=== PATIENT | female | born 1950 | race Caucasian/White ===

== ENCOUNTER 2017-11-19 14:48 | Inpatient (IN) | payer MEDICARE, OTHER ==
[2017-11-19] MEDS ORDERED: NITROGLYCERIN OINT 1 INCH/GM PACKET TOPICAL STA (15:23)
--- NOTE | 2017-11-19 15:27 | ED ---
General Adult HPI - General Chief complaint: Chest Pain Stated complaint: Arm numbness Time Seen by Provider: 11/19/17 14:50 Source: patient, RN notes reviewed Mode of arrival: wheelchair Limitations: no limitations - History of Present Illness Initial comments: This is a 67-year-old female presents to the emergency department complaining of heaviness in her chest since Tuesday when she was shoveling. Patient states she normally consolable whole driveway but she was unable to because she was so short of breath and had a heaviness in her chest. Patient denies any abdominal pain patient denies any nausea vomiting or diarrhea. Patient denies difficulty breathing. Patient denies any recent cough or fever. Patient denies headache patient denies any numbness or weakness. Patient denies lightheadedness dizziness or near syncopal episode. - Related Data Home Medications Medication Instructions Recorded Confirmed Aspirin [Adult Low Dose Aspirin EC] 81 mg PO DAILY 11/19/17 11/19/17 Clopidogrel Bisulfate [Plavix] 75 mg PO DAILY 11/19/17 11/19/17 Fluticasone Nasal [place] [Flonase 1 spray EA NOSTRIL DAILY PRN 11/19/17 11/19/17 Nasal [place]] Gabapentin [Neurontin] 800 mg PO TID 11/19/17 11/19/17 Omeprazole 40 mg PO DAILY 11/19/17 11/19/17 Simvastatin 40 mg PO HS 11/19/17 11/19/17 Unknown Inhaler 1 puff INHALATION RT-DAILY PRN 11/19/17 11/19/17 clonazePAM [KlonoPIN] 2 mg PO HS PRN 11/19/17 11/19/17 Allergies Allergy/AdvReac Type Severity Reaction Status Date / Time codeine Allergy Unknown Verified 11/19/17 15:40 Latex, Natural Rubber Allergy Itching Verified 11/19/17 15:40 morphine AdvReac Vomiting Verified 11/19/17 15:40 Review of Systems ROS Statement: Those systems with pertinent positive or pertinent negative responses have been documented in the HPI. ROS Other: All systems not noted in ROS Statement are negative. Past Medical History Past Medical History: COPD, GERD/Reflux, Hyperlipidemia History of Any Multi-Drug Resistant Organisms: None Reported Past Surgical History: Bariatric Surgery, Cholecystectomy, Hysterectomy Additional Past Surgical History / Comment(s): cataract Past Psychological History: No Psychological Hx Reported Smoking Status: Current every day smoker Past Alcohol Use History: None Reported Past Drug Use History: None Reported General Exam - General Exam Comments Initial Comments: GENERAL: Patient is well-developed and well-nourished. Patient is nontoxic and well- hydrated and is in mild distress. ENT: Neck is soft and supple. No significant lymphadenopathy is noted. Oropharynx is clear. Moist mucous membranes. Neck has full range of motion without eliciting any pain. EYES: The sclera were anicteric and conjunctiva were pink and moist. Extraocular movements were intact and pupils were equal round and reactive to light. Eyelids were unremarkable. PULMONARY: Unlabored respirations. Good breath sounds bilaterally. No audible rales rhonchi or wheezing was noted. CARDIOVASCULAR: Patient is bradycardic. ABDOMEN: Soft and nontender with normal bowel sounds. No palpable organomegaly was noted. There is no palpable pulsatile mass. SKIN: Skin is clear with no lesions or rashes and otherwise unremarkable. NEUROLOGIC: Patient is alert and oriented x3. Cranial nerves II through XII are grossly intact. Motor and sensory are also intact. Normal speech, volume and content. Symmetrical smile. MUSCULOSKELETAL: Normal extremities with adequate strength and full range of motion. No lower extremity swelling or edema. No calf tenderness. LYMPHATICS: No significant lymphadenopathy is noted PSYCHIATRIC: Normal psychiatric evaluation. Limitations: no limitations Course Vital Signs 11/19/17 11/19/17 14:52 15:25 Temperature 97.2 F L Pulse Rate 43 L Pulse Rate [ 45 L [employer]er ] Respiratory 18 Rate Blood Pressure 122/57 O2 Sat by Pulse 100 Oximetry Medical Decision Making - Medical Decision Making EKG shows sinus bradycardia at 39 bpm LA interval 150 QRS is 76 QT intervals 496 QTC is 399. Patient's EKG shows no ST segment elevation or depression or T wave abnormalities are noted. Troponin is elevated so started the patient on heparin patient's heart rate continues to be in the 40s. I spoke with Dr. Bennett he agreed to admit the patient admitted the patient. I spoke with Dr. Martinez and admitted the patient. - Lab Data Result diagrams: 11/19/17 15:25 11/19/17 15:25 Lab Results 11/19/17 11/19/17 11/19/17 Range/Units 15:25 15:25 15:25 WBC 6.6 (3.8-10.6) k/uL RBC 5.06 (3.80-5.40) m/uL Hgb 14.8 (11.4-16.0) gm/dL Hct 46.5 H (34.0-46.0) % MCV 92.0 (80.0-100.0) fL MCH 29.2 (25.0-35.0) pg MCHC 31.8 (31.0-37.0) g/dL RDW 15.2 (11.5-15.5) % Plt Count 145 L (150-450) k/uL Neutrophils % 67 % Lymphocytes % 25 % Monocytes % 4 % Eosinophils % 2 % Basophils % 1 % Neutrophils # 4.4 (1.3-7.7) k/uL Lymphocytes # 1.6 (1.0-4.8) k/uL Monocytes # 0.3 (0-1.0) k/uL Eosinophils # 0.1 (0-0.7) k/uL Basophils # 0.1 (0-0.2) k/uL PT (9.0-12.0) sec INR (<1.2) APTT (22.0-30.0) sec Sodium 144 (137-145) mmol/L Potassium 4.8 (3.5-5.1) mmol/L Chloride 110 H (98-107) mmol/L Carbon Dioxide 25 (22-30) mmol/L Anion Gap 9 mmol/L BUN 19 H (7-17) mg/dL Creatinine 0.60 (0.52-1.04) mg/dL Est GFR (MDRD) Af Amer >60 (>60 ml/min/1.73 sqM) Est GFR (MDRD) Non-Af >60 (>60 ml/min/1.73 sqM) Glucose 116 H (74-99) mg/dL Calcium 9.2 (8.4-10.2) mg/dL Magnesium 2.1 (1.6-2.3) mg/dL Total Bilirubin 0.6 (0.2-1.3) mg/dL AST 25 (14-36) U/L ALT 26 (9-52) U/L Alkaline Phosphatase 48 (38-126) U/L Total Creatine Kinase 94 (30-135) U/L CK-MB (CK-2) 5.6 H* (0.0-2.4) ng/mL CK-MB (CK-2) Rel Index 6.0 Troponin I 0.667 H* (0.000-0.034) ng/mL NT-Pro-B Natriuret Pep pg/mL Total Protein 6.2 L (6.3-8.2) g/dL Albumin 3.6 (3.5-5.0) g/dL 11/19/17 11/19/17 Range/Units 15:25 15:25 WBC (3.8-10.6) k/uL RBC (3.80-5.40) m/uL Hgb (11.4-16.0) gm/dL Hct (34.0-46.0) % MCV (80.0-100.0) fL MCH (25.0-35.0) pg MCHC (31.0-37.0) g/dL RDW (11.5-15.5) % Plt Count (150-450) k/uL Neutrophils % % Lymphocytes % % Monocytes % % Eosinophils % % Basophils % % Neutrophils # (1.3-7.7) k/uL Lymphocytes # (1.0-4.8) k/uL Monocytes # (0-1.0) k/uL Eosinophils # (0-0.7) k/uL Basophils # (0-0.2) k/uL PT 9.6 (9.0-12.0) sec INR 1.0 (<1.2) APTT 22.5 (22.0-30.0) sec Sodium (137-145) mmol/L Potassium (3.5-5.1) mmol/L Chloride (98-107) mmol/L Carbon Dioxide (22-30) mmol/L Anion Gap mmol/L BUN (7-17) mg/dL Creatinine (0.52-1.04) mg/dL Est GFR (MDRD) Af Amer (>60 ml/min/1.73 sqM) Est GFR (MDRD) Non-Af (>60 ml/min/1.73 sqM) Glucose (74-99) mg/dL Calcium (8.4-10.2) mg/dL Magnesium (1.6-2.3) mg/dL Total Bilirubin (0.2-1.3) mg/dL AST (14-36) U/L ALT (9-52) U/L Alkaline Phosphatase (38-126) U/L Total Creatine Kinase (30-135) U/L CK-MB (CK-2) (0.0-2.4) ng/mL CK-MB (CK-2) Rel Index Troponin I (0.000-0.034) ng/mL NT-Pro-B Natriuret Pep 762 pg/mL Total Protein (6.3-8.2) g/dL Albumin (3.5-5.0) g/dL Disposition Clinical Impression: Non-STEMI (non-ST elevated myocardial infarction), Bradycardia Disposition: ADMITTED IP TO THIS HOSP Referrals: Chelsie Morales DO [Primary Care Provider] - 1-2 days Time of Disposition: 16:35
[2017-11-19] MEDS: ASPIRIN 81 MG PO STA ×2 (15:29→15:31)
[2017-11-19 15:33] LABS: Basophils # (A) 0.1 k/uL (0-0.2); Basophils % (A) 1 %; Eosinophils # (A) 0.1 k/uL (0-0.7); Eosinophils % (A) 2 %; HCT 46.5 % (34.0-46.0); HGB 14.8 gm/dL (11.4-16.0); Lymphocytes # (A) 1.6 k/uL (1.0-4.8); Lymphocytes % (A) 25 %; MCH 29.2 pg (25.0-35.0); MCHC 31.8 g/dL (31.0-37.0); Mean Platelet Volume 8.8; Monocytes # (A) 0.3 k/uL (0-1.0); Monocytes % (A) 4 %; Neutrophils # (A) 4.4 k/uL (1.3-7.7); Neutrophils % (A) 67 %; Platelet Count 145 k/uL (150-450); RBC 5.06 m/uL (3.80-5.40); RDW 15.2 % (11.5-15.5); WBC 6.6 k/uL (3.8-10.6)
[2017-11-19 15:49] LABS: Partial Thromboplastin Time 22.5 sec (22.0-30.0); Prothrombin Time 9.6 sec (9.0-12.0)
--- NOTE | 2017-11-19 16:06 | XR ---
EXAMINATION TYPE: XR chest 2V DATE OF EXAM: 11/19/2017 COMPARISON: NONE HISTORY: Chest pain. TECHNIQUE: Frontal and lateral views of the chest are obtained. FINDINGS: There is no focal air space opacity, pleural effusion, or pneumothorax seen. The cardiac silhouette size is mildly enlarged within normal limits. The osseous structures are intact. IMPRESSION: Mild cardiomegaly without acute pulmonary process.
[2017-11-19 16:09] LABS: Anion Gap 9 mmol/L; Calcium 9.2 mg/dL (8.4-10.2); Carbon Dioxide 25 mmol/L (22-30); Chloride 110 mmol/L (98-107); Glucose 116 mg/dL (74-99); Sodium 144 mmol/L (137-145); Total Bilirubin 0.6 mg/dL (0.2-1.3)
[2017-11-19 16:13] LABS: ALT 26 U/L (9-52); AST 25 U/L (14-36); Albumin 3.6 g/dL (3.5-5.0); Alkaline Phosphatase 48 U/L (38-126); Blood Urea Nitrogen 19 mg/dL (7-17); Magnesium 2.1 mg/dL (1.6-2.3); Potassium 4.8 mmol/L (3.5-5.1); Total Protein 6.2 g/dL (6.3-8.2)
[2017-11-19 16:14] LABS: Creatine Kinase MB 5.6 ng/mL (0.0-2.4); Troponin I 0.667 ng/mL (0.000-0.034)
[2017-11-19] MEDS ORDERED: HEPARIN SODIUM,PORCINE 5,000 UNIT/ML 1 ML VIAL IV ONE (16:33)
[2017-11-19] MEDS: HEPARIN SOD,PORK IN 0.45% NACL 25,000 UNIT in 0.45% NACL 1 500ML.BAG IV SCH (17:10)
[2017-11-19] MEDS ORDERED: NITROGLYCERIN SL TABS 0.4 MG TAB SUBLINGUAL PRN (17:23)
[2017-11-19 17:34] LABS: T4, Free (Free Thyroxine) 1.31 ng/dL (0.78-2.19)
[2017-11-19] MEDS ORDERED: ATORVASTATIN 80 MG TAB PO STA (17:36)
--- NOTE | 2017-11-19 17:47 | P.CRDCN ---
History of Present Illness Consult reason: chest pain, shortness of breath Chief complaint: bradycardia History of present illness: 67-year-old female who presents to the hospital with increasing shortness of breath and heaviness/pressure in the chest. She's been experiencing these symptoms for the last several days at least 3-4 days. She was shoveling snow when she started having midsternal chest discomfort and this went away. It came back again a day later when she was moving furniture. She's had almost constant discomfort. She is very short of breath with exertion. When she arrived to the 12-lead ECG showed sinus bradycardia in the low 40s no ST segment abnormalities sinus mechanism her first troponin is mildly abnormal Past history of peripheral vascular disease status post peripheral intervention by Dr. Mireles. She lived in [place] and will go to [facility] but now has moved [place] would like to get her care in the [place] area. History of dyslipidemia. No diabetes, GERD COPD dyslipidemia Strong family history of premature coronary artery disease. All her brothers had coronary artery disease and heart failure Past surgical history of bariatric surgery cholecystectomy hysterectomy cataract surgery Daily smoking currently. Minimal alcohol use Occasional list was reviewed. This time she does not take any pills Labs are reviewed white count is 6.6, hemoglobin is normal, BUN 19 creatinine 0.6 Troponin is 0.66, CPK 94 electrolytes normal liver functions normal On examination she is sitting comfortably in bed she has this vague dull ache in the chest which is been constant for the last 2 days. Heart rate in the 40s , blood pressure 119/61 mmHg normal respirations afebrile no current bruits no JVD Heart sounds S1 and S2 are soft no murmurs or gallops Breath sounds are reduced bilaterally no rhonchi no crackles Abdomen soft nontender extremities no lower extremity edema Impression Patient presenting with heaviness in his chest with exertion consistent with angina with a very mild increase in troponins without any ST-T abnormalities on EKG Sinus bradycardia in the 40s Shortness of breath with exertion Peripheral vascular disease status post peripheral intervention bilaterally about a year and a half back at [facility] Dyslipidemia Likely non-Q-wave myocardial infarction, symptomatic sinus bradycardia not on any medications Plan IV heparin and IV nitroglycerin atorvastatin 80 mg daily aspirin Monitor on telemetry 3 serial cardiac enzymes 2-D echo and Doppler study to assess cardiac structure and function Management of coronary artery disease thereafter May need permanent pacemaker given his symptomatic bradycardia Discussed with the patient. She would like to get her future cardiac care in the [place] area she has moved into this area. I will see her in follow-up in Past Medical History Past Medical History: COPD, GERD/Reflux, Hyperlipidemia History of Any Multi-Drug Resistant Organisms: None Reported Past Surgical History: Bariatric Surgery, Cholecystectomy, Hysterectomy Additional Past Surgical History / Comment(s): cataract Past Psychological History: No Psychological Hx Reported Smoking Status: Current every day smoker Past Alcohol Use History: None Reported Past Drug Use History: None Reported Medications and Allergies Home Medications Medication Instructions Recorded Confirmed Type Aspirin [Adult Low Dose Aspirin EC] 81 mg PO DAILY 11/19/17 11/19/17 History Clopidogrel Bisulfate [Plavix] 75 mg PO DAILY 11/19/17 11/19/17 History Fluticasone Nasal [place] [Flonase 1 spray EA NOSTRIL DAILY PRN 11/19/17 11/19/17 History Nasal [place]] Gabapentin [Neurontin] 800 mg PO TID 11/19/17 11/19/17 History Omeprazole 40 mg PO DAILY 11/19/17 11/19/17 History Simvastatin 40 mg PO HS 11/19/17 11/19/17 History Unknown Inhaler 1 puff INHALATION RT-DAILY PRN 11/19/17 11/19/17 History clonazePAM [KlonoPIN] 2 mg PO HS PRN 11/19/17 11/19/17 History Allergies Allergy/AdvReac Type Severity Reaction Status Date / Time codeine Allergy Unknown Verified 11/19/17 15:40 Latex, Natural Rubber Allergy Itching Verified 11/19/17 15:40 morphine AdvReac Vomiting Verified 11/19/17 15:40 Physical Exam Vitals: Vital Signs Temp Pulse Pulse Resp BP Pulse Ox 11/19/17 16:33 40 L 119/61 99 11/19/17 16:03 46 L 106/62 99 11/19/17 15:33 44 L 127/60 100 11/19/17 15:25 45 L 11/19/17 14:52 97.2 F L 43 L 18 122/57 100 Intake and Output 11/19/17 11/19/17 11/19/17 06:59 14:59 22:59 Other: Weight 74.389 kg Patient Weight 11/20/17 06:59 Weight 74.389 kg Results 11/19/17 15:25 11/19/17 15:25 Cardiac Enzymes 11/19/17 11/19/17 Range/Units 15:25 15:25 AST 25 (14-36) U/L CK-MB (CK-2) 5.6 H* (0.0-2.4) ng/mL Troponin I 0.667 H* (0.000-0.034) ng/mL Coagulation 11/19/17 Range/Units 15:25 PT 9.6 (9.0-12.0) sec APTT 22.5 (22.0-30.0) sec CBC 11/19/17 Range/Units 15:25 WBC 6.6 (3.8-10.6) k/uL RBC 5.06 (3.80-5.40) m/uL Hgb 14.8 (11.4-16.0) gm/dL Hct 46.5 H (34.0-46.0) % Plt Count 145 L (150-450) k/uL Comprehensive Metabolic Panel 11/19/17 Range/Units 15:25 Sodium 144 (137-145) mmol/L Potassium 4.8 (3.5-5.1) mmol/L Chloride 110 H (98-107) mmol/L Carbon Dioxide 25 (22-30) mmol/L BUN 19 H (7-17) mg/dL Creatinine 0.60 (0.52-1.04) mg/dL Glucose 116 H (74-99) mg/dL Calcium 9.2 (8.4-10.2) mg/dL AST 25 (14-36) U/L ALT 26 (9-52) U/L Alkaline Phosphatase 48 (38-126) U/L Total Protein 6.2 L (6.3-8.2) g/dL Albumin 3.6 (3.5-5.0) g/dL Current Medications Generic Name Dose Route Start Last Admin Trade Name Freq PRN Reason Stop Dose Admin Aspirin 325 mg 11/20/17 09:00 Aspirin PO DAILY [facility] Atorvastatin Calcium 80 mg 11/20/17 09:00 Lipitor PO DAILY [facility] Heparin Sodium/Sodium Chloride 500 mls @ 17.85 mls/hr 11/19/17 16:45 17:10 25,000 unit/ Sodium Chloride IV 12 units/kg/hr .Q24H [facility] 17.85 mls/hr Protocol Administration 12 UNITS/KG/HR Nitroglycerin 1 inch 11/19/17 18:00 Nitro-Bid Oint TOPICAL Q6HR [facility] Nitroglycerin 0.4 mg 11/19/17 17:23 Nitrostat SUBLINGUAL Q5M PRN Chest Pain Intake and Output 11/19/17 11/19/17 11/19/17 06:59 14:59 22:59 Other: Weight 74.389 kg Patient Weight 11/20/17 06:59 Weight 74.389 kg 11/19/17 15:25 11/19/17 15:25
[2017-11-19] MEDS: MORPHINE SULFATE 5 MG/ML SYRINGE IVP PRN (18:29)
[2017-11-19] MEDS: ONDANSETRON 4 MG/2 ML VIAL IVP PRN (18:31)
[2017-11-19] MEDS ORDERED: FLUTICASONE 50MCG/SPRAY NASAL 16GM EA NOSTRIL PRN (20:11)
[2017-11-19] MEDS: GABAPENTIN 400 MG CAP PO SCH (21:18)
[2017-11-19 22:19] LABS: Creatine Kinase MB 11.1 ng/mL (0.0-2.4); Troponin I 2.05 ng/mL (0.000-0.034)
[2017-11-19] MEDS: NITROGLYCERIN OINT 1 INCH/GM PACKET TOPICAL SCH (23:24)
[2017-11-19] MEDS: clonazePAM 1 MG TAB PO PRN (23:24)
[2017-11-20] MEDS: HEPARIN SODIUM,PORCINE 5,000 UNIT/ML 1 ML VIAL IV PRN ×2 (00:15→06:31)
[2017-11-20] MEDS: MORPHINE SULFATE 5 MG/ML SYRINGE IVP PRN (00:15)
[2017-11-20] MEDS: ONDANSETRON 4 MG/2 ML VIAL IVP PRN (00:24)
[2017-11-20 04:49] LABS: Creatine Kinase MB 12.7 ng/mL (0.0-2.4); Troponin I 3.21 ng/mL (0.000-0.034)
[2017-11-20 05:00] LABS: Cholesterol 168 mg/dL (<200); HDL Cholesterol 39 mg/dL (40-60); LDL Cholesterol,Calculated 99 mg/dL (0-99); Triglycerides 149 mg/dL (<150)
[2017-11-20] MEDS: NITROGLYCERIN OINT 1 INCH/GM PACKET TOPICAL SCH ×2 (05:36→11:12)
[2017-11-20] MEDS: PANTOPRAZOLE 40 MG TABLET PO SCH (06:30)
[2017-11-20] MEDS: ATORVASTATIN 80 MG TAB PO SCH (07:51)
[2017-11-20] MEDS: GABAPENTIN 400 MG CAP PO SCH ×3 (07:51→22:16)
[2017-11-20] MEDS: CLOPIDOGREL 75 MG TAB PO SCH (07:51)
[2017-11-20] MEDS ORDERED: ASPIRIN 325 MG TAB PO SCH (09:00)
[2017-11-20] MEDS ORDERED: ATORVASTATIN 80 MG TAB PO STA (10:16)
[2017-11-20] MEDS ORDERED: ASPIRIN 325 MG TAB PO STA (10:16)
[2017-11-20] MEDS ORDERED: ALPRAZolam 0.5 MG TAB PO PRN (10:16)
[2017-11-20] MEDS ORDERED: ALPRAZolam 0.25 MG TAB PO PRN (10:16)
[2017-11-20] MEDS ORDERED: SODIUM CHLORIDE 0.9% 1,000 ML in EMPTY BAG 1 BAG IV ONE (10:16)
[2017-11-20] MEDS ORDERED: NITROGLYCERIN SL TABS 0.4 MG TAB SUBLINGUAL PRN ×2 (10:16→14:16)
--- NOTE | 2017-11-20 10:54 | PN ---
PROGRESS NOTE Ms. Burleson is a 67-year-old female with a history of hyperlipidemia, who presented to the emergency room yesterday with symptoms of chest discomfort as well as bradycardia. She has been having discomfort on and off for the last few days. She was noted to have sinus bradycardia in the emergency room. She is feeling better today. She has no further symptoms of chest pain. She denies any dizziness or palpitation. She continues to have sinus bradycardia, but no significant pauses. She continues to be at this time on aspirin once a day, IV heparin, Lipitor 80 mg daily, Plavix 75 mg daily, and nitro paste. PHYSICAL EXAMINATION: Blood pressure 109/60 with a heart in 50s. LUNGS: Clear. HEART: S1, S2. No S3. No rub. ABDOMEN: Soft, nontender. EXTREMITIES: No edema. LAB DATA: Lab data revealed troponin 0.66, 2.0, 3.2. Cholesterol 168, LDL of 99, hemoglobin of 14.8. IMPRESSION: 1. Non ST-segment elevation myocardial infarction. 2. Sinus bradycardia. 3. Hyperlipidemia. RECOMMENDATION: I recommend proceeding with coronary angiography to assess his status and guide treatment. The rationale behind the procedures as well as risks and complication were discussed with the patient who was in full understanding and agreement. Depending on results of testing, further recommendation will be made. MMODL / IJN: [id number] /
[2017-11-20] MEDS ORDERED: LIDOCAINE 2% INJ 20 MG/ML (20 ML MDV) ONE (12:40)
[2017-11-20] MEDS ORDERED: VERAPAMIL 2.5 MG/ML 2 ML AMP ONE (12:40)
[2017-11-20] MEDS ORDERED: fentaNYL (PF) 50 MCG/ML 2 ML AMP ONE (12:45)
[2017-11-20] MEDS ORDERED: HEPARIN SODIUM 1,000 UN/ML (10ML VL) ONE (12:46)
[2017-11-20] MEDS ORDERED: SODIUM CHLORIDE 0.9% 1,000 ML IV ONE (12:47)
[2017-11-20] MEDS ORDERED: fentaNYL (PF) 50 MCG/ML 2 ML AMP IVP ONE (13:06)
[2017-11-20] MEDS ORDERED: LIDOCAINE 2% INJ 20 MG/ML SQ ONE (13:09)
[2017-11-20] MEDS ORDERED: VERAPAMIL SYRINGE (5 MG/10 ML) INTRAARTER ONE (13:11)
[2017-11-20] MEDS ORDERED: BIVALIRUDIN BOLUS 250 MG/50 ML IV ONE (13:23)
[2017-11-20] MEDS ORDERED: BIVALIRUDIN 250 MG in SODIUM CHLORIDE 0.9% 50 ML IV ONE (13:24)
[2017-11-20] MEDS ORDERED: PRASUGREL 10 MG TAB ONE (13:24)
--- NOTE | 2017-11-20 13:43 | P.HPIM ---
History of Present Illness H&P Date: 11/20/17 Chief Complaint: chest pain this is a 67-year-old female with past medical history noted below who presented to the emergency room with chest heaviness and pressure. She said that the pain was in the middle of her chest radiating to her neck. He was mostly in the left chest. This started 3 days ago and he was intermittent. Started when she was shoveling snow. Pain was associated with shortness of breath. No diaphoresis or dizziness. She presented to the emergency room and 12. EKG showed no acute ischemic changes. Patient was bradycardic in the 40s initially. Her troponin was elevated and peaked at 3.2. She is currently admitted to the telemetry floor. She was seen and evaluated by cardiology and plan for left heart catheterization today. Review of Systems Review of system: 14 points review of systems were obtained and were negative except to what were mentioned in the HPI. Past Medical History Past Medical History: COPD, GERD/Reflux, Hyperlipidemia, Vascular Disorder History of Any Multi-Drug Resistant Organisms: None Reported Past Surgical History: Bariatric Surgery, Cholecystectomy, Hysterectomy Additional Past Surgical History / Comment(s): cataract, right rotator cuff surgery, left knee replacement Past Anesthesia/Blood Transfusion Reactions: No Reported Reaction Past Psychological History: No Psychological Hx Reported Smoking Status: Current every day smoker Past Alcohol Use History: None Reported Past Drug Use History: None Reported Medications and Allergies Home Medications Medication Instructions Recorded Confirmed Type Aspirin [Adult Low Dose Aspirin EC] 81 mg PO DAILY 11/19/17 11/19/17 History Clopidogrel Bisulfate [Plavix] 75 mg PO DAILY 11/19/17 11/19/17 History Fluticasone Nasal [place] [Flonase 1 spray EA NOSTRIL DAILY PRN 11/19/17 11/19/17 History Nasal [place]] Gabapentin [Neurontin] 800 mg PO TID 11/19/17 11/19/17 History Mirabegron [Myrbetriq] 25 mg PO DAILY 11/19/17 11/19/17 History Omeprazole 40 mg PO DAILY 11/19/17 11/19/17 History Simvastatin 40 mg PO HS 11/19/17 11/19/17 History Unknown Inhaler 1 puff INHALATION RT-DAILY PRN 11/19/17 11/19/17 History clonazePAM [KlonoPIN] 2 mg PO HS PRN 11/19/17 11/19/17 History Allergies Allergy/AdvReac Type Severity Reaction Status Date / Time codeine Allergy Unknown Verified 11/19/17 15:40 Latex, Natural Rubber Allergy Itching Verified 11/19/17 15:40 morphine AdvReac Vomiting Verified 11/19/17 15:40 Physical Exam Vitals: Vital Signs Temp Pulse Pulse Resp BP BP Pulse Ox 11/20/17 11:22 54 L 16 111/60 98 11/20/17 07:54 51 L 16 11/20/17 07:48 98.1 F 51 L 16 109/62 97 11/20/17 04:00 96.5 F L 44 L 14 114/56 100 11/20/17 00:00 97.3 F L 44 L 18 113/51 99 11/19/17 20:00 97.4 F L 42 L 18 108/52 99 11/19/17 18:20 97.5 F L 48 L 18 114/57 98 11/19/17 18:03 38 L 127/62 98 11/19/17 17:33 44 L 132/90 11/19/17 16:33 40 L 119/61 99 11/19/17 16:03 46 L 106/62 99 11/19/17 15:33 44 L 127/60 100 11/19/17 15:25 45 L 11/19/17 14:52 97.2 F L 43 L 18 122/57 100 Intake and Output 11/19/17 11/20/17 11/20/17 22:59 06:59 14:59 Intake Total 480 266.099 Output Total 150 Balance 480 116.099 Intake: Intake, IV Titration 266.099 Amount Heparin Sod,Pork in 0.45% 266.099 NaCl 25,000 unit In 0.45 % NaCl 1 500ml.bag @ 12 UNITS/KG/HR 17.85 mls/hr IV .Q24H [facility] Rx#: [id number] Oral 480 Output: Urine 150 Other: Voiding Method Bedside Commode Bedside Commode Bedside Commode # Voids 1 1 0 Weight 74.389 kg 75.9 kg General: The patient is awake and alert, in no distress Eye: there is normal conjunctiva bilaterally. Neck: The neck is supple, there is no JVD. Cardiovascular: Normal S1-S2, no S3-S4, no murmurs. Respiratory: Lungs clear to auscultation bilaterally Gastrointestinal: Abdomen is soft, nontender Musculoskeletal: There is no pedal edema. Neurological:. Speech is normal. Skin: Skin is warm and dry Results CBC & Chem 7: 11/19/17 15:25 11/19/17 15:25 Labs: Abnormal Lab Results - Last 24 Hours (Table) 11/19/17 11/19/17 11/19/17 Range/Units 15:25 15:25 15:25 Hct 46.5 H (34.0-46.0) % Plt Count 145 L (150-450) k/uL APTT (22.0-30.0) sec Chloride 110 H (98-107) mmol/L BUN 19 H (7-17) mg/dL Glucose 116 H (74-99) mg/dL Total Creatine Kinase (30-135) U/L CK-MB (CK-2) 5.6 H* (0.0-2.4) ng/mL Troponin I 0.667 H* (0.000-0.034) ng/mL Total Protein 6.2 L (6.3-8.2) g/dL HDL Cholesterol (40-60) mg/dL 11/19/17 11/19/17 11/20/17 Range/Units 21:20 23:12 03:51 Hct (34.0-46.0) % Plt Count (150-450) k/uL APTT 38.0 H (22.0-30.0) sec Chloride (98-107) mmol/L BUN (7-17) mg/dL Glucose (74-99) mg/dL Total Creatine Kinase 144 H 153 H (30-135) U/L CK-MB (CK-2) 11.1 H* 12.7 H* (0.0-2.4) ng/mL Troponin I 2.050 H* 3.210 H* (0.000-0.034) ng/mL Total Protein (6.3-8.2) g/dL HDL Cholesterol (40-60) mg/dL 11/20/17 11/20/17 Range/Units 03:51 05:41 Hct (34.0-46.0) % Plt Count (150-450) k/uL APTT 35.5 H (22.0-30.0) sec Chloride (98-107) mmol/L BUN (7-17) mg/dL Glucose (74-99) mg/dL Total Creatine Kinase (30-135) U/L CK-MB (CK-2) (0.0-2.4) ng/mL Troponin I (0.000-0.034) ng/mL Total Protein (6.3-8.2) g/dL HDL Cholesterol 39 L (40-60) mg/dL Thrombosis Risk Factor Assmnt - Choose All That Apply Any of the Below Risk Factors Present?: Yes Each Factor Represents 1 point: Abnormal pulmonary function (COPD) Other Risk Factors: Yes Each Risk Factor Represents 2 Points: Age 61-74 years Other congenital or acquired thrombophilia - If yes, enter type in comment: No Thrombosis Risk Factor Assessment Total Risk Factor Score: 3 Thrombosis Risk Factor Assessment Level: Moderate Risk Assessment and Plan Assessment: 1. Acute non-ST elevation NC, started on optimal medical management. IV heparin. Seen and evaluated by cardiology. Plan for left heart catheterization today. 2. Peripheral vascular occlusive disease, with prior intervention. Patient is not sure whether she has stent in her legs. She is on dual antiplatelet therapy. 3. Mixed hyperlipidemia, statin switch to Lipitor 80 daily during this admission. We'll check fasting lipid profile. 4. Essential hypertension: Blood pressure well-controlled 5. Bradycardia on presentation: Seen and evaluated by cardiology. patient is not on a beta tono at home. Thyroid function test checked and normal. Cardiology may consider pacemaker implantation? Today, I reviewed her medication list and lab work results. Continue current regimen. Awaiting left heart catheterization.
[2017-11-20] MEDS ORDERED: HYDROmorphone 2 MG/ML 1 ML SYRINGE ONE (13:48)
[2017-11-20] MEDS ORDERED: HYDROmorphone 2 MG/ML 1 ML SYRINGE IVP ONE (13:50)
[2017-11-20] MEDS ORDERED: NITROGLYCERIN 1000MCG/10ML SYRINGE INTRACORON ONE (13:51)
[2017-11-20] MEDS ORDERED: IOHEXOL 350 MG/ML 125ML BOTTLE INJ ONE (14:02)
[2017-11-20] MEDS ORDERED: ZOLPIDEM 5 MG TAB PO PRN (14:16)
[2017-11-20] MEDS ORDERED: ATROPINE SULFATE 0.1 MG/ML 10ML SYRINGE IV PRN (14:16)
[2017-11-20] MEDS ORDERED: MAG HYDROX/AL HYDROX/SIMETH 30 ML CUP PO PRN (14:16)
[2017-11-20] MEDS ORDERED: RX INFO: IV CONTRAST WAS GIVEN 1 EACH MISC MISCELLANE PRN (14:16)
[2017-11-20] MEDS ORDERED: SODIUM CHLORIDE 0.9% 1,000 ML IV SCH (14:30)
--- NOTE | 2017-11-20 14:39 | PTCA ---
PERCUTANEOUSTRANS CORORONARY ANGIOGRAPHY Ms. Burleson is a 67-year-old female with a history of chronic tobacco use, peripheral vessel disease, who presented with non ST-segment elevation myocardial infarction, underwent cardiac catheterization, and was found to have acutely occluded distal right coronary artery with diffuse disease in the mid right coronary artery. In view of that, recommendation made regarding angioplasty and stenting. The procedure as well as risks and complication were discussed with the patient who is in full understanding and agreement. PROCEDURE: A 6-Salvadorean FR4 guiding catheter was introduced into the system. After cannulating the right coronary ostium, a 0.014 advanced medium weight J-wire was advanced across the lesion and positioned distally. Then a 2.5 x 8 mm Trek balloon was advanced and multiple inflations at maximum of 10 atmospheres were done. Following that, the balloon was removed and a 2.5 x 50 mm Xience Alpine stent was deployed distally. It was dilated at 14 atmospheres. Following that, the balloon was removed and a 2.5 x 38 mm Xience Alpine stent was deployed proximal to the first stent and was dilated at 14 atmospheres. Following that, the balloon was removed and another 2.5 x 38 mm Xience Alpine stent was deployed proximal to the last 1 and was dilated at 14 atmospheres. Following that, a 2.75 x 15 mm NC Trek balloon was advanced and multiple inflation at maximum 14 atmospheres were done. After the last inflation, after appropriate wait, the balloon and the guide wire withdrawn back in the guiding catheter. Images were obtained repeated. Those images reveal stable successful stenting. At that point, the guiding catheter, the balloon and the guidewire were removed. The sheath was removed. Hemostasis was obtained with deployment of a TR band. There was no immediate complication. Patient is returned to his room in stable condition. Of note, patient had EKG changes and chest discomfort that improved at the end of the procedure. She received Angiomax per protocol. RESULTS: Successful stenting of a long segment of the mid right coronary artery and distal right coronary artery with reduction of stenosis from 100% to 0% distally and less than 5% in the mid proximal segment. RECOMMENDATIONS: Patient will be continued on aspirin, Plavix, DEMARCUS inhibitor, and statin. Close followup of her heart rate will be done and depending on her progress, further recommendation will be made. Those findings and recommendation were discussed with the patient and her family and they are in full understanding and agreement. Duration of the procedure: 58 minutes. JUAN / TRAMAINEN: [id number] /
--- NOTE | 2017-11-20 14:45 | CC ---
CARDIAC CATHETERIZATION REPORT Mrs. Burleson a 67-year-old female, known history of peripheral vascular disease, history of hypertension, history of chronic tobacco use, who presented with evidence of non ST-segment elevation myocardial infarction and bradycardia. In view of that, recommendation made regarding cardiac catheterization. The procedure, risks and complication were discussed with the patient who is in full understanding and agreement. PROCEDURE: Patient was brought to physical laboratory assistant in fasting semisedated state after receiving fentanyl and Benadryl and achieving moderate conscious sedated state. Using Xylocaine anesthesia and Seldinger technique, a 6-Cypriot sheath was introduced in the right radial artery. Selective right and left angiography performed using 5-Cypriot 3-1/2 bend right Rosy catheter. Multiple views of the coronary arteries including hemiaxial view was obtained. Following that, a 5-Cypriot tight pigtail catheter was introduced into the left ventricle and a 30 degree BOSCH view of the left ventricle. Following that, catheter was removed. Images were reviewed. FINDINGS: 1. FLUOROSCOPY: There was calcification involving the left anterior descending artery as well as the right coronary artery. 2. LEFT MAIN: This is a large-sized vessel bifurcating left circumflex and left anterior descending artery. The left main coronary artery has no evidence of high- grade stenosis. 3. LEFT ANTERIOR DESCENDING ARTERY: This is a large-sized vessel reaching to the apex with a wraparound apex segment giving rise to a moderately sized diagonal branch in mid segment. The LAD is calcified in the proximal and mid segment, has diffuse intimal disease of 30-40% in the proximal and mid segment without any evidence of high-grade stenosis. 4. LEFT CIRCUMFLEX: This is a nondominant vessel giving rise to a large obtuse marginal branch. The left circumflex has mild intimal disease of 20% to 30% plaque proximally without any evidence of high-grade stenosis. 5. RIGHT CORONARY ARTERY: This is a dominant vessel, heavily calcified, has diffuse disease in the proximal and mid segment with area of stenosis up to 90% and distal is totally occluded with no significant antegrade flow. 6. COLLATERALS: There is collaterals from the left coronary system toward the right PDA and PLV. 7. LEFT VENTRICULOGRAM: Left ventriculogram is performed in 30 degree BOSCH view and revealed normal left ventricular size systolic function. Ejection fraction is 55%. There is no significant mitral regurgitation. 8. HEMODYNAMICS: There was no gradient across the aortic valve. The left ventricular end-diastolic pressure was 14-16 mmHg. CONCLUSION: 1. Calcified coronary arteries. 2. Acute occluded distal right coronary artery with diffuse significant disease in the proximal mid segment of the right coronary artery. 3. Mild to moderate disease in the LAD and the left circumflex. 4. Normal left ventricular size and systolic function. RECOMMENDATION: In view of the finding anatomy, recommend proceeding with angioplasty and stenting of the right coronary artery. The procedure, risks and complication were discussed with the patient, who was in full understanding and agreement. MMODL / IJN: [id number] /
[2017-11-20] MEDS: HEPARIN SOD,PORK IN 0.45% NACL 25,000 UNIT in 0.45% NACL 1 500ML.BAG IV SCH (16:58)
[2017-11-20] MEDS: clonazePAM 1 MG TAB PO PRN (22:19)
[2017-11-21] MEDS: PANTOPRAZOLE 40 MG TABLET PO SCH (06:14)
[2017-11-21 06:47] LABS: Anion Gap 6 mmol/L; Blood Urea Nitrogen 13 mg/dL (7-17); Calcium 8.6 mg/dL (8.4-10.2); Carbon Dioxide 25 mmol/L (22-30); Chloride 108 mmol/L (98-107); Glucose 98 mg/dL (74-99); Sodium 139 mmol/L (137-145)
[2017-11-21] MEDS: ATORVASTATIN 80 MG TAB PO SCH (08:51)
[2017-11-21] MEDS: CLOPIDOGREL 75 MG TAB PO SCH (08:51)
[2017-11-21] MEDS: GABAPENTIN 400 MG CAP PO SCH (08:51)
[2017-11-21] MEDS ORDERED: ASPIRIN 81 MG PO SCH (09:00)
[2017-11-21 10:28] VITALS: RESP 20
--- NOTE | 2017-11-21 10:28 | ECHOF ---
Referral Reason:dipak, AMI MEASUREMENTS -------- HEIGHT: 157.5 cm WEIGHT: 78.0 kg BP: 114/61 RVIDd: 2.6 cm (< 3.3) IVSd: 1.4 cm (0.6 - 1.1) LVIDd: 4.0 cm (3.9 - 5.3) LVPWd: 1.3 cm (0.6 - 1.1) IVSs: 1.7 cm LVIDs: 2.4 cm LVPWs: 1.7 cm LA Diam: 3.4 cm (2.7 - 3.8) LAESV Index (A-L): 34.46 ml/m Ao Diam: 3.3 cm (2.0 - 3.7) AV Cusp: 2.3 cm (1.5 - 2.6) MV EXCURSION: 13.991 mm (> 18.000) MV EF SLOPE: 49 mm/s (70 - 150) EPSS: 0.3 cm MV E Ion: 1.35 m/s MV DecT: 292 ms MV A Ion: 1.47 m/s MV E/A Ratio: 0.92 AV maxP.14 mmHg AV meanP.41 mmHg FINDINGS -------- Sinus rhythm. This was a technically good study. The left ventricular size is normal. There is moderate concentric left ventricular hypertrophy. O verall left ventricular systolic function is normal with, an EF between 65 - 70 %. The right ventricle is normal in size. LA is moderately dilated 34-39 ml/m2 The right atrium is normal in size. There is mild aortic valve sclerosis. Trace to mild aortic regurgitation. Peak/mean gradient acro ss the Aortic Valve is 22.14mmHg / 10.41mmHg. Mild mitral annular calcification present. There is trace mitral regurgitation. The tricuspid valve appears structurally normal. Trace/mild (physiologic) pulmonic regurgitation. The aortic root size is normal. The inferior vena cava is mildly dilated. The inferior vena cava is dilated with poor inspiratory c ollapse which is consistent with estimated right atrial pressure of 15 mmHg. There is no pericardial effusion. CONCLUSIONS -------- 1. Sinus rhythm. 2. This was a technically good study. 3. The left ventricular size is normal. 4. There is moderate concentric left ventricular hypertrophy. 5. Overall left ventricular systolic function is normal with, an EF between 65 - 70 %. 6. The right ventricle is normal in size. 7. LA is moderately dilated 34-39 ml/m2 8. The right atrium is normal in size. 9. There is mild aortic valve sclerosis. 10. Trace to mild aortic regurgitation. 11. Peak/mean gradient across the Aortic Valve is 22.14mmHg / 10.41mmHg. 12. Mild mitral annular calcification present. 13. There is trace mitral regurgitation. 14. The tricuspid valve appears structurally normal. 15. Trace/mild (physiologic) pulmonic regurgitation. 16. The aortic root size is normal. 17. The inferior vena cava is mildly dilated. 18. The inferior vena cava is dilated with poor inspiratory collapse which is consistent with estimat ed right atrial pressure of 15 mmHg. 19. There is no pericardial effusion. VICE PRESIDENT OF INSTRUCTION: Vanesa Villa RDCS
[2017-11-21 11:16] VITALS: BMI 31.6
[2017-11-21 11:51] VITALS: BP 139/54; PULSE 63; TEMP 99.1
--- NOTE | 2017-11-21 12:46 | PN ---
PROGRESS NOTE HISTORY: Ms. Burleson is a 67-year-old female who presented with non ST-segment elevation myocardial infarction and sinus bradycardia. Underwent cardiac catheterization yesterday and stenting of her right coronary artery in a long segment. She is doing well today. She has no chest pain. Her breathing has been stable. She has no dizziness or palpitations. Her sinus bradycardia resolved. She continues to be on aspirin once a day, Lipitor 80 mg daily, Plavix 75 mg daily. PHYSICAL EXAMINATION: Blood pressure 114/60 with a heart rate in the 60s. She had low-grade temperature earlier. LUNGS: Clear. HEART: Regular rhythm S1, S2. No S3. No rub. ABDOMEN: Soft, nontender. EXTREMITIES: No edema. DIAGNOSTIC DATA: Her BUN is 13 and creatinine 0.57. Her peak troponin is 3.2. EKG revealed no acute changes. IMPRESSION: 1. Status post non ST-segment elevation myocardial infarction, stenting of the right coronary artery. 2. Sinus bradycardia, resolved. 3. History of peripheral vascular disease. RECOMMENDATIONS: We will increase her level activity. Follow her temperature. If she is afebrile in the afternoon, she may be able to go home and follow up as an outpatient with Dr. Mirza. MMWOODROWL / TRAMAINEN: [id number] /
[2017-11-21 12:47] LABS: Appearance,Urine Clear (Clear); Bilirubin,Urine Negative (Negative); Blood,Urine Negative (Negative); Color,Urine Colorless; Glucose,Urine (UA) Negative (Negative); Ketones,Urine Negative (Negative); Leukocyte Esterase,Urine Negative (Negative); Nitrite,Urine Negative (Negative); PH, Urine 5.5 (5.0-8.0); Protein,Urine Negative (Negative); Specific Gravity,Urine 1.003 (1.001-1.035); Urobilinogen,Urine <2.0 mg/dL (<2.0)
--- NOTE | 2017-11-21 13:02 | XR ---
EXAMINATION TYPE: XR chest 2V DATE OF EXAM: 11/21/2017 COMPARISON: Prior chest x-ray 11/19/2017 HISTORY: Fever TECHNIQUE: Frontal and lateral views of the chest are obtained. FINDINGS: There is no focal air space opacity, pleural effusion, or pneumothorax seen. The cardiac silhouette size is stable, heart size appearance may be accentuated by rotation. There are overlying cardiac leads. Bones are stable. Prominent lung volumes reveal indicative of underlying COPD. Possib le coronary artery calcifications or stent suspected. The osseous structures are intact. IMPRESSION: No acute cardiopulmonary process.
[2017-11-21] MEDS ORDERED: PNEUMOCOCCAL VACC-PNEUMOVAX 23 25 MCG/0.5 ML VIAL IM ONE (14:59)
--- NOTE | 2017-11-21 15:10 | P.DS ---
Providers Date of admission: 11/19/17 17:23 Expected date of discharge: 11/21/17 Attending physician: Vanessa Bennett Consults: 11/19/17 17:23 Consult Physician Urgent Consulting Provider: Сергей Nayak Consult Reason/Comments: Bradycardia, non-STEMI Do you want consulting provider notified?: Yes 11/20/17 14:16 Consult Physician Routine Consulting Provider: Сергей Nayak Consult Reason/Comments: Post Interventional patient Do you want consulting provider notified?: Already Contacted Primary care physician: Chelsie [place] Hospital Course: Discharge diagnosis 1. Acute non-ST elevation RI: Status post heart catheterization with stents to the mid RCA and distal RCA. Continue aspirin and Plavix. Cardiology did change statin to Lipitor 80 mg daily 4. Essential hypertension: Blood pressure well-controlled 5. Bradycardia on presentation: Seen and evaluated by cardiology. Now resolved. patient is not on a beta tono at home. Thyroid function test checked and normal. Hospital course this is a 67-year-old female with past medical history noted below who presented to the emergency room with chest heaviness and pressure. She said that the pain was in the middle of her chest radiating to her neck. He was mostly in the left chest. This started 3 days ago and he was intermittent. Started when she was shoveling snow. Pain was associated with shortness of breath. No diaphoresis or dizziness. She presented to the emergency room and 12. EKG showed no acute ischemic changes. Patient was bradycardic in the 40s initially. Her troponin was elevated and peaked at 3.2. She is currently admitted to the telemetry floor. She was seen and evaluated by cardiology and plan for left heart catheterization today. Patient was seen evaluated by cardiology and she underwent heart catheterization with stenting to the right coronary artery. She's had no further episodes of chest pain. Bradycardia also resolved and no further medication changes were needed. The recommending that she continues on her aspirin and Plavix. Her statin was changed to Lipitor 80 mg daily. Patient has been chest pain-free. She did have a low-grade temp of 100.4 today a repeat chest x-ray and UA were completed and were negative. Patient has no signs or symptoms of infection. And she is medically stable for discharge. She 'll follow-up with cardiology in her PCP in the office. Please refer to chart for any further details. I performed an examination of the patient and discussed their management with the physician Control Electrician. I have reviewed the Physician Control Electrician's notes and agree with the documented findings and plan of care Patient Condition at Discharge: Stable Plan - Discharge Summary Discharge Rx Participant: No New Discharge Prescriptions: New Atorvastatin [Lipitor] 80 mg PO DAILY #30 tab Nitroglycerin Sl Tabs [Nitrostat] 0.4 mg SUBLINGUAL Q5M PRN #25 tab PRN Reason: Chest Pain Continue Omeprazole 40 mg PO DAILY Fluticasone Nasal [place] [Flonase Nasal [place]] 1 spray EA NOSTRIL DAILY PRN PRN Reason: Nasal Congestion Aspirin [Adult Low Dose Aspirin EC] 81 mg PO DAILY clonazePAM [KlonoPIN] 2 mg PO HS PRN PRN Reason: Anxiety Simvastatin 40 mg PO HS Gabapentin [Neurontin] 800 mg PO TID Clopidogrel Bisulfate [Plavix] 75 mg PO DAILY Mirabegron [Myrbetriq] 25 mg PO DAILY Fluticasone/Vilanterol [Breo Ellipta 100-25 Mcg Inhaler] 1 puff INHALATION RT -DAILY Discharge Medication List Aspirin [Adult Low Dose Aspirin EC] 81 mg PO DAILY 11/19/17 [History] Clopidogrel Bisulfate [Plavix] 75 mg PO DAILY 11/19/17 [History] Fluticasone Nasal [place] [Flonase Nasal [place]] 1 spray EA NOSTRIL DAILY PRN 11/19 [History] Gabapentin [Neurontin] 800 mg PO TID 11/19/17 [History] Mirabegron [Myrbetriq] 25 mg PO DAILY 11/19/17 [History] Omeprazole 40 mg PO DAILY 11/19/17 [History] Simvastatin 40 mg PO HS 11/19/17 [History] clonazePAM [KlonoPIN] 2 mg PO HS PRN 11/19/17 [History] Atorvastatin [Lipitor] 80 mg PO DAILY #30 tab 11/21/17 [Rx] Fluticasone/Vilanterol [Breo Ellipta 100-25 Mcg Inhaler] 1 puff INHALATION RT- DAILY 11/21/17 [History] Nitroglycerin Sl Tabs [Nitrostat] 0.4 mg SUBLINGUAL Q5M PRN #25 tab 11/21/17 [Rx ] Follow up Appointment(s)/Referral(s): Roni Mirza MD [STAFF PHYSICIAN] - 1 Week (Spoke to medical receptionist assistant Rosalba. Office will call with appointment time.) Chelsie Morales DO [Primary Care Provider] - 11/23/17 2:00 pm (Tuesday in [place] office) Patient Instructions/Handouts: *Surgery [facility] - After Heart Catheterization - Aged Or Disabled Carer Instructions, Left Heart Catheterization (DC) Activity/Diet/Wound Care/Special Instructions: Diet: cardiac Activity: as tolerated Discharge Disposition: HOME SELF-CARE
== END 2017-11-21 16:36 | disposition home or self-care (01) | DRG 247 ==
LOC: EC 14:48 → 6SEL 17:23
PROVIDERS: ADMIT Internal Medicine; ATTEND Internal Medicine
PROC: B2111ZZ Fluoroscopy of Multiple Coronary Arteries using Low Osmolar Contrast (ICD-10-PCS; 2017-11-20)
PROC: 027036Z Dilation of Coronary Artery, One Artery with Three Drug-eluting Intraluminal Devices, Percutaneous Approach (ICD-10-PCS; principal; 2017-11-20 12:32)
PROC: 4A023N7 Measurement of Cardiac Sampling and Pressure, Left Heart, Percutaneous Approach (ICD-10-PCS; 2017-11-20 12:32)
DX: I21.4 Non-ST elevation (NSTEMI) myocardial infarction (principal); J44.9 Chronic obstructive pulmonary disease, unspecified; E78.2 Mixed hyperlipidemia; I73.9 Peripheral vascular disease, unspecified; F17.200 Nicotine dependence, unspecified, uncomplicated; I10 Essential (primary) hypertension; K21.9 Gastro-esophageal reflux disease without esophagitis; R00.1 Bradycardia, unspecified; Z79.02 Long term (current) use of antithrombotics/antiplatelets; Z79.82 Long term (current) use of aspirin; Z79.899 Other long term (current) drug therapy; Z98.84 Bariatric surgery status; Z96.652 Presence of left artificial knee joint; Z90.710 Acquired absence of both cervix and uterus; Z88.5 Allergy status to narcotic agent; Z91.040 Latex allergy status; Z82.49 Family history of ischemic heart disease and other diseases of the circulatory system
CPT/HCPCS: 36415; 71046; 80048; 80053; 80061; 81003; 82550; 82553; 83735; 83880; 84439; 84443; 84484; 85025; 85610; 85730; 90732; 93005; 93306; 93458; 96365; 96366; 96375; 96376; 99285

== ENCOUNTER → 2018-02-15 | Outpatient (CLI) | payer MEDICARE, OTHER ==
[2018-02-15 16:02] LABS: Blood Urea Nitrogen 13 mg/dL (7-17)
--- NOTE | 2018-02-15 17:07 | CT ---
EXAMINATION TYPE: CT angio neck DATE OF EXAM: 02/15/2018 COMPARISON: NONE HISTORY: 68-year-old female with syncopal episodes, abnormal US. TECHNIQUE: Contiguous axial scanning of the neck performed with IV Contrast, patient injected with 65 mL of Isovue 370. Coronal/sagittal MIP reconstructions performed. 3-D reconstructions generated on a dedicated independent workstation. CT DLP: 303.7 mGycm Automated exposure control for dose reduction was used. FINDINGS: Conventional branching anatomy with a mild atherosclerotic plaque and calcifications at the great ves efrem origins. The origins of the bilateral vertebral arteries. Both vertebral arteries are patent throughout their course. Moderate to severe atherosclerotic change at the right carotid bifurcation with severe narrowing at t he proximal right external carotid artery. Also, severe, approximately 80% narrowing at the ICA origi n. A second area of severe, approximately 70% narrowing at the distal carotid bulb secondary to mixed plaque. Scattered mild atherosclerotic plaque and calcification eccentrically located within the mid to upper left common carotid artery. There is some atherosclerotic plaque in the carotid bulb causing mild, a pproximately 20% narrowing at the carotid bulb. Multiple thyroid nodules. Largest appears to measure 9 mm. Thyroid ultrasound can provide more accura te assessment. Moderate atherosclerotic calcifications within the carotid siphons IMPRESSION: 1. SEVERE, APPROXIMATELY 80% NARROWING AT THE ORIGIN OF THE RIGHT ICA AND A SECOND AREA OF SEVERE, AP PROXIMATELY 70% STENOSIS AT THE LEVEL OF THE DISTAL RIGHT CAROTID BULB. 2. MILD, APPROXIMATELY 20% NARROWING WITHIN THE LEFT CAROTID BULB SECONDARY TO ECCENTRIC PLAQUE. 3. THYROID ULTRASOUND CAN BETTER EVALUATE UNDERLYING THYROID NODULES.
== END | disposition home or self-care (01) ==
LOC: RADCTMAIN 15:29
PROVIDERS: ATTEND Family Medicine
DX: I65.23 Occlusion and stenosis of bilateral carotid arteries (principal); Z91.040 Latex allergy status; Z88.5 Allergy status to narcotic agent; Z88.8 Allergy status to other drugs, medicaments and biological substances
CPT/HCPCS: 82565; 84520; 70498; 36415; Q9967

== ENCOUNTER → 2018-04-04 | Outpatient (CLI) | payer MEDICARE, OTHER ==
[2018-04-04 14:08] LABS: Basophils % (A) 0 %; Eosinophils # (A) 0.1 k/uL (0-0.7); Eosinophils % (A) 2 %; HCT 42.5 % (34.0-46.0); HGB 14.6 gm/dL (11.4-16.0); Lymphocytes # (A) 1.7 k/uL (1.0-4.8); Lymphocytes % (A) 21 %; MCH 30.6 pg (25.0-35.0); MCHC 34.3 g/dL (31.0-37.0); MCV 89.3 fL (80.0-100.0); Mean Platelet Volume 7.8; Monocytes # (A) 0.3 k/uL (0-1.0); Monocytes % (A) 4 %; Neutrophils # (A) 5.9 k/uL (1.3-7.7); Neutrophils % (A) 73 %; Platelet Count 129 k/uL (150-450); RBC 4.76 m/uL (3.80-5.40); RDW 14.3 % (11.5-15.5); WBC 8.1 k/uL (3.8-10.6)
[2018-04-04 14:25] LABS: Anion Gap 10 mmol/L; Blood Urea Nitrogen 16 mg/dL (7-17); Carbon Dioxide 29 mmol/L (22-30); Chloride 105 mmol/L (98-107); Potassium 4.6 mmol/L (3.5-5.1); Sodium 144 mmol/L (137-145)
[2018-04-04 14:55] LABS: Appearance,Urine Cloudy (Clear); Bilirubin,Urine Negative (Negative); Blood,Urine Negative (Negative); Color,Urine Yellow; Glucose,Urine (UA) Negative (Negative); Ketones,Urine Negative (Negative); Leukocyte Esterase,Urine Negative (Negative); Mucus,Urine Rare /hpf; Nitrite,Urine Negative (Negative); PH, Urine 7.5 (5.0-8.0); Protein,Urine Negative (Negative); RBC,Urine 1 /hpf (0-5); Specific Gravity,Urine 1.021 (1.001-1.035); Squamous Epithelial Cell,Urine 9 /hpf (0-4); Urobilinogen,Urine <2.0 mg/dL (<2.0); WBC,Urine 1 /hpf (0-5)
== END | disposition home or self-care (01) ==
LOC: LABPAT 13:05
PROVIDERS: ATTEND Surgery
DX: Z01.812 Encounter for preprocedural laboratory examination (principal); I65.21 Occlusion and stenosis of right carotid artery
CPT/HCPCS: 80051; 81001; 82565; 84520; 85025

== ENCOUNTER 2018-04-11 09:29 | Inpatient (IN) | payer MEDICARE, OTHER ==
[2018-03-30 15:14] VITALS: BMI 30.4
[~2018-04-11 09:29] MED LIST: LACTATED RINGERS 1,000 ML IV SCH; LIDOCAINE 1% 20 ML VIAL (10MG/ML) FOR IV START INTRADERMA PRN; MIDAZOLAM 2 MG/2 ML VIAL IV PRN; NITROGLYCERIN-D5W PMX 50 MG in DEXTROSE/WATER 1 250ML.BAG IV SCH; PHENYLEPHRINE 40 MG in SODIUM CHLORIDE 0.9% 250 ML IV SCH; ceFAZolin IN SWFI 2 GM/20 ML SYRINGE IVP ONE; fentaNYL (PF) 50 MCG/ML 2 ML AMP IV PRN
[2018-04-11] MEDS ORDERED: ONDANSETRON 4 MG/2 ML VIAL ONE (10:27)
[2018-04-11] MEDS ORDERED: DEXAMETHASONE SOD PHOSPHATE 10 MG/ML 1 ML VIAL IV ONE (10:33)
--- NOTE | 2018-04-11 11:17 | P.HPIHPCON ---
History of Present Illness H&P Date: 04/11/18 Chief Complaint: Carotid stenosis 68-year-old female presenting to my office secondary to carotid stenosis. Patient denies any lateralizing symptoms such as weakness, vision changes or speech issues. Stenosis was seen on a carotid duplex study which demonstrated severe right internal carotid artery stenosis. She underwent a CTA which demonstrated 80% stenosis of the right ICA. When compared to the carotid Doppler which demonstrated greater than 70% stenosis of the right ICA with a ratio of 4.4. He presents today for carotid endarterectomy. Patient recently had an RI in November with stenting and therefore required clearance per medicine and cardiology. She was cleared for surgery but was maintained on her aspirin and Plavix. Consent for Procedure: I have explained the operation/procedure to the patient, including the risks, benefits, side effects, alternative therapies (including not receiving the proposed treatment or service), the likelihood of the patient achieving his/her goals, and potential recuperation problems for the procedure/sedation/analgesia , as well as any blood products, if indicated. I also explained to the patient the risks, benefits and side effects of the alternatives, as well as the risks related to not receiving the proposed procedure, care, treatment, or services. - Review of Systems Comment: All systems reviewed and otherwise negative unless mentioned in HPI past medical history Past Medical History Past Medical History: COPD, GERD/Reflux, Hyperlipidemia, Hypertension, Osteoarthritis (OA), Vascular Disorder History of Any Multi-Drug Resistant Organisms: None Reported Past Surgical History: Bariatric Surgery, Bladder Surgery, Cholecystectomy, Heart Catheterization With Stent, Hysterectomy Additional Past Surgical History / Comment(s): cataract surg, gastric sleeve, right rotator cuff surgery, left knee replacement, bladder suspension Past Anesthesia/Blood Transfusion Reactions: No Reported Reaction Date of Last Stent Placement:: Nov 2017 Smoking Status: Current every day smoker - Past Family History Mother Family Medical History: No Reported History Medications and Allergies Home Medications Medication Instructions Recorded Confirmed Type Aspirin [Adult Low Dose Aspirin EC] 81 mg PO DAILY 11/19/17 04/11/18 History Clopidogrel Bisulfate [Plavix] 75 mg PO DAILY 11/19/17 04/11/18 History Fluticasone Nasal [place] [Flonase 1 spray EA NOSTRIL DAILY 11/19/17 04/11/18 History Nasal [place]] Gabapentin [Neurontin] 800 mg PO TID 11/19/17 04/11/18 History Mirabegron [Myrbetriq] 25 mg PO HS 11/19/17 04/11/18 History Omeprazole 40 mg PO DAILY 11/19/17 04/11/18 History clonazePAM [KlonoPIN] 2 mg PO HS PRN 11/19/17 04/11/18 History Fluticasone/Vilanterol [Breo 1 puff INHALATION RT-DAILY 11/21/17 04/11/18 History Ellipta 100-25 Mcg Inhaler] Nitroglycerin Sl Tabs [Nitrostat] 0.4 mg SUBLINGUAL Q5M PRN #25 tab 11/21/17 Rx Alendronate Sodium [Fosamax] 70 mg PO WE 03/30/18 04/11/18 History Atorvastatin [Lipitor] 80 mg PO HS 03/30/18 04/11/18 History Ipratropium Nebulized [Atrovent 0.5 mg INHALATION Q6HR PRN 03/30/18 04/11/18 History Nebulized] Lisinopril [Zestril] 25 mg PO DAILY 03/30/18 04/11/18 History Oxybutynin Chloride [Ditropan] 5 mg PO BID 03/30/18 04/11/18 History Pramipexole [Mirapex] 0.5 mg PO HS 03/30/18 04/11/18 History diphenhydrAMINE [Benadryl] 25 mg PO HS PRN 03/30/18 04/11/18 History Allergies Allergy/AdvReac Type Severity Reaction Status Date / Time codeine Allergy Unknown Verified 04/11/18 10:13 Latex, Natural Rubber Allergy Itching Verified 04/11/18 10:13 morphine AdvReac Vomiting Verified 04/11/18 10:13 Surgical - Exam Vital Signs Temp Pulse Resp BP Pulse Ox 98 F 61 16 158/70 96 04/11/18 10:08 04/11/18 10:08 04/11/18 10:08 04/11/18 10:08 04/11/18 10:08 - General well developed, well nourished, no distress - Eyes PERRL, normal ocular movement - ENT normal pinna, normal nares - Neck no masses - Respiratory normal expansion - Cardiovascular Rhythm: regular - Abdomen Abdomen: soft, non tender - Integumentary no rash - Neurologic normal coordination, normal sensation - Psychiatric oriented to time, oriented to person, oriented to place, speech is normal Assessment and Plan (1) Carotid stenosis, asymptomatic Current Visit: Yes Status: Acute Priority: High Code(s): I65.29 - OCCLUSION AND STENOSIS OF UNSPECIFIED CAROTID ARTERY SNOMED Code(s): 996247889 Plan: Right carotid endarterectomy with patch angioplasty Time with Patient: Greater than 30
[2018-04-11] MEDS ORDERED: MIDAZOLAM 2 MG/2 ML VIAL ONE (11:27)
[2018-04-11] MEDS ORDERED: VECURONIUM 10 MG VIAL IV ONE (11:27)
[2018-04-11] MEDS ORDERED: GLYCOPYRROLATE 0.2 MG/ML 2 ML VIAL ONE (11:27)
[2018-04-11] MEDS ORDERED: NEOSTIGMINE 1 MG/ML 10 ML VIAL ONE (11:27)
[2018-04-11] MEDS ORDERED: PROPOFOL 10 MG/ML 20 ML VIAL IV ONE (11:27)
[2018-04-11] MEDS ORDERED: LIDOCAINE 1% INJ 10MG/ML (20 ML MDV) ONE (11:27)
[2018-04-11] MEDS ORDERED: fentaNYL (PF) 50 MCG/ML 2 ML AMP ONE (11:27)
[2018-04-11] MEDS ORDERED: SUCCINYLCHOLINE CHLORIDE 100 MG/5 ML SYR IV ONE (11:27)
[2018-04-11] MEDS ORDERED: HEPARIN SODIUM,PORCINE 10,000 UNIT/ML 1 ML VIAL ONE (11:27)
[2018-04-11] MEDS ORDERED: SODIUM CHLORIDE 0.9% 500 ML with HEPARIN SODIUM,PORCINE 5,000 UNIT IV ONE ×2 (12:16)
[2018-04-11] MEDS ORDERED: GELATIN SPONGE,ABSORB (LARGE) 1 EACH SPONGE TOPICAL ONE (13:16)
[2018-04-11] MEDS ORDERED: THROMBIN (BOVINE) 5,000 UNIT VIAL TOPICAL ONE (13:17)
[2018-04-11] MEDS ORDERED: BENZOCAINE/MENTHOL LOZENG 1 EACH LOZENGE MUCOUS MEM PRN (13:48)
[2018-04-11] MEDS ORDERED: MAG HYDROX/AL HYDROX/SIMETH 30 ML CUP PO PRN (13:48)
[2018-04-11] MEDS ORDERED: TRIMETHOBENZAMIDE 100 MG/ML 2 ML VIAL IM PRN (13:48)
[2018-04-11] MEDS ORDERED: clonazePAM 1 MG TAB PO PRN (13:51)
[2018-04-11] MEDS ORDERED: NITROGLYCERIN SL TABS 0.4 MG TAB SUBLINGUAL PRN (13:51)
[2018-04-11] MEDS ORDERED: diphenhydrAMINE 25 MG CAP PO PRN (13:51)
[2018-04-11] MEDS ORDERED: LACTATED RINGERS 1,000 ML IV ONE (14:01)
[2018-04-11] MEDS: HYDROmorphone 0.5 MG/0.5 ML SYRINGE IVP ONE ×2 (14:20→14:25)
[2018-04-11] MEDS ORDERED: ACETAMINOPHEN IV (For NPO) 1,000 MG/100 ML VIAL IVPB ONE (15:02)
--- NOTE | 2018-04-11 15:31 | P.OP ---
Date of Procedure: 04/11/18 Preoperative Diagnosis: Right internal carotid artery stenosis greater than 80% Postoperative Diagnosis: Right internal carotid artery stenosis greater than 80% Procedure(s) Performed: Right carotid endarterectomy with patch angioplasty Implants: Bovine pericardial patch Anesthesia: EUNICE Surgeon: Luisito Montelongo Estimated Blood Loss (ml): 30 Pathology: other (carotid plaque) Condition: stable Disposition: PACU Indications for Procedure: 68-year-old female who presented to my office with carotid duplex demonstrating greater than 70% stenosis. She underwent a CTA that demonstrates greater than 80% stenosis of the right internal carotid artery. She has no symptoms currently. She did recently have an SC and carotid stenting in November and needed clearance prior to surgical intervention. She was cleared for carotid endarterectomy and presents for her elective repair. Operative Findings: Dense plaque noted throughout the common carotid and extending into the internal carotid artery with good feathered endpoint noted. Plaque was hemorrhagic in nature at the common carotid extending into the internal carotid artery. Description of Procedure: After written informed consent was obtained the patient all risks benefits competitions were described the patient was brought to the operative suite and laid in a beachchair position. The area of the neck was prepped and draped in usual sterile fashion after appropriate anesthetic was performed per the anesthesiologist. A timeout was performed in normal fashion antibiotics were administered prior to incision. An oblique incision was then created in the right neck just anterior to the sternocleidomastoid muscle. Dissection was then carried down to the carotid sheath carotid sheath was entered after facial vein was located and ligated in normal fashion. Dissection of the common carotid, internal carotid and external carotid arteries were dissected in a circumferential manner. These were then controlled with vessel loops. Upon dissection the hypoglossal nerve was visualized as well as the vagus nerve and ansa cervicalis all of which were spared. The artery was calcified with dense plaque. Once control was obtained the patient was administered heparin and followed with serial CTs for appropriate heparinization. Once heparin was allowed to circulate for approximately 3 minutes the artery was then controlled proximally and distally with vascular clamps. 11 blade scalpel was then used to perform an arteriotomy and extended from the common carotid into the internal carotid artery with Potflex Goyal scissors. Distal control was then released and stump pressures were obtained demonstrating a mean arterial pressure of 80 and therefore no shunt was placed. Endarterectomy was then performed with an endarterectomy knife and the plaque was removed from the common carotid extending into the internal carotid artery with a good feathered endpoint. The area was then copiously irrigated and all free debris was removed. Utilizing a bovine pericardial patch a patch angioplasty was then performed with 6-0 Prolene suture in a running fashion 2. Prior to last sutures being placed control was released with good audible flush noted from the common carotid artery. This was reclamped and internal carotid artery was released. Good backbleeding was noted throughout the patch. The internal carotid artery was once again clamped with DeBakey forceps and the external carotid and superior thyroid vessels were released to allow for flushing into the external system. The common carotid artery was released after approximately 30 seconds of flushing to the external system the internal carotid artery was released. Good palpable pulse was noted at the distal internal carotid artery. Doppler was then used and good Doppler signal was noted both at the common carotid and the internal carotid artery. The area was then copiously irrigated with antibiotic solution. Hemostasis was assured with Gelfoam and thrombin. A 10-Bermudian drain was then placed in normal fashion and secured with nylon suture. Once hemostasis was assured the incision was then closed in a multilayer fashion. The skin was then cleansed and dressings were placed. Patient was then awoken in the operating room and assessed for any neurologic changes. She was following directions and had no focal deficits upon awakening. Patient was then sent to PACU for recovery.
--- NOTE | 2018-04-11 15:33 | P.PN ---
Progress Note - Text Progress Note Date: 04/11/18 I was called to see the patient in the PACU for possible hematoma the right neck. Patient is complaining of pain at the incision site. There is some staining noted at the dressing which was stable from the operating room. Patient did have coughing episodes with increased blood noted within the EITAN drain after awakening prior to transfer to the PACU. Since then PACU the drain has put out only 10-15 mL. She was examined and her neck is soft but tender. There does not appear to be any expanding hematoma. The staining on the dressing is stable and there is no excess bleeding from the drain. We will continue to monitor her output of the drain as well as her neck for any hematoma.
[2018-04-11 16:02] LABS: Glucose,Whole Blood 159 mg/dL (75-99)
[2018-04-11] MEDS: SODIUM CHLORIDE 0.9% 1,000 ML IV SCH (16:48)
[2018-04-11] MEDS: CLOPIDOGREL 75 MG TAB PO SCH (16:49)
[2018-04-11] MEDS: HEPARIN SODIUM,PORCINE 5,000 UNIT/ML 1 ML VIAL SQ SCH ×2 (16:49→23:53)
[2018-04-11] MEDS: GABAPENTIN 400 MG CAP PO SCH ×2 (16:49→21:37)
[2018-04-11] MEDS: HYDROmorphone 0.5 MG/0.5 ML SYRINGE IVP PRN ×2 (17:09→23:53)
[2018-04-11] MEDS: IPRATROPIUM 0.5 MG/2.5 ML NEBU INHALATION PRN (19:37)
[2018-04-11] MEDS ORDERED: NITROGLYCERIN-D5W PMX 50 MG in DEXTROSE/WATER 1 250ML.BAG IV SCH (19:46)
[2018-04-11] MEDS: OXYBUTYNIN CHLORIDE 5 MG TAB PO SCH (20:12)
[2018-04-11] MEDS ORDERED: Mirabegron [Myrbetriq] 25 MG PO SCH (21:00)
[2018-04-11] MEDS ORDERED: ATORVASTATIN 80 MG TAB PO SCH (21:00)
[2018-04-11] MEDS ORDERED: PRAMIPEXOLE 0.5 MG TAB PO SCH (21:00)
[2018-04-11 21:25] LABS: Glucose,Whole Blood 235 mg/dL (75-99)
[2018-04-11] MEDS: INSULIN ASPART 100 UNIT/ML 1 ML 10 ML VIAL SQ SCH (21:35)
[2018-04-11] MEDS: ACETAMINOPHEN TAB 325 MG TAB PO PRN (21:55)
[2018-04-11] MEDS ORDERED: SODIUM CHLORIDE 0.9% 500 ML IV ONE (22:14)
[2018-04-12] MEDS: SODIUM CHLORIDE 0.9% 1,000 ML IV SCH ×2 (03:21→16:32)
[2018-04-12 03:59] LABS: Basophils % (A) 0 %; Eosinophils % (A) 0 %; HCT 36.9 % (34.0-46.0); HGB 12.5 gm/dL (11.4-16.0); Lymphocytes # (A) 1.4 k/uL (1.0-4.8); Lymphocytes % (A) 16 %; MCH 30.4 pg (25.0-35.0); MCHC 33.9 g/dL (31.0-37.0); MCV 89.6 fL (80.0-100.0); Mean Platelet Volume 7.9; Monocytes # (A) 0.4 k/uL (0-1.0); Monocytes % (A) 5 %; Neutrophils # (A) 6.8 k/uL (1.3-7.7); Neutrophils % (A) 78 %; Platelet Count 151 k/uL (150-450); RBC 4.12 m/uL (3.80-5.40); RDW 14.1 % (11.5-15.5); WBC 8.8 k/uL (3.8-10.6)
[2018-04-12 04:31] LABS: ALT 29 U/L (9-52); AST 15 U/L (14-36); Albumin 2.9 g/dL (3.5-5.0); Alkaline Phosphatase 46 U/L (38-126); Anion Gap 9 mmol/L; Blood Urea Nitrogen 15 mg/dL (7-17); Carbon Dioxide 25 mmol/L (22-30); Chloride 103 mmol/L (98-107); Glucose 95 mg/dL (74-99); Magnesium 1.8 mg/dL (1.6-2.3); Potassium 4.3 mmol/L (3.5-5.1); Sodium 137 mmol/L (137-145); Total Bilirubin 0.4 mg/dL (0.2-1.3); Total Protein 4.9 g/dL (6.3-8.2)
[2018-04-12] MEDS ORDERED: Magnesium Replacement Protocol 1 EACH MISC MISCELLANE PRN (06:34)
[2018-04-12 07:08] LABS: Glucose,Whole Blood 111 mg/dL (75-99)
[2018-04-12] MEDS: INSULIN ASPART 100 UNIT/ML 1 ML 10 ML VIAL SQ SCH ×2 (07:09→13:09)
[2018-04-12] MEDS ORDERED: PANTOPRAZOLE 40 MG TABLET PO SCH (07:30)
[2018-04-12] MEDS ORDERED: SYMBICORT 80-4.5 MCG INHALER INHALATION SCH (08:00)
[2018-04-12] MEDS: CLOPIDOGREL 75 MG TAB PO SCH (08:25)
[2018-04-12] MEDS: HEPARIN SODIUM,PORCINE 5,000 UNIT/ML 1 ML VIAL SQ SCH ×2 (08:25→16:33)
[2018-04-12] MEDS: GABAPENTIN 400 MG CAP PO SCH ×2 (08:26→16:33)
[2018-04-12] MEDS: OXYBUTYNIN CHLORIDE 5 MG TAB PO SCH (08:26)
[2018-04-12] MEDS ORDERED: LISINOPRIL 20 MG TAB PO SCH (09:00)
[2018-04-12] MEDS ORDERED: ASPIRIN 81 MG PO SCH (09:00)
[2018-04-12] MEDS ORDERED: FLUTICASONE 50MCG/SPRAY NASAL 16GM EA NOSTRIL SCH (09:00)
[2018-04-12] MEDS: IPRATROPIUM 0.5 MG/2.5 ML NEBU INHALATION PRN (09:15)
[2018-04-12] MEDS: MAGNESIUM SULFATE-D5W PMX 1 GM in DEXTROSE/WATER 1 100ML.BAG IVPB SCH ×2 (09:50→11:04)
[2018-04-12] MEDS: ACETAMINOPHEN TAB 325 MG TAB PO PRN (11:12)
[2018-04-12] MEDS ORDERED: Alendronate Sodium [Fosamax] 70 MG PO SCH (12:00)
[2018-04-12 12:21] LABS: Glucose,Whole Blood 196 mg/dL (75-99)
--- NOTE | 2018-04-12 13:20 | P.CONS ---
History of Present Illness - Reason for Consult Consult date: 04/12/18 - History of Present Illness Fiorella Lopez is a 68-year-old female patient of Dr. Chelsie Morales, who was admitted to [facility] by Dr. Montelongo and underwent right carotid endarterectomy, medical consultation was requested for management while hospitalized. Patient has a known history of acute myocardial infarction she was admitted to [facility] in November 2017. Patient was seen and examined in ICU, she is alert and oriented 3 in no apparent distress, nurse noticed some episodes of bradycardia and cardiology consultation was requested in that regard. Patient denies any fever or chills no headache or dizziness, there is no chest pain no shortness of breath, she has occasional cough There is no nausea or vomiting no abdominal pain and no diarrhea There is no urinary symptoms Past Medical History Past Medical History: COPD, GERD/Reflux, Hyperlipidemia, Hypertension, Osteoarthritis (OA), Vascular Disorder History of Any Multi-Drug Resistant Organisms: None Reported Past Surgical History: Bariatric Surgery, Bladder Surgery, Cholecystectomy, Heart Catheterization With Stent, Hysterectomy Additional Past Surgical History / Comment(s): cataract surg, gastric sleeve, right rotator cuff surgery, left knee replacement, bladder suspension Past Anesthesia/Blood Transfusion Reactions: No Reported Reaction Date of Last Stent Placement:: Nov 2017 Smoking Status: Current every day smoker - Past Family History Mother Family Medical History: No Reported History Medications and Allergies Home Medications Medication Instructions Recorded Confirmed Type Aspirin [Adult Low Dose Aspirin EC] 81 mg PO DAILY 11/19/17 04/11/18 History Clopidogrel Bisulfate [Plavix] 75 mg PO DAILY 11/19/17 04/11/18 History Fluticasone Nasal [place] [Flonase 1 spray EA NOSTRIL DAILY 11/19/17 04/11/18 History Nasal [place]] Gabapentin [Neurontin] 800 mg PO TID 11/19/17 04/11/18 History Mirabegron [Myrbetriq] 25 mg PO HS 11/19/17 04/11/18 History Omeprazole 40 mg PO DAILY 11/19/17 04/11/18 History clonazePAM [KlonoPIN] 2 mg PO HS PRN 11/19/17 04/11/18 History Fluticasone/Vilanterol [Breo 1 puff INHALATION RT-DAILY 11/21/17 04/11/18 History Ellipta 100-25 Mcg Inhaler] Nitroglycerin Sl Tabs [Nitrostat] 0.4 mg SUBLINGUAL Q5M PRN #25 tab 11/21/17 Rx Alendronate Sodium [Fosamax] 70 mg PO WE 03/30/18 04/11/18 History Atorvastatin [Lipitor] 80 mg PO HS 03/30/18 04/11/18 History Ipratropium Nebulized [Atrovent 0.5 mg INHALATION RT-Q6H PRN 03/30/18 04/11/18 History Nebulized] Lisinopril [Zestril] 20 mg PO DAILY 03/30/18 04/11/18 History Oxybutynin Chloride [Ditropan] 5 mg PO BID 03/30/18 04/11/18 History Pramipexole [Mirapex] 0.5 mg PO HS 03/30/18 04/11/18 History diphenhydrAMINE [Benadryl] 25 mg PO HS PRN 03/30/18 04/11/18 History Allergies Allergy/AdvReac Type Severity Reaction Status Date / Time codeine Allergy Unknown Verified 04/11/18 14:21 Latex, Natural Rubber Allergy Itching Verified 04/11/18 14:21 morphine AdvReac Vomiting Verified 04/11/18 14:21 Physical Exam Vitals: Vital Signs Temp Pulse Pulse Resp BP BP BP 04/12/18 13:00 48 L 14 95/45 04/12/18 12:00 50 L 20 116/52 04/12/18 11:00 52 L 16 97/48 04/12/18 10:00 51 L 16 117/59 04/12/18 09:27 48 L 04/12/18 09:16 49 L 04/12/18 09:00 50 L 19 115/55 04/12/18 08:00 58 L 54 L 23 108/52 04/12/18 07:00 42 L 15 121/60 04/12/18 06:00 53 L 15 114/57 04/12/18 05:00 43 L 13 103/51 04/12/18 04:00 97.5 F L 42 L 14 107/65 04/12/18 03:00 45 L 12 109/55 04/12/18 02:00 50 L 12 100/49 04/12/18 01:00 49 L 12 94/53 04/12/18 00:00 97.6 F 49 L 16 99/48 04/11/18 23:00 50 L 17 91/50 04/11/18 22:00 51 L 16 98/41 04/11/18 21:30 51 L 43 H 04/11/18 21:00 52 L 15 04/11/18 20:30 54 L 22 04/11/18 20:00 97.6 F 55 L 18 04/11/18 19:45 48 L 04/11/18 19:38 48 L 04/11/18 19:30 49 L 12 04/11/18 19:00 50 L 20 04/11/18 18:30 50 L 20 04/11/18 18:00 49 L 20 04/11/18 17:30 49 L 13 04/11/18 17:00 56 L 14 04/11/18 16:30 47 L 20 04/11/18 16:00 97.5 F L 47 L 17 97/48 04/11/18 15:15 54 L 14 125/59 128/50 04/11/18 15:00 46 L 14 120/60 129/48 04/11/18 14:45 46 L 14 115/58 127/48 04/11/18 14:30 46 L 14 116/56 120/47 04/11/18 14:10 97.3 F L 48 L 14 137/45 Pulse Ox 04/12/18 13:00 98 04/12/18 12:00 96 04/12/18 11:00 96 04/12/18 10:00 87 L 04/12/18 09:27 04/12/18 09:16 04/12/18 09:00 94 L 04/12/18 08:00 98 04/12/18 07:00 99 04/12/18 06:00 99 04/12/18 05:00 97 04/12/18 04:00 97 04/12/18 03:00 97 04/12/18 02:00 97 04/12/18 01:00 96 04/12/18 00:00 95 04/11/18 23:00 97 04/11/18 22:00 97 04/11/18 21:30 95 04/11/18 21:00 96 04/11/18 20:30 97 04/11/18 20:00 96 04/11/18 19:45 04/11/18 19:38 04/11/18 19:30 96 04/11/18 19:00 96 04/11/18 18:30 97 04/11/18 18:00 94 L 04/11/18 17:30 92 L 04/11/18 17:00 95 04/11/18 16:30 96 04/11/18 16:00 98 04/11/18 15:15 96 04/11/18 15:00 96 04/11/18 14:45 99 04/11/18 14:30 99 04/11/18 14:10 Intake and Output 04/11/18 04/12/18 04/12/18 22:59 06:59 14:59 Intake Total 1060 1300 1080 Output Total 275 375 625 Balance 785 925 455 Intake: IV 480 1060 600 Magnesium Sulfate-D5w Pmx 200 1 gm In Dextrose/Water 1 100ml.bag @ 100 mls/hr IVPB Q1H [facility] Rx#: [id number] Sodium Chloride 0.9% 1, 480 560 400 000 ml @ 80 mls/hr IV . [id number] [facility] Rx#:[id number] Sodium Chloride 0.9% 500 500 ml @ 999 mls/hr IV .Q31M [facility] Rx#:[id number] Oral 580 240 480 Output: Drainage 10 10 Right Neck 10 10 Urine 265 365 625 Other: Voiding Method Indwelling Catheter Indwelling Catheter Indwelling Catheter # Voids 1 Weight 82.5 kg ABP, PAP, CO, CI - Last 8 Hours Arterial Blood Pressure 126/51 In general patient is alert and oriented 3 HEENT head normocephalic and atraumatic Neck is supple no JVD Chest exam reveals a few scattered rhonchi no wheezing Cardiac exam reveals regular heart sounds no gallops no murmurs Abdomen is soft nontender no organomegaly Extremity exam reveals no edema no cyanosis or clubbing Results CBC & Chem 7: 04/12/18 03:45 04/12/18 03:45 Labs: Abnormal Lab Results - Last 24 Hours (Table) 04/11/18 04/11/18 04/12/18 Range/Units 15:39 21:22 03:45 POC Glucose (mg/dL) 159 H 235 H (75-99) mg/dL Calcium 8.0 L (8.4-10.2) mg/dL Total Protein 4.9 L (6.3-8.2) g/dL Albumin 2.9 L (3.5-5.0) g/dL 04/12/18 04/12/18 Range/Units 07:06 12:18 POC Glucose (mg/dL) 111 H 196 H (75-99) mg/dL Calcium (8.4-10.2) mg/dL Total Protein (6.3-8.2) g/dL Albumin (3.5-5.0) g/dL Assessment and Plan Plan: #1 severe right carotid stenosis status post right carotid endarterectomy #2 COPD patient states that she quit smoking recently, she is requesting a prescription for DuoNeb at the time of discharge #3 coronary artery disease with history of myocardial infarction in November 2017 #4 underlying history of hyperlipidemia maintained on Lipitor 80 mg daily #5 underlying history of hypertension Medication and labs were reviewed continue with current management will follow closely
[2018-04-12 13:42] LABS: T4, Free (Free Thyroxine) 1.22 ng/dL (0.78-2.19)
--- NOTE | 2018-04-12 15:54 | P.PN ---
Progress Note - Text Progress Note Date: 04/12/18 Patient Is evaluated today, status post right carotid endarterectomy. She voices no complaints. Surgical wound is clean, dry and healing normally. There is no hematoma. Drain is removed and exit wound is dressed with a dry gauze. Neurologically there are no focal motor deficits noted. Impression: Status post right carotid endarterectomy, doing well Plan: Discharge to home. Patient does not need home oxygen according to internal medicine. She was given a prescription for [place] 5/325 #20. She is allowed to shower over her wound beginning tomorrow. She is to continue all her home medications. She is to follow-up with Dr. Montelongo in the office in a proximally 2 weeks. All questions were answered to patient's satisfaction.
[2018-04-12 15:56] VITALS: PULSE 49
[2018-04-12 16:41] VITALS: BP 112/46; RESP 62; TEMP 98.3
--- NOTE | 2018-04-12 18:10 | CONS ---
CONSULTATION Fiorella Lopez is a 68-year-old lady who underwent a right carotid endarterectomy yesterday and post procedure she had some bradycardia and I was asked to see her in this regard. This lady is known to have underlying sick sinus syndrome and has seen Dr. Mirza in the past. She also has CAD with prior stenting of RCA performed in November by Dr. Miguel. She has since then been free of angina, doing fairly well and came in for elective right carotid endarterectomy. She had a non-ST elevation [place] in November and underwent stenting of the right coronary artery that was performed by Dr. Miguel. She has asymptomatic bradycardia and has seen Dr. Mirza in this regard and was apprised of the fact that she may require a permanent pacemaker down the road. She has no further symptoms. Post right carotid endarterectomy she came into the ICU and has episodes of heart rates in the high 40s, but no significant symptoms were reported. She is resting comfortably. Heart rate is about 56 per minute at this time, sinus. PAST MEDICAL HISTORY: 1. CAD with stenting of RCA performed in November. 2. Known sick sinus syndrome, not on rate lowering agents. 3. History of smoking and COPD. 4. History of hypertension. MEDICATIONS: At home include: 1. Plavix 75 mg daily. 2. Aspirin 81 mg daily. 3. Atorvastatin 40 mg daily. 4. Lisinopril 20 mg daily. 5. She also takes some Klonopin. 6. Mirapex. ALLERGIES: SHE IS ALLERGIC TO CODEINE AND MORPHINE. EXAMINATION: Blood pressure is 116/70, pulse rate is about 56 per minute, regular. HEENT: Unremarkable. Fundus was not examined by me. I did not check the JVD. There is a bandage in the right side noted. Heart exam reveals S1, S2 heard normally. Short systolic murmur noted. Lungs reveal diminished air entry, bilateral lung contreras. ABDOMEN: Soft, nontender. Lower extremities reveal diminished pulses. Central nervous system is normal. EKG reveals the rhythm strips reviewed, sinus bradycardia. IMPRESSION: 1. Asymptomatic sinus bradycardia with underlying sick sinus syndrome. 2. Status post right carotid endarterectomy. 3. Hypertension. 4. Hyperlipidemia. RECOMMENDATIONS: I am recommending that we not use any rate lowering agents. No other intervention is necessary. She is asymptomatic, although she has bradycardia. Because of some carotid surgery, there may have been some vagal stimulation and she may be little more bradycardic than usual, but no intervention is necessary. I am checking thyroid function tests and from a cardiac standpoint, she can be discharged whenever it is okay with Dr. Montelongo. Thank you very much for the consult. JUAN / EAGLE: [id number] /
[2018-04-12 22:16] LABS: Hemoglobin A1C 7.1 % (4.0-6.0)
[2018-04-13] MEDS ORDERED: LISINOPRIL 5 MG TAB PO SCH (09:00)
[2018-04-13] MEDS ORDERED: ASPIRIN 81 MG PO SCH (09:00)
== END 2018-04-12 17:19 | disposition home or self-care (01) | DRG 39 ==
LOC: 2ORMAIN 09:29 → 6ICU 14:11
PROVIDERS: ADMIT Surgery; ATTEND Surgery
PROC: 03UK0JZ Supplement Right Internal Carotid Artery with Synthetic Substitute, Open Approach (ICD-10-PCS; principal; 2018-04-11 11:30)
PROC: 03CK0ZZ Extirpation of Matter from Right Internal Carotid Artery, Open Approach (ICD-10-PCS; principal; 2018-04-11 11:30)
DX: I65.21 Occlusion and stenosis of right carotid artery (principal); E78.5 Hyperlipidemia, unspecified; F17.200 Nicotine dependence, unspecified, uncomplicated; I10 Essential (primary) hypertension; I25.10 Atherosclerotic heart disease of native coronary artery without angina pectoris; I25.2 Old myocardial infarction; I49.5 Sick sinus syndrome; J44.9 Chronic obstructive pulmonary disease, unspecified; K21.9 Gastro-esophageal reflux disease without esophagitis; Z96.652 Presence of left artificial knee joint; Z79.02 Long term (current) use of antithrombotics/antiplatelets; Z79.82 Long term (current) use of aspirin; Z79.83 Long term (current) use of bisphosphonates; Z79.899 Other long term (current) drug therapy; Z90.710 Acquired absence of both cervix and uterus; Z95.5 Presence of coronary angioplasty implant and graft; Z90.49 Acquired absence of other specified parts of digestive tract; Z98.42 Cataract extraction status, left eye; Z98.41 Cataract extraction status, right eye; Z98.84 Bariatric surgery status; Z88.5 Allergy status to narcotic agent; Z91.040 Latex allergy status; Z79.51 Long term (current) use of inhaled steroids
CPT/HCPCS: 80053; 83036; 83735; 84439; 84443; 85025; 86850; 86900; 86901; 94640

== ENCOUNTER 2018-05-22 21:23 | Inpatient (IN) | payer MEDICARE, OTHER ==
[2018-05-22] MEDS ORDERED: MECLIZINE 12.5 MG TAB PO STA (21:56)
[2018-05-22] MEDS: SODIUM CHLORIDE 0.9% 500 ML IV ONE ×2 (22:00→22:23)
[2018-05-22 22:01] LABS: Basophils % (A) 0 %; Eosinophils # (A) 0.1 k/uL (0-0.7); Eosinophils % (A) 1 %; HCT 44.3 % (34.0-46.0); HGB 14.9 gm/dL (11.4-16.0); Lymphocytes # (A) 1.8 k/uL (1.0-4.8); Lymphocytes % (A) 22 %; MCH 29.7 pg (25.0-35.0); MCHC 33.5 g/dL (31.0-37.0); MCV 88.6 fL (80.0-100.0); Mean Platelet Volume 7.1; Monocytes # (A) 0.4 k/uL (0-1.0); Monocytes % (A) 5 %; Neutrophils # (A) 5.8 k/uL (1.3-7.7); Neutrophils % (A) 70 %; Platelet Count 170 k/uL (150-450); RBC 5.01 m/uL (3.80-5.40); RDW 13.8 % (11.5-15.5); WBC 8.3 k/uL (3.8-10.6)
[2018-05-22 22:11] LABS: ALT 38 U/L (9-52); AST 26 U/L (14-36); Albumin 3.9 g/dL (3.5-5.0); Alkaline Phosphatase 74 U/L (38-126); Amylase 33 U/L (30-110); Anion Gap 13 mmol/L; Blood Urea Nitrogen 15 mg/dL (7-17); Calcium 9.2 mg/dL (8.4-10.2); Carbon Dioxide 22 mmol/L (22-30); Chloride 104 mmol/L (98-107); Glucose 184 mg/dL (74-99); Lipase 25 U/L (23-300); Potassium 3.7 mmol/L (3.5-5.1); Sodium 139 mmol/L (137-145); Total Bilirubin 0.4 mg/dL (0.2-1.3); Total Protein 6.1 g/dL (6.3-8.2)
--- NOTE | 2018-05-22 22:15 | ED ---
General Adult HPI - General Chief complaint: Dizziness Stated complaint: weakness Time Seen by Provider: 05/22/18 21:34 Source: patient, EMS, RN notes reviewed, old records reviewed Mode of arrival: EMS Limitations: no limitations - History of Present Illness Initial comments: 68 yo female presents with sudden onset nausea vomiting and lightheadedness. Patient states that she became very lightheaded, felt unsteady on her feet. This was followed by nausea and 4 episodes of vomiting. Denies any recent URI symptoms. Denies ear pain or ringing in her ears. Denies focal weakness or numbness. She has a mild headache at this time. Symptoms are significantly improved at the time my evaluation. According EMS patient was pale and diaphoretic. She did report some abdominal pain yesterday which is totally resolved today. No complaint of abdominal pain at this time. Denies chest pain or shortness of breath. Denies any preceding symptoms. Patient was otherwise well today. She does have history of CAD, history of previous carotid endarterectomy. No vision changes. No tinnitus. - Related Data Home Medications Medication Instructions Recorded Confirmed Aspirin [Adult Low Dose Aspirin EC] 81 mg PO DAILY 11/19/17 05/22/18 Clopidogrel Bisulfate [Plavix] 75 mg PO DAILY 11/19/17 05/22/18 Fluticasone Nasal [place] [Flonase 1 spray EA NOSTRIL DAILY 11/19/17 05/22/18 Nasal [place]] Gabapentin [Neurontin] 800 mg PO TID 11/19/17 05/22/18 Mirabegron [Myrbetriq] 25 mg PO DAILY 11/19/17 05/22/18 Omeprazole 40 mg PO DAILY 11/19/17 05/22/18 Alendronate Sodium [Fosamax] 70 mg PO WE 03/30/18 05/22/18 Atorvastatin [Lipitor] 80 mg PO HS 03/30/18 05/22/18 Ipratropium Nebulized [Atrovent 0.5 mg INHALATION RT-Q6H PRN 03/30/18 05/22/18 Nebulized] Oxybutynin Chloride [Ditropan] 5 mg PO BID 03/30/18 05/22/18 Pramipexole [Mirapex] 0.5 mg PO HS 03/30/18 05/22/18 diphenhydrAMINE [Benadryl] 25 mg PO HS PRN 03/30/18 05/22/18 DULoxetine HCL [Cymbalta] 30 mg PO DAILY 05/22/18 05/22/18 Losartan Potassium [Cozaar] 25 mg PO DAILY 05/22/18 05/22/18 clonazePAM [KlonoPIN] 0.5 mg PO HS 05/22/18 05/22/18 lamoTRIgine [LaMICtal] 150 mg PO DAILY 05/22/18 05/22/18 Previous Rx's Medication Instructions Recorded Nitroglycerin Sl Tabs [Nitrostat] 0.4 mg SUBLINGUAL Q5M PRN #25 tab 11/21/17 Allergies Allergy/AdvReac Type Severity Reaction Status Date / Time codeine Allergy Unknown Verified 05/22/18 21:53 Latex, Natural Rubber Allergy Itching Verified 05/22/18 21:53 morphine AdvReac Vomiting Verified 05/22/18 21:53 Review of Systems ROS Statement: Those systems with pertinent positive or pertinent negative responses have been documented in the HPI. ROS Other: All systems not noted in ROS Statement are negative. Past Medical History Past Medical History: COPD, GERD/Reflux, Hyperlipidemia, Hypertension, Osteoarthritis (OA), Vascular Disorder History of Any Multi-Drug Resistant Organisms: None Reported Past Surgical History: Bariatric Surgery, Bladder Surgery, Cholecystectomy, Heart Catheterization With Stent, Hysterectomy Additional Past Surgical History / Comment(s): cataract surg, gastric sleeve, right rotator cuff surgery, left knee replacement, bladder suspension Past Anesthesia/Blood Transfusion Reactions: No Reported Reaction Date of Last Stent Placement:: Nov 2017 Past Psychological History: Bipolar Smoking Status: Current every day smoker Past Alcohol Use History: None Reported Past Drug Use History: None Reported - Past Family History Mother Family Medical History: No Reported History General Exam Limitations: no limitations General appearance: alert, in no apparent distress Head exam: Present: atraumatic, normocephalic Eye exam: Present: normal appearance, PERRL, EOMI ENT exam: Present: normal exam, normal oropharynx Neck exam: Present: normal inspection. Absent: tenderness, meningismus Respiratory exam: Present: normal lung sounds bilaterally. Absent: respiratory distress, wheezes Cardiovascular Exam: Present: regular rate, normal rhythm GI/Abdominal exam: Present: soft. Absent: distended, tenderness Extremities exam: Present: normal inspection, normal capillary refill. Absent: pedal edema Neurological exam: Present: alert, oriented X3, CN II-XII intact, reflexes normal (No ataxia, normal finger to nose, normal heel to corrales). Absent: motor sensory deficit Psychiatric exam: Present: normal affect, normal mood Skin exam: Present: warm, diaphoretic, pallor. Absent: cyanosis Course Vital Signs 05/22/18 05/22/18 21:25 23:00 Temperature 97.2 F L Pulse Rate 70 79 Respiratory 20 18 Rate Blood Pressure 115/59 120/60 O2 Sat by Pulse 100 97 Oximetry EKG Findings - EKG Comments: EKG Findings:: EKG: Normal sinus rhythm, rate of 67, GA interval 144, QRS duration 80, QTC [address] segment elevation Medical Decision Making - Medical Decision Making 68 yo female presenting with vertigo and nausea vomiting. Symptoms were quite profound at onset. She had several episodes of vomiting. Diaphoresis. Her symptoms did appear to be somewhat positional. On exam patient has a nonfocal neuro exam, no ataxia. Symptoms improved but still present on reevaluation. Vitals remained stable. EKG is nonischemic. Head CT is obtained which is negative for any acute intracranial pathology. CBC and CMP are unremarkable. Patient does have lactic acidosis 3.7, this likely secondary to vomiting. This level will be repeated after IV hydration. Patient will be placed in observation for symptomatic treatment and rehydration. - Lab Data Result diagrams: 05/22/18 21:41 05/22/18 21:41 Lab Results 05/22/18 05/22/18 05/22/18 Range/Units 21:41 21:41 21:41 WBC 8.3 (3.8-10.6) k/uL RBC 5.01 (3.80-5.40) m/uL Hgb 14.9 (11.4-16.0) gm/dL Hct 44.3 (34.0-46.0) % MCV 88.6 (80.0-100.0) fL MCH 29.7 (25.0-35.0) pg MCHC 33.5 (31.0-37.0) g/dL RDW 13.8 (11.5-15.5) % Plt Count 170 (150-450) k/uL Neutrophils % 70 % Lymphocytes % 22 % Monocytes % 5 % Eosinophils % 1 % Basophils % 0 % Neutrophils # 5.8 (1.3-7.7) k/uL Lymphocytes # 1.8 (1.0-4.8) k/uL Monocytes # 0.4 (0-1.0) k/uL Eosinophils # 0.1 (0-0.7) k/uL Basophils # 0.0 (0-0.2) k/uL Sodium 139 (137-145) mmol/L Potassium 3.7 (3.5-5.1) mmol/L Chloride 104 (98-107) mmol/L Carbon Dioxide 22 (22-30) mmol/L Anion Gap 13 mmol/L BUN 15 (7-17) mg/dL Creatinine 0.60 (0.52-1.04) mg/dL Est GFR (CKD-EPI)AfAm >90 (>60 ml/min/1.73 sqM) Est GFR (CKD-EPI)NonAf >90 (>60 ml/min/1.73 sqM) Glucose 184 H (74-99) mg/dL Plasma Lactic Acid Kevin (0.7-2.0) mmol/L Calcium 9.2 (8.4-10.2) mg/dL Total Bilirubin 0.4 (0.2-1.3) mg/dL AST 26 (14-36) U/L ALT 38 (9-52) U/L Alkaline Phosphatase 74 (38-126) U/L Total Creatine Kinase 26 L (30-135) U/L CK-MB (CK-2) 0.4 (0.0-2.4) ng/mL CK-MB (CK-2) Rel Index 1.5 Troponin I <0.012 (0.000-0.034) ng/mL Total Protein 6.1 L (6.3-8.2) g/dL Albumin 3.9 (3.5-5.0) g/dL Amylase 33 (30-110) U/L Lipase 25 (23-300) U/L 05/22/18 Range/Units 21:41 WBC (3.8-10.6) k/uL RBC (3.80-5.40) m/uL Hgb (11.4-16.0) gm/dL Hct (34.0-46.0) % MCV (80.0-100.0) fL MCH (25.0-35.0) pg MCHC (31.0-37.0) g/dL RDW (11.5-15.5) % Plt Count (150-450) k/uL Neutrophils % % Lymphocytes % % Monocytes % % Eosinophils % % Basophils % % Neutrophils # (1.3-7.7) k/uL Lymphocytes # (1.0-4.8) k/uL Monocytes # (0-1.0) k/uL Eosinophils # (0-0.7) k/uL Basophils # (0-0.2) k/uL Sodium (137-145) mmol/L Potassium (3.5-5.1) mmol/L Chloride (98-107) mmol/L Carbon Dioxide (22-30) mmol/L Anion Gap mmol/L BUN (7-17) mg/dL Creatinine (0.52-1.04) mg/dL Est GFR (CKD-EPI)AfAm (>60 ml/min/1.73 sqM) Est GFR (CKD-EPI)NonAf (>60 ml/min/1.73 sqM) Glucose (74-99) mg/dL Plasma Lactic Acid Kevin 3.7 H* (0.7-2.0) mmol/L Calcium (8.4-10.2) mg/dL Total Bilirubin (0.2-1.3) mg/dL AST (14-36) U/L ALT (9-52) U/L Alkaline Phosphatase (38-126) U/L Total Creatine Kinase (30-135) U/L CK-MB (CK-2) (0.0-2.4) ng/mL CK-MB (CK-2) Rel Index Troponin I (0.000-0.034) ng/mL Total Protein (6.3-8.2) g/dL Albumin (3.5-5.0) g/dL Amylase (30-110) U/L Lipase (23-300) U/L Disposition Clinical Impression: Dehydration, Vertigo Disposition: ADMITTED IP TO THIS [facility] Condition: Stable Is patient prescribed a controlled substance at d/c from ED?: No Referrals: Chelsie Morales DO [Primary Care Provider] - 1-2 days Decision to Admit Reason: Admit from EC Decision Date: 05/23/18 Decision Time: 00:11
[2018-05-22 22:16] LABS: Creatine Kinase 26 U/L (30-135)
[2018-05-22 22:29] LABS: Creatine Kinase MB 0.4 ng/mL (0.0-2.4); Troponin I <0.012 ng/mL (0.000-0.034)
--- NOTE | 2018-05-22 22:40 | XR ---
EXAMINATION TYPE: XR chest 2V DATE OF EXAM: 05/22/2018 COMPARISON: 11/21/2017 HISTORY: Chest pain TECHNIQUE: Frontal and lateral views of the chest are obtained. FINDINGS: Heart and mediastinum are normal. Lungs are clear. Diaphragm is normal. There are chest le ads. Bony thorax is intact. There is probably old injury at the right AC joint. IMPRESSION: No active cardiopulmonary disease. Normal heart. No change.
--- NOTE | 2018-05-22 22:42 | CT ---
EXAMINATION TYPE: CT brain wo con DATE OF EXAM: 05/22/2018 COMPARISON: None HISTORY: Weakness. CT DLP: 1107.3 mGycm Automated exposure control for dose reduction was used. FINDINGS: Ventricles of normal size. There is no mass effect nor midline shift. There is no sign of intracrania l hemorrhage. Calvarium is intact. IMPRESSION: NORMAL CT SCAN OF THE BRAIN.
[2018-05-23] MEDS ORDERED: ACETAMINOPHEN TAB 325 MG TAB PO PRN (00:03)
[2018-05-23] MEDS ORDERED: MECLIZINE 25 MG TAB PO PRN (00:03)
[2018-05-23] MEDS ORDERED: LORazepam 0.5 MG TAB PO PRN (00:03)
[2018-05-23] MEDS ORDERED: NALOXONE 0.4 MG/ML 1 ML VIAL IV PRN (00:03)
[2018-05-23] MEDS ORDERED: ONDANSETRON 4 MG/2 ML VIAL IVP PRN (00:03)
[2018-05-23] MEDS ORDERED: HYDROmorphone 0.5 MG/0.5 ML SYRINGE IVP STA (00:16)
--- NOTE | 2018-05-23 00:57 | CT ---
EXAMINATION TYPE: CT abdomen pelvis w con DATE OF EXAM: 05/23/2018 COMPARISON: None HISTORY: pain CT DLP: 870.40 mGycm Automated exposure control for dose reduction was used. TECHNIQUE: Helical acquisition of images was performed from the lung bases through the pelvis. CONTRAST: Performed without Oral Contrast and with IV Contrast, patient injected with 100 mL of Isovue 300. FINDINGS: There is mild subsegmental atelectasis at the lung bases. There are clips apparently from bariatric s urgery. There is no pericardial effusion. There is no pleural effusion. Liver appears normal. Bile du cts are not dilated. Gallbladder is absent. Spleen appears normal. There is no pancreatic mass. There is low-density 3 x 2 cm right adrenal mass. There is 1 cm cortical cyst on the anterior left ki dney. There is normal contrast opacification of the kidneys. There is no hydronephrosis. There is 1 c m cortical cyst lateral right kidney. There is no retroperitoneal adenopathy. There is no ascites. Ap pendix appears normal. Bladder distends smoothly. There is no intestinal wall thickening. There is no evidence of bony destructive process. There is no free air. Abdominal aorta is atheromatous. IMPRESSION: LOW-DENSITY RIGHT ADRENAL MASS IS PROBABLY BENIGN. IT HAS DENSITY 22. SMALL RENAL CORTICAL CYSTS. PREVIOUS SURGERY. NO SIGN OF ACUTE ABDOMEN AND PELVIS.
[2018-05-23 01:42] VITALS: BMI 29.7
[2018-05-23] MEDS: SODIUM CHLORIDE 0.9% 1,000 ML IV SCH ×2 (02:12→15:31)
[2018-05-23 05:48] LABS: Appearance,Urine Clear (Clear); Bilirubin,Urine Negative (Negative); Blood,Urine Negative (Negative); Color,Urine Yellow; Glucose,Urine (UA) Negative (Negative); Ketones,Urine Negative (Negative); Leukocyte Esterase,Urine Negative (Negative); Nitrite,Urine Negative (Negative); Protein,Urine Trace (Negative)
[2018-05-23] MEDS ORDERED: PANTOPRAZOLE 40 MG TABLET PO SCH (07:30)
[2018-05-23] MEDS: ASPIRIN 81 MG PO SCH (08:30)
[2018-05-23] MEDS: lamoTRIgine 100 MG TAB PO SCH (08:30)
[2018-05-23] MEDS: CLOPIDOGREL 75 MG TAB PO SCH (08:30)
[2018-05-23] MEDS: GABAPENTIN 400 MG CAP PO SCH ×3 (08:30→20:55)
[2018-05-23] MEDS: LOSARTAN 25 MG TAB PO SCH (08:30)
[2018-05-23] MEDS: DULoxetine HCL 30 MG CAPSULE.DR PO SCH (11:12)
[2018-05-23] MEDS: HYDROcodone/APAP 5-325MG 1 EACH TAB PO PRN ×2 (11:16→20:55)
[2018-05-23 12:42] LABS: Glucose,Whole Blood 152 mg/dL (75-99)
--- NOTE | 2018-05-23 13:24 | P.HPIM ---
History of Present Illness H&P Date: 05/23/18 Chief Complaint: Vomiting This is a 68-year-old female, patient of Dr. Morales. She has a known past medical history of small gastric ulcer about 4 years ago, right internal carotid artery stenosis status post right carotid enterectomy in March 2018. Also history of COPD, coronary disease with cardiac stents, myocardial infarction, hyperlipidemia, hypertension and bipolar. Patient reports on Tuesday evening during sleeping she started to have severe abdominal pain. The pain went across to her stomach and into her lower back. She took 2 Tums and symptoms resolved. She does report also having some indigestion-like symptoms. She does not remember what she ate earlier that night. Tuesday she was not feeling very well. By Tuesday she had a decrease in appetite. Patient reports yesterday evening she was sitting on the couch and slumped over. She reports completely passing out. She came to and started having multiple episodes of vomiting. That was a thick bile in color. She denies any blood in the vomit. Her became concerned and called EMS. Patient reports after vomiting she had felt slightly better. During her syncopal episode patient was incontinent of a small amount of stool. Patient denies any diarrhea. She vomited again in transport to the hospital. She also does has been having some lightheadedness. She denies any vertigo. Denies any chest pain or shortness of breath. Denies any fever chills or sweats. Denies any burning with urination. Lactic acid level was 3.4 on admission she was given IV fluids and lactic acid has come down to 1.4. LFTs and amylase and lipase are all within normal range. Computed tomography scan of the brain showed no acute changes. Computed tomography scan of the abdomen and pelvis showing a low density right adrenal mass is probably benign. Small renal cortical cysts. No sign of an acute abdomen and pelvis. Patient reports having an EGD and colonoscopy about 4 years ago. At that time she was diagnosed with the peptic ulcer disease. And was treated with Protonix. Since the vomiting patient has been complaining of upper back pain. This was relieved with [place]. No evidence of any rash. Review of Systems Please refer to HPI otherwise unremarkable Past Medical History Past Medical History: COPD, GERD/Reflux, Hyperlipidemia, Hypertension, Osteoarthritis (OA), Vascular Disorder History of Any Multi-Drug Resistant Organisms: None Reported Past Surgical History: Bariatric Surgery, Bladder Surgery, Cholecystectomy, Heart Catheterization With Stent, Hysterectomy Additional Past Surgical History / Comment(s): cataract surg, gastric sleeve, right rotator cuff surgery, left knee replacement, bladder suspension, Rt carotid endarterectomy Past Anesthesia/Blood Transfusion Reactions: No Reported Reaction Date of Last Stent Placement:: Nov 2017 Past Psychological History: Bipolar Smoking Status: Current every day smoker Past Alcohol Use History: None Reported Additional Past Alcohol Use History / Comment(s): 5-6 cigs/day, has smoked since age of 29 Past Drug Use History: None Reported - Past Family History Mother Family Medical History: No Reported History, Coronary Artery Disease (CAD), Diabetes Mellitus Father Family Medical History: Hypertension, Myocardial Infarction (OK) Brother(s) Family Medical History: Coronary Artery Disease (CAD), Myocardial Infarction (OK ) Medications and Allergies Home Medications Medication Instructions Recorded Confirmed Type Aspirin [Adult Low Dose Aspirin EC] 81 mg PO DAILY 11/19/17 05/23/18 History Clopidogrel Bisulfate [Plavix] 75 mg PO DAILY 11/19/17 05/23/18 History Fluticasone Nasal [place] [Flonase 1 spray EA NOSTRIL DAILY 11/19/17 05/23/18 History Nasal [place]] Gabapentin [Neurontin] 800 mg PO TID 11/19/17 05/23/18 History Mirabegron [Myrbetriq] 25 mg PO DAILY 11/19/17 05/23/18 History Omeprazole 40 mg PO DAILY 11/19/17 05/23/18 History Nitroglycerin Sl Tabs [Nitrostat] 0.4 mg SUBLINGUAL Q5M PRN #25 tab 11/21/1708/31 Rx Alendronate Sodium [Fosamax] 70 mg PO WE 03/30/18 05/23/18 History Atorvastatin [Lipitor] 80 mg PO HS 03/30/18 05/23/18 History Ipratropium Nebulized [Atrovent 0.5 mg INHALATION RT-Q6H PRN 03/30/18 05/23/18 History Nebulized] Oxybutynin Chloride [Ditropan] 5 mg PO BID 03/30/18 05/23/18 History Pramipexole [Mirapex] 0.5 mg PO HS 03/30/18 05/23/18 History diphenhydrAMINE [Benadryl] 25 mg PO HS PRN 03/30/18 05/23/18 History DULoxetine HCL [Cymbalta] 30 mg PO DAILY 05/22/18 05/23/18 History Losartan Potassium [Cozaar] 25 mg PO DAILY 05/22/18 05/23/18 History clonazePAM [KlonoPIN] 0.5 mg PO HS 05/22/18 05/23/18 History lamoTRIgine [LaMICtal] 150 mg PO DAILY 05/22/18 05/23/18 History Allergies Allergy/AdvReac Type Severity Reaction Status Date / Time codeine Allergy Unknown Verified 05/23/18 01:28 Latex, Natural Rubber Allergy Itching Verified 05/23/18 01:28 morphine AdvReac Vomiting Verified 05/23/18 01:28 Physical Exam Vitals: Vital Signs Temp Pulse Pulse Resp BP BP BP 05/23/18 07:24 98.5 F 53 L 18 120/66 05/23/18 03:51 16 05/23/18 01:55 57 L 16 05/23/18 01:24 98.5 F 57 L 16 166/78 05/23/18 00:00 98.2 F 67 18 150/66 05/22/18 23:00 79 18 120/60 05/22/18 21:25 97.2 F L 70 20 115/59 Pulse Ox 05/23/18 07:24 95 05/23/18 03:51 05/23/18 01:55 05/23/18 01:24 98 05/23/18 00:00 97 05/22/18 23:00 97 05/22/18 21:25 100 Intake and Output 05/22/18 05/23/18 05/23/18 22:59 06:59 14:59 Intake Total 600 200 Balance 600 200 Intake: Intake, IV Titration 600 Amount Sodium Chloride 0.9% 1, 600 000 ml @ 75 mls/hr IV . [id number] ON LICENSE OF [facility] Rx#:[id number] Oral 200 Other: Voiding Method Toilet Toilet # Voids 1 1 Weight 76.204 kg 76.204 kg Head normocephalic Neck supple Lungs clear to auscultation bilaterally no wheezing or crackles Heart regular rate and rhythm S1-S2, no rub or gallop Abdomen is soft nontender nondistended positive bowel sounds no hepatosplenomegaly Extremities no edema Neuro alert and orientated to 3 Results CBC & Chem 7: 05/22/18 21:41 05/22/18 21:41 Labs: Abnormal Lab Results - Last 24 Hours (Table) 05/22/18 05/22/18 05/22/18 Range/Units 21:41 21:41 21:41 Glucose 184 H (74-99) mg/dL Plasma Lactic Acid Kevin 3.7 H* (0.7-2.0) mmol/L Total Creatine Kinase 26 L (30-135) U/L Total Protein 6.1 L (6.3-8.2) g/dL Ur Specific [place] (1.001-1.035) Urine Protein (Negative) 05/23/18 Range/Units 02:00 Glucose (74-99) mg/dL Plasma Lactic Acid Kevin (0.7-2.0) mmol/L Total Creatine Kinase (30-135) U/L Total Protein (6.3-8.2) g/dL Ur Specific [place] 1.050 H (1.001-1.035) Urine Protein Trace H (Negative) Thrombosis Risk Factor Assmnt - Choose All That Apply Each Risk Factor Represents 2 Points: Age 61-74 years Thrombosis Risk Factor Assessment Total Risk Factor Score: 2 Thrombosis Risk Factor Assessment Level: Low Risk Assessment and Plan Assessment: 1. Nausea and vomiting: Possibly related to a gastroenteritis. Continue with IV fluids. Change Protonix to 40 mg IV daily. Continue the Zofran as needed. Computed tomography scan of the abdomen and pelvis did not show any acute abdomen. Amylase lipase normal. LFTs normal. Patient has history of cholecystectomy. Last EGD about 4 years ago had shown evidence of a peptic ulcer disease per patient 2. Elevated lactic acid level on admission. Improved with IV fluids. Possibly related to dehydration from the vomiting 3. Syncopal episode: Likely related to patient's illness. However, further workup will be completed. Check echo and carotid. Continuing continue with telemetry monitoring for any arrhythmias. Computed tomography scan of the brain was negative for any acute changes. Chest x-ray negative. 4. Previous history of right internal carotid artery stenosis status post carotid endarectomy March 2018 5. History of coronary artery disease with previous cardiac stents and myocardial infarction 6. Essential hypertension 7. Hyperlipidemia 8. Diet controlled diabetes mellitus: Patient reports a blood sugar in the 200s initially when EMS checked it. Blood sugar on admission 184. We'll place patient on Accu-Cheks with sliding screw coverage. Check A1c. Monitor for any hypoglycemia 9. History of COPD stable. No evidence of exacerbation. 10. Nicotine dependence: Patient has cut her smoking down to occasional use. Discussed with her about complete smoking drinking cessation for greater than 3 minutes 11. Back pain that is similar to when she needed cardiac stents to be placed. Check serial cardiac enzymes. EKG is sinus rhythm. Consult cardiology GI prophylaxis Protonix and DVT prophylaxis Lovenox Time with Patient: Greater than 30 (Greater than 60% of the total time spent in counseling and coordination of care.I performed an examination of the patient and discussed their management with the physician Safety Tech. I have reviewed the Physician Safety Tech's notes and agree with the documented findings and plan of care)
--- NOTE | 2018-05-23 14:47 | US ---
EXAMINATION TYPE: US carotid duplex BILAT DATE OF EXAM: 05/23/2018 COMPARISON: NONE CLINICAL HISTORY: syncope. EXAM MEASUREMENTS: RIGHT: Peak Systolic Velocity (PSV) cm/sec ----- Right CCA: 72.9 ----- Right ICA: 112.6 ----- Right ECA: 396.1 ICA/CCA ratio: 1.5 RIGHT: End Diastole cm/sec ----- Right CCA: 18.0 ----- Right ICA: 35.9 ----- Right ECA: 59.1 LEFT: Peak Systolic Velocity (PSV) cm/sec ----- Left CCA: 141.6 ----- Left ICA: 143.5 ----- Left ECA: 153.2 ICA/CCA ratio: 1.0 LEFT: End Diastole cm/sec ----- Left CCA: 35.0 ----- Left ICA: 44.6 ----- Left ECA: 13.3 VERTEBRALS (direction of flow): Right Vertebral: Antegrade Left Vertebral: Antegrade Rhythm: Normal Extensive plaque seen in right CCA, and ECA, ICA shows no significant elevated velocity. ECA shows hi gh grade stenosis. Left CCA, ICA and ECA shows severe atherosclerotic changes. Grayscale, color Doppler, spectral Doppler imaging performed of the carotid arteries. IMPRESSION: There are extensive atheromatous changes on the left. Some elevated velocity noted withi n the common carotid and internal carotid artery on the left. Follow-up is recommended. Carotid CTA o r MRA may be of benefit. No elevated ratios to suggest significant stenosis by Doppler criteria, an indirect measurement of carotid stenosis Criteria for Assigning % of Stenosis / Diameter reduction (Estimation based on the indirect measurements of the internal carotid artery velocities (ICA PSV). 1. Normal (no stenosis)=ICA PSV < 125 cm/s: ratio < 2.0: ICA EDV<40 cm/s. 2. Less than 50% stenosis=ICA PSV < 125 cm/s: ratio < 2.0: ICA EDV<40 cm/s. 3. 50 to 69% stenosis=ICA PSV of 125 to 230 cm/s: ration 2.0 ? 4.0: ICA EDV 40-100 cm/s. 4. Greater than 70% stenosis to near occlusion= ICA PSV > 230 cm/s: ratio > 4.0: ICA EDV > 100 cm/s. 5. Near occlusion= ICA PSV velocities may be low or undetectable: variable ratio and ICA EDV. 6. Total occlusion=unable to detect flow.
[2018-05-23] MEDS: IPRATROPIUM 0.5 MG/2.5 ML NEBU INHALATION PRN ×2 (15:21→20:02)
[2018-05-23] MEDS: PANTOPRAZOLE 40 MG/10 ML VIAL IVP SCH (15:30)
[2018-05-23] MEDS: INSULIN ASPART 100 UNIT/ML 1 ML 10 ML VIAL SQ SCH ×3 (15:30→20:54)
[2018-05-23 16:06] LABS: Creatine Kinase 23 U/L (30-135)
[2018-05-23 16:16] LABS: Creatine Kinase MB 0.4 ng/mL (0.0-2.4); Troponin I <0.012 ng/mL (0.000-0.034)
[2018-05-23 17:36] LABS: Glucose,Whole Blood 120 mg/dL (75-99)
[2018-05-23 19:47] VITALS: RESP 16
[2018-05-23 20:34] LABS: Glucose,Whole Blood 233 mg/dL (75-99)
[2018-05-23] MEDS: OXYBUTYNIN CHLORIDE 5 MG TAB PO SCH (20:55)
[2018-05-23] MEDS ORDERED: PRAMIPEXOLE 0.5 MG TAB PO SCH (21:00)
[2018-05-23] MEDS ORDERED: ATORVASTATIN 80 MG TAB PO SCH (21:00)
[2018-05-23] MEDS ORDERED: clonazePAM 0.5 MG TAB PO SCH (21:00)
[2018-05-23 21:53] LABS: Creatine Kinase 24 U/L (30-135)
[2018-05-23 22:07] LABS: Creatine Kinase MB 0.4 ng/mL (0.0-2.4); Troponin I <0.012 ng/mL (0.000-0.034)
[2018-05-23 22:27] LABS: Hemoglobin A1C 6.9 % (4.0-6.0)
[2018-05-24 04:39] LABS: ALT 36 U/L (9-52); AST 19 U/L (14-36); Albumin 3.3 g/dL (3.5-5.0); Alkaline Phosphatase 56 U/L (38-126); Anion Gap 8 mmol/L; Blood Urea Nitrogen 10 mg/dL (7-17); Calcium 8.9 mg/dL (8.4-10.2); Carbon Dioxide 28 mmol/L (22-30); Chloride 105 mmol/L (98-107); Creatine Kinase <20 U/L (30-135); Glucose 106 mg/dL (74-99); Potassium 4.3 mmol/L (3.5-5.1); Sodium 141 mmol/L (137-145); Total Bilirubin 0.3 mg/dL (0.2-1.3); Total Protein 5.6 g/dL (6.3-8.2)
[2018-05-24 04:50] LABS: Basophils % (A) 0 %; Eosinophils # (A) 0.1 k/uL (0-0.7); Eosinophils % (A) 2 %; HCT 41.3 % (34.0-46.0); HGB 13.7 gm/dL (11.4-16.0); Lymphocytes # (A) 2.2 k/uL (1.0-4.8); Lymphocytes % (A) 33 %; MCH 30.6 pg (25.0-35.0); MCHC 33.2 g/dL (31.0-37.0); MCV 92.1 fL (80.0-100.0); Mean Platelet Volume 7.2; Monocytes # (A) 0.3 k/uL (0-1.0); Monocytes % (A) 5 %; Neutrophils # (A) 3.8 k/uL (1.3-7.7); Neutrophils % (A) 58 %; Platelet Count 144 k/uL (150-450); RBC 4.48 m/uL (3.80-5.40); RDW 14.1 % (11.5-15.5); WBC 6.6 k/uL (3.8-10.6)
[2018-05-24 04:51] LABS: Creatine Kinase MB 0.4 ng/mL (0.0-2.4); Troponin I <0.012 ng/mL (0.000-0.034)
[2018-05-24] MEDS: SODIUM CHLORIDE 0.9% 1,000 ML IV SCH ×2 (05:20→09:53)
[2018-05-24 06:46] LABS: Glucose,Whole Blood 110 mg/dL (75-99)
[2018-05-24] MEDS: INSULIN ASPART 100 UNIT/ML 1 ML 10 ML VIAL SQ SCH (08:21)
[2018-05-24] MEDS ORDERED: FLUTICASONE 50MCG/SPRAY NASAL 16GM EA NOSTRIL SCH (09:00)
[2018-05-24] MEDS ORDERED: Mirabegron [Myrbetriq] PO SCH (09:00)
[2018-05-24] MEDS: OXYBUTYNIN CHLORIDE 5 MG TAB PO SCH (09:54)
[2018-05-24] MEDS: PANTOPRAZOLE 40 MG/10 ML VIAL IVP SCH (09:54)
[2018-05-24] MEDS: GABAPENTIN 400 MG CAP PO SCH (09:54)
[2018-05-24] MEDS: ASPIRIN 81 MG PO SCH (09:54)
[2018-05-24] MEDS: CLOPIDOGREL 75 MG TAB PO SCH (09:54)
[2018-05-24] MEDS: DULoxetine HCL 30 MG CAPSULE.DR PO SCH (09:54)
[2018-05-24] MEDS: LOSARTAN 25 MG TAB PO SCH (09:54)
[2018-05-24] MEDS: lamoTRIgine 100 MG TAB PO SCH (09:55)
--- NOTE | 2018-05-24 11:14 | ECHOF ---
Referral Reason:syncope MEASUREMENTS -------- HEIGHT: 160.0 cm WEIGHT: 76.2 kg BP: 120/66 RVIDd: 2.6 cm (< 3.3) IVSd: 1.4 cm (0.6 - 1.1) LVIDd: 4.2 cm (3.9 - 5.3) LVPWd: 1.3 cm (0.6 - 1.1) IVSs: 1.8 cm LVIDs: 2.8 cm LVPWs: 1.5 cm LA Diam: 3.5 cm (2.7 - 3.8) LAESV Index (A-L): 32.40 ml/m Ao Diam: 2.9 cm (2.0 - 3.7) AV Cusp: 1.9 cm (1.5 - 2.6) MV EXCURSION: 14.642 mm (> 18.000) MV EF SLOPE: 31 mm/s (70 - 150) EPSS: 0.3 cm MV E Ion: 1.07 m/s MV DecT: 300 ms MV A Ion: 1.41 m/s MV E/A Ratio: 0.76 AV maxP.20 mmHg AV meanP.62 mmHg AR PHT: 1323 ms FINDINGS -------- Sinus rhythm. This was a technically good study. The left ventricular size is normal. There is moderate concentric left ventricular hypertrophy. O verall left ventricular systolic function is normal with, an EF between 65 - 70 %. The right ventricle is normal in size. LA is midly dilated 29-33ml/m2. The right atrium is normal in size. There is mild aortic valve sclerosis. There is mild aortic regurgitation. The mitral valve leaflets are mildly thickened. The tricuspid valve appears structurally normal. Trace/mild (physiologic) pulmonic regurgitation. The aortic root size is normal. Normal inferior vena cava with normal inspiratory collapse consistent with estimated right atrial pre ssure of 5 mmHg. The inferior vena cava is mildly dilated. There is no pericardial effusion. CONCLUSIONS -------- 1. Sinus rhythm. 2. This was a technically good study. 3. The left ventricular size is normal. 4. There is moderate concentric left ventricular hypertrophy. 5. Overall left ventricular systolic function is normal with, an EF between 65 - 70 %. 6. The right ventricle is normal in size. 7. LA is midly dilated 29-33ml/m2. 8. The right atrium is normal in size. 9. There is mild aortic valve sclerosis. 10. There is mild aortic regurgitation. 11. The mitral valve leaflets are mildly thickened. 12. The tricuspid valve appears structurally normal. 13. Trace/mild (physiologic) pulmonic regurgitation. 14. The aortic root size is normal. 15. Normal inferior vena cava with normal inspiratory collapse consistent with estimated right atrial pressure of 5 mmHg. 16. The inferior vena cava is mildly dilated. 17. There is no pericardial effusion. [employer]: Vanesa Villa RDCS
[2018-05-24] MEDS: IPRATROPIUM 0.5 MG/2.5 ML NEBU INHALATION PRN (11:26)
[2018-05-24 11:32] VITALS: BP 170/72; TEMP 98.7
--- NOTE | 2018-05-24 11:33 | P.CRDCN ---
History of Present Illness History of present illness: Mrs. Lopez is a pleasant 68-year-old female past medical history significant for coronary artery disease s/p angioplasty 11/2017, peripheral vascular disease, recent right carotid endartectomy, hypertension, COPD, dyslipidemia, bipolar and chronic tobacco use. She follows with Dr. Mirza in the office. We have been asked to see her in consultation for symptoms of back pain. She states this started on Tuesday evening with significant abdominal pain. The pain was in her mid to lower abdomen and felt a little bit like indigestion. She took Tums at home and got relief for pain. Tuesday she felt just generally not well and continued with some mild abdominal discomfort. She then started vomiting and dizzy. She continues to complain of pain across the mid back that radiates mildly around under his left breast. There is no radiation to the arm, back or neck. She denies associated shortness of breath, dizziness, palpitations or diaphoresis. She states she has had no further symptoms of nausea or vomiting since admission. She is receiving IV Protonix as well as Zofran. She reports that her back feels sore on palpation and the pain seems to intensify when she coughs. She states she has a chronic cough and post nasal drip. EKG reveals sinus mechanism with no acute ST or T-wave abnormalities. Chest x-ray is negative for an acute cardiopulmonary process. Laboratory data reviewed, hemoglobin 13.7, platelets 144, sodium 141, potassium 4.3, creatinine 0.5, cardiac enzymes negative 4. Current cardiac medications include aspirin 81 mg daily, atorvastatin 80 mg daily, Plavix 75 mg daily, losartan 25 mg daily. Review of Systems At the time of my exam: CONSTITUTIONAL: Denies fever. Denies chills. EYES: Denies blurred vision. Denies vision changes. Denies eye pain. EARS, NOSE, MOUTH & THROAT: Denies headache. Denies sore throat. Denies ear pain. CARDIOVASCULAR: Denies chest pain. Denies shortness of breath. Denies orthopnea. Denies PND. Denies palpitations. RESPIRATORY: Complains of chronic cough. GASTROINTESTINAL: Denies abdominal pain. Denies diarrhea. Denies constipation. Denies nausea. Denies vomiting. MUSCULOSKELETAL: Complains of mid back soreness. INTEGUMENTARY: Denies pruitis. Denies rash. NEUROLOGIC: Denies numbness. Denies tingling. Denies weakness. PSYCHIATRIC: Denies anxiety. Denies depression. ENDOCRINE: Denies fatigue. Denies weight change. Denies polydipsia. Denies polyurina. GENITOURINARY: Denies burning, hematuria or urgency with micturation. HEMATOLOGIC: Denies history of anemia. Denies bleeding. Past Medical History Past Medical History: COPD, GERD/Reflux, Hyperlipidemia, Hypertension, Osteoarthritis (OA), Vascular Disorder History of Any Multi-Drug Resistant Organisms: None Reported Past Surgical History: Bariatric Surgery, Bladder Surgery, Cholecystectomy, Heart Catheterization With Stent, Hysterectomy Additional Past Surgical History / Comment(s): cataract surg, gastric sleeve, right rotator cuff surgery, left knee replacement, bladder suspension, Rt carotid endarterectomy Past Anesthesia/Blood Transfusion Reactions: No Reported Reaction Date of Last Stent Placement:: Nov 2017 Past Psychological History: Bipolar Smoking Status: Current every day smoker Past Alcohol Use History: None Reported Additional Past Alcohol Use History / Comment(s): 5-6 cigs/day, has smoked since age of 29 Past Drug Use History: None Reported - Past Family History Mother Family Medical History: No Reported History, Coronary Artery Disease (CAD), Diabetes Mellitus Father Family Medical History: Hypertension, Myocardial Infarction (MA) Brother(s) Family Medical History: Coronary Artery Disease (CAD), Myocardial Infarction (MA ) Medications and Allergies Home Medications Medication Instructions Recorded Confirmed Type Aspirin [Adult Low Dose Aspirin EC] 81 mg PO DAILY 11/19/17 05/23/18 History Clopidogrel Bisulfate [Plavix] 75 mg PO DAILY 11/19/17 05/23/18 History Fluticasone Nasal [place] [Flonase 1 spray EA NOSTRIL DAILY 11/19/17 05/23/18 History Nasal [place]] Gabapentin [Neurontin] 800 mg PO TID 11/19/17 05/23/18 History Mirabegron [Myrbetriq] 25 mg PO DAILY 11/19/17 05/23/18 History Omeprazole 40 mg PO DAILY 11/19/17 05/23/18 History Nitroglycerin Sl Tabs [Nitrostat] 0.4 mg SUBLINGUAL Q5M PRN #25 tab 11/21/1708/31 Rx Alendronate Sodium [Fosamax] 70 mg PO WE 03/30/18 05/23/18 History Atorvastatin [Lipitor] 80 mg PO HS 03/30/18 05/23/18 History Ipratropium Nebulized [Atrovent 0.5 mg INHALATION RT-Q6H PRN 03/30/18 05/23/18 History Nebulized] Oxybutynin Chloride [Ditropan] 5 mg PO BID 03/30/18 05/23/18 History Pramipexole [Mirapex] 0.5 mg PO HS 03/30/18 05/23/18 History diphenhydrAMINE [Benadryl] 25 mg PO HS PRN 03/30/18 05/23/18 History DULoxetine HCL [Cymbalta] 30 mg PO DAILY 05/22/18 05/23/18 History Losartan Potassium [Cozaar] 25 mg PO DAILY 05/22/18 05/23/18 History clonazePAM [KlonoPIN] 0.5 mg PO HS 05/22/18 05/23/18 History lamoTRIgine [LaMICtal] 150 mg PO DAILY 05/22/18 05/23/18 History Allergies Allergy/AdvReac Type Severity Reaction Status Date / Time codeine Allergy Unknown Verified 05/23/18 01:28 Latex, Natural Rubber Allergy Itching Verified 05/23/18 01:28 morphine AdvReac Vomiting Verified 05/23/18 01:28 Physical Exam Vitals: Vital Signs Temp Pulse Pulse Resp BP Pulse Ox 05/24/18 07:19 97.7 F 50 L 16 145/76 96 05/24/18 04:00 97.6 F 53 L 16 123/65 96 05/24/18 00:00 16 05/23/18 22:54 98.3 F 58 L 16 134/73 94 L 05/23/18 20:11 63 05/23/18 20:03 63 05/23/18 20:00 16 05/23/18 19:46 98.8 F 63 16 146/66 94 L 05/23/18 16:00 97.7 F 60 18 118/58 96 05/23/18 15:31 54 L 05/23/18 15:25 18 05/23/18 15:23 54 L 05/23/18 11:02 18 Intake and Output 05/23/18 05/24/18 05/24/18 22:59 06:59 14:59 Other: Voiding Method Toilet Toilet Blood pressure 145/76 heart rate 50 afebrile maintaining oxygen saturation on room air. GENERAL: This is a 68-year-old occasion female in no apparent distress at the time of my examination. HEENT: Head is atraumatic, normocephalic. Pupils are equal, round. Sclerae anicteric. Conjunctivae are clear. Mucous membranes of the mouth are moist. Neck is supple. There is no jugular venous distention. Bilateral carotid bruit is heard. LUNGS: Clear to auscultation no wheezes, rales or rhonchi. No chest wall tenderness is noted on palpation or with deep breathing. HEART: Regular rate and rhythm without murmurs, rubs or gallops. S1 and S2 heard. ABDOMEN: Soft, nontender. Bowel sounds are heard. No organomegaly noted. EXTREMITIES: No evidence of peripheral edema and no calf tenderness noted. VASCULAR: Radial and dorsalis pedis pulses palpated, no evidence of clubbing. NEUROLOGIC: Patient is awake, alert and oriented x3. Results 05/24/18 03:35 05/24/18 03:35 Cardiac Enzymes 05/23/18 05/23/18 05/24/18 Range/Units 15:29 21:16 03:35 AST (14-36) U/L CK-MB (CK-2) 0.4 0.4 0.4 (0.0-2.4) ng/mL Troponin I <0.012 <0.012 <0.012 (0.000-0.034) ng/mL 05/24/18 Range/Units 03:35 AST 19 (14-36) U/L CK-MB (CK-2) (0.0-2.4) ng/mL Troponin I (0.000-0.034) ng/mL CBC 05/24/18 Range/Units 03:35 WBC 6.6 (3.8-10.6) k/uL RBC 4.48 (3.80-5.40) m/uL Hgb 13.7 (11.4-16.0) gm/dL Hct 41.3 (34.0-46.0) % Plt Count 144 L (150-450) k/uL Comprehensive Metabolic Panel 05/24/18 Range/Units 03:35 Sodium 141 (137-145) mmol/L Potassium 4.3 (3.5-5.1) mmol/L Chloride 105 (98-107) mmol/L Carbon Dioxide 28 (22-30) mmol/L BUN 10 (7-17) mg/dL Creatinine 0.50 L (0.52-1.04) mg/dL Glucose 106 H (74-99) mg/dL Calcium 8.9 (8.4-10.2) mg/dL AST 19 (14-36) U/L ALT 36 (9-52) U/L Alkaline Phosphatase 56 (38-126) U/L Total Protein 5.6 L (6.3-8.2) g/dL Albumin 3.3 L (3.5-5.0) g/dL Current Medications Generic Name Dose Route Start Last Admin Trade Name Freq PRN Reason Stop Dose Admin Acetaminophen 650 mg 05/23/18 00:03 05/23/18 08:31 Tylenol Tab PO 650 mg Q6HR PRN Administration Mild Pain or Fever > 100.5 Hydrocodone Bitart/Acetaminophen 1 each 05/23/18 10:14 05/23/18 20:55 [place] 5-325 PO 1 each Q6HR PRN Administration Pain Aspirin 81 mg 05/23/18 09:00 05/23/18 08:30 Aspirin PO 81 mg DAILY HORACE Administration Atorvastatin Calcium 80 mg 05/23/18 21:00 05/23/18 20:54 Lipitor PO 80 mg HS HORACE Administration Clonazepam 0.5 mg 05/23/18 21:00 05/23/18 20:55 Klonopin PO 0.5 mg HS HORACE Administration Clopidogrel Bisulfate 75 mg 05/23/18 09:00 05/23/18 08:30 Plavix PO 75 mg DAILY HORACE Administration Duloxetine HCl 30 mg 05/23/18 09:45 05/23/18 11:12 Cymbalta PO 30 mg DAILY HORACE Administration Fluticasone Propionate 1 spray 05/24/18 09:00 Flonase Nasal [place] EA NOSTRIL DAILY HORACE Gabapentin 800 mg 05/23/18 09:00 05/23/18 20:55 Neurontin PO 800 mg TID HORACE Administration Sodium Chloride 1,000 mls @ 75 mls/hr 05/23/18 00:15 05/24/18 05:20 Saline 0.9% IV Not Given .[id number] HORACE Insulin Aspart 0 unit 07/10/18 12:30 05/23/18 20:54 Novolog SQ 3 unit ACHS HORACE Administration Protocol Ipratropium [place] 0.5 mg 05/23/18 09:44 05/23/18 20:02 Atrovent Nebulized INHALATION 0.5 mg RT-Q6H PRN Administration Dyspnea Lamotrigine 150 mg 05/23/18 09:00 05/23/18 08:30 Lamictal PO 150 mg DAILY HORACE Administration Lorazepam 0.5 mg 05/23/18 00:03 Ativan PO Q6HR PRN Anxiety Losartan Potassium 25 mg 05/23/18 09:00 05/23/18 08:30 Cozaar PO 25 mg DAILY HORACE Administration Meclizine HCl 25 mg 05/23/18 00:03 Antivert PO TID PRN Vertigo Naloxone HCl 0.2 mg 05/23/18 00:03 Narcan IV Q2M PRN Opioid Reversal Mirabegron [ 25 mg 05/24/18 09:00 Myrbetriq] PO DAILY [facility] Ondansetron HCl 4 mg 05/23/18 00:03 Zofran IVP Q8HR PRN Nausea And Vomiting Oxybutynin Chloride 5 mg 05/23/18 21:00 05/23/18 20:55 Ditropan PO 5 mg BID H[place]ACE Administration Pantoprazole Sodium 40 mg 05/23/18 12:15 05/23/18 15:30 Protonix IVP 40 mg DAILY HORACE Administration Pramipexole Dihydrochloride 0.5 mg 05/23/18 21:00 05/23/18 20:54 Mirapex PO 0.5 mg HS [facility] Administration Intake and Output 05/23/18 05/24/18 05/24/18 22:59 06:59 14:59 Other: Voiding Method Toilet Toilet 05/24/18 03:35 05/24/18 03:35 Assessment and Plan Assessment: ASSESSMENT Abdominal pain with nausea and vomiting Lactic acidosis, improved with fluids Musculoskeletal back pain associated with cough History of coronary artery disease s/p angioplasty 11/2017 Carotid artery disease s/p endartectomy 03/2018 Hypertension Diabetes mellitus Chronic nicotine dependence PLAN Echocardiogram is been reviewed and reveals preserved left ventricular systolic function with ejection fraction 65-70%, mildly dilated left atrium and mild aortic valve sclerosis with no stenosis. Symptoms seem to be more related to viral type illness with no clear-cut evidence of angina. Stable from a cardiac perspective. She has a follow-up appointment scheduled with Dr. Mirza June 16 she should keep that appointment. Thank you kindly for this consultation. Nurse Practitioner note has been reviewed, I agree with a documented findings and plan of care. Patient was seen and examined.
[2018-05-24 11:37] VITALS: PULSE 60
[2018-05-24 12:34] LABS: Glucose,Whole Blood 246 mg/dL (75-99)
--- NOTE | 2018-05-24 12:57 | P.DS ---
Providers Date of admission: 05/23/18 00:11 Expected date of discharge: 05/24/18 Attending physician: Nely Eng Consults: 05/23/18 13:20 Consult Physician Routine Consulting Provider: Natanael Coronado Consult Reason/Comments: Chest and back pain Do you want consulting provider notified?: Yes Primary care physician: [facility] Course: Discharge diagnosis 1. Nausea and vomiting: Possibly related to a gastroenteritis. Continue with IV fluids. Change Protonix to 40 mg IV daily. Continue the Zofran as needed. Computed tomography scan of the abdomen and pelvis did not show any acute abdomen. Amylase lipase normal. LFTs normal. Patient has history of cholecystectomy. Last EGD about 4 years ago had shown evidence of a peptic ulcer disease per patient. Patient's nausea and vomiting significantly improved patient tolerating regular diet without symptoms 2. Elevated lactic acid level on admission. Improved with IV fluids. Possibly related to dehydration from the vomiting. Vomiting and nausea has resolved. Lactic acid 1.4 3. Syncopal episode: Likely related to patient's illness. However, further workup will be completed. Check echo and carotid. Continuing continue with telemetry monitoring for any arrhythmias. Computed tomography scan of the brain was negative for any acute changes. Chest x-ray negative. 2-D echo completed showing EF between 65 and 70%. Cardiology has cleared patient for discharge arranged follow-up appointment on June [address] Mirza 4. Previous history of right internal carotid artery stenosis status post carotid endarectomy March 2018. Carotid Doppler completed showing extensive posterior Atheromatous changes on the left. Elevated velocity noted in the common carotid and internal carotid. Arrange to follow-up outpatient with Dr. Montelongo who previously did carotid endarterectomy. 5. History of coronary artery disease with previous cardiac stents and myocardial infarction. Patient is currently on Plavix. Platelet levels under 144. Order for CBC to be checked outpatient and follow-up with PCP 6. Essential hypertension 7. Hyperlipidemia 8. Diet controlled diabetes mellitus: Patient reports a blood sugar in the 200s initially when EMS checked it. Blood sugar on admission 184. We'll place patient on Accu-Cheks with sliding screw coverage. Check A1c. 6.9. Follow-up with primary care provider. 9. History of COPD stable. No evidence of exacerbation. 10. Nicotine dependence: Patient has cut her smoking down to occasional use. Discussed with her about complete smoking drinking cessation for greater than 3 minutes 11. Back pain that is similar to when she needed cardiac stents to be placed. Check serial cardiac enzymes. EKG is sinus rhythm. Troponins negative 3. Patient has been cleared for discharge from cardiology. Follow-up appointment set for June [address] Mirza. Hospital course This is a 68-year-old female, patient of Dr. Morales. She has a known past medical history of small gastric ulcer about 4 years ago, right internal carotid artery stenosis status post right carotid enterectomy in March 2018. Also history of COPD, coronary disease with cardiac stents, myocardial infarction, hyperlipidemia, hypertension and bipolar. Patient reports on Tuesday evening during sleeping she started to have severe abdominal pain. The pain went across to her stomach and into her lower back. She took 2 Tums and symptoms resolved. She does report also having some indigestion-like symptoms. She does not remember what she ate earlier that night. Tuesday she was not feeling very well. By Tuesday she had a decrease in appetite. Patient reports yesterday evening she was sitting on the couch and slumped over. She reports completely passing out. She came to and started having multiple episodes of vomiting. That was a thick bile in color. She denies any blood in the vomit. Her became concerned and called EMS. Patient reports after vomiting she had felt slightly better. During her syncopal episode patient was incontinent of a small amount of stool. Patient denies any diarrhea. She vomited again in transport to the hospital. She also does has been having some lightheadedness. She denies any vertigo. Denies any chest pain or shortness of breath. Denies any fever chills or sweats. Denies any burning with urination. Lactic acid level was 3.4 on admission she was given IV fluids and lactic acid has come down to 1.4. LFTs and amylase and lipase are all within normal range. Computed tomography scan of the brain showed no acute changes. Computed tomography scan of the abdomen and pelvis showing a low density right adrenal mass is probably benign. Small renal cortical cysts. No sign of an acute abdomen and pelvis. Patient reports having an EGD and colonoscopy about 4 years ago. At that time she was diagnosed with the peptic ulcer disease. And was treated with Protonix. Since the vomiting patient has been complaining of upper back pain. This was relieved with [place]. No evidence of any rash. On 05/24/2018 patient is sitting up in bed eating a regular breakfast with no complaints of nausea or vomiting at this time. 2-D echo and carotid Doppler completed, results above. Troponins 3 negative. Patient has been cleared for discharge from cardiology standpoint. Patient to follow-up with Dr. Montelongo for further workup based off carotid Doppler. Denies chest pain or shortness of breath at this time. Review of Systems Patient Condition at Discharge: Stable Plan - Discharge Summary Discharge Rx Participant: No New Discharge Prescriptions: Continue Omeprazole 40 mg PO DAILY Fluticasone Nasal [place] [Flonase Nasal [place]] 1 spray EA NOSTRIL DAILY Aspirin [Adult Low Dose Aspirin EC] 81 mg PO DAILY Gabapentin [Neurontin] 800 mg PO TID Clopidogrel Bisulfate [Plavix] 75 mg PO DAILY Mirabegron [Myrbetriq] 25 mg PO DAILY Nitroglycerin Sl Tabs [Nitrostat] 0.4 mg SUBLINGUAL Q5M PRN #25 tab PRN Reason: Chest Pain Ipratropium Nebulized [Atrovent Nebulized] 0.5 mg INHALATION RT-Q6H PRN PRN Reason: Dyspnea Pramipexole [Mirapex] 0.5 mg PO HS Oxybutynin Chloride [Ditropan] 5 mg PO BID Atorvastatin [Lipitor] 80 mg PO HS Alendronate Sodium [Fosamax] 70 mg PO WE diphenhydrAMINE [Benadryl] 25 mg PO HS PRN PRN Reason: allergies Losartan Potassium [Cozaar] 25 mg PO DAILY DULoxetine HCL [Cymbalta] 30 mg PO DAILY clonazePAM [KlonoPIN] 0.5 mg PO HS lamoTRIgine [LaMICtal] 150 mg PO DAILY Discharge Medication List Aspirin [Adult Low Dose Aspirin EC] 81 mg PO DAILY 11/19/17 [History] Clopidogrel Bisulfate [Plavix] 75 mg PO DAILY 11/19/17 [History] Fluticasone Nasal [place] [Flonase Nasal [place]] 1 spray EA NOSTRIL DAILY 11/19/17 [History] Gabapentin [Neurontin] 800 mg PO TID 11/19/17 [History] Mirabegron [Myrbetriq] 25 mg PO DAILY 11/19/17 [History] Omeprazole 40 mg PO DAILY 11/19/17 [History] Nitroglycerin Sl Tabs [Nitrostat] 0.4 mg SUBLINGUAL Q5M PRN #25 tab 11/21/17 [Rx ] Alendronate Sodium [Fosamax] 70 mg PO WE 03/30/18 [History] Atorvastatin [Lipitor] 80 mg PO HS 03/30/18 [History] Ipratropium Nebulized [Atrovent Nebulized] 0.5 mg INHALATION RT-Q6H PRN [History] Oxybutynin Chloride [Ditropan] 5 mg PO BID 03/30/18 [History] Pramipexole [Mirapex] 0.5 mg PO HS 03/30/18 [History] diphenhydrAMINE [Benadryl] 25 mg PO HS PRN 03/30/18 [History] DULoxetine HCL [Cymbalta] 30 mg PO DAILY 05/22/18 [History] Losartan Potassium [Cozaar] 25 mg PO DAILY 05/22/18 [History] clonazePAM [KlonoPIN] 0.5 mg PO HS 05/22/18 [History] lamoTRIgine [LaMICtal] 150 mg PO DAILY 05/22/18 [History] Follow up Appointment(s)/Referral(s): Chelsie Morales DO [Primary Care Provider] - 1-2 days Luisito Montelongo DO [STAFF PHYSICIAN] - 1 Week Roni Mirza MD [STAFF PHYSICIAN] - 2 Weeks Ambulatory/Diagnostic Orders: Complete Blood Count w/diff [LAB.AMB] Location: None Selected Activity/Diet/Wound Care/Special Instructions: Diet heart healthy Activity as tolerated Patient to follow-up with Dr. Montelongo outpatient. Carotid Doppler completed showing extensive artheromatous changes on the left. Some elevated velocity noted within the common carotid and internal carotid artery on the left Discharge Disposition: HOME SELF-CARE
== END 2018-05-24 15:10 | disposition home or self-care (01) | DRG 392 ==
LOC: EC 21:23 → 3OBS 05-23 00:11 → OBSVTOIN 05-23 00:11
PROVIDERS: ADMIT Internal Medicine; ATTEND Internal Medicine
DX: K52.9 Noninfective gastroenteritis and colitis, unspecified (principal); E87.2 Acidosis; E11.51 Type 2 diabetes mellitus with diabetic peripheral angiopathy without gangrene; E27.9 Disorder of adrenal gland, unspecified; E78.5 Hyperlipidemia, unspecified; F17.200 Nicotine dependence, unspecified, uncomplicated; I10 Essential (primary) hypertension; I25.10 Atherosclerotic heart disease of native coronary artery without angina pectoris; I25.2 Old myocardial infarction; J44.9 Chronic obstructive pulmonary disease, unspecified; K21.9 Gastro-esophageal reflux disease without esophagitis; Z87.11 Personal history of peptic ulcer disease; Z79.02 Long term (current) use of antithrombotics/antiplatelets; Z79.82 Long term (current) use of aspirin; Z79.83 Long term (current) use of bisphosphonates; Z79.899 Other long term (current) drug therapy; Z82.49 Family history of ischemic heart disease and other diseases of the circulatory system; Z90.49 Acquired absence of other specified parts of digestive tract; Z90.710 Acquired absence of both cervix and uterus; Z95.5 Presence of coronary angioplasty implant and graft; Z96.652 Presence of left artificial knee joint; Z98.84 Bariatric surgery status; Z98.49 Cataract extraction status, unspecified eye; I65.22 Occlusion and stenosis of left carotid artery; R15.9 Full incontinence of feces; M54.9 Dorsalgia, unspecified; Z88.5 Allergy status to narcotic agent; Z91.040 Latex allergy status
CPT/HCPCS: 36415; 70450; 71046; 74177; 80053; 81003; 82150; 82550; 82553; 83036; 83605; 83690; 84484; 85025; 93005; 93306; 93880; 94640; 96374; 99285

== ENCOUNTER → 2019-05-03 | Outpatient (CLI) | payer MEDICARE, OTHER ==
--- NOTE | 2019-05-03 15:40 | US ---
EXAMINATION TYPE: US venous doppler duplex LE LT DATE OF EXAM: 05/03/2019 1:13 PM COMPARISON: NONE CLINICAL HISTORY: 69-year-old female M79.662 Pain and swelling left lower leg. Swelling left ankle 1 week, no injury pt on aspirin and Plavix SIDE PERFORMED: LEFT TECHNIQUE: The lower extremity deep venous system is examined utilizing real time linear array sonog [place] with graded compression, doppler sonography and color-flow sonography. FINDINGS: VESSELS IMAGED: External Iliac Vein (EIV) Common Femoral Vein Deep Femoral Vein Greater Saphenous Vein * Femoral Vein Popliteal Vein Small Saphenous Vein * ) Left Leg: Negative for DVT IMPRESSION: No evidence for DVT within the left lower extremity imaged from the groin to the upper calf. Additional targeted scanning along the region of calf and ankle swelling shows subcutaneous edema.
== END | disposition home or self-care (01) ==
LOC: RADUSWWP 12:50
PROVIDERS: ATTEND Family Medicine
DX: M79.89 Other specified soft tissue disorders (principal)

== ENCOUNTER 2019-08-08 10:16 | Emergency (ER) | payer MEDICARE, OTHER ==
[2019-08-08 10:24] VITALS: TEMP 98
[2019-08-08] MEDS ORDERED: SODIUM CHLORIDE 0.9% 1,000 ML IV STA ×2 (10:28→11:34)
[2019-08-08] MEDS ORDERED: SODIUM CHLORIDE 0.9% 500 ML 500 ML IV STA (10:28)
--- NOTE | 2019-08-08 10:55 | XR ---
EXAMINATION TYPE: XR chest 2V DATE OF EXAM: 08/08/2019 COMPARISON: 05/22/2018 TECHNIQUE: PA and lateral views submitted. HISTORY: Syncope FINDINGS: The lungs are clear and there is no pneumothorax, pleural effusion, or focal pneumonia. Diffuse ost eopenia and arthropathy of the shoulder. Small 3 mm right upper lobe nodule stable. No overt failure. Degenerative change of the spine. Hyperinflation correlate for COPD. IMPRESSION: 1. No acute process. Stable 3 mm nodule right upper lobe recommend CT scan follow-up..
[2019-08-08 11:17] LABS: Basophils % (A) 0 %; Eosinophils # (A) 0.1 k/uL (0-0.7); Eosinophils % (A) 1 %; HCT 44.3 % (34.0-46.0); HGB 14.9 gm/dL (11.4-16.0); Lymphocytes # (A) 1.4 k/uL (1.0-4.8); Lymphocytes % (A) 20 %; MCH 28.9 pg (25.0-35.0); MCHC 33.7 g/dL (31.0-37.0); Mean Platelet Volume 7.4; Monocytes # (A) 0.3 k/uL (0-1.0); Monocytes % (A) 5 %; Neutrophils # (A) 5.1 k/uL (1.3-7.7); Neutrophils % (A) 73 %; Platelet Count 131 k/uL (150-450); RBC 5.15 m/uL (3.80-5.40)
[2019-08-08 11:33] LABS: D-Dimer 0.42 mg/L FEU (<0.60); INR 0.9 (<1.2); Prothrombin Time 9.8 sec (9.0-12.0)
[2019-08-08 11:36] LABS: ALT 22 U/L (9-52); AST 16 U/L (14-36); African American GFR (CKD) >90 (>60 ml/min/1.73 sqM); Albumin 3.2 g/dL (3.5-5.0); Alkaline Phosphatase 57 U/L (38-126); Anion Gap 8 mmol/L; Blood Urea Nitrogen 13 mg/dL (7-17); Calcium 8.5 mg/dL (8.4-10.2); Carbon Dioxide 24 mmol/L (22-30); Chloride 106 mmol/L (98-107); Creatine Kinase 29 U/L (30-135); Glucose 197 mg/dL (74-99); Magnesium 1.8 mg/dL (1.6-2.3); Potassium 3.8 mmol/L (3.5-5.1); Sodium 138 mmol/L (137-145); Total Bilirubin 0.4 mg/dL (0.2-1.3); Total Protein 5.5 g/dL (6.3-8.2)
[2019-08-08 11:43] LABS: Partial Thromboplastin Time 22.4 sec (22.0-30.0)
--- NOTE | 2019-08-08 12:50 | ED ---
Dizziness HPI - General Chief Complaint: Syncope Stated Complaint: syncope Time Seen by Provider: 08/08/19 10:20 Source: patient, family, EMS, RN notes reviewed Mode of arrival: EMS Limitations: no limitations - History of Present Illness Initial Comments: This is a 69-year-old female who presents by EMS with complaints of passing out almost passing out he states he felt lightheaded and felt funny she's felt sweaty for about a week when she got up she felt tingling to the top of her scalp and she was told by paramedics that she did pass out for a brief period time she does have a history of dehydration and the past she states she's not been eating and drinking very well he denies any fevers chills nausea vomiting sweats or other symptoms at this time she states that she has had several of these have episodes in the past. She has had a stress test and echocardiograms apparently were unremarkable MD Complaint: dizziness, lightheadedness, near syncope - Related Data Home Medications Medication Instructions Recorded Confirmed Aspirin [Adult Low Dose Aspirin EC] 81 mg PO DAILY 11/19/17 08/08/19 Clopidogrel Bisulfate [Plavix] 75 mg PO DAILY 11/19/17 08/08/19 Fluticasone Nasal [place] [Flonase 1 - 2 spray EA NOSTRIL DAILY 11/19/17 08/08/19 Nasal [place]] Omeprazole 40 mg PO DAILY 11/19/17 08/08/19 Atorvastatin [Lipitor] 80 mg PO HS 03/30/18 08/08/19 Oxybutynin Chloride [Ditropan] 5 mg PO BID 03/30/18 08/08/19 DULoxetine HCL [Cymbalta] 30 mg PO BID 05/22/18 08/08/19 Losartan Potassium [Cozaar] 25 mg PO DAILY 05/22/18 08/08/19 clonazePAM [KlonoPIN] 0.5 mg PO HS 05/22/18 08/08/19 lamoTRIgine [LaMICtal] 150 mg PO HS 05/22/18 08/08/19 Baclofen [Lioresal] 5 mg PO TID PRN 08/08/19 08/08/19 Cetirizine HCl [Zyrtec] 10 mg PO DAILY 08/08/19 08/08/19 Ipratropium [place] [Ipratropium 1 sprays EA NOSTRIL BID 08/08/19 08/08/19 [place] 0.03%] Mirabegron [Myrbetriq] 50 mg PO DAILY 08/08/19 08/08/19 metFORMIN HCL [Glucophage Xr] 500 mg PO HS 08/08/19 08/08/19 Previous Rx's Medication Instructions Recorded Nitroglycerin Sl Tabs [Nitrostat] 0.4 mg SUBLINGUAL Q5M PRN #25 tab 11/21/17 Cephalexin [Keflex] 500 mg PO Q6HR #40 cap 08/08/19 Allergies Allergy/AdvReac Type Severity Reaction Status Date / Time codeine Allergy Unknown Verified 05/23/18 01:28 Latex, Natural Rubber Allergy Itching Verified 05/23/18 01:28 morphine AdvReac Vomiting Verified 05/23/18 01:28 Review of Systems ROS Statement: Those systems with pertinent positive or pertinent negative responses have been documented in the HPI. ROS Other: All systems not noted in ROS Statement are negative. Past Medical History Past Medical History: COPD, GERD/Reflux, Hyperlipidemia, Hypertension, Osteoar thritis (OA), Vascular Disorder History of Any Multi-Drug Resistant Organisms: None Reported Past Surgical History: Bariatric Surgery, Bladder Surgery, Cholecystectomy, Heart Catheterization With Stent, Hysterectomy Additional Past Surgical History / Comment(s): cataract surg, gastric sleeve, right rotator cuff surgery, left knee replacement, bladder suspension, Rt carotid endarterectomy Past Anesthesia/Blood Transfusion Reactions: No Reported Reaction Date of Last Stent Placement:: Nov 2017 Past Psychological History: Bipolar Smoking Status: Current every day smoker Past Alcohol Use History: None Reported Past Drug Use History: None Reported - Past Family History Mother Family Medical History: No Reported History, Coronary Artery Disease (CAD), Diabetes Mellitus Father Family Medical History: Hypertension, Myocardial Infarction ([place]) Brother(s) Family Medical History: Coronary Artery Disease (CAD), Myocardial Infarction ([place]) General Exam - General Exam Comments Initial Comments: This is a well-developed sec appearing female who is awake alert oriented 3 female Limitations: no limitations General appearance: alert Head exam: Present: atraumatic, normocephalic, normal inspection Eye exam: Present: normal appearance, PERRL, EOMI. Absent: scleral icterus, conjunctival injection, periorbital swelling ENT exam: Present: mucous membranes dry Neck exam: Present: normal inspection. Absent: tenderness, meningismus, lymphad enopathy Respiratory exam: Present: normal lung sounds bilaterally. Absent: respiratory distress, wheezes, rales, rhonchi, stridor Cardiovascular Exam: Present: regular rate, normal rhythm, normal heart sounds. Absent: systolic murmur, diastolic murmur, rubs, gallop, clicks GI/Abdominal exam: Present: soft, normal bowel sounds. Absent: distended, tenderness, guarding, rebound, rigid Extremities exam: Present: normal inspection, full ROM, normal capillary refill. Absent: tenderness, pedal edema, joint swelling, calf tenderness Back exam: Present: normal inspection Neurological exam: Present: alert, oriented X3, CN II-XII intact Psychiatric exam: Present: normal affect, normal mood Skin exam: Present: warm, dry, intact, normal color. Absent: rash Course Vital Signs 08/08/19 10:19 Temperature 98 F Pulse Rate 60 Respiratory 18 Rate Blood Pressure 146/72 O2 Sat by Pulse 98 Oximetry Medical Decision Making - Medical Decision Making Patient is feeling better after IV hydration likely the dehydration as a cause of the symptoms she will be discharged I did discuss this with patient family reexamination patient revealed evidence of gingivitis patient be placed on Kef lu - Lab Data Result diagrams: 08/08/19 10:25 08/08/19 10:25 Lab Results 08/08/19 08/08/19 08/08/19 Range/Units 10:25 10:25 10:25 WBC 7.0 (3.8-10.6) k/uL RBC 5.15 (3.80-5.40) m/uL Hgb 14.9 (11.4-16.0) gm/dL Hct 44.3 (34.0-46.0) % MCV 86.0 (80.0-100.0) fL MCH 28.9 (25.0-35.0) pg MCHC 33.7 (31.0-37.0) g/dL RDW 15.0 (11.5-15.5) % Plt Count 131 L (150-450) k/uL Neutrophils % 73 % Lymphocytes % 20 % Monocytes % 5 % Eosinophils % 1 % Basophils % 0 % Neutrophils # 5.1 (1.3-7.7) k/uL Lymphocytes # 1.4 (1.0-4.8) k/uL Monocytes # 0.3 (0-1.0) k/uL Eosinophils # 0.1 (0-0.7) k/uL Basophils # 0.0 (0-0.2) k/uL PT 9.8 (9.0-12.0) sec INR 0.9 (<1.2) APTT 22.4 (22.0-30.0) sec D-Dimer 0.42 (<0.60) mg/L FEU Sodium 138 (137-145) mmol/L Potassium 3.8 (3.5-5.1) mmol/L Chloride 106 (98-107) mmol/L Carbon Dioxide 24 (22-30) mmol/L Anion Gap 8 mmol/L BUN 13 (7-17) mg/dL Creatinine 0.55 (0.52-1.04) mg/dL Est GFR (CKD-EPI)AfAm >90 (>60 ml/min/1.73 sqM) Est GFR (CKD-EPI)NonAf >90 (>60 ml/min/1.73 sqM) Glucose 197 H (74-99) mg/dL Calcium 8.5 (8.4-10.2) mg/dL Magnesium 1.8 (1.6-2.3) mg/dL Total Bilirubin 0.4 (0.2-1.3) mg/dL AST 16 (14-36) U/L ALT 22 (9-52) U/L Alkaline Phosphatase 57 (38-126) U/L Creatine Kinase 29 L (30-135) U/L Troponin I (0.000-0.034) ng/mL Total Protein 5.5 L (6.3-8.2) g/dL Albumin 3.2 L (3.5-5.0) g/dL 08/08/19 Range/Units 10:25 WBC (3.8-10.6) k/uL RBC (3.80-5.40) m/uL Hgb (11.4-16.0) gm/dL Hct (34.0-46.0) % MCV (80.0-100.0) fL MCH (25.0-35.0) pg MCHC (31.0-37.0) g/dL RDW (11.5-15.5) % Plt Count (150-450) k/uL Neutrophils % % Lymphocytes % % Monocytes % % Eosinophils % % Basophils % % Neutrophils # (1.3-7.7) k/uL Lymphocytes # (1.0-4.8) k/uL Monocytes # (0-1.0) k/uL Eosinophils # (0-0.7) k/uL Basophils # (0-0.2) k/uL PT (9.0-12.0) sec INR (<1.2) APTT (22.0-30.0) sec D-Dimer (<0.60) mg/L FEU Sodium (137-145) mmol/L Potassium (3.5-5.1) mmol/L Chloride (98-107) mmol/L Carbon Dioxide (22-30) mmol/L Anion Gap mmol/L BUN (7-17) mg/dL Creatinine (0.52-1.04) mg/dL Est GFR (CKD-EPI)AfAm (>60 ml/min/1.73 sqM) Est GFR (CKD-EPI)NonAf (>60 ml/min/1.73 sqM) Glucose (74-99) mg/dL Calcium (8.4-10.2) mg/dL Magnesium (1.6-2.3) mg/dL Total Bilirubin (0.2-1.3) mg/dL AST (14-36) U/L ALT (9-52) U/L Alkaline Phosphatase (38-126) U/L Creatine Kinase (30-135) U/L Troponin I <0.012 (0.000-0.034) ng/mL Total Protein (6.3-8.2) g/dL Albumin (3.5-5.0) g/dL - EKG Data -: EKG Interpreted by Or EKG shows normal: sinus rhythm (EKG shows normal sinus rhythm a 63. Interval 150 to QRS duration 80 QT since QTC 444/454 possible left atrial enlargement and evidence of nonspecific septal changes) - Radiology Data Radiology results: report reviewed (I did review the imaging and report no acute findings), image reviewed Disposition Clinical Impression: Syncope due to orthostatic hypotension, Dehydration, Gingivitis Disposition: HOME SELF-CARE Condition: Good Instructions (If sedation given, give patient instructions): Dehydration (ED), Syncope (ED), Gingivitis (ED) Additional Instructions: Medication prescription sent to [facility] pharmacy Prescriptions: Cephalexin [Keflex] 500 mg PO Q6HR #40 cap Is patient prescribed a controlled substance at d/c from ED?: No Referrals: Chelsie Morales DO [Primary Care Provider] - 1-2 days
[2019-08-08 14:24] VITALS: BP 137/69; PULSE 57; RESP 17
== END 2019-08-08 14:47 | disposition home or self-care (01) ==
LOC: EC 10:16
DX: E86.0 Dehydration (principal); I95.1 Orthostatic hypotension; K05.10 Chronic gingivitis, plaque induced; J44.9 Chronic obstructive pulmonary disease, unspecified; K21.9 Gastro-esophageal reflux disease without esophagitis; E78.5 Hyperlipidemia, unspecified; I10 Essential (primary) hypertension; M19.90 Unspecified osteoarthritis, unspecified site; F31.9 Bipolar disorder, unspecified; F17.200 Nicotine dependence, unspecified, uncomplicated; Z88.5 Allergy status to narcotic agent; Z91.040 Latex allergy status; Z79.02 Long term (current) use of antithrombotics/antiplatelets; Z79.51 Long term (current) use of inhaled steroids; Z79.82 Long term (current) use of aspirin; Z79.84 Long term (current) use of oral hypoglycemic drugs; Z79.899 Other long term (current) drug therapy; Z95.5 Presence of coronary angioplasty implant and graft; Z82.49 Family history of ischemic heart disease and other diseases of the circulatory system
CPT/HCPCS: 36415; 71046; 80053; 82550; 83735; 84484; 85025; 85379; 85610; 85730; 93005; 96360; 96361; 99285

== ENCOUNTER → 2019-08-25 | Outpatient (CLI) | payer MEDICARE, OTHER ==
--- NOTE | 2019-08-27 11:28 | MR ---
EXAMINATION TYPE: MR brain wo/w con DATE OF EXAM: 08/25/2019 COMPARISON: HISTORY: Headache TECHNIQUE: Multiplanar, multisequence images of the brain and brainstem is performed without and with IV contras t, utilizing 7 mL intravenous Gadavist . FINDINGS: Diffusion weighted images demonstrate no evidence of a recent infarct or other diffusion ab normality. The ventricular system and cisternal spaces are normal in size and appearance. The brain volume is age appropriate. Midline structures demonstrate normal morphology. The craniocervical junction appears within normal limits. Post contrast images demonstrate no abnormal enhancement. The dural venous sinuses appear pa tent. Changes of chronic mastoiditis and sinusitis with nasal septal deviation. No orbital flattening. Ther e are numerous areas of scattered abnormal signal in the white matter of the largest seen in the left periatrial region measuring approximately 1.4 cm. No enhancing lesions. Remaining lesions appear to measure less than 5 mm. IMPRESSION: 1. Numerous nonspecific white matter changes noted bilaterally most typical remote microvascular isch emia. Hypertension, demyelinating disease, Lyme's disease also in the differential diagnosis. 2. Bilateral chronic mastoiditis and mild chronic sinusitis.
== END | disposition home or self-care (01) ==
LOC: RADMRIMAIN 13:53
PROVIDERS: ATTEND Family Medicine
DX: H70.13 Chronic mastoiditis, bilateral (principal); J32.9 Chronic sinusitis, unspecified; R90.82 White matter disease, unspecified; R26.89 Other abnormalities of gait and mobility
CPT/HCPCS: 70553; A9585

== ENCOUNTER → 2019-09-27 | Outpatient (CLI) | payer MEDICARE, OTHER ==
[2019-09-27 07:04] LABS: African American GFR (CKD) >90 (>60 ml/min/1.73 sqM); Blood Urea Nitrogen 18 mg/dL (7-17)
--- NOTE | 2019-09-27 09:09 | CT ---
EXAMINATION TYPE: CT chest w con DATE OF EXAM: 09/27/2019 COMPARISON: Radiograph 08/08/[address] abdomen 05/23/2018 HISTORY: 69-year-old female Bronchiectasis TECHNIQUE: Contiguous axial scanning of the chest after the administration of 100 ml mL of Isovue 300 . Coronal/sagittal reconstructions performed. CT DLP: 230.9mGycm. Automatic exposure control utilized for a dose reduction. FINDINGS: Heart normal size without pericardial effusion. Extensive coronary vessel calcifications are demonstr ated. Aorta normal caliber with conventional arch vessel branching anatomy. No thoracic lymphadenopathy by CT size criteria. 4 mm subpleural pulmonary nodule posterior right upper lobe, axial image 12. The questioned right lung nodule on the 08/08/2019 radiographs corresponds to a bone island within the anterolateral right fourth rib rather than a pulmonary nodule. 4 mm left upper lobe pulmonary nodule, axial image 14. Mild diffuse bronchial wall thickening Strandy atelectasis peripheral left base. Mild right apical pleural parenchymal scarring. No bronchiectatic changes seen. No consolidation or pleural effusion. Visualized upper abdomen shows postsurgical changes of sleeve gastrectomy. A 3.0 x 2.2 cm low density mass of the right adrenal gland is stable from 05/23/2018 where it measured 3.3 x 2.1 cm. Additional nodularity of the left adrenal gland measuring 1.4 and 8 mm stable from 1.3 and 9 mm, respectively, on 05/23/2018. Tiny anterior cortical cyst partially visualized left kidney w as present previously as well. Bones: Mild degenerative disc disease mid thoracic spine. IMPRESSION: 1. Mild diffuse bronchial wall thickening could reflect bronchitis or chronic asthma. 2. Extensive coronary vessel calcifications compatible with CAD. 3. No bronchiectatic change or focal infiltrate. 4. A couple 4 mm pulmonary nodules. One-year follow-up can reassess. The questioned nodule on the 07/16 radiograph corresponds to a bone island within the right fourth rib. 5. Stable bilateral adrenal nodules measuring up to 3.0 cm suggesting adrenal adenomas.
== END | disposition home or self-care (01) ==
LOC: RADCTMAIN 06:21
PROVIDERS: ATTEND Family Medicine
DX: R91.1 Solitary pulmonary nodule (principal); J47.9 Bronchiectasis, uncomplicated
CPT/HCPCS: 82565; 84520; 71260; 36415; Q9967

== ENCOUNTER → 2019-10-19 | Outpatient (CLI) | payer MEDICARE, OTHER ==
--- NOTE | 2019-10-26 12:07 | MM ---
Reason for exam: screening (asymptomatic). Last mammogram was performed 2 years ago. History: Benign excisional biopsy of the left breast, 2003. Physical Findings: A clinical breast exam by your physician is recommended on an annual basis and results should be correlated with mammographic findings. MG 3D Screening Mammo W/Cad Bilateral CC and MLO view(s) were taken. Prior study comparison: October 10, 2017, mammogram, performed at [facility]. August 07, 2014, mammogram, performed at [facility]. There are scattered fibroglandular densities. No suspicious abnormality. No significant changes when compared with prior studies. ASSESSMENT: Negative, BI-RAD 1 RECOMMENDATION: Routine screening mammogram of both breasts in 1 year.
== END | disposition home or self-care (01) ==
LOC: RADMAMWWP 14:29
PROVIDERS: ATTEND Family Medicine
DX: Z12.31 Encounter for screening mammogram for malignant neoplasm of breast (principal)
CPT/HCPCS: 77063; 77067

== ENCOUNTER 2019-11-30 15:36 | Inpatient (IN) | payer MEDICARE, OTHER ==
[2019-11-30] MEDS ORDERED: ASPIRIN 81 MG PO STA (15:52)
[2019-11-30] MEDS: NITROGLYCERIN SL TABS 0.4 MG TAB SUBLINGUAL STA ×2 (16:08→16:27)
--- NOTE | 2019-11-30 16:15 | ED ---
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 Patient had been sent over after having a positive stress test and ongoing symptoms which include left-sided chest pain radiating to her left arm and left scapula. She has had intermittent pain over the past at least one week. This is nonexertional. She had some improvement with nitroglycerin. She was sent over for admission from the [employer] [employer]'s office with unstable angina. She does have a history of CAD and had stenting of the RCA in November 2017. Patient is a current smoker. - Related Data Home Medications Medication Instructions Recorded Confirmed Aspirin [Adult Low Dose Aspirin EC] 81 mg PO DAILY 11/19/17 11/30/19 Clopidogrel Bisulfate [Plavix] 75 mg PO DAILY 11/19/17 11/30/19 Fluticasone Nasal [place] [Flonase 1 - 2 spray EA NOSTRIL DAILY PRN 11/19/17 11/30/19 Nasal [place]] Atorvastatin [Lipitor] 80 mg PO HS 03/30/18 11/30/19 DULoxetine HCL [Cymbalta] 30 mg PO BID 05/22/18 11/30/19 Losartan Potassium [Cozaar] 25 mg PO DAILY 05/22/18 11/30/19 Mirabegron [Myrbetriq] 50 mg PO DAILY 08/08/19 11/30/19 Donepezil [Aricept] 10 mg PO HS 11/30/19 11/30/19 Gabapentin 800 mg PO HS PRN 11/30/19 11/30/19 Omeprazole 40 mg PO DAILY 11/30/19 11/30/19 Potassium Chloride ER [K-Dur 10] 10 meq PO DAILY 11/30/19 11/30/19 Pramipexole [Mirapex] 0.5 mg PO HS 11/30/19 11/30/19 diphenhydrAMINE [Benadryl] 25 mg PO Q4-6H PRN 11/30/19 11/30/19 lamoTRIgine [LaMICtal] 225 mg PO DAILY 11/30/19 11/30/19 metFORMIN HCL [Glucophage Xr] 500 mg PO DAILY 11/30/19 11/30/19 Previous Rx's Medication Instructions Recorded Nitroglycerin Sl Tabs [Nitrostat] 0.4 mg SUBLINGUAL Q5M PRN #25 tab 11/21/17 Allergies Allergy/AdvReac Type Severity Reaction Status Date / Time codeine Allergy Unknown Verified 11/30/19 16:46 Latex, Natural Rubber Allergy Itching Verified 11/30/19 16:46 morphine AdvReac Vomiting Verified 11/30/19 16:46 Review of Systems ROS Statement: Those systems with pertinent positive or pertinent negative responses have been documented in the HPI. ROS Other: All systems not noted in ROS Statement are negative. Past Medical History Past Medical History: COPD, GERD/Reflux, Hyperlipidemia, Hypertension, Osteoarthritis (OA), Vascular Disorder History of Any Multi-Drug Resistant Organisms: None Reported Past Surgical History: Bariatric Surgery, Bladder Surgery, Cholecystectomy, Heart Catheterization With Stent, Hysterectomy Additional Past Surgical History / Comment(s): cataract surg, gastric sleeve, right rotator cuff surgery, left knee replacement, bladder suspension, Rt carotid endarterectomy Past Anesthesia/Blood Transfusion Reactions: No Reported Reaction Date of Last Stent Placement:: Nov 2017 Past Psychological History: Bipolar Smoking Status: Current every day smoker Past Alcohol Use History: None Reported Past Drug Use History: None Reported - Past Family History Mother Family Medical History: No Reported History, Coronary Artery Disease (CAD), Diabetes Mellitus Father Family Medical History: Hypertension, Myocardial Infarction ([place]) Brother(s) Family Medical History: Coronary Artery Disease (CAD), Myocardial Infarction ([place]) General Exam Limitations: no limitations General appearance: alert, in no apparent distress Head exam: Present: atraumatic, normocephalic Eye exam: Present: normal appearance, PERRL, EOMI ENT exam: Present: normal exam Neck exam: Present: normal inspection. Absent: tenderness, meningismus Respiratory exam: Present: normal lung sounds bilaterally. Absent: respiratory distress, wheezes, rales Cardiovascular Exam: Present: regular rate, normal rhythm GI/Abdominal exam: Present: soft. Absent: distended, tenderness, guarding Extremities exam: Present: normal inspection, normal capillary refill. Absent: pedal edema Neurological exam: Present: alert, oriented X3, CN II-XII intact. Absent: motor sensory deficit Psychiatric exam: Present: normal affect, normal mood Skin exam: Present: warm, dry, intact. Absent: cyanosis, diaphoretic Course Vital Signs 11/30/19 11/30/19 15:38 16:22 Temperature 98 F Pulse Rate 68 62 Respiratory 20 Rate Blood Pressure 169/72 175/71 O2 Sat by Pulse 98 Oximetry EKG Findings - EKG Comments: EKG Findings:: EKG: Normal sinus rhythm, rate of 65, OK interval 142, QRS duration 78, QTC 424, no ST segment elevation T waves are upright. Medical Decision Making - Medical Decision Making Patient sent over from cardiology office for evaluation of chest pain and for admission of unstable angina. EKG is sinus rhythm with no ST segment elevation. Patient's is initiated on heparin. Initial troponin is negative. Case is discussed with the admitting physician Dr. Davneport. - Lab Data Result diagrams: 11/30/19 16:00 11/30/19 16:00 Lab Results 11/30/19 11/30/19 11/30/19 Range/Units 16:00 16:00 16:00 WBC 8.2 (3.8-10.6) k/uL RBC 4.88 (3.80-5.40) m/uL Hgb 14.2 (11.4-16.0) gm/dL Hct 42.6 (34.0-46.0) % MCV 87.3 (80.0-100.0) fL MCH 29.2 (25.0-35.0) pg MCHC 33.4 (31.0-37.0) g/dL RDW 14.2 (11.5-15.5) % Plt Count 132 L (150-450) k/uL Neutrophils % 71 % Lymphocytes % 22 % Monocytes % 5 % Eosinophils % 1 % Basophils % 0 % Neutrophils # 5.8 (1.3-7.7) k/uL Lymphocytes # 1.8 (1.0-4.8) k/uL Monocytes # 0.4 (0-1.0) k/uL Eosinophils # 0.1 (0-0.7) k/uL Basophils # 0.0 (0-0.2) k/uL PT 9.6 (9.0-12.0) sec INR 0.9 (<1.2) APTT 21.3 L (22.0-30.0) sec Sodium 139 (137-145) mmol/L Potassium 4.1 (3.5-5.1) mmol/L Chloride 108 H (98-107) mmol/L Carbon Dioxide 26 (22-30) mmol/L Anion Gap 5 mmol/L BUN 13 (7-17) mg/dL Creatinine 0.52 (0.52-1.04) mg/dL Est GFR (CKD-EPI)AfAm >90 (>60 ml/min/1.73 sqM) Est GFR (CKD-EPI)NonAf >90 (>60 ml/min/1.73 sqM) Glucose 182 H (74-99) mg/dL Calcium 8.8 (8.4-10.2) mg/dL Magnesium 1.8 (1.6-2.3) mg/dL Total Bilirubin 0.4 (0.2-1.3) mg/dL AST 18 (14-36) U/L ALT 12 (4-34) U/L Alkaline Phosphatase 66 (38-126) U/L Troponin I (0.000-0.034) ng/mL Total Protein 6.0 L (6.3-8.2) g/dL Albumin 3.5 (3.5-5.0) g/dL 11/30/19 Range/Units 16:00 WBC (3.8-10.6) k/uL RBC (3.80-5.40) m/uL Hgb (11.4-16.0) gm/dL Hct (34.0-46.0) % MCV (80.0-100.0) fL MCH (25.0-35.0) pg MCHC (31.0-37.0) g/dL RDW (11.5-15.5) % Plt Count (150-450) k/uL Neutrophils % % Lymphocytes % % Monocytes % % Eosinophils % % Basophils % % Neutrophils # (1.3-7.7) k/uL Lymphocytes # (1.0-4.8) k/uL Monocytes # (0-1.0) k/uL Eosinophils # (0-0.7) k/uL Basophils # (0-0.2) k/uL PT (9.0-12.0) sec INR (<1.2) APTT (22.0-30.0) sec Sodium (137-145) mmol/L Potassium (3.5-5.1) mmol/L Chloride (98-107) mmol/L Carbon Dioxide (22-30) mmol/L Anion Gap mmol/L BUN (7-17) mg/dL Creatinine (0.52-1.04) mg/dL Est GFR (CKD-EPI)AfAm (>60 ml/min/1.73 sqM) Est GFR (CKD-EPI)NonAf (>60 ml/min/1.73 sqM) Glucose (74-99) mg/dL Calcium (8.4-10.2) mg/dL Magnesium (1.6-2.3) mg/dL Total Bilirubin (0.2-1.3) mg/dL AST (14-36) U/L ALT (4-34) U/L Alkaline Phosphatase (38-126) U/L Troponin I <0.012 (0.000-0.034) ng/mL Total Protein (6.3-8.2) g/dL Albumin (3.5-5.0) g/dL Critical Care Time Critical Care Time: Yes Total Critical Care Time: 35 Disposition Clinical Impression: Unstable angina pectoris Disposition: ADMITTED IP TO THIS [facility] Condition: Stable Is patient prescribed a controlled substance at d/c from ED?: No Referrals: Chelsie Morales DO [Primary Care Provider] - 1-2 days Decision to Admit Reason: Admit from EC Decision Date: 11/30/19 Decision Time: 17:42
[2019-11-30 16:18] LABS: Basophils % (A) 0 %; Eosinophils # (A) 0.1 k/uL (0-0.7); Eosinophils % (A) 1 %; HCT 42.6 % (34.0-46.0); HGB 14.2 gm/dL (11.4-16.0); Lymphocytes # (A) 1.8 k/uL (1.0-4.8); Lymphocytes % (A) 22 %; MCH 29.2 pg (25.0-35.0); MCHC 33.4 g/dL (31.0-37.0); MCV 87.3 fL (80.0-100.0); Mean Platelet Volume 8.2; Monocytes # (A) 0.4 k/uL (0-1.0); Monocytes % (A) 5 %; Neutrophils # (A) 5.8 k/uL (1.3-7.7); Neutrophils % (A) 71 %; Platelet Count 132 k/uL (150-450); RBC 4.88 m/uL (3.80-5.40); RDW 14.2 % (11.5-15.5); WBC 8.2 k/uL (3.8-10.6)
[2019-11-30 16:25] LABS: ALT 12 U/L (4-34); AST 18 U/L (14-36); African American GFR (CKD) >90 (>60 ml/min/1.73 sqM); Albumin 3.5 g/dL (3.5-5.0); Alkaline Phosphatase 66 U/L (38-126); Anion Gap 5 mmol/L; Blood Urea Nitrogen 13 mg/dL (7-17); Calcium 8.8 mg/dL (8.4-10.2); Carbon Dioxide 26 mmol/L (22-30); Chloride 108 mmol/L (98-107); Glucose 182 mg/dL (74-99); Magnesium 1.8 mg/dL (1.6-2.3); Non-African American GFR(CKD) >90 (>60 ml/min/1.73 sqM); Potassium 4.1 mmol/L (3.5-5.1); Sodium 139 mmol/L (137-145); Total Bilirubin 0.4 mg/dL (0.2-1.3)
[2019-11-30 16:32] LABS: INR 0.9 (<1.2); Partial Thromboplastin Time 21.3 sec (22.0-30.0); Prothrombin Time 9.6 sec (9.0-12.0)
--- NOTE | 2019-11-30 16:42 | XR ---
EXAMINATION TYPE: XR chest 2V DATE OF EXAM: 11/30/2019 COMPARISON: 08/08/2019 HISTORY: Syncope TECHNIQUE: FINDINGS: Heart and mediastinum are normal. Lungs are clear. Diaphragm is normal. There are chest priscila ds. Bony thorax is intact. IMPRESSION: Normal chest. No change.
[2019-11-30] MEDS ORDERED: NITROGLYCERIN SL TABS 0.4 MG TAB SUBLINGUAL PRN (17:10)
--- NOTE | 2019-11-30 17:27 | P.HPIM ---
History of Present Illness This is a pleasant 69 years old female with past medical history of COPD, hyperlipidemia, hypertension, osteoarthritis, status post heart catheterization with stent placement for her coronary artery disease, status post gastric sleeve and right carotid endarterectomy surgery. Patient was sent to the hospital by her shoe repairer Dr. Martinez. Patient was complaining of from chest pain on and off for the last 2 weeks, was on the left side radiating to the back and to the left arm associated with numbness to the fingertips, chest pain lasted for about 20 minutes, it comes about 4-5 times per day. Her PCP Dr. Morales send her to shoe repairer. Patient also complained from chronic exertional dyspnea for more than one year, for example she goes to the store or across the street [id number]. No coughing, no abdominal pain or change in urine or bowel habits. She is a smoker smokes about 3-10 cigarettes per day, no alcohol or illicit drugs. Patient declined nicotine patch Vitals are stable, blood pressure 175/71, heart rate 62. Labs are unremarkable including CBC, INR, BMP and liver enzymes. First troponin is negative less than 0.012. Review of Systems CONSTITUTIONAL: No fever, no malaise, no fatigue. HEENT: No recent visual problems or hearing problems. Denied any sore throat. CARDIOVASCULAR: No orthopnea, PND, no palpitations, no syncope. PULMONARY: no cough, no hemoptysis. GASTROINTESTINAL: No diarrhea, no nausea, no vomiting, no abdominal pain. Normoactive bowel sounds. NEUROLOGICAL: No headaches, no weakness, no numbness. HEMATOLOGICAL: Denies any bleeding or petechiae. GENITOURINARY: Denies any burning micturition, frequency, or urgency. MUSCULOSKELETAL/RHEUMATOLOGICAL: Denies any joint pain, swelling, or any muscle pain. ENDOCRINE: Denies any polyuria or polydipsia. Past Medical History Past Medical History: COPD, GERD/Reflux, Hyperlipidemia, Hypertension, Osteoarthritis (OA), Vascular Disorder History of Any Multi-Drug Resistant Organisms: None Reported Past Surgical History: Bariatric Surgery, Bladder Surgery, Cholecystectomy, Heart Catheterization With Stent, Hysterectomy Additional Past Surgical History / Comment(s): cataract surg, gastric sleeve, right rotator cuff surgery, left knee replacement, bladder suspension, Rt caroti d endarterectomy Past Anesthesia/Blood Transfusion Reactions: No Reported Reaction Date of Last Stent Placement:: Nov 2017 Past Psychological History: Bipolar Smoking Status: Current every day smoker Past Alcohol Use History: None Reported Past Drug Use History: None Reported - Past Family History Mother Family Medical History: No Reported History, Coronary Artery Disease (CAD), Diabetes Mellitus Father Family Medical History: Hypertension, Myocardial Infarction ([place]) Brother(s) Family Medical History: Coronary Artery Disease (CAD), Myocardial Infarction ([place]) Medications and Allergies Home Medications Medication Instructions Recorded Confirmed Type Aspirin [Adult Low Dose Aspirin EC] 81 mg PO DAILY 11/19/17 11/30/19 History Clopidogrel Bisulfate [Plavix] 75 mg PO DAILY 11/19/17 11/30/19 History Fluticasone Nasal [place] [Flonase 1 - 2 spray EA NOSTRIL DAILY PRN 11/19/17 11/30/19 History Nasal [place]] Nitroglycerin Sl Tabs [Nitrostat] 0.4 mg SUBLINGUAL Q5M PRN #25 tab 11/21/17 11/30/19 Rx Atorvastatin [Lipitor] 80 mg PO HS 03/30/18 11/30/19 History DULoxetine HCL [Cymbalta] 30 mg PO BID 05/22/18 11/30/19 History Losartan Potassium [Cozaar] 25 mg PO DAILY 05/22/18 11/30/19 History Mirabegron [Myrbetriq] 50 mg PO DAILY 08/08/19 11/30/19 History Donepezil [Aricept] 10 mg PO HS 11/30/19 11/30/19 History Gabapentin 800 mg PO HS PRN 11/30/19 11/30/19 History Omeprazole 40 mg PO DAILY 11/30/19 11/30/19 History Potassium Chloride ER [K-Dur 10] 10 meq PO DAILY 11/30/19 11/30/19 History Pramipexole [Mirapex] 0.5 mg PO HS 11/30/19 11/30/19 History diphenhydrAMINE [Benadryl] 25 mg PO Q4-6H PRN 11/30/19 11/30/19 History lamoTRIgine [LaMICtal] 225 mg PO DAILY 11/30/19 11/30/19 History metFORMIN HCL [Glucophage Xr] 500 mg PO DAILY 11/30/19 11/30/19 History Allergies Allergy/AdvReac Type Severity Reaction Status Date / Time codeine Allergy Unknown Verified 11/30/19 16:46 Latex, Natural Rubber Allergy Itching Verified 11/30/19 16:46 morphine AdvReac Vomiting Verified 11/30/19 16:46 Physical Exam Vitals: Vital Signs Temp Pulse Resp BP Pulse Ox 11/30/19 16:22 62 175/71 11/30/19 15:38 98 F 68 20 169/72 98 Intake and Output 11/30/19 11/30/19 11/30/19 06:59 14:59 22:59 Other: Weight 71.668 kg GENERAL: The patient is alert and oriented x3, not in any acute distress. Well developed, well nourished. HEENT: Pupils are round and equally reacting to light. EOMI. No scleral icterus. No conjunctival pallor. Normocephalic, atraumatic. No pharyngeal erythema. No thyromegaly. CARDIOVASCULAR: S1 and S2 present. No murmurs, rubs, or gallops. PULMONARY: Chest is clear to auscultation, no wheezing or crackles. ABDOMEN: Soft, nontender, nondistended, normoactive bowel sounds. No palpable organomegaly. MUSCULOSKELETAL: No joint swelling or deformity. EXTREMITIES: No cyanosis, clubbing, or pedal edema. NEUROLOGICAL: Gross neurological examination did not reveal any focal deficits. SKIN: No rashes. No petechiae Results CBC & Chem 7: 11/30/19 16:00 11/30/19 16:00 Labs: Abnormal Lab Results - Last 24 Hours (Table) 11/30/19 11/30/19 11/30/19 Range/Units 16:00 16:00 16:00 Plt Count 132 L (150-450) k/uL APTT 21.3 L (22.0-30.0) sec Chloride 108 H (98-107) mmol/L Glucose 182 H (74-99) mg/dL Total Protein 6.0 L (6.3-8.2) g/dL Assessment and Plan Assessment: Chest pain, rule out cardiac causes Hypertension Hyperlipidemia Coronary artery disease status post stent COPD, not in acute exacerbation Osteoarthritis Chronic leg cramps on Mirapex Depression on Lamictal, not an active issue Diabetes mellitus Diabetic neuropathy on gabapentin status post gastric sleeve Status post right carotid endarterectomy surgery Plan: This is a pleasant 69 years old female who presents with chest pain. We will check troponin, continue with aspirin. Cardiology consult. Continue with heparin Labs and medication were reviewed.. Continue same treatment. Continue with symptomatic treatment. Resume home medication. Monitor lytes and vitals. DVT and GI prophylaxis. Further recommendations of the clinical course of the patient DVT prophylaxis: heparin GI Prophylaxis: Pepcid Prognosis is guarded
[2019-11-30] MEDS ORDERED: amLODIPine 5 MG TAB PO SCH (17:30)
[2019-11-30] MEDS ORDERED: HEPARIN SODIUM,PORCINE 5,000 UNIT/ML 1 ML VIAL SQ SCH (17:30)
[2019-11-30] MEDS ORDERED: HEPARIN SODIUM,PORCINE 5,000 UNIT/ML 1 ML VIAL IV ONE (17:37)
[2019-11-30] MEDS ORDERED: HEPARIN SOD,PORK IN 0.45% NACL 25,000 UNIT in 0.45% NACL 1 250ML.BAG IV SCH (17:45)
[2019-11-30] MEDS: FAMOTIDINE 20 MG/2 ML VIAL IV SCH (19:41)
[2019-11-30] MEDS ORDERED: GABAPENTIN 300 MG CAP PO STA (20:08)
[2019-11-30] MEDS: DULoxetine HCL 30 MG CAPSULE.DR PO SCH (20:35)
[2019-11-30] MEDS: ATORVASTATIN 80 MG TAB PO SCH (20:35)
[2019-11-30] MEDS: PRAMIPEXOLE 0.5 MG TAB PO SCH (20:36)
[2019-11-30] MEDS: DONEPEZIL 10 MG TAB PO SCH (20:36)
[2019-11-30] MEDS: METOPROLOL TARTRATE 25 MG TAB PO SCH (20:36)
[2019-11-30] MEDS: NITROGLYCERIN OINT 1 INCH/GM PACKET TOPICAL SCH ×2 (20:36→21:20)
[2019-11-30 21:12] LABS: Glucose,Whole Blood 235 mg/dL (75-99)
[2019-11-30] MEDS: diphenhydrAMINE 25 MG CAP PO PRN (23:00)
[2019-12-01] MEDS: NITROGLYCERIN OINT 1 INCH/GM PACKET TOPICAL SCH ×4 (04:28→21:03)
[2019-12-01 06:00] LABS: Mean Platelet Volume 8.5; Platelet Count 120 k/uL (150-450)
[2019-12-01 06:24] LABS: Cholesterol 104 mg/dL (<200); HDL Cholesterol 38 mg/dL (40-60); LDL Cholesterol,Calculated 49 mg/dL (0-99); Triglycerides 86 mg/dL (<150)
--- NOTE | 2019-12-01 08:24 | P.CRDCN ---
History of Present Illness Consult date: 12/01/19 Chief complaint: Chest pain History of present illness: This is a pleasant 69-year-old female patient who sees Dr. Mirza in the office on regular basis with history of coronary artery disease and prior stenting of the RCA, carotid disease, as well as hypertension as well as borderline diabetes, was referred to the hospital from Dr. Mirza for further evaluation of chest discomfort. The patient was experiencing chest discomfort in the off ice yesterday concerning for angina. She states also that she underwent a stress test at her primary care physician office and that came in to be abnormal. Because of the ongoing chest discomfort and abnormal stress is the patient was referred to the hospital. Before that she has been utilizing n itroglycerin quite often. No shortness of breath, dizziness, heart racing, or sweating. Currently she is chest pain free since she was admitted to the hospital. I am going to pursue with a heart catheterization to rule out any coronary artery disease. The procedure in details was explained to the patient. Past Medical History Past Medical History: COPD, GERD/Reflux, Hyperlipidemia, Hypertension, Osteoarthritis (OA), Vascular Disorder History of Any Multi-Drug Resistant Organisms: None Reported Past Surgical History: Bariatric Surgery, Bladder Surgery, Cholecystectomy, Heart Catheterization With Stent, Hysterectomy Additional Past Surgical History / Comment(s): cataract surg, gastric sleeve, right rotator cuff surgery, left knee replacement, bladder suspension, Rt carotid endarterectomy Past Anesthesia/Blood Transfusion Reactions: No Reported Reaction Date of Last Stent Placement:: Nov 2017 Past Psychological History: Bipolar Smoking Status: Current every day smoker Past Alcohol Use History: None Reported Additional Past Alcohol Use History / Comment(s): 5-6 cigs/day, has smoked since age of 29 Past Drug Use History: None Reported - Past Family History Mother Family Medical History: No Reported History, Coronary Artery Disease (CAD), Diabetes Mellitus Additional Family Medical History / Comment(s): CABG 4 vessel Father Family Medical History: Hypertension, Myocardial Infarction ([place]) Brother(s) Family Medical History: Coronary Artery Disease (CAD), Myocardial Infarction ([place]) Additional Family Medical History / Comment(s): CABG 3 vessel Medications and Allergies Home Medications Medication Instructions Recorded Confirmed Type Aspirin [Adult Low Dose Aspirin EC] 81 mg PO DAILY 11/19/17 11/30/19 History Clopidogrel Bisulfate [Plavix] 75 mg PO DAILY 11/19/17 11/30/19 History Fluticasone Nasal [place] [Flonase 1 - 2 spray EA NOSTRIL DAILY PRN 11/19/17 11/30/19 History Nasal [place]] Nitroglycerin Sl Tabs [Nitrostat] 0.4 mg SUBLINGUAL Q5M PRN #25 tab 11/21/17 11/30/19 Rx Atorvastatin [Lipitor] 80 mg PO HS 03/30/18 11/30/19 History DULoxetine HCL [Cymbalta] 30 mg PO BID 05/22/18 11/30/19 History Losartan Potassium [Cozaar] 25 mg PO DAILY 05/22/18 11/30/19 History Mirabegron [Myrbetriq] 50 mg PO DAILY 08/08/19 11/30/19 History Donepezil [Aricept] 10 mg PO HS 11/30/19 11/30/19 History Gabapentin 800 mg PO HS PRN 11/30/19 11/30/19 History Omeprazole 40 mg PO DAILY 11/30/19 11/30/19 History Potassium Chloride ER [K-Dur 10] 10 meq PO DAILY 11/30/19 11/30/19 History Pramipexole [Mirapex] 0.5 mg PO HS 11/30/19 11/30/19 History diphenhydrAMINE [Benadryl] 25 mg PO Q4-6H PRN 11/30/19 11/30/19 History lamoTRIgine [LaMICtal] 225 mg PO DAILY 11/30/19 11/30/19 History metFORMIN HCL [Glucophage Xr] 500 mg PO DAILY 11/30/19 11/30/19 History Allergies Allergy/AdvReac Type Severity Reaction Status Date / Time codeine Allergy Unknown Verified 11/30/19 16:46 Latex, Natural Rubber Allergy Itching Verified 11/30/19 16:46 morphine AdvReac Vomiting Verified 11/30/19 16:46 Physical Exam Vitals: Vital Signs Temp Pulse Pulse Resp BP BP Pulse Ox 12/01/19 04:00 98.3 F 56 L 16 147/64 97 12/01/19 03:36 54 L 17 12/01/19 00:00 97.9 F 119 H 17 120/53 97 11/30/19 23:26 60 18 11/30/19 22:40 142/68 11/30/19 20:00 60 18 11/30/19 18:35 98.1 F 60 18 180/76 96 11/30/19 18:00 62 18 173/82 98 11/30/19 16:22 62 175/71 11/30/19 15:38 98 F 68 20 169/72 98 Intake and Output 11/30/19 12/01/19 12/01/19 22:59 06:59 14:59 Intake Total 107.5 Balance 107.5 Intake: Intake, IV Titration 107.5 Amount Heparin Sod,Pork in 0.45% 107.5 NaCl 25,000 unit In 0.45 % NaCl 1 250ml.bag @ 12 UNITS/KG/HR 8.6 mls/hr IV .Q24H [facility] Rx#:[id number] Oral 0 Other: # Voids 2 2 Weight 71.668 kg - Constitutional General appearance: no acute distress - Respiratory Respiratory: bilateral: CTA - Cardiovascular Rhythm: regular Heart sounds: normal: S1, S2 Results 12/01/19 05:46 11/30/19 16:00 Cardiac Enzymes 11/30/19 11/30/19 11/30/19 Range/Units 16:00 16:00 22:11 AST 18 (14-36) U/L Troponin I <0.012 <0.012 (0.000-0.034) ng/mL 12/01/19 Range/Units 04:44 AST (14-36) U/L Troponin I <0.012 (0.000-0.034) ng/mL Coagulation 11/30/19 11/30/19 12/01/19 Range/Units 16:00 22:11 05:46 PT 9.6 (9.0-12.0) sec APTT 21.3 L 48.0 H 36.4 H (22.0-30.0) sec Lipids 12/01/19 Range/Units 05:46 Triglycerides 86 (<150) mg/dL Cholesterol 104 (<200) mg/dL HDL Cholesterol 38 L (40-60) mg/dL CBC 11/30/19 12/01/19 Range/Units 16:00 05:46 WBC 8.2 (3.8-10.6) k/uL RBC 4.88 (3.80-5.40) m/uL Hgb 14.2 (11.4-16.0) gm/dL Hct 42.6 (34.0-46.0) % Plt Count 132 L 120 L (150-450) k/uL Comprehensive Metabolic Panel 11/30/19 Range/Units 16:00 Sodium 139 (137-145) mmol/L Potassium 4.1 (3.5-5.1) mmol/L Chloride 108 H (98-107) mmol/L Carbon Dioxide 26 (22-30) mmol/L BUN 13 (7-17) mg/dL Creatinine 0.52 (0.52-1.04) mg/dL Glucose 182 H (74-99) mg/dL Calcium 8.8 (8.4-10.2) mg/dL AST 18 (14-36) U/L ALT 12 (4-34) U/L Alkaline Phosphatase 66 (38-126) U/L Total Protein 6.0 L (6.3-8.2) g/dL Albumin 3.5 (3.5-5.0) g/dL Current Medications Generic Name Dose Route Start Last Admin Trade Name Freq PRN Reason Stop Dose Admin Amlodipine Besylate 10 mg 12/01/19 09:00 Norvasc PO DAILY [facility] Aspirin 81 mg 12/01/19 09:00 Aspirin PO DAILY [facility] Atorvastatin Calcium 80 mg 11/30/19 21:00 11/30/19 20:35 Lipitor PO 80 mg HS [facility] Administration Clopidogrel Bisulfate 75 mg 12/01/19 09:00 Plavix PO DAILY [facility] Diphenhydramine HCl 25 mg 11/30/19 17:10 11/30/19 23:00 Benadryl PO 25 mg Q4H PRN Administration Allergy Symptoms Donepezil HCl 10 mg 11/30/19 21:00 11/30/19 20:36 Aricept PO 10 mg HS [facility] Administration Duloxetine HCl 30 mg 11/30/19 21:00 11/30/19 20:35 Cymbalta PO 30 mg BID [facility] Administration Famotidine 20 mg 11/30/19 21:00 11/30/19 19:41 Pepcid IV Not Given Q12HR [facility] Hydralazine HCl 25 mg 11/30/19 17:25 Apresoline PO TID PRN Blood Pressure - High Heparin Sodium/Sodium Chloride 250 mls @ 8.6 mls/hr 11/30/19 17:45 12/01/19 06:44 25,000 unit/ Sodium Chloride IV 14 units/kg/hr .Q24H [facility] 10.034 mls/hr Titration Protocol 12 UNITS/KG/HR Losartan Potassium 25 mg 12/01/19 09:00 Cozaar PO DAILY [facility] Metoprolol Tartrate 25 mg 11/30/19 21:00 11/30/19 20:36 Lopressor PO 25 mg BID [facility] Administration Nitroglycerin 0.4 mg 11/30/19 17:10 Nitrostat SUBLINGUAL Q5M PRN Chest Pain Nitroglycerin 1 inch 11/30/19 19:00 12/01/19 04:28 Nitro-Bid Oint TOPICAL Not Given Q6HR [facility] Potassium Chloride 10 meq 12/01/19 09:00 K-Dur 10 PO DAILY [facility] Pramipexole Dihydrochloride 0.5 mg 11/30/19 21:00 11/30/19 20:36 Mirapex PO 0.5 mg HS [facility] Administration Intake and Output 11/30/19 12/01/19 12/01/19 22:59 06:59 14:59 Intake Total 107.5 Balance 107.5 Intake: Intake, IV Titration 107.5 Amount Heparin Sod,Pork in 0.45% 107.5 NaCl 25,000 unit In 0.45 % NaCl 1 250ml.bag @ 12 UNITS/KG/HR 8.6 mls/hr IV .Q24H [facility] Rx#:[id number] Oral 0 Other: # Voids 2 2 Weight 71.668 kg 12/01/19 05:46 11/30/19 16:00 Assessment and Plan Assessment: Assessment #1 chest discomfort concerning for unstable angina #2 known CAD and prior stenting of the RCA #3 hypertension #4 dyslipidemia #5 carotid disease Plan #1 proceed with coronary angiogram #2 continue heparin IV #3 follow-up with the patient
[2019-12-01] MEDS: POTASSIUM CHLORIDE ER 10 MEQ TAB.ER.PRT PO SCH (08:53)
[2019-12-01] MEDS: CLOPIDOGREL 75 MG TAB PO SCH (08:54)
[2019-12-01] MEDS: METOPROLOL TARTRATE 25 MG TAB PO SCH ×2 (08:54→22:34)
[2019-12-01] MEDS: amLODIPine 5 MG TAB PO SCH (08:54)
[2019-12-01] MEDS: FAMOTIDINE 20 MG/2 ML VIAL IV SCH ×2 (08:54→19:51)
[2019-12-01] MEDS: LOSARTAN 25 MG TAB PO SCH (08:54)
[2019-12-01] MEDS: DULoxetine HCL 30 MG CAPSULE.DR PO SCH ×2 (08:54→19:51)
[2019-12-01] MEDS ORDERED: ASPIRIN 325 MG TAB PO SCH (09:00)
[2019-12-01] MEDS ORDERED: ASPIRIN 81 MG PO SCH (09:00)
[2019-12-01] MEDS: ASPIRIN 325 MG TAB PO SCH (10:09)
[2019-12-01] MEDS ORDERED: LIDOCAINE 1% INJ 10MG/ML (20 ML MDV) ONE (12:51)
[2019-12-01] MEDS ORDERED: IV FLUID CONTINUATION 1,000 ML IV ONE (13:09)
[2019-12-01] MEDS ORDERED: MIDAZOLAM 2 MG/2 ML VIAL IV ONE (13:09)
[2019-12-01] MEDS ORDERED: LIDOCAINE 1% INJ 10MG/ML (20 ML MDV) SQ ONE (13:23)
[2019-12-01] MEDS ORDERED: fentaNYL (PF) 50 MCG/ML 2 ML AMP ONE (13:26)
[2019-12-01] MEDS ORDERED: fentaNYL (PF) 50 MCG/ML 2 ML AMP IV ONE (13:27)
[2019-12-01] MEDS ORDERED: NITROGLYCERIN 1000MCG/10ML SYRINGE INTRACORON ONE (13:38)
[2019-12-01] MEDS ORDERED: BIVALIRUDIN BOLUS 250 MG/50 ML IV ONE (13:39)
[2019-12-01] MEDS ORDERED: BIVALIRUDIN 250 MG in SODIUM CHLORIDE 0.9% 50 ML IV ONE (13:40)
--- NOTE | 2019-12-01 13:45 | P.PN ---
Subjective This is a pleasant 69 years old female with past medical history of COPD, hyperlipidemia, hypertension, osteoarthritis, status post heart catheterization with stent placement for her coronary artery disease, status post gastric sleeve and right carotid endarterectomy surgery. Patient was sent to the hospital by her medical billing representative Dr. Martinez. Patient was complaining of from chest pain on and off for the last 2 weeks, was on the left side radiating to the back and to the left arm associated with numbness to the fingertips, chest pain lasted for about 20 minutes, it comes about 4-5 times per day. Her PCP Dr. Morales send her to medical billing representative. Patient also complained from chronic exertional dyspnea for more than one year, for example she goes to the store or across the street [id number]. No coughing, no abdominal pain or change in urine or bowel habits. She is a smoker smokes about 3-10 cigarettes per day, no alcohol or illicit drugs. Patient declined nicotine patch Vitals are stable, blood pressure 175/71, heart rate 62. Labs are unremarkable including CBC, INR, BMP and liver enzymes. First troponin is negative less than 0.012. 12/01/2019 Patient chest pain somewhat at her buttocks he still have heaviness in her left side of the chest. Cardiology input is appreciated. Patient is going for cardiac cath today. Objective - Vital Signs Vital signs: Vital Signs Temp 97.9 F 12/01/19 12:40 Pulse 50 L 12/01/19 12:40 Resp 16 12/01/19 12:40 BP 115/61 12/01/19 12:40 Pulse Ox 97 12/01/19 12:40 Intake & Output 11/30/19 12/01/19 12/01/19 18:59 06:59 18:59 Intake Total 107.5 Balance 107.5 Weight 71.668 kg Intake: Intake, IV Titration 107.5 Amount Heparin Sod,Pork in 0.45% 107.5 NaCl 25,000 unit In 0.45 % NaCl 1 250ml.bag @ 12 UNITS/KG/HR 8.6 mls/hr IV .Q24H [facility] Rx#:[id number] Oral 0 Other: # Voids 2 2 1 - Exam GENERAL: The patient is alert and oriented x3, not in any acute distress. Well developed, well nourished. HEENT: Pupils are round and equally reacting to light. EOMI. No scleral icterus. No conjunctival pallor. Normocephalic, atraumatic. No pharyngeal erythema. No thyromegaly. CARDIOVASCULAR: S1 and S2 present. No murmurs, rubs, or gallops. PULMONARY: Chest is clear to auscultation, no wheezing or crackles. ABDOMEN: Soft, nontender, nondistended, normoactive bowel sounds. No palpable organomegaly. MUSCULOSKELETAL: No joint swelling or deformity. EXTREMITIES: No cyanosis, clubbing, or pedal edema. NEUROLOGICAL: Gross neurological examination did not reveal any focal deficits. SKIN: No rashes. no petechiae. - Labs CBC & Chem 7: 12/01/19 05:46 11/30/19 16:00 Labs: Abnormal Lab Results - Last 24 Hours (Table) 11/30/19 11/30/19 11/30/19 Range/Units 16:00 16:00 16:00 Plt Count 132 L (150-450) k/uL APTT 21.3 L (22.0-30.0) sec Chloride 108 H (98-107) mmol/L Glucose 182 H (74-99) mg/dL POC Glucose (mg/dL) (75-99) mg/dL Total Protein 6.0 L (6.3-8.2) g/dL HDL Cholesterol (40-60) mg/dL 11/30/19 11/30/19 12/01/19 Range/Units 21:10 22:11 05:46 Plt Count (150-450) k/uL APTT 48.0 H 36.4 H (22.0-30.0) sec Chloride (98-107) mmol/L Glucose (74-99) mg/dL POC Glucose (mg/dL) 235 H (75-99) mg/dL Total Protein (6.3-8.2) g/dL HDL Cholesterol (40-60) mg/dL 12/01/19 12/01/19 Range/Units 05:46 05:46 Plt Count 120 L (150-450) k/uL APTT (22.0-30.0) sec Chloride (98-107) mmol/L Glucose (74-99) mg/dL POC Glucose (mg/dL) (75-99) mg/dL Total Protein (6.3-8.2) g/dL HDL Cholesterol 38 L (40-60) mg/dL Assessment and Plan Assessment: Chest pain, rule out cardiac causes Hypertension Hyperlipidemia Coronary artery disease status post stent COPD, not in acute exacerbation Osteoarthritis Chronic leg cramps on Mirapex Depression on Lamictal, not an active issue Diabetes mellitus Diabetic neuropathy on gabapentin status post gastric sleeve Status post right carotid endarterectomy surgery Plan: This is a pleasant 69 years old female who presents with chest pain. We will check troponin, continue with aspirin. Cardiology consult. Continue with heparin Labs and medication were reviewed.. Continue same treatment. Continue with symptomatic treatment. Resume home medication. Monitor lytes and vitals. DVT and GI prophylaxis. Further recommendations of the clinical course of the patient DVT prophylaxis: heparin GI Prophylaxis: Pepcid Prognosis is guarded
[2019-12-01] MEDS ORDERED: CLOPIDOGREL 75 MG TAB ONE (14:01)
[2019-12-01] MEDS ORDERED: CLOPIDOGREL 75 MG TAB PO ONE (14:04)
[2019-12-01] MEDS ORDERED: IOPAMIDOL-370 125ML BTL INJ ONE (14:04)
[2019-12-01] MEDS ORDERED: NITROGLYCERIN SL TABS 0.4 MG TAB SUBLINGUAL PRN (14:06)
[2019-12-01] MEDS ORDERED: ATROPINE SULFATE 0.1 MG/ML 10ML SYRINGE IV PRN (14:06)
[2019-12-01] MEDS ORDERED: RX INFO: IV CONTRAST WAS GIVEN 1 EACH MISC MISCELLANE PRN (14:06)
[2019-12-01] MEDS ORDERED: MAG HYDROX/AL HYDROX/SIMETH 30 ML CUP PO PRN (14:06)
[2019-12-01] MEDS ORDERED: SODIUM CHLORIDE 0.9% 1,000 ML IV SCH (14:15)
--- NOTE | 2019-12-01 14:28 | LTR ---
December 01, 2019 Re: Fiorella Jessica Dear Dr. Morales: Ms. Fiorella Lopez underwent today successful stenting of the right coronary artery with good angiographic results and without any complication. Thank you for allowing us to participate in her care and please do not hesitate to call if you have any question or concern. Sincerely, MD JUAN Arguelles / [place]: [id number] /
--- NOTE | 2019-12-01 14:37 | CC ---
CARDIAC CATHETERIZATION REPORT CARDIAC CATHETERIZATION AND PERCUTANEOUS CORONARY INTERVENTION: DATE OF SERVICE: December 01, 2019 PERFORMING PHYSICIAN: Natanael Coronado MD. PROCEDURE PERFORMED: 1. Selective right and left coronary angiogram. 2. Left heart catheterization. 3. Successful stenting of the mid right coronary artery using 3.0 x 33 mm Xience EV with an excellent angiographic result and reduction of stenosis from 80% to 0%. INDICATION: This is a 69-year-old female patient who sees Dr. Mirza in the office as an outpatient with history of coronary artery disease and prior stenting of the RCA who was seen by him yesterday because of chest discomfort concerning for angina. Because of that, the patient was sent to the hospital to undergo a heart catheterization. APPROACH: Right common femoral artery. COMPLICATION: None. LEVEL OF SEDATION: Moderate with sedation length of 42 minutes. PROCEDURE DESCRIPTION: After obtaining informed consent, the patient was brought to the cardiac label pinker. The right common femoral artery was cannulated using micropuncture technique, the micropuncture wire passed easily then I placed a 6-[place]ib[place] sheath in the right common femoral artery. Selective right and left coronary angiogram was performed using JR4 and JL3.5 catheters. Left heart catheterization was performed using the JR4 catheter which flipped into the LV across aortic valve. Then I did pullback across the valve. The procedure was completed without any complication. SELECTIVE CORONARY ANGIOGRAM: 1. The right coronary artery is a large caliber vessel and it is a dominant vessel. The proximal RCA appeared to be angiographically normal. The mid RCA has a long tubular lesion appeared to be de Lizandro as well as in-stent restenosis. The RCA distally is stented and the stent is patent. The RCA bifurcates into PDA and PLV branches, both appear to be angiographically normal. 2. Left Main: The left main is angiographically normal. It bifurcates into LCX and LAD. 3. The LCX is a large caliber vessel. It is a nondominant vessel. The proximal left circumflex appeared to have mild disease only. The mid circumflex is normal and gives rise into a large OM branch, which seems to be normal. The circumflex continues after that as a small to medium caliber vessel in the AV groove. 4. The LAD: The very proximal LAD appeared to have mild disease only. The mid LAD has a lesion appeared to be in the range of 50%. This is by the bifurcation of a large diagonal branch which seems to have mild disease only. The LAD distally appeared to be angiographically normal. HEMODYNAMICS: The LVEDP was 12 mmHg without significant gradient across the aortic valve. PCI OF THE RCA: Anticoagulation was initiated using Angiomax. Subsequently I did engage the artery using JR3.5 guide. I did wire it using a run-through wire. After that I did balloon angioplasty using 2.5 x 10 mm AngioSculpt balloon where I did multiple PTCA ballooning of the RCA. After that, I deployed 3.0 x 33 mm Xience EV where the stent was positioned under fluoroscopy guidance and deployed under 14 atmospheres for 20 seconds. I post dilated the stent using 3.0 NC balloon. Final angiogram showed excellent results and the procedure was completed without any complication. CONCLUSION: 1. Severe disease involving the right coronary artery, which seems to be in-stent restenosis as well as de Lizandro coronary artery disease. 2. Mild disease involving the left circumflex coronary artery. 3. Intermediate disease involving the mid left anterior descending artery. 4. Successful stenting of the right coronary artery with an excellent angiographic result. POSTPROCEDURE MANAGEMENT: 1. Dual antiplatelet therapy. 2. Risk factors modifications. 3. Follow up with the patient. MMODL / IJN: [id number] /
[2019-12-01] MEDS: hydrALAZINE HCL 25 MG TAB PO PRN ×2 (15:03→18:09)
[2019-12-01 16:28] VITALS: RESP 18
[2019-12-01] MEDS: ATORVASTATIN 80 MG TAB PO SCH (19:51)
[2019-12-01] MEDS: DONEPEZIL 10 MG TAB PO SCH (19:51)
[2019-12-01 20:22] LABS: Glucose,Whole Blood 230 mg/dL (75-99)
[2019-12-01] MEDS: PRAMIPEXOLE 0.5 MG TAB PO SCH (20:59)
[2019-12-01] MEDS ORDERED: hydrALAZINE HCL 20 MG/ML 1 ML VIAL IVP PRN (22:32)
[2019-12-02] MEDS: ZOLPIDEM 5 MG TAB PO PRN ×2 (00:34→22:19)
[2019-12-02] MEDS: NITROGLYCERIN OINT 1 INCH/GM PACKET TOPICAL SCH ×4 (03:04→21:10)
[2019-12-02 06:12] LABS: Glucose,Whole Blood 147 mg/dL (75-99)
[2019-12-02 06:32] LABS: Mean Platelet Volume 8.2; Platelet Count 141 k/uL (150-450)
[2019-12-02 06:47] LABS: African American GFR (CKD) >90 (>60 ml/min/1.73 sqM); Anion Gap 7 mmol/L; Blood Urea Nitrogen 10 mg/dL (7-17); Carbon Dioxide 26 mmol/L (22-30); Chloride 106 mmol/L (98-107); Glucose 149 mg/dL (74-99); Non-African American GFR(CKD) >90 (>60 ml/min/1.73 sqM); Potassium 3.8 mmol/L (3.5-5.1); Sodium 139 mmol/L (137-145)
[2019-12-02] MEDS: ASPIRIN 325 MG TAB PO SCH (09:01)
[2019-12-02] MEDS: hydrALAZINE HCL 25 MG TAB PO PRN (09:01)
[2019-12-02] MEDS: POTASSIUM CHLORIDE ER 10 MEQ TAB.ER.PRT PO SCH (09:01)
[2019-12-02] MEDS: CLOPIDOGREL 75 MG TAB PO SCH (09:01)
[2019-12-02] MEDS: amLODIPine 5 MG TAB PO SCH (09:01)
[2019-12-02] MEDS: LOSARTAN 25 MG TAB PO SCH (09:01)
[2019-12-02] MEDS: FAMOTIDINE 20 MG/2 ML VIAL IV SCH (09:01)
[2019-12-02] MEDS: METOPROLOL TARTRATE 25 MG TAB PO SCH ×2 (09:01→19:48)
[2019-12-02] MEDS: DULoxetine HCL 30 MG CAPSULE.DR PO SCH ×2 (09:01→19:48)
[2019-12-02] MEDS: diphenhydrAMINE 25 MG CAP PO PRN (09:09)
[2019-12-02 10:13] LABS: Glucose,Whole Blood 243 mg/dL (75-99)
[2019-12-02] MEDS ORDERED: GABAPENTIN 400 MG CAP PO PRN (11:00)
[2019-12-02] MEDS ORDERED: ONDANSETRON 4 MG/2 ML VIAL IVP PRN (11:00)
--- NOTE | 2019-12-02 11:31 | P.PN ---
Subjective This is a pleasant 69 years old female with past medical history of COPD, hyperlipidemia, hypertension, osteoarthritis, status post heart catheterization with stent placement for her coronary artery disease, status post gastric sleeve and right carotid endarterectomy surgery. Patient was sent to the hospital by her catering manager Dr. Martinez. Patient was complaining of from chest pain on and off for the last 2 weeks, was on the left side radiating to the back and to the left arm associated with numbness to the fingertips, chest pain lasted for about 20 minutes, it comes about 4-5 times per day. Her PCP Dr. Morales send her to catering manager. Patient also complained from chronic exertional dyspnea for more than one year, for example she goes to the store or across the street [id number]. No coughing, no abdominal pain or change in urine or bowel habits. She is a smoker smokes about 3-10 cigarettes per day, no alcohol or illicit drugs. Patient declined nicotine patch Vitals are stable, blood pressure 175/71, heart rate 62. Labs are unremarkable including CBC, INR, BMP and liver enzymes. First troponin is negative less than 0.012. 12/01/2019 Patient chest pain somewhat at her buttocks he still have heaviness in her left side of the chest. Cardiology input is appreciated. Patient is going for cardiac cath today. 12/02/2019 Patient is seen in select unit today. Stenting of the right coronary artery. This morning patient was feeling shaky, pale and nauseated. However she denies chest pain or dyspnea, no vomiting, no change in urine or bowel habits. No headache or weakness. Patient states she was taking Neurontin as needed but premature every night at [place] milligrams, we are going to restarted at 400 mg as needed. BMP is reviewed with creatinine 0.5, sugar is 147-243. Patient currently is on aspirin and Plavix. Blood pressure was on the high side this morning was 74/74, continue with blood pressure medication and monitor and blood pressure, patient is getting hydralazine as needed, amlodipine is increa sed to 10 mg daily Objective - Vital Signs Vital signs: Vital Signs Temp 98.2 F 12/02/19 08:00 Pulse 67 12/02/19 08:00 Resp 18 12/02/19 08:00 BP 174/74 12/02/19 08:00 Pulse Ox 93 L 12/02/19 08:00 Intake & Output 12/01/19 12/02/19 12/02/19 18:59 06:59 18:59 Intake Total 485 240 Balance 485 240 Weight 71.4 kg Intake: IV 255 Invasive Line 1 30 Oral 230 240 Other: # Voids 2 1 1 - Exam GENERAL: The patient is alert and oriented x3, not in any acute distress. Well developed, well nourished. HEENT: Pupils are round and equally reacting to light. EOMI. No scleral icterus. No conjunctival pallor. Normocephalic, atraumatic. No pharyngeal erythema. No thyromegaly. CARDIOVASCULAR: S1 and S2 present. No murmurs, rubs, or gallops. PULMONARY: Chest is clear to auscultation, no wheezing or crackles. ABDOMEN: Soft, nontender, nondistended, normoactive bowel sounds. No palpable organomegaly. MUSCULOSKELETAL: No joint swelling or deformity. EXTREMITIES: No cyanosis, clubbing, or pedal edema. NEUROLOGICAL: Gross neurological examination did not reveal any focal deficits. SKIN: No rashes. no petechiae. - Labs CBC & Chem 7: 12/02/19 06:08 12/02/19 06:08 Labs: Abnormal Lab Results - Last 24 Hours (Table) 12/01/19 12/02/19 12/02/19 Range/Units 20:21 06:08 06:08 Plt Count 141 L (150-450) k/uL Glucose 149 H (74-99) mg/dL POC Glucose (mg/dL) 230 H (75-99) mg/dL 12/02/19 12/02/19 Range/Units 06:10 10:11 Plt Count (150-450) k/uL Glucose (74-99) mg/dL POC Glucose (mg/dL) 147 H 243 H (75-99) mg/dL Assessment and Plan Assessment: Chest pain, status post catheterization of the RCA Hypertension, uncontrolled Hyperlipidemia Coronary artery disease status post stent COPD, not in acute exacerbation Osteoarthritis Chronic leg cramps on Mirapex Depression on Lamictal, not an active issue Diabetes mellitus Diabetic neuropathy on gabapentin status post gastric sleeve Status post right carotid endarterectomy surgery Plan: This is a pleasant 69 years old female who presents with chest pain. We will check troponin, continue with aspirin. Cardiology consult. Continue with aspirin and Plavix, continue with insulin sliding scale and keep holding metformin. Resume Neurontin as needed as patient was taken at every day. Follow blood pressure and continue with hydralazine as needed. Labs and medication were reviewed.. Continue same treatment. Continue with symptomatic treatment. Resume home medication. Monitor lytes and vitals. DVT and GI prophylaxis. Further recommendations of the clinical course of the patient DVT prophylaxis: heparin GI Prophylaxis: Pepcid Prognosis is guarded Dr. Morales will resume the care of the patient tomorrow
--- NOTE | 2019-12-02 11:50 | P.PN ---
Subjective Progress Note Date: 12/02/19 Principal diagnosis: Coronary artery disease This is a 69-year-old female patient with history of CAD and prior stenting of the RCA who presented to the hospital with a chest discomfort concerning for severe underlying coronary artery disease. She underwent heart catheterization yesterday and that revealed severe disease involving the RCA in the proximal to midportion. She underwent successful stenting of the RCA with a good angiographic results and without any complication. She was seen this morning. She is not feeling well overall. She is feeling nauseated. No chest pain or chest discomfort. The blood pressure continues to be elevated and she is bradycardic. She is on losartan at 25 mg by mouth daily recheck going to increase to 50 mg by mouth daily. We'll continue hydralazine when necessary for the blood pressure. Beside that she is on dual antiplatelet therapy along with statin. Objective - Vital Signs Vital signs: Vital Signs Temp 98.2 F 12/02/19 08:00 Pulse 67 12/02/19 08:00 Resp 18 12/02/19 08:00 BP 174/74 12/02/19 08:00 Pulse Ox 93 L 12/02/19 08:00 Intake & Output 12/01/19 12/02/19 12/02/19 18:59 06:59 18:59 Intake Total 485 240 Balance 485 240 Weight 71.4 kg Intake: IV 255 Invasive Line 1 30 Oral 230 240 Other: # Voids 2 1 1 - Constitutional General appearance: Present: no acute distress - Respiratory Respiratory: bilateral: CTA - Cardiovascular Rhythm: regular Heart sounds: normal: S1, S2 - Labs CBC & Chem 7: 12/02/19 06:08 12/02/19 06:08 Labs: Abnormal Lab Results - Last 24 Hours (Table) 12/01/19 12/02/19 12/02/19 Range/Units 20:21 06:08 06:08 Plt Count 141 L (150-450) k/uL Glucose 149 H (74-99) mg/dL POC Glucose (mg/dL) 230 H (75-99) mg/dL 12/02/19 12/02/19 Range/Units 06:10 10:11 Plt Count (150-450) k/uL Glucose (74-99) mg/dL POC Glucose (mg/dL) 147 H 243 H (75-99) mg/dL Assessment and Plan Assessment: Assessment #1 coronary artery disease and status post PCI of the RCA #2 hypertension #3 dyslipidemia Plan #1 increase the dose of losartan #2 continue hydralazine IV when necessary for the blood pressure #3 avoid increasing the dose of metoprolol #4 monitor the patient for additional 24 hours
[2019-12-02] MEDS: INSULIN ASPART (NovoLOG) 100 UNIT/ML VIAL SQ SCH ×3 (12:31→19:46)
[2019-12-02 12:33] LABS: Glucose,Whole Blood 155 mg/dL (75-99)
[2019-12-02 12:42] VITALS: BMI 27.8
--- NOTE | 2019-12-02 16:39 | ECHOF ---
Referral Reason:UA MEASUREMENTS -------- HEIGHT: 160.0 cm WEIGHT: 69.4 kg BP: RVIDd: 3.0 cm (< 3.3) IVSd: 1.2 cm (0.6 - 1.1) LVIDd: 4.7 cm (3.9 - 5.3) LVPWd: 1.3 cm (0.6 - 1.1) IVSs: 1.7 cm LVIDs: 2.8 cm LVPWs: 1.8 cm LA Diam: 4.2 cm (2.7 - 3.8) LAESV Index (A-L): 40.31 ml/m Ao Diam: 3.4 cm (2.0 - 3.7) AV Cusp: 1.8 cm (1.5 - 2.6) LA Diam: 3.4 cm (2.7 - 3.8) MV EXCURSION: 17.570 mm (> 18.000) MV EF SLOPE: 98 mm/s (70 - 150) EPSS: 0.5 cm MV E Ion: 1.15 m/s MV DecT: 184 ms MV A Ion: 0.29 m/s MV E/A Ratio: 4.01 AR PHT: 406 ms RAP: 5.00 mmHg RVSP: 23.57 mmHg FINDINGS -------- Sinus rhythm. This was a technically good study. The left ventricular size is normal. There is mild concentric left ventricular hypertrophy. Overa ll left ventricular systolic function is normal with, an EF between 55 - 60 %. The right ventricle is normal in size. The left atrium is markedly dilated. LA is severely dilated >40 ml/m2 The right atrial size is normal. There is mild aortic valve sclerosis. There is mild aortic regurgitation. Mild mitral annular calcification present. Mild mitral regurgitation is present. Mild tricuspid regurgitation present. Right ventricular systolic pressure is normal at < 35 mmHg. There is no evidence of pulmonary hypertension. There is no pulmonic regurgitation present. The aortic root size is normal. There is no pericardial effusion. CONCLUSIONS -------- 1. Sinus rhythm. 2. This was a technically good study. 3. The left ventricular size is normal. 4. There is mild concentric left ventricular hypertrophy. 5. Overall left ventricular systolic function is normal with, an EF between 55 - 60 %. 6. The right ventricle is normal in size. 7. The left atrium is markedly dilated. 8. LA is severely dilated >40 ml/m2 9. The right atrial size is normal. 10. There is mild aortic valve sclerosis. 11. There is mild aortic regurgitation. 12. Mild mitral annular calcification present. 13. Mild mitral regurgitation is present. 14. Mild tricuspid regurgitation present. 15. Right ventricular systolic pressure is normal at < 35 mmHg. 16. There is no evidence of pulmonary hypertension. 17. There is no pulmonic regurgitation present. 18. The aortic root size is normal. 19. There is no pericardial effusion. EXCAVATOR OPERATOR: Kourtney Preston RDCS
[2019-12-02 16:41] LABS: Glucose,Whole Blood 136 mg/dL (75-99)
[2019-12-02 19:41] LABS: Glucose,Whole Blood 240 mg/dL (75-99)
[2019-12-02] MEDS: FAMOTIDINE 20 MG TAB PO SCH (19:47)
[2019-12-02] MEDS: DONEPEZIL 10 MG TAB PO SCH (19:47)
[2019-12-02] MEDS: ATORVASTATIN 80 MG TAB PO SCH (19:47)
[2019-12-02] MEDS: PRAMIPEXOLE 0.5 MG TAB PO SCH (19:48)
[2019-12-02] MEDS: HEPARIN SODIUM,PORCINE 5,000 UNIT/ML 1 ML VIAL SQ SCH (19:48)
[2019-12-03 05:48] LABS: Mean Platelet Volume 8.2; Platelet Count 140 k/uL (150-450)
[2019-12-03 05:59] LABS: African American GFR (CKD) >90 (>60 ml/min/1.73 sqM); Anion Gap 4 mmol/L; Blood Urea Nitrogen 14 mg/dL (7-17); Calcium 8.8 mg/dL (8.4-10.2); Carbon Dioxide 29 mmol/L (22-30); Chloride 104 mmol/L (98-107); Glucose 124 mg/dL (74-99); Non-African American GFR(CKD) >90 (>60 ml/min/1.73 sqM); Potassium 4.3 mmol/L (3.5-5.1); Sodium 137 mmol/L (137-145)
[2019-12-03 06:21] LABS: Glucose,Whole Blood 111 mg/dL (75-99)
[2019-12-03] MEDS: INSULIN ASPART (NovoLOG) 100 UNIT/ML VIAL SQ SCH ×2 (08:09→12:17)
[2019-12-03] MEDS: NITROGLYCERIN OINT 1 INCH/GM PACKET TOPICAL SCH ×2 (08:09→11:13)
[2019-12-03] MEDS: DULoxetine HCL 30 MG CAPSULE.DR PO SCH (08:32)
[2019-12-03] MEDS: ASPIRIN 325 MG TAB PO SCH (08:32)
[2019-12-03] MEDS: CLOPIDOGREL 75 MG TAB PO SCH (08:32)
[2019-12-03] MEDS: amLODIPine 5 MG TAB PO SCH (08:32)
[2019-12-03] MEDS: HEPARIN SODIUM,PORCINE 5,000 UNIT/ML 1 ML VIAL SQ SCH (08:33)
[2019-12-03] MEDS: FAMOTIDINE 20 MG TAB PO SCH (08:33)
[2019-12-03] MEDS: POTASSIUM CHLORIDE ER 10 MEQ TAB.ER.PRT PO SCH (08:33)
[2019-12-03] MEDS ORDERED: LOSARTAN 50 MG TAB PO SCH (09:00)
[2019-12-03 11:36] LABS: Glucose,Whole Blood 111 mg/dL (75-99)
--- NOTE | 2019-12-03 12:09 | P.PN ---
Subjective Progress Note Date: 12/03/19 This is a 69-year-old female patient with history of CAD and prior stenting of the RCA who presented to the hospital with a chest discomfort concerning for severe underlying coronary artery disease. She underwent heart catheterization and that revealed severe disease involving the RCA in the proximal to midportion. She underwent successful stenting of the RCA with a good angiographic results and without any complication. Patient was seen and examined this morning, denied any chest pain, breathing is stable. She's been up ambulating in the hallway without any difficulty. Blood pressure 130/30, h eart rate around 50, 95% on room air. With ambulation her heart rate is noted to go up into the 60s. Objective - Vital Signs Vital signs: Vital Signs Temp 98.2 F 12/03/19 07:35 Pulse 55 L 12/03/19 08:00 Resp 18 12/03/19 08:00 BP 130/31 12/03/19 07:35 Pulse Ox 95 12/03/19 07:35 Intake & Output 12/02/19 12/03/19 12/03/19 18:59 06:59 18:59 Intake Total 1160 Output Total 400 Balance 1160 -400 Weight 71.4 kg 71.2 kg Intake: Oral 1160 Output: Urine 400 Other: # Voids 1 1 - Exam PHYSICAL EXAMINATION: GENERAL: 69-year-old female in no acute distress at the time of my examination HEENT: Head is atraumatic, normocephalic. Pupils equal, round. Sclera anicteric. Conjunctiva are clear. Mucous membranes of the mouth are moist. Neck is supple. There is no elevated jugular venous pressure. No carotid bruit is heard. HEART EXAMINATION: [Heart S1, S2 normal. No murmur or gallop heard.] CHEST EXAMINATION:[ Lungs are clear to auscultation and precussion. No chest wall tenderness is noted on palpation or with deep breathing.] ABDOMEN: [ Soft, nontender. Bowel sounds are heard. No organomegaly noted]. EXTREMITIES:[ 2+ peripheral pulses with no evidence of peripheral edema and no calf tenderness noted]. Right groin soft, no evidence of any hematoma. NEUROLOGIC [patient is awake, alert and oriented X3.] . - Labs CBC & Chem 7: 12/03/19 05:23 12/03/19 05:23 Labs: Abnormal Lab Results - Last 24 Hours (Table) 12/02/19 12/02/19 12/02/19 Range/Units 12:31 16:36 19:39 Plt Count (150-450) k/uL Glucose (74-99) mg/dL POC Glucose (mg/dL) 155 H 136 H 240 H (75-99) mg/dL 12/03/19 12/03/19 12/03/19 Range/Units 05:23 05:23 06:20 Plt Count 140 L (150-450) k/uL Glucose 124 H (74-99) mg/dL POC Glucose (mg/dL) 111 H (75-99) mg/dL 12/03/19 Range/Units 11:35 Plt Count (150-450) k/uL Glucose (74-99) mg/dL POC Glucose (mg/dL) 111 H (75-99) mg/dL Assessment and Plan Plan: Assessment #1 coronary artery disease and status post PCI of the RCA #2 hypertension #3 dyslipidemia Plan From cardiology's perspective, patient may be able to be discharged home today on current medications. We'll make her a follow-up appointment to see Dr. Mirza in the office in one week. DNP note has been reviewed, I agree with a documented findings and plan of care. Patient was seen and examined.
[2019-12-03 12:19] VITALS: BP 168/72; PULSE 59; TEMP 97.7
[2019-12-03] MEDS: METOPROLOL TARTRATE 25 MG TAB PO SCH (12:20)
--- NOTE | 2019-12-03 13:04 | P.DS ---
Providers Date of admission: 12/02/19 09:36 Expected date of discharge: 12/03/19 Attending physician: Timi Morales MD Consults: 11/30/19 17:37 Consult Physician Urgent Consulting Provider: Roni Mirza Consult Reason/Comments: UA Do you want consulting provider notified?: Yes 12/01/19 14:06 Consult Physician Routine Consulting Provider: [facility] Consult Reason/Comments: Post Interventional patient Do you want consulting provider notified?: Already Contacted Primary care physician: Chelsie Morales [facility] Course: Final Diagnoses: CAD, status post PCI of RCA Hypertension dyslipidemia Diabetes mellitus Hospital course: This is a 69-year-old female admitted with chest pain, underlying CAD, status post cardiac catheterization with successful stenting of the RCA. Significant clinical improvement. Cleared by cardiology for discharge. Patient is being discharged home in a stable condition with guarded prognosis. Assessment: GEN: alert & oriented X 3. LUNGS: CTA CV:REG s1,S2 ABD: sOFT, NONTENDER, POSS. BS Neuro: No focal deficits The impression and plan of care has been dictated as directed. : I performed a history and examination of this patient, discussed the same with the dictator. I agree with the dictator's note ,documented as a scribe. Any additional findings or plans will be noted. Patient Condition at Discharge: Stable Plan - Discharge Summary New Discharge Prescriptions: New Losartan [Cozaar] 50 mg PO DAILY #30 tab Metoprolol Tartrate [Lopressor] 25 mg PO BID #60 tab amLODIPine [Norvasc] 10 mg PO DAILY #30 tab Continue Fluticasone Nasal [place] [Flonase Nasal [place]] 1 - 2 spray EA NOSTRIL DAILY PRN PRN Reason: Allergy Symptoms Aspirin [Adult Low Dose Aspirin EC] 81 mg PO DAILY Clopidogrel Bisulfate [Plavix] 75 mg PO DAILY Nitroglycerin Sl Tabs [Nitrostat] 0.4 mg SUBLINGUAL Q5M PRN #25 tab PRN Reason: Chest Pain Atorvastatin [Lipitor] 80 mg PO HS DULoxetine HCL [Cymbalta] 30 mg PO BID Mirabegron [Myrbetriq] 50 mg PO DAILY diphenhydrAMINE [Benadryl] 25 mg PO Q4-6H PRN PRN Reason: Allergy Symptoms Gabapentin 800 mg PO HS PRN PRN Reason: Pain Potassium Chloride ER [K-Dur 10] 10 meq PO DAILY Donepezil [Aricept] 10 mg PO HS Pramipexole [Mirapex] 0.5 mg PO HS metFORMIN HCL [Glucophage Xr] 500 mg PO DAILY lamoTRIgine [LaMICtal] 225 mg PO DAILY Omeprazole 40 mg PO DAILY Discontinued Losartan Potassium [Cozaar] 25 mg PO DAILY Discharge Medication List Aspirin [Adult Low Dose Aspirin EC] 81 mg PO DAILY 11/19/17 [History] Clopidogrel Bisulfate [Plavix] 75 mg PO DAILY 11/19/17 [History] Fluticasone Nasal [place] [Flonase Nasal [place]] 1 - 2 spray EA NOSTRIL DAILY PRN 11/19/17 [History] Nitroglycerin Sl Tabs [Nitrostat] 0.4 mg SUBLINGUAL Q5M PRN #25 tab 11/21/17 [Rx] Atorvastatin [Lipitor] 80 mg PO HS 03/30/18 [History] DULoxetine HCL [Cymbalta] 30 mg PO BID 05/22/18 [History] Mirabegron [Myrbetriq] 50 mg PO DAILY 08/08/19 [History] Donepezil [Aricept] 10 mg PO HS 11/30/19 [History] Gabapentin 800 mg PO HS PRN 11/30/19 [History] Omeprazole 40 mg PO DAILY 11/30/19 [History] Potassium Chloride ER [K-Dur 10] 10 meq PO DAILY 11/30/19 [History] Pramipexole [Mirapex] 0.5 mg PO HS 11/30/19 [History] diphenhydrAMINE [Benadryl] 25 mg PO Q4-6H PRN 11/30/19 [History] lamoTRIgine [LaMICtal] 225 mg PO DAILY 11/30/19 [History] metFORMIN HCL [Glucophage Xr] 500 mg PO DAILY 11/30/19 [History] Losartan [Cozaar] 50 mg PO DAILY #30 tab 12/03/19 [Rx] Metoprolol Tartrate [Lopressor] 25 mg PO BID #60 tab 12/03/19 [Rx] amLODIPine [Norvasc] 10 mg PO DAILY #30 tab 12/03/19 [Rx] Follow up Appointment(s)/Referral(s): Roni Mirza MD [STAFF PHYSICIAN] - 12/12/19 3:15 pm (Tuesday) Chelsie Morales DO [Primary Care Provider] - 3 Days Ambulatory/Diagnostic Orders: Complete Blood Count w/diff [LAB.AMB] Time Frame: 3 Days, Location: None Selected
== END 2019-12-03 16:33 | disposition home or self-care (01) | DRG 247 ==
LOC: EC 15:36 → 1SOBS 17:53 → 3SCARD 12-01 14:31 → OBSVTOIN 12-02 09:36
PROVIDERS: ADMIT Family Medicine; ATTEND Family Medicine
PROC: B2111ZZ Fluoroscopy of Multiple Coronary Arteries using Low Osmolar Contrast (ICD-10-PCS; 2019-12-01)
PROC: 027034Z Dilation of Coronary Artery, One Artery with Drug-eluting Intraluminal Device, Percutaneous Approach (ICD-10-PCS; principal; 2019-12-01 12:01)
PROC: 4A023N7 Measurement of Cardiac Sampling and Pressure, Left Heart, Percutaneous Approach (ICD-10-PCS; 2019-12-01 12:01)
DX: I25.110 Atherosclerotic heart disease of native coronary artery with unstable angina pectoris (principal); T82.855A Stenosis of coronary artery stent, initial encounter; E11.40 Type 2 diabetes mellitus with diabetic neuropathy, unspecified; E78.5 Hyperlipidemia, unspecified; F17.210 Nicotine dependence, cigarettes, uncomplicated; I10 Essential (primary) hypertension; J44.9 Chronic obstructive pulmonary disease, unspecified; M19.90 Unspecified osteoarthritis, unspecified site; R25.2 Cramp and spasm; Z98.49 Cataract extraction status, unspecified eye; Z79.02 Long term (current) use of antithrombotics/antiplatelets; Z79.82 Long term (current) use of aspirin; Z79.84 Long term (current) use of oral hypoglycemic drugs; Z79.899 Other long term (current) drug therapy; Z82.49 Family history of ischemic heart disease and other diseases of the circulatory system; Z90.710 Acquired absence of both cervix and uterus; Z95.5 Presence of coronary angioplasty implant and graft; Z96.652 Presence of left artificial knee joint; Z98.84 Bariatric surgery status; Z90.49 Acquired absence of other specified parts of digestive tract
CPT/HCPCS: 36415; 71046; 80048; 80053; 80061; 83735; 84484; 85025; 85049; 85610; 85730; 93005; 93306; 93458; 99291; C1874

== ENCOUNTER 2019-12-17 17:07 | Emergency (ER) | payer MEDICARE ==
[2019-12-17 17:15] VITALS: RESP 16; TEMP 98
[2019-12-17] MEDS ORDERED: KETOROLAC 30 MG/ML 1 ML VIAL IVP STA (17:36)
[2019-12-17] MEDS ORDERED: HYDROmorphone 1 MG/ML 1 ML SYRINGE IVP STA (17:36)
--- NOTE | 2019-12-17 17:36 | ED ---
Fall HPI - General Chief Complaint: Fall Stated Complaint: diarrhea Time Seen by Provider: 12/17/19 17:17 Source: EMS, RN notes reviewed, old records reviewed Mode of arrival: EMS - History of Present Illness Initial Comments: This is a 69 female to the ED sp slip and fall down 2 stairs, history of left knee replacement. Patient able to ambulate but complaining of Left knee pain, comes to ed w EMS. Patient states left knee pain radiating to left calf and left heel. Patient denies headache, cp, sob, abdominal pain. Pain is mild, fall was aramisal Complaint: fall -: hour(s) Fall From: standing When Fall Occurred: 1 hour [employer], other Fall Witnessed: no Place Fall Occurred: home Loss of Consciousness: none Prolonged Down Time?: no Symptoms Prior to Fall: none Location - Extremities: Left: Knee Severity: severe Severity scale (1-10): 7 Quality: burning, aching Context: tripped/slipped Associated Symptoms: denies - Related Data Home Medications Medication Instructions Recorded Confirmed Aspirin [Adult Low Dose Aspirin EC] 81 mg PO DAILY 11/19/17 11/30/19 Clopidogrel Bisulfate [Plavix] 75 mg PO DAILY 11/19/17 11/30/19 Fluticasone Nasal [place] [Flonase 1 - 2 spray EA NOSTRIL DAILY PRN 11/19/17 11/30/19 Nasal [place]] Atorvastatin [Lipitor] 80 mg PO HS 03/30/18 11/30/19 DULoxetine HCL [Cymbalta] 30 mg PO BID 05/22/18 11/30/19 Mirabegron [Myrbetriq] 50 mg PO DAILY 08/08/19 11/30/19 Donepezil [Aricept] 10 mg PO HS 11/30/19 11/30/19 Gabapentin 800 mg PO HS PRN 11/30/19 11/30/19 Omeprazole 40 mg PO DAILY 11/30/19 11/30/19 Potassium Chloride ER [K-Dur 10] 10 meq PO DAILY 11/30/19 11/30/19 Pramipexole [Mirapex] 0.5 mg PO HS 11/30/19 11/30/19 diphenhydrAMINE [Benadryl] 25 mg PO Q4-6H PRN 11/30/19 11/30/19 lamoTRIgine [LaMICtal] 225 mg PO DAILY 11/30/19 11/30/19 metFORMIN HCL [Glucophage Xr] 500 mg PO DAILY 11/30/19 11/30/19 Previous Rx's Medication Instructions Recorded Nitroglycerin Sl Tabs [Nitrostat] 0.4 mg SUBLINGUAL Q5M PRN #25 tab 11/21/17 Losartan [Cozaar] 50 mg PO DAILY #30 tab 12/03/19 Metoprolol Tartrate [Lopressor] 25 mg PO BID #60 tab 12/03/19 amLODIPine [Norvasc] 10 mg PO DAILY #30 tab 12/03/19 Naproxen [Naprosyn] 500 mg PO Q12HR PRN #30 tab 12/17/19 Allergies Allergy/AdvReac Type Severity Reaction Status Date / Time codeine Allergy Unknown Verified 11/30/19 16:46 Latex, Natural Rubber Allergy Itching Verified 11/30/19 16:46 morphine AdvReac Vomiting Verified 11/30/19 16:46 Review of Systems ROS Statement: Those systems with pertinent positive or pertinent negative responses have been documented in the HPI. ROS Other: All systems not noted in ROS Statement are negative. Past Medical History Past Medical History: COPD, GERD/Reflux, Hyperlipidemia, Hypertension, Osteoarthritis (OA), Vascular Disorder History of Any Multi-Drug Resistant Organisms: None Reported Past Surgical History: Bariatric Surgery, Bladder Surgery, Cholecystectomy, Heart Catheterization With Stent, Hysterectomy Additional Past Surgical History / Comment(s): cataract surg, gastric sleeve, right rotator cuff surgery, left knee replacement, bladder suspension, Rt carotid endarterectomy Past Anesthesia/Blood Transfusion Reactions: No Reported Reaction Date of Last Stent Placement:: Nov 2017 Past Psychological History: Bipolar Smoking Status: Current every day smoker Past Alcohol Use History: None Reported Past Drug Use History: None Reported - Past Family History Mother Family Medical History: No Reported History, Coronary Artery Disease (CAD), Diabetes Mellitus Additional Family Medical History / Comment(s): CABG 4 vessel Father Family Medical History: Hypertension, Myocardial Infarction ([place]) Brother(s) Family Medical History: Coronary Artery Disease (CAD), Myocardial Infarction ([place]) Additional Family Medical History / Comment(s): CABG 3 vessel General Exam Limitations: physical limitation General appearance: alert, in no apparent distress Head exam: Present: atraumatic, normocephalic, normal inspection Eye exam: Present: normal appearance, PERRL, EOMI. Absent: scleral icterus, conjunctival injection, periorbital swelling ENT exam: Present: normal exam, mucous membranes moist Neck exam: Present: normal inspection. Absent: tenderness, meningismus, lymphadenopathy Respiratory exam: Present: normal lung sounds bilaterally. Absent: respiratory distress, wheezes, rales, rhonchi, stridor Cardiovascular Exam: Present: regular rate, normal rhythm, normal heart sounds. Absent: systolic murmur, diastolic murmur, rubs, gallop, clicks GI/Abdominal exam: Present: soft, normal bowel sounds. Absent: distended, tenderness, guarding, rebound, rigid Extremities exam: Present: normal inspection, full ROM, normal capillary refill. Absent: tenderness, pedal edema, joint swelling, calf tenderness Back exam: Present: normal inspection Neurological exam: Present: alert, oriented X3, CN II-XII intact Psychiatric exam: Present: normal affect, normal mood Skin exam: Present: warm, dry, intact, normal color. Absent: rash Course Vital Signs 12/17/19 17:11 Temperature 98.0 F Pulse Rate 57 L Respiratory 16 Rate Blood Pressure 87/64 O2 Sat by Pulse 98 Oximetry - Reevaluation(s) Reevaluation #1: 12/17/19 17:36 medical record is reviewed Reevaluation #2: 12/17/19 17:39 patient has improved pain control Medical Decision Making - Medical Decision Making 69 female to the ED co fall w knee pain, patient symptoms improved and is able to ambulate, will dc home - Radiology Data Radiology results: report reviewed (XR knee left is negative for acute disease), image reviewed Disposition Clinical Impression: Fall, Left knee pain, Strain of left knee and leg Disposition: HOME SELF-CARE Condition: Good Instructions (If sedation given, give patient instructions): Fall Prevention for Older Adults (ED), Knee Pain (ED) Prescriptions: Naproxen [Naprosyn] 500 mg PO Q12HR PRN #30 tab PRN Reason: Pain Is patient prescribed a controlled substance at d/c from ED?: No Referrals: Chelsie Morales DO [Primary Care Provider] - 1-2 days
--- NOTE | 2019-12-17 17:56 | XR ---
EXAMINATION TYPE: XR knee complete LT DATE OF EXAM: 12/17/2019 COMPARISON: NONE HISTORY: Pain in the leg TECHNIQUE: 3 views FINDINGS: There is left knee prosthesis. Components are in anatomic position. There is no sign of aby nt effusion. IMPRESSION: Negative exam. No fracture seen.
[2019-12-17 19:04] VITALS: BP 136/71; PULSE 82
== END 2019-12-17 19:03 | disposition home or self-care (01) ==
LOC: EC 17:07
DX: S86.912A Strain of unspecified muscle(s) and tendon(s) at lower leg level, left leg, initial encounter (principal); J44.9 Chronic obstructive pulmonary disease, unspecified; K21.9 Gastro-esophageal reflux disease without esophagitis; E78.5 Hyperlipidemia, unspecified; I10 Essential (primary) hypertension; M19.90 Unspecified osteoarthritis, unspecified site; F31.9 Bipolar disorder, unspecified; F17.200 Nicotine dependence, unspecified, uncomplicated; Z88.5 Allergy status to narcotic agent; Z91.040 Latex allergy status; Z79.02 Long term (current) use of antithrombotics/antiplatelets; Z79.51 Long term (current) use of inhaled steroids; Z79.82 Long term (current) use of aspirin; Z79.84 Long term (current) use of oral hypoglycemic drugs; Z79.899 Other long term (current) drug therapy; Z96.652 Presence of left artificial knee joint; W10.9XXA Fall (on) (from) unspecified stairs and steps, initial encounter; Y92.009 Unspecified place in unspecified non-institutional (private) residence as the place of occurrence of the external cause
CPT/HCPCS: 99284; 96374; 96375; 73562; J1885; J1170

== ENCOUNTER → 2021-02-13 | Outpatient (CLI) | payer MEDICARE ==
--- NOTE | 2021-02-16 03:30 | MR ---
EXAMINATION TYPE: MR brain wo con DATE OF EXAM: 02/13/2021 COMPARISON: 08/25/2019 HISTORY: 71-year-old female R44.8, Confusion TECHNIQUE: Multiplanar, multisequence images of the brain and brainstem were acquired without IV con trast. Diffusion weighted imaging is performed. FINDINGS: No evidence for acute infarction, hemorrhage, mass, mass effect, midline shift, herniation, effacemen t of basal cisterns, or extra-axial fluid collection. [id number] cerebral cortical volume loss. No hydrocephalus. Major intracranial flow voids are intact. T2/FLAIR weighted sequences show extensive scattered T2 bright white matter foci throughout the subco rtical, deep, and periventricular regions of both cerebral hemispheres. These are largely stable but a few new punctate foci appear to be present bilaterally. In addition, foci of become more confluent in the left frontoparietal subcortical region now measuring up to 1.2 x 0.6 cm, axial image 20. Foci of also increased and are near confluent in the left periatrial white matter region, axial image 19. There is also new cortical and subcortical T2 hyperintensity, suspected encephalomalacia within the l ateral right frontal lobe, axial image 16. No restricted diffusion here. 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 Midline structures demonstrate normal morphology. The craniocervical junction is normal. Mild mucosal thickening ethmoid air cells. Continued fluid trapped within the bilateral mastoid air c ells. Globes are intact. IMPRESSION: 1. No restricted diffusion to suggest an acute intracranial abnormality. 2. New area of cortical and subcortical bright signal change within the lateral right frontal lobe, s uspected encephalomalacia from prior vascular or traumatic insult though new from 08/25/2019. Clinica lly correlate for an appropriate history. Recommend 1 to 2 month follow-up exam, at which time IV con trast can also be utilized, as a precautionary measure. 3. Extensive scattered foci of bright signal change throughout the white matter of both cerebral sandy spheres. A few new foci are present in some areas have become more confluent as compared to 9. Moderate to severe burden of chronic small vessel ischemic disease, chronic migraines, hypertensio n, demyelinating disease, and Lyme's disease are some differential considerations. 4. Continued fluid trapped within the mastoid air cells. Correlate for any mastoid pain to exclude ma stoiditis.
== END | disposition home or self-care (01) ==
LOC: RADMRIMAIN 10:12
PROVIDERS: ATTEND Family Medicine
DX: R90.82 White matter disease, unspecified (principal); G43.909 Migraine, unspecified, not intractable, without status migrainosus; I10 Essential (primary) hypertension; I67.82 Cerebral ischemia
CPT/HCPCS: 70551

== ENCOUNTER → 2021-09-19 | Outpatient (CLI) | payer MEDICARE ==
--- NOTE | 2021-09-19 18:19 | MR ---
EXAMINATION TYPE: MR brain wo con DATE OF EXAM: 09/19/2021 COMPARISON: February 13, 2021 HISTORY: Confusion, headaches, blurred vision. Multiplanar multiecho imaging of the brain without contrast. There is cerebral cortical atrophy. There is no mass effect nor midline shift. There is no evidence o f intracranial hemorrhage. There is 1 cm focus of increased signal on the diffusion images right parietal lobe white matter cons istent with an acute lacunar infarct. There is on the FLAIR images 3 cm area of increased signal in the medial left occipital lobe masterson and white matter. There is gyriform similar focus in the right posterior frontal lobe adjacent to the or bit. There are multiple foci of increased signal at the masterson-white matter junction both cerebral sandy spheres that measure up to 5 mm on the T2 and FLAIR images. Total number is approximately 25. The brainstem is intact. The cerebellum is intact. Corpus callosum is intact. Sella turcica appears n ormal. IMPRESSION: White matter changes consistent with multifocal chronic small vessel ischemia or less likely demyelin ating disease. This appears similar to old exam. There is right posterior frontal lobe amsterson and white matter changes consistent with some encephalomal acia unchanged. There is a new focus of similar encephalomalacia medial left occipital lobe compared to old exam. There is a single focus of increased signal right parietal lobe white matter suggestive of acute lacu emerita infarct.
== END | disposition home or self-care (01) ==
LOC: RADMRIMAIN 14:19
PROVIDERS: ATTEND Family Medicine
DX: H53.469 Homonymous bilateral field defects, unspecified side (principal); G93.89 Other specified disorders of brain; M54.81 Occipital neuralgia
CPT/HCPCS: 70551

== ENCOUNTER 2022-03-15 14:02 | Inpatient (IN) | payer MEDICARE ==
[2022-03-15] MEDS ORDERED: KETOROLAC 15 MG/ML 1 ML VIAL IVP STA (14:33)
[2022-03-15] MEDS ORDERED: SODIUM CHLORIDE 0.9% 1,000 ML IV STA ×2 (14:33)
[2022-03-15] MEDS ORDERED: ONDANSETRON 4 MG/2 ML VIAL IVP STA (14:33)
[2022-03-15] MEDS ORDERED: diphenhydrAMINE 50 MG/ML 1 ML VIAL IVP STA (14:34)
--- NOTE | 2022-03-15 14:37 | ED ---
General Adult HPI - General Chief complaint: Neuro Symptoms/Deficit Stated complaint: TIA Time Seen by Provider: 03/15/22 14:11 Source: patient Mode of arrival: ambulatory Limitations: no limitations - History of Present Illness Initial comments: Dictation was produced using [employer] dictation software. please excuse any grammatical, word or spelling errors. Chief Complaint: 72-year-old female presents to the emergency department for headache History of Present Illness: 72-year-old female presents to emergency department for headache. Patient has multiple comorbidities. She is accompanied by her with Timi been for 4 years. Patient allegedly was seen at her primary care physician's office for headache. He told her she had a stroke and she is instructed to come to the emergency room. Patient is a poor historian. She states she has a headache to the top of her head that feels that her usual headaches. Yesterday she had an episode of pain and numbness to her left leg that has gone away. She complains of pain to her gums. She states that it hurts when she rubs her gums with her tongue. She does not have any upper teeth and has not had any of these for several years. Patient complains of numbness to her left hand. She was told that she had a scan in the past that showed that she had multiple TIAs. Patient denies any vision loss. Denies any jaw claudication. The ROS documented in this emergency department record has been reviewed and confirmed by me. Those systems with pertinent positive or negative responses have been documented in the HPI. All other systems are other negative and/or noncontributory. PHYSICAL EXAM: General Impression: Alert and oriented x3, not in acute distress HEENT: Normocephalic atraumatic, extra-ocular movements intact, pupils equal and reactive to light bilaterally, mucous membranes moist. Cardiovascular: Heart regular rate and rhythm Chest: Able to complete full sentences, no retractions, no tachypnea Abdomen: abdomen soft, non-tender, non-distended, no organomegaly Musculoskeletal: Pulses present and equal in all extremities, no peripheral edema Motor: no focal deficits noted Neurological: CN II-XII grossly intact, sensory deficit to the left hand. No drift of the extremities, no weakness asymmetrically to the extremities, patient is alert and oriented 4, no dysarthria. Patient is not aphasic Skin: Intact with no visualized rashes Psych: Normal affect and mood ED course: 72-year-old female instructed by primary care doctor office to come to the emergency department evaluated for stroke. Patient is complaining of headache and numbness her left hand. Patient's symptoms began sometime yesterday. Is not clear exactly when patient's time of onset was. Vital signs upon arrival are within acceptable limits. Patient active symptoms at the bedside his left hand numbness. She does not have any drift. Patient had a candidate for out place at this time due to risk outweighed the benefits. Furthermore, patient's onset of symptoms started perhaps 2-3 days ago. Computed tomography scan ordered showing subacute infarct low-attenuation seen at the right parietal posterior temporal lobe. Patient reevaluated at 3:51 PM. She is in stable medical condition. She is sitting up resting comfortably at the bedside. Laboratory evaluation obtained. CBC unremarkable. Case discussed with Dr. Guzmán was willing to consult on the patient. He is notified of patient's computed tomography scan and is a patient is appropriate admission to our facility. Patient given aspirin. Patient be admitted to Dr. Morales. EKG interpretation: Ventricular rate 72, sinus rhythm,. Interval 136, QS 85, QTC 417. No [place] prolongation, no QTC prolongation, no ST or T-wave changes noted. Overall, this EKG is unremarkable - Related Data Home Medications Medication Instructions Recorded Confirmed Aspirin [Adult Low Dose Aspirin EC] 81 mg PO DAILY 11/19/17 03/15/22 Clopidogrel Bisulfate [Plavix] 75 mg PO DAILY 11/19/17 03/15/22 DULoxetine HCL [Cymbalta] 30 mg PO BID 05/22/18 03/15/22 Pramipexole [Mirapex] 0.5 mg PO HS 11/30/19 03/15/22 Empagliflozin [Jardiance] 25 mg PO DAILY 03/15/22 03/15/22 Ezetimibe [Zetia] 10 mg PO DAILY 03/15/22 03/15/22 Fluticasone Propion/Salmeterol 1 puff INHALATION RT-BID 03/15/22 03/15/22 [Fluticasone-Salmeterol 250-50] Oxybutynin Chloride [Oxybutynin 10 mg PO DAILY 03/15/22 03/15/22 Chloride ER] Rosuvastatin Calcium [Crestor] 40 mg PO DAILY 03/15/22 03/15/22 amLODIPine [Norvasc] 10 mg PO HS 03/15/22 03/15/22 metFORMIN HCL 500 mg PO BID 03/15/22 03/15/22 sitaGLIPtin PHOSPHATE [Januvia] 100 mg PO DAILY 03/15/22 03/15/22 Previous Rx's Medication Instructions Recorded Nitroglycerin Sl Tabs [Nitrostat] 0.4 mg SUBLINGUAL Q5M PRN #25 tab 11/21/17 Allergies Allergy/AdvReac Type Severity Reaction Status Date / Time codeine Allergy Unknown Verified 03/15/22 16:45 Latex, Natural Rubber Allergy Itching Verified 03/15/22 16:45 morphine AdvReac Vomiting Verified 03/15/22 16:45 Review of Systems ROS Statement: Those systems with pertinent positive or pertinent negative responses have been documented in the HPI. ROS Other: All systems not noted in ROS Statement are negative. Past Medical History Past Medical History: COPD, GERD/Reflux, Hyperlipidemia, Hypertension, Osteoarthritis (OA), Vascular Disorder History of Any Multi-Drug Resistant Organisms: None Reported Past Surgical History: Bariatric Surgery, Bladder Surgery, Cholecystectomy, Heart Catheterization With Stent, Hysterectomy Additional Past Surgical History / Comment(s): cataract surg, gastric sleeve, right rotator cuff surgery, left knee replacement, bladder suspension, Rt carotid endarterectomy Past Anesthesia/Blood Transfusion Reactions: No Reported Reaction Date of Last Stent Placement:: Nov 2017 Past Psychological History: Bipolar Smoking Status: Former smoker Past Alcohol Use History: None Reported Past Drug Use History: None Reported - Past Family History Mother Family Medical History: No Reported History, Coronary Artery Disease (CAD), Diabetes Mellitus Additional Family Medical History / Comment(s): CABG 4 vessel Father Family Medical History: Hypertension, Myocardial Infarction (HI) Brother(s) Family Medical History: Coronary Artery Disease (CAD), Myocardial Infarction (HI) Additional Family Medical History / Comment(s): CABG 3 vessel General Exam Limitations: no limitations Course Vital Signs 03/15/22 03/15/22 03/15/22 14:06 15:32 17:00 Temperature 99.7 F H Pulse Rate 75 75 69 Respiratory 18 18 20 Rate Blood Pressure 139/73 141/104 138/54 O2 Sat by Pulse 96 96 98 Oximetry 03/15/22 03/15/22 18:47 19:25 Temperature 98.1 F 98.2 F Pulse Rate 68 62 Respiratory 18 16 Rate Blood Pressure 131/75 159/90 O2 Sat by Pulse 96 97 Oximetry Medical Decision Making - Lab Data Result diagrams: 03/15/22 15:01 03/15/22 15:01 Lab Results 03/15/22 03/15/22 03/15/22 Range/Units 15:01 15:01 15:01 WBC 11.0 H (3.8-10.6) k/uL RBC 5.60 H (3.80-5.40) m/uL Hgb 14.8 (11.4-16.0) gm/dL Hct 46.0 (34.0-46.0) % MCV 82.1 (80.0-100.0) fL MCH 26.5 (25.0-35.0) pg MCHC 32.3 (31.0-37.0) g/dL RDW 15.6 H (11.5-15.5) % Plt Count 206 (150-450) k/uL MPV 8.8 Neutrophils % 80 % Lymphocytes % 14 % Monocytes % 4 % Eosinophils % 1 % Basophils % 0 % Neutrophils # 8.8 H (1.3-7.7) k/uL Lymphocytes # 1.6 (1.0-4.8) k/uL Monocytes # 0.4 (0-1.0) k/uL Eosinophils # 0.1 (0-0.7) k/uL Basophils # 0.0 (0-0.2) k/uL Hypochromasia Slight ESR 11 (0-20) mm/hr PT 10.1 (9.0-12.0) sec INR 0.9 (<1.2) APTT 20.9 L (22.0-30.0) sec Sodium 132 L (137-145) mmol/L Potassium 4.8 (3.5-5.1) mmol/L Chloride 97 L (98-107) mmol/L Carbon Dioxide 21 L (22-30) mmol/L Anion Gap 14 mmol/L BUN 15 (7-17) mg/dL Creatinine 0.73 (0.52-1.04) mg/dL Est GFR (CKD-EPI)AfAm >90 (>60 ml/min/1.73 sqM) Est GFR (CKD-EPI)NonAf 84 (>60 ml/min/1.73 sqM) Glucose 120 H (74-99) mg/dL Estimated Ave Glu mg/dL Hemoglobin A1c % Calcium 9.0 (8.4-10.2) mg/dL C-Reactive Protein 0.8 (<1.0) mg/dL 03/15/22 Range/Units 15:01 WBC (3.8-10.6) k/uL RBC (3.80-5.40) m/uL Hgb (11.4-16.0) gm/dL Hct (34.0-46.0) % MCV (80.0-100.0) fL MCH (25.0-35.0) pg MCHC (31.0-37.0) g/dL RDW (11.5-15.5) % Plt Count (150-450) k/uL MPV Neutrophils % % Lymphocytes % % Monocytes % % Eosinophils % % Basophils % % Neutrophils # (1.3-7.7) k/uL Lymphocytes # (1.0-4.8) k/uL Monocytes # (0-1.0) k/uL Eosinophils # (0-0.7) k/uL Basophils # (0-0.2) k/uL Hypochromasia ESR (0-20) mm/hr PT (9.0-12.0) sec INR (<1.2) APTT (22.0-30.0) sec Sodium (137-145) mmol/L Potassium (3.5-5.1) mmol/L Chloride (98-107) mmol/L Carbon Dioxide (22-30) mmol/L Anion Gap mmol/L BUN (7-17) mg/dL Creatinine (0.52-1.04) mg/dL Est GFR (CKD-EPI)AfAm (>60 ml/min/1.73 sqM) Est GFR (CKD-EPI)NonAf (>60 ml/min/1.73 sqM) Glucose (74-99) mg/dL Estimated Ave Glu mg/dL [facility] Hemoglobin A1c CANCELED % Calcium (8.4-10.2) mg/dL C-Reactive Protein (<1.0) mg/dL Disposition Clinical Impression: Cerebrovascular accident (CVA) Disposition: ADMITTED IP TO THIS HOSP
--- NOTE | 2022-03-15 15:09 | CT ---
EXAMINATION TYPE: CT brain wo con DATE OF EXAM: 03/15/2022 COMPARISON: CT brain dated 05/22/2018, MR brain 09/19/2021 HISTORY: TIA CT DLP: 1123.4 mGycm Automated exposure control for dose reduction was used. Helical imaging through the brain. FINDINGS: There is low attenuation involving the right parietal and posterior temporal lobe, mixed attenuation, effacement of the overlying sulci consistent with probable subacute infarct, some local vasogenic ed topher likely present causing some mass effect on the lateral horn of the right lateral ventricle. Chron ic infarcts present in the inferior aspect of the right frontal and also left inferior occipital lobe s are interval findings compared to prior CT but diagnosed on prior MR 09/19/2021, there is local ence phalomalacia. Cerebral vascular calcifications are present. There is no hemorrhage or hydrocephalus. IMPRESSION: FINDINGS SUGGEST SUBACUTE INFARCT, MRI MAY BE OF BENEFIT, THERE ARE CHRONIC INFARCTS DESCRIBED WHICH HAVE DEVELOPED IN THE INTERVAL
[2022-03-15 15:11] LABS: Basophils % (A) 0 %; Eosinophils # (A) 0.1 k/uL (0-0.7); Eosinophils % (A) 1 %; HGB 14.8 gm/dL (11.4-16.0); Hypochromasia Slight; Lymphocytes # (A) 1.6 k/uL (1.0-4.8); Lymphocytes % (A) 14 %; MCH 26.5 pg (25.0-35.0); MCHC 32.3 g/dL (31.0-37.0); MCV 82.1 fL (80.0-100.0); Mean Platelet Volume 8.8; Monocytes # (A) 0.4 k/uL (0-1.0); Monocytes % (A) 4 %; Neutrophils # (A) 8.8 k/uL (1.3-7.7); Neutrophils % (A) 80 %; Platelet Count 206 k/uL (150-450); RDW 15.6 % (11.5-15.5)
[2022-03-15] MEDS ORDERED: ASPIRIN 81 MG PO STA (15:23)
[2022-03-15 15:29] LABS: INR 0.9 (<1.2); Partial Thromboplastin Time 20.9 sec (22.0-30.0); Prothrombin Time 10.1 sec (9.0-12.0)
[2022-03-15 15:31] LABS: African American GFR (CKD) >90 (>60 ml/min/1.73 sqM); Anion Gap 14 mmol/L; Blood Urea Nitrogen 15 mg/dL (7-17); Carbon Dioxide 21 mmol/L (22-30); Chloride 97 mmol/L (98-107); Glucose 120 mg/dL (74-99); Non-African American GFR(CKD) 84 (>60 ml/min/1.73 sqM); Potassium 4.8 mmol/L (3.5-5.1); Sodium 132 mmol/L (137-145)
[2022-03-15] MEDS ORDERED: HYDROmorphone 0.5 MG/0.5 ML SYRINGE IVP STA (15:48)
[2022-03-15] MEDS ORDERED: NALOXONE 0.4 MG/ML 1 ML VIAL IV PRN (15:49)
[2022-03-15 16:05] LABS: Erythrocyte Sedimentation Rate 11 mm/hr (0-20)
[2022-03-15] MEDS: SODIUM CHLORIDE 0.9% 1,000 ML IV SCH (16:06)
[2022-03-15 16:10] LABS: C Reactive Protein 0.8 mg/dL (<1.0)
--- NOTE | 2022-03-15 17:13 | CT ---
EXAMINATION TYPE: CT angio head neck CT DLP: 451 mGycm, Automated exposure control for dose reduction was used. DATE OF EXAM: 03/15/2022 4:51 PM COMPARISON: CT brain 03/15/2022. MR brain 08/25/2019. CLINICAL INDICATION:Female, 72 years old with history of neurologic deficit, Patient having left hand weakness. TECHNIQUE: Axially acquired helical CT angiogram of the head and neck was obtained with contrast util izing 75 cc of Isovue-370 administered intravenously. Axial images are supplemented with 3D reconstru ctions which were post-processed at an independent workstation. NASCET criteria used. FINDINGS: CTA HEAD: Redemonstration of findings suggestive of right subacute infarct better characterized on recent CT br ain. Multiple arteries are seen extending through this region. No evidence of acute intracranial hemorrhage, mass effect, or midline shift. The ventricles, sulci, a nd cisterns are unremarkable. The visualized portions of the internal carotid arteries, middle cerebral arteries, anterior cerebral arteries, and posterior cerebral arteries are patent. The basilar and vertebral arteries are patent. There is a right dominant vertebral artery. CTA NECK: Right Carotid System: The common carotid artery and external carotid artery are patent. The carotid bifurcation demonstrate s mixed calcified and noncalcified plaquing with at least 50% stenosis. The remaining portions of the internal carotid artery demonstrate normal size without significant narrowing. Left Carotid System: The common carotid artery and external carotid artery are patent. The distal common carotid/carotid b ifurcation demonstrates calcified and noncalcified atherosclerotic plaque with near occlusion series 401 image 45. The remaining portions of the internal carotid artery demonstrate normal size without s ignificant narrowing. Vertebral arteries are patent without evidence hemodynamically significant stenosis. There is a three-vessel aortic arch. The origins of the great vessels are patent. No evidence of hemo dynamically significant stenosis. Scattered atherosclerosis of the arterial vasculature. There is heterogenous appearing thyroid gland. Pacemaker within the left chest wall is present. Multi level disc degeneration changes throughout the visualized spine. IMPRESSION: 1. Near occlusion of the left distal common carotid/carotid bifurcation secondary to calcified and n oncalcified plaquing. 2. At least 50% stenosis of the right carotid bifurcation secondary mixed calcified and noncalcified plaquing. 3. No evidence of dissection of the cervical internal carotid arteries or vertebral arteries. 4. No evidence of intracranial aneurysm. 5. Redemonstration of right subacute infarct which is better characterized on prior CT head. This is new from MRI from 2019.
--- NOTE | 2022-03-15 18:00 | ED ---
Medical Decision Making - Medical Decision Making Case was admitted by Dr. Smith who did request I review CT report. There is concern for left-sided occlusion. I did discuss the case with Dr. Hagen who did not feel need for immediate intervention. - Lab Data Result diagrams: 03/15/22 15:01 03/15/22 15:01 Lab Results 03/15/22 03/15/22 03/15/22 Range/Units 15:01 15:01 15:01 WBC 11.0 H (3.8-10.6) k/uL RBC 5.60 H (3.80-5.40) m/uL Hgb 14.8 (11.4-16.0) gm/dL Hct 46.0 (34.0-46.0) % MCV 82.1 (80.0-100.0) fL MCH 26.5 (25.0-35.0) pg MCHC 32.3 (31.0-37.0) g/dL RDW 15.6 H (11.5-15.5) % Plt Count 206 (150-450) k/uL MPV 8.8 Neutrophils % 80 % Lymphocytes % 14 % Monocytes % 4 % Eosinophils % 1 % Basophils % 0 % Neutrophils # 8.8 H (1.3-7.7) k/uL Lymphocytes # 1.6 (1.0-4.8) k/uL Monocytes # 0.4 (0-1.0) k/uL Eosinophils # 0.1 (0-0.7) k/uL Basophils # 0.0 (0-0.2) k/uL Hypochromasia Slight ESR 11 (0-20) mm/hr PT 10.1 (9.0-12.0) sec INR 0.9 (<1.2) APTT 20.9 L (22.0-30.0) sec Sodium 132 L (137-145) mmol/L Potassium 4.8 (3.5-5.1) mmol/L Chloride 97 L (98-107) mmol/L Carbon Dioxide 21 L (22-30) mmol/L Anion Gap 14 mmol/L BUN 15 (7-17) mg/dL Creatinine 0.73 (0.52-1.04) mg/dL Est GFR (CKD-EPI)AfAm >90 (>60 ml/min/1.73 sqM) Est GFR (CKD-EPI)NonAf 84 (>60 ml/min/1.73 sqM) Glucose 120 H (74-99) mg/dL Calcium 9.0 (8.4-10.2) mg/dL C-Reactive Protein 0.8 (<1.0) mg/dL Disposition Clinical Impression: Cerebrovascular accident (CVA) Disposition: ADMITTED IP TO THIS HOSP Is patient prescribed a controlled substance at d/c from ED?: No
[2022-03-15 21:45] LABS: Glucose,Whole Blood 105 mg/dL (75-99)
[2022-03-15] MEDS: ACETAMINOPHEN TAB 325 MG TAB PO PRN (22:19)
[2022-03-16] MEDS: OXYBUTYNIN CHLORIDE 5 MG TAB PO SCH ×3 (00:55→21:12)
[2022-03-16] MEDS: DULoxetine HCL 30 MG CAPSULE.DR PO SCH ×3 (00:55→21:12)
[2022-03-16] MEDS: ACETAMINOPHEN TAB 325 MG TAB PO PRN (02:07)
[2022-03-16] MEDS: HYDROcodone/APAP 5-325MG 1 EACH TAB PO PRN ×2 (04:28→21:12)
[2022-03-16 06:01] LABS: Glucose,Whole Blood 121 mg/dL (75-99)
[2022-03-16] MEDS: ASPIRIN 81 MG PO SCH (08:22)
[2022-03-16] MEDS: CLOPIDOGREL 75 MG TAB PO SCH (08:33)
[2022-03-16] MEDS: ATORVASTATIN 80 MG TAB PO SCH (08:33)
[2022-03-16] MEDS: EZETIMIBE 10 MG TAB PO SCH (08:33)
[2022-03-16] MEDS ORDERED: NON FORMULARY DRUG (Aspirin [Adult Low Dose Aspirin Ec] 81 MG Tablet.Dr) PO SCH (09:00)
--- NOTE | 2022-03-16 10:03 | P.CNNES ---
History of Present Illness Consult date: 03/15/22 Requesting physician: Dane Paige Reason for Consult: CVA History of Present Illness: Patient is a 72-year-old right-handed female who came to the hospital today at 12:02 PM for possible stroke symptoms. Patient states that the symptoms started 2 days ago on Tuesday late morning at 11 AM, when she was at a baby shower, and she kept on dropping everything with her left hand. She also noticed like a migraine headache on Tuesday, and has been persistent since then. As her symptoms persisted, she saw her primary physician today, who recommended her to go to the ER to have a CAT scan done. At present patient says that she feels her left hand does not feel right. Patient says that she was not able to feel the blood pressure cuff tightening on her left arm at all. Patient says that the weight of cellphone did not make her remember she was holding something in her hand. She keeps on dropping the cell phone with her left hand. Her left leg aches deep inside particularly while walking, like a toothache. She does have history of peripheral neuropathy, which is acting up, but this is much different than her usual neuropathy symptoms. Denies any leg weakness. No slurred speech, facial droop or visual symptoms. Says that today she is to sit down at the end of the couch, and she lost balance and hit the wall. Today she could not figure out how to get into her cell phone. It took 2 hours to manipulate her cell phone to make a call to her doctor's office to make an appointment. Otherwise she has never had any issues with using her cell phone. EKG shows normal sinus rhythm. CT head showed finding suggests subacute infarct. MRI may be of benefit. I personally reviewed computed tomography scan, and there is evidence of subacute stroke involving the right posterior frontal parietal region. There is evidence of chronic infarct/encephalomalacia involving the left occipital region. There are chronic infarct described which have developed in the interval. CTA of head and neck revealed near occlusion of the left distal common carotid/carotid bifurcation secondary to calcified and noncalcified plaquing. At least 50% stenosis of the right carotid bifurcation secondary makes calcified and noncalcified plaquing. No evidence of dissection of the cervical internal carotid arteries or vertebral arteries. No evidence of intracranial aneurysm. Redemonstration of right subacute infarct which is better characterized on prior CT head. This is new from MRI from 2019. Paola dotson's blood test shows to be 11.0 hemoglobin 14.8, platelets 206. PT/PTT normal. Sodium 132 potassium 4.8, normal renal functions. ESR is 11, CRP 0.8 both normal. Patient's last hemoglobin A1c 6.9 on 05/22/2018. Patient apparently does take aspirin 81 mg, Plavix 75 mg, Rouvastatin 40 mg. patient states she is compliant with her medications and does not miss a dose. Patient says that she has smoked 2 cigars per day for last 3 months. Prior to that she would smoke 3 cigarettes per day, will occasionally up to half pack per day since age 29. She has never smoked a pack. Denies any alcohol. She has been sober for 33 years. Patient has history of diabetes for 20 years. Also has hypertension. She does have history of migraines. Review of Systems All other 14 points of ROS were reviewed, and were unremarkable except as mentioned above in HPI. Past Medical History Past Medical History: COPD, GERD/Reflux, Hyperlipidemia, Hypertension, Osteoarthritis (OA), Vascular Disorder History of Any Multi-Drug Resistant Organisms: None Reported Past Surgical History: Bariatric Surgery, Bladder Surgery, Cholecystectomy, Heart Catheterization With Stent, Hysterectomy Additional Past Surgical History / Comment(s): cataract surg, gastric sleeve, ri ght rotator cuff surgery, left knee replacement, bladder suspension, Rt carotid endarterectomy Past Anesthesia/Blood Transfusion Reactions: No Reported Reaction Date of Last Stent Placement:: Nov 2017 Past Psychological History: Bipolar Smoking Status: Former smoker Past Alcohol Use History: None Reported Past Drug Use History: None Reported - Past Family History Mother Family Medical History: No Reported History, Coronary Artery Disease (CAD), Diabetes Mellitus Additional Family Medical History / Comment(s): CABG 4 vessel Father Family Medical History: Hypertension, Myocardial Infarction ([place]) Brother(s) Family Medical History: Coronary Artery Disease (CAD), Myocardial Infarction ([place]) Additional Family Medical History / Comment(s): CABG 3 vessel Medications and Allergies Home Medications Medication Instructions Recorded Confirmed Type Aspirin [Adult Low Dose Aspirin EC] 81 mg PO DAILY 11/19/17 03/15/22 History Clopidogrel Bisulfate [Plavix] 75 mg PO DAILY 11/19/17 03/15/22 History Nitroglycerin Sl Tabs [Nitrostat] 0.4 mg SUBLINGUAL Q5M PRN #25 tab 11/21/17 03/15/22 Rx DULoxetine HCL [Cymbalta] 30 mg PO BID 05/22/18 03/15/22 History Pramipexole [Mirapex] 0.5 mg PO HS 11/30/19 03/15/22 History Empagliflozin [Jardiance] 25 mg PO DAILY 03/15/22 03/15/22 History Ezetimibe [Zetia] 10 mg PO DAILY 03/15/22 03/15/22 History Fluticasone Propion/Salmeterol 1 puff INHALATION RT-BID 03/15/22 03/15/22 Histor y [Fluticasone-Salmeterol 250-50] Oxybutynin Chloride [Oxybutynin 10 mg PO DAILY 03/15/22 03/15/22 History Chloride ER] Rosuvastatin Calcium [Crestor] 40 mg PO DAILY 03/15/22 03/15/22 History amLODIPine [Norvasc] 10 mg PO HS 03/15/22 03/15/22 History metFORMIN HCL 500 mg PO BID 03/15/22 03/15/22 History sitaGLIPtin PHOSPHATE [Januvia] 100 mg PO DAILY 03/15/22 03/15/22 History Allergies Allergy/AdvReac Type Severity Reaction Status Date / Time codeine Allergy Unknown Verified 03/15/22 16:45 Latex, Natural Rubber Allergy Itching Verified 03/15/22 16:45 morphine AdvReac Vomiting Verified 03/15/22 16:45 Physical Examination - Vital Signs Vital Signs: Vital Signs Temp Pulse Resp BP Pulse Ox 03/15/22 19:25 98.2 F 62 16 159/90 97 03/15/22 18:47 98.1 F 68 18 131/75 96 03/15/22 17:00 69 20 138/54 98 03/15/22 15:32 75 18 141/104 96 03/15/22 14:06 99.7 F H 75 18 139/73 96 Intake and Output 03/15/22 03/15/22 03/15/22 06:59 14:59 22:59 Other: Weight 69.853 kg Patient is an elderly female, very pleasant, in no acute distress. Patient is alert awake oriented to time place and person. Speech and language functions are normal. Attention, concentration and fund of knowledge is adequate. Patient can name and repeat very well. No aphasia or dysarthria. On cranial nerve examination, pupils are equal, round and reacting to light, visual contreras on confrontation revealed slight left upper quadrant visual field neglect on double simultaneous stimulation. Her extraocular muscles are intact with no nystagmus. Face is symmetric, tongue protrudes to the midline. Palatal elevation and sensation normal, hearing and shoulder shrug normal, facial sensation normal. Shoulder shrug normal. On muscle strength testing, there is no pronator drift and the strength is normal in arms and legs distally and proximally. Deep tendon reflexes are diminished and plantars downgoing bilaterally. Sensory to touch is severely decreased in the left arm. Patient not able to feel the left arm, even when it was shaken by myself. However when pinched, she felt severe pain. Cerebellar function showed no ataxia for [id number] testing. Tone and bulk of muscles normal. Gait deferred. On general examination, there is no carotid bruit or murmur, S1-S2 audible. Abdomen is soft nontender. No organomegaly, bowel sounds present. Chest is clear to auscultation. Peripheral pulses are present. No edema. Results - Laboratory Findings CBC and BMP: 03/15/22 15:01 03/15/22 15:01 Abnormal Lab Findings: Abnormal Labs 03/15/22 03/15/22 03/15/22 15:01 15:01 15:01 WBC 11.0 H RBC 5.60 H RDW 15.6 H Neutrophils # 8.8 H APTT 20.9 L Sodium 132 L Chloride 97 L Carbon Dioxide 21 L Glucose 120 H Assessment and Plan Assessment: * Subacute ischemic stroke involving right posterior frontal parietal region. 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 Both of these areas of infarction (recent and remote) suggest embolic phenomenon. * Diabetes * Hypertension * History of light smoking. * Hyperlipidemia Plan: * Patient has presented with subacute stroke. Patient was not a candidate for TPA as her symptoms have been present for more than 48 hours. * MRI of the brain to rule out hemorrhagic conversion. Continue aspirin 81 mg and Plavix 75 mg daily. * 2-D echo with bubble study to rule out PFO. Patient probably will need MUKUND as well. * Telemetric monitoring rule out paroxysmal atrial fibrillation. May need an event monitor or a loop recorder if telemetry monitoring does not show any arrhythmia. * Fasting a.m. lipid panel, hemoglobin A1c. * Recommended tobacco cessation. * Heparin 5000 units subcu twice a day for DVT prophylaxis. * Neurology will follow. Thank you for the consult.
[2022-03-16] MEDS ORDERED: METOCLOPRAMIDE 5 MG/ML 2 ML VIAL IVP STA (10:17)
[2022-03-16] MEDS ORDERED: MAGNESIUM SULFATE-D5W PMX 1 GM in DEXTROSE/WATER 1 100ML.BAG IVPB ONE (10:18)
[2022-03-16] MEDS ORDERED: ACETAMINOPHEN IV (For NPO) 1,000 MG in EMPTY BAG 1 BAG IVPB STA (10:22)
[2022-03-16] MEDS: HEPARIN SODIUM,PORCINE/PF 5,000 UNIT/0.5 ML SYRINGE SQ SCH ×2 (10:37→21:12)
--- NOTE | 2022-03-16 11:48 | US ---
EXAMINATION TYPE: US carotid duplex BILAT DATE OF EXAM: 03/16/2022 COMPARISON: CTA 03/15/2022 CLINICAL HISTORY: subacute stroke. history of right endarectomy EXAM MEASUREMENTS: RIGHT: Peak Systolic Velocity (PSV) cm/sec ----- Right CCA: 100.8 ----- Right ICA: 143.6 ----- Right ECA: 267.6 ICA/CCA ratio: 1.4 RIGHT: End Diastole cm/sec ----- Right CCA: 21.9 ----- Right ICA: 21.1 ----- Right ECA: 26.8 LEFT: Peak Systolic Velocity (PSV) cm/sec ----- Left CCA: 219.5 ----- Left ICA: 525.1 ----- Left ECA: 317.8 ICA/CCA ratio: 2.4 LEFT: End Diastole cm/sec ----- Left CCA: 44.9 ----- Left ICA: 82.7 ----- Left ECA: 19.0 VERTEBRALS (direction of flow): Right Vertebral: Antegrade Left Vertebral: Antegrade Rhythm: Normal Grayscale, color Doppler, spectral Doppler imaging performed the carotid arteries. Waveform analysis shows elevated velocity of the proximal internal carotid artery in the right but without significantl y elevated end-diastolic velocity or ICA to CCA ratio. Peak systolic velocity in the proximal interna l carotid artery on the left however is markedly elevated with elevated end-diastolic velocity elevat ed ICA to CCA ratio. Extensive soft and hard plaque noted. Significant stenosis left distal CCA/bulb/ ICA. High velocities throughout left side. HIgh velocity right ECA. IMPRESSION: Hemodynamic significant stenosis of the proximal internal carotid artery left correspond ing to approximately 60-70% diameter reduction or likely greater by Doppler criteria, an indirect hollie surement of carotid stenosis. Findings corresponding to high-grade stenosis is correlated with CTA. Criteria for Assigning % of Stenosis / Diameter reduction (Estimation based on the indirect measurements of the internal carotid artery velocities (ICA PSV). 1. Normal (no stenosis)=ICA PSV < 125 cm/s: ratio < 2.0: ICA EDV<40 cm/s. 2. Less than 50% stenosis=ICA PSV < 125 cm/s: ratio < 2.0: ICA EDV<40 cm/s. 3. 50 to 69% stenosis=ICA PSV of 125 to 230 cm/s: ration 2.0 ? 4.0: ICA EDV 40-100 cm/s. 4. Greater than 70% stenosis to near occlusion= ICA PSV > 230 cm/s: ratio > 4.0: ICA EDV > 100 cm/s. 5. Near occlusion= ICA PSV velocities may be low or undetectable: variable ratio and ICA EDV. 6. Total occlusion=unable to detect flow.
[2022-03-16 11:56] LABS: Glucose,Whole Blood 148 mg/dL (75-99)
[2022-03-16] MEDS: INSULIN ASPART (NovoLOG) 100 UNIT/ML VIAL SQ SCH ×3 (12:01→20:53)
[2022-03-16] MEDS: GABAPENTIN 100 MG CAP PO SCH ×2 (12:01→21:12)
--- NOTE | 2022-03-16 13:26 | P.GSCN ---
History of Present Illness Consult date: 03/16/22 Reason for Consult: Left internal carotid artery stenosis Requesting physician: Jaziel Guzmán History of present illness: This is a pleasant 72-year-old female who presented to the emergency department with complaints of left-sided weakness and neuropathy throughout her body. She was concerned that she was having strokelike symptoms that she presented to the emergency department. Apparently on Tuesday she was at a baby shower and she kept having left hand weakness where she was unable to hold things Dropping stuff. She would hold her cell phone in her hand however could not feel the weight of it. She denied any other focal deficits at that time. Her past medical history includes COPD, diabetes, GERD, hyperlipidemia, hypertension, osteoarthritis, coronary artery disease with stenting, and current smoker. She does have a past history of right ICA stenosis status post endarterectomy with patch angioplasty in [address] Montelongo. She reports taking Plavix, aspirin, and Lipitor. The patient underwent CT angiogram of head and neck reporting at least 50% stenosis of the right carotid bifurcation and near occlusion of the left distal common carotid/carotid bifurcation secondary to calcified and noncalcified plaquing. Vascular surgery was consulted for the above. She currently denies any focal deficits. States that she has neuropathy and pain throughout her body. Denies any slurred speech, visual changes, weakness, or memory changes. Brain CT reported finding suggesting subacute infarct, chronic infarcts in the inferior aspect of the right frontal and also left inferior occipital lobes with interval changes compared to prior CT but diagnosed on prior MRI 09/19/2021, there is local encephalomalacia. Review of Systems A 14 point review systems was completed all pertinent positives and negatives as stated in the HPI. Past Medical History Past Medical History: COPD, GERD/Reflux, Hyperlipidemia, Hypertension, Osteoarthritis (OA), Vascular Disorder History of Any Multi-Drug Resistant Organisms: None Reported Past Surgical History: Bariatric Surgery, Bladder Surgery, Cholecystectomy, Heart Catheterization With Stent, Hysterectomy Additional Past Surgical History / Comment(s): cataract surg, gastric sleeve, right rotator cuff surgery, left knee replacement, bladder suspension, Rt carotid endarterectomy Past Anesthesia/Blood Transfusion Reactions: No Reported Reaction Date of Last Stent Placement:: Nov 2017 Type of Cardiac Device: Biventricular Pacemaker Device Placement Date:: 12/24/2021 Past Psychological History: Bipolar Smoking Status: Former smoker Past Alcohol Use History: None Reported Past Drug Use History: None Reported - Past Family History Mother Family Medical History: No Reported History, Coronary Artery Disease (CAD), Diabetes Mellitus Additional Family Medical History / Comment(s): CABG 4 vessel Father Family Medical History: Hypertension, Myocardial Infarction ([place]) Brother(s) Family Medical History: Coronary Artery Disease (CAD), Myocardial Infarction ([place]) Additional Family Medical History / Comment(s): CABG 3 vessel Medications and Allergies Home Medications Medication Instructions Recorded Confirmed Type Aspirin [Adult Low Dose Aspirin EC] 81 mg PO DAILY 11/19/17 03/15/22 History Clopidogrel Bisulfate [Plavix] 75 mg PO DAILY 11/19/17 03/15/22 History Nitroglycerin Sl Tabs [Nitrostat] 0.4 mg SUBLINGUAL Q5M PRN #25 tab 11/21/17 03/15/22 Rx DULoxetine HCL [Cymbalta] 30 mg PO BID 05/22/18 03/15/22 History Pramipexole [Mirapex] 0.5 mg PO HS 11/30/19 03/15/22 History Empagliflozin [Jardiance] 25 mg PO DAILY 03/15/22 03/15/22 History Ezetimibe [Zetia] 10 mg PO DAILY 03/15/22 03/15/22 History Fluticasone Propion/Salmeterol 1 puff INHALATION RT-BID 03/15/22 03/15/22 History [Fluticasone-Salmeterol 250-50] Oxybutynin Chloride [Oxybutynin 10 mg PO DAILY 03/15/22 03/15/22 History Chloride ER] Rosuvastatin Calcium [Crestor] 40 mg PO DAILY 03/15/22 03/15/22 History amLODIPine [Norvasc] 10 mg PO HS 03/15/22 03/15/22 History metFORMIN HCL 500 mg PO BID 03/15/22 03/15/22 History sitaGLIPtin PHOSPHATE [Januvia] 100 mg PO DAILY 03/15/22 03/15/22 History Allergies Allergy/AdvReac Type Severity Reaction Status Date / Time codeine Allergy Unknown Verified 03/15/22 16:45 Latex, Natural Rubber Allergy Itching Verified 03/15/22 16:45 morphine AdvReac Vomiting Verified 03/15/22 16:45 Surgical - Exam Vital Signs Temp Pulse Resp BP Pulse Ox 99.7 F H 75 18 139/73 96 03/15/22 14:06 03/15/22 14:06 03/15/22 14:06 03/15/22 14:06 03/15/22 14:06 General appearance: The patient is alert, oriented, appears in no acute d istress. HET: Head is normocephalic and atraumatic. Pupils are equal and reactive. Neck: Supple without lymphadenopathy. Trachea midline. Heart: S1 S2. Regular rate and rhythm. Lungs: Clear to auscultation bilaterally. Abdomen: Soft, nontender, nondistended. Extremities: Normal skin color and turgor. No cyanosis, rash, ulceration, clubbing, or edema. Neurological: No focal deficits. Strength and sensation are grossly intact. Results - Labs 03/15/22 15:01 03/15/22 15:01 Abnormal Lab Results - Last 24 Hours (Table) 03/15/22 03/15/22 03/15/22 Range/Units 15:01 15:01 15:01 WBC 11.0 H (3.8-10.6) k/uL RBC 5.60 H (3.80-5.40) m/uL RDW 15.6 H (11.5-15.5) % Neutrophils # 8.8 H (1.3-7.7) k/uL APTT 20.9 L (22.0-30.0) sec Sodium 132 L (137-145) mmol/L Chloride 97 L (98-107) mmol/L Carbon Dioxide 21 L (22-30) mmol/L Glucose 120 H (74-99) mg/dL POC Glucose (mg/dL) (75-99) mg/dL 03/15/22 03/16/22 03/16/22 Range/Units 21:44 06:00 11:49 WBC (3.8-10.6) k/uL RBC (3.80-5.40) m/uL RDW (11.5-15.5) % Neutrophils # (1.3-7.7) k/uL APTT (22.0-30.0) sec Sodium (137-145) mmol/L Chloride (98-107) mmol/L Carbon Dioxide (22-30) mmol/L Glucose (74-99) mg/dL POC Glucose (mg/dL) 105 H 121 H 148 H (75-99) mg/dL Diabetes panel 03/15/22 Range/Units 15:01 Sodium 132 L (137-145) mmol/L Potassium 4.8 (3.5-5.1) mmol/L Chloride 97 L (98-107) mmol/L Carbon Dioxide 21 L (22-30) mmol/L BUN 15 (7-17) mg/dL Creatinine 0.73 (0.52-1.04) mg/dL Glucose 120 H (74-99) mg/dL Calcium 9.0 (8.4-10.2) mg/dL Calcium panel 03/15/22 Range/Units 15:01 Calcium 9.0 (8.4-10.2) mg/dL Pituitary panel 03/15/22 Range/Units 15:01 Sodium 132 L (137-145) mmol/L Potassium 4.8 (3.5-5.1) mmol/L Chloride 97 L (98-107) mmol/L Carbon Dioxide 21 L (22-30) mmol/L BUN 15 (7-17) mg/dL Creatinine 0.73 (0.52-1.04) mg/dL Glucose 120 H (74-99) mg/dL Calcium 9.0 (8.4-10.2) mg/dL Adrenal panel 03/15/22 Range/Units 15:01 Sodium 132 L (137-145) mmol/L Potassium 4.8 (3.5-5.1) mmol/L Chloride 97 L (98-107) mmol/L Carbon Dioxide 21 L (22-30) mmol/L BUN 15 (7-17) mg/dL Creatinine 0.73 (0.52-1.04) mg/dL Glucose 120 H (74-99) mg/dL Calcium 9.0 (8.4-10.2) mg/dL - Imaging Comments: Brain CT reported finding suggesting subacute infarct, chronic infarcts in the inferior aspect of the right frontal and also left inferior occipital lobes with interval changes compared to prior CT but diagnosed on prior MRI 09/19/2021, there is local encephalomalacia. CT angiogram head and neck: Reports near occlusion of left distal common carotid/carotid bifurcation secondary to calcified and noncalcified plaquing. At least 50% stenosis of the right bifurcation secondary mixed calcified and noncalcified plaquing. Redemonstration of right subacute infarct which is better characterized on prior CT head. This is new from MRI 2019. Carotid duplex: Right ICA PSV 143.6, ICA/CCA ratio 1.4 left ICA PSV 317.8 ICA/CCA ratio 2.4. Hemodynamic significant stenosis of the proximal internal carotid artery left corresponding to approximately 60-70% diameter reduction or is likely greater. Assessment and Plan Assessment: 1. Hemodynamically significant left ICA stenosis, measuring 60-70% to near occlusion per ultrasound/CT angiogram 2. History of right ICA stenosis status post carotid endarterectomy with patch angioplasty 2017 3. Left hand weakness 4. Subacute ischemic stroke involving right posterior frontal parietal region 5. History of old encephalomalacia involving left occipital lobe 6. Diabetes 7. Diabetic neuropathy 8. Current smoker 9. Hyperlipidemia 10. Hypertension Plan: 1. Continue aspirin, Plavix, Lipitor 2. Carotid duplex ordered 3. Appreciate recommendations from neurology 4. Further recommendations forthcoming per vascular surgeon Thank you for this consultation, we will continue to follow. The impression and plan of care has been dictated as directed. I performed a history and examination of this patient, discussed the same with the dictator. I agree with the dictator's note ,documented as a scribe. Any additional findings or plans will be noted.
[2022-03-16 15:13] LABS: Estimated Average Glucose UNC
[2022-03-16 16:10] LABS: Appearance,Urine Clear (Clear); Bilirubin,Urine Negative (Negative); Blood,Urine Negative (Negative); Color,Urine Light Yellow; Glucose,Urine (UA) 4+ (Negative); Ketones,Urine Trace (Negative); Leukocyte Esterase,Urine Negative (Negative); Nitrite,Urine Negative (Negative); Protein,Urine Negative (Negative); Specific Gravity,Urine 1.023 (1.001-1.035); Urobilinogen,Urine <2.0 mg/dL (<2.0)
[2022-03-16 16:26] LABS: Glucose,Whole Blood 154 mg/dL (75-99)
[2022-03-16] MEDS: SODIUM CHLORIDE 0.9% 1,000 ML IV SCH (16:37)
--- NOTE | 2022-03-16 18:21 | P.PN ---
Subjective Progress Note Date: 03/16/22 Patient was seen for a follow-up. Patient states that she continues to experience numbness of the left arm and leg. When the blood pressure cuff is inflating in her left arm, she cannot feel it. Likewise her left foot is not feeling touch on the sheet. Patient does complain of a migraine, still rating 8/10. No new neurological symptoms. Patient tells me that she had undergone pacemaker placement in December 2021. She also mentions that are of the time that she is a stroke, she felt some flutt ering in the heart. Concerned about atrial fibrillation. Objective - Vital Signs Vital signs: Vital Signs Temp 98.3 F 03/16/22 15:39 Pulse 65 03/16/22 15:39 Resp 16 03/16/22 15:39 BP 123/63 03/16/22 15:39 Pulse Ox 98 03/16/22 15:39 Intake & Output 03/15/22 03/16/22 03/16/22 18:59 06:59 18:59 Intake Total 118 Balance 118 Weight 69.853 kg 71.7 kg Intake: Oral 118 Other: Voiding Method Toilet Toilet # Voids 2 2 - Exam Patient is an elderly female, very pleasant, in no acute distress. Patient is alert awake oriented to time place and person. Speech and language functions are normal. Attention, concentration and fund of knowledge is adequate. Patient can name and repeat very well. No aphasia or dysarthria. On cranial nerve examination, pupils are equal, round and reacting to light, visual contreras today are full on confrontation with no neglect. Her extraocular muscles are intact with no nystagmus. Face is symmetric, tongue protrudes to the midline. Palatal elevation and sensation normal, hearing and shoulder shrug normal, facial sensation normal. Shoulder shrug normal. On muscle strength testing, there is mild left-sided upward pronation and the strength is normal in arms and legs distally and proximally. Deep tendon reflexes are diminished and plantars downgoing bilaterally. Sensory to touch is severely decreased in the left arm, and left leg. Cerebellar function showed no ataxia for [id number] testing. Tone and bulk of muscles normal. Gait deferred. On general examination, there is no carotid bruit or murmur, S1-S2 audible. Abdomen is soft nontender. No organomegaly, bowel sounds present. Chest is clear to auscultation. Peripheral pulses are present. No edema. - Labs CBC & Chem 7: 03/15/22 15:01 03/15/22 15:01 Labs: Abnormal Lab Results - Last 24 Hours (Table) 03/15/22 03/16/22 03/16/22 Range/Units 21:44 06:00 11:49 POC Glucose (mg/dL) 105 H 121 H 148 H (75-99) mg/dL Urine Glucose (UA) (Negative) Urine Ketones (Negative) 03/16/22 03/16/22 Range/Units 15:57 16:20 POC Glucose (mg/dL) 154 H (75-99) mg/dL Urine Glucose (UA) 4+ H (Negative) Urine Ketones Trace H (Negative) Assessment and Plan Assessment: * Subacute ischemic stroke involving right posterior frontal parietal region. 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 Both of these areas of infarction (recent and remote) suggest embolic phenomenon. * Diabetes * Hypertension * History of light smoking. * Hyperlipidemia * Pacemaker placement in December 2021 * Left ICA stenosis, significant * History of right CEA Plan: * Patient's clinical examination is stable. No new deficits. Her vision has improved as compared to yesterday. However patient continues to have numbness of the left side. * Patient states that prior to her stroke, she felt some fluttering in the heart. We will consult cardiology for pacemaker interrogation, rule out paroxysmal A. fib. Patient probably will need MUKUND as well. Await 2-D echo with bubble study. * Telemetric monitoring rule out paroxysmal atrial fibrillation. May need an event monitor or a loop recorder if telemetry monitoring does not show any arrhythmia. * Vascular surgery input appreciated. Carotid Doppler revealed hemodynamically significant stenosis proximal left ICA around 60-70% diameter reduction. Antegrade flow in both vertebral arteries. * Fasting a.m. lipid panel, hemoglobin A1c still pending. * Recommended tobacco cessation. * Heparin 5000 units subcu twice a day for DVT prophylaxis.
--- NOTE | 2022-03-16 18:52 | CA ---
Transthoracic Echo Report Name: Fiorella Lopez Age: 72 Gender: F : 1950 Exam Date: 03/16/2022 08:36 Exam Location: [facility] Ht (in): 63 Wt (lb): 158 Ordering Physician: Jaziel Guzmán MD Attending/Referring Phys: Quality Manager Neris Cameron RDCS Procedure CPT: Indications: embolic CVA, ECHO with bubble study, r/o PFO Cardiac Hx: Technical Quality: Fair Contrast 1: Total Dose (mL): Contrast 2: Total Dose (mL): MEASUREMENTS (Male / Female) Normal Values 2D ECHO LV Diastolic Diameter PLAX 4.0 cm 4.2 - 5.9 / 3.9 - 5.3 cm LV Systolic Diameter PLAX 2.8 cm IVS Diastolic Thickness 1.5 cm 0.6 - 1.0 / 0.6 - 0.9 cm LVPW Diastolic Thickness 1.6 cm 0.6 - 1.0 / 0.6 - 0.9 cm LV Relative Wall Thickness 0.8 RV Internal Dim ED PLAX 2.8 cm LA Volume 54.0 cm??? 18 - 58 / 22 - 52 cm??? M-MODE Aortic Root Diameter MM 2.8 cm LA Systolic Diameter MM 4.3 cm LA Ao Ratio MM 1.5 AV Cusp Separation MM 2.0 cm DOPPLER AV Peak Velocity 183.7 cm/s AV Peak Gradient 13.5 mmHg AI Peak Velocity 395.6 cm/s AI Peak Gradient 62.6 mmHg AI Pressure Half Time 712.0 ms LVOT Peak Velocity 108.7 cm/s LVOT Peak Gradient 4.7 mmHg MV Area PHT 2.8 cm??? Mitral E Point Velocity 79.8 cm/s Mitral A Point Velocity 135.4 cm/s Mitral E to A Ratio 0.6 MV Deceleration Time 332.3 ms TR Peak Velocity 255.7 cm/s TR Peak Gradient 26.2 mmHg Right Ventricular Systolic Press 30.2 mmHg FINDINGS Left Ventricle Normal left ventricular systolic function with no obvious regional wall motion abnormalities. Moderately increased left ventricular wall thickness. Left ventricular ejection fraction is estimated at 55-60 %. Normal left ventricular diastolic filling pattern. Right Ventricle Normal right ventricular size and function. Right ventricular systolic pressure within normal limits. Right Atrium Normal right atrial size. Catheter/pacemaker wire in the right atrial cavity. Left Atrium Left atrial size at the upper limits of normal. No shunt seen at the atrial level with contrast. No evidence for an atrial septal defect. Mitral Valve Thickened mitral valve without stenosis. Mild mitral annular calcification. Mild mitral regurgitation. Aortic Valve No aortic stenosis. Trace to mild aortic regurgitation. Tricuspid Valve Structurally normal tricuspid valve. Mild tricuspid regurgitation. Pulmonic Valve Trace pulmonic regurgitation. Pericardium No pericardial effusion. Aorta Normal size aortic root and proximal ascending aorta. CONCLUSIONS LVH with preserved systolic function No right to left shunting at the atrial level Previewed by: Dr. Roni Mirza MD (Electronically Signed) Final Date: 16 Mar 2022 18:51
[2022-03-16 20:39] LABS: Glucose,Whole Blood 113 mg/dL (75-99)
[2022-03-16] MEDS: amLODIPine 10 MG TAB PO SCH (21:12)
[2022-03-16] MEDS: PRAMIPEXOLE 0.5 MG TAB PO SCH (21:13)
--- NOTE | 2022-03-16 21:45 | P.HPIM ---
History of Present Illness H&P Date: 03/16/22 Fiorella Lopez is a 72 yo F with PMH of CVA, carotid stenosis s/p CEA, T2DM, tobacco abuse who presented to the ED complaining of persistent weakness and tingling throughout her entire body. She complains that while she was at a green party on Tuesday she developed L hand weakness and numbness, was not able to feel anything and was dropping objects. She tried to ignore it but as her symptoms persisted throughout the weekend she decided to come to the hospital. She complains of burning throughout her entire body today as well as bladder pressure. On presentation vitals stable, WBC 11k, Hgb 14.8, Cr 0.7. CTA showing near complete L carotid occlusion and 50% R carotid occlusion. Review of Systems All systems: negative Constitutional: Denies chills, Denies fever Eyes: denies blurred vision, denies pain Ears, nose, mouth and throat: Denies headache, Denies sore throat Cardiovascular: Denies chest pain, Denies shortness of breath Respiratory: Denies cough Gastrointestinal: Denies abdominal pain, Denies diarrhea, Denies nausea, Denies vomiting Genitourinary: Denies dysuria, Denies hematuria Musculoskeletal: Denies myalgias Integumentary: Denies pruritus, Denies rash Neurological: Reports as per HPI, Reports lack of coordination, Reports numbness, Reports tingling, Reports weakness Psychiatric: Denies anxiety, Denies depression Endocrine: Denies fatigue, Denies weight change Past Medical History Past Medical History: COPD, GERD/Reflux, Hyperlipidemia, Hypertension, Osteoarthritis (OA), Vascular Disorder History of Any Multi-Drug Resistant Organisms: None Reported Past Surgical History: Bariatric Surgery, Bladder Surgery, Cholecystectomy, Heart Catheterization With Stent, Hysterectomy Additional Past Surgical History / Comment(s): cataract surg, gastric sleeve, right rotator cuff surgery, left knee replacement, bladder suspension, Rt carotid endarterectomy Past Anesthesia/Blood Transfusion Reactions: No Reported Reaction Date of Last Stent Placement:: Nov 2017 Type of Cardiac Device: Biventricular Pacemaker Device Placement Date:: 12/24/2021 Past Psychological History: Bipolar Smoking Status: Former smoker Past Alcohol Use History: None Reported Past Drug Use History: None Reported - Past Family History Mother Family Medical History: No Reported History, Coronary Artery Disease (CAD), Diabetes Mellitus Additional Family Medical History / Comment(s): CABG 4 vessel Father Family Medical History: Hypertension, Myocardial Infarction (NC) Brother(s) Family Medical History: Coronary Artery Disease (CAD), Myocardial Infarction (NC) Additional Family Medical History / Comment(s): CABG 3 vessel Medications and Allergies Home Medications Medication Instructions Recorded Confirmed Type Aspirin [Adult Low Dose Aspirin EC] 81 mg PO DAILY 11/19/17 03/15/22 History Clopidogrel Bisulfate [Plavix] 75 mg PO DAILY 11/19/17 03/15/22 History Nitroglycerin Sl Tabs [Nitrostat] 0.4 mg SUBLINGUAL Q5M PRN #25 tab 11/21/17 03/15/22 Rx DULoxetine HCL [Cymbalta] 30 mg PO BID 05/22/18 03/15/22 History Pramipexole [Mirapex] 0.5 mg PO HS 11/30/19 03/15/22 History Empagliflozin [Jardiance] 25 mg PO DAILY 03/15/22 03/15/22 History Ezetimibe [Zetia] 10 mg PO DAILY 03/15/22 03/15/22 History Fluticasone Propion/Salmeterol 1 puff INHALATION RT-BID 03/15/22 03/15/22 History [Fluticasone-Salmeterol 250-50] Oxybutynin Chloride [Oxybutynin 10 mg PO DAILY 03/15/22 03/15/22 History Chloride ER] Rosuvastatin Calcium [Crestor] 40 mg PO DAILY 03/15/22 03/15/22 History amLODIPine [Norvasc] 10 mg PO HS 03/15/22 03/15/22 History metFORMIN HCL 500 mg PO BID 03/15/22 03/15/22 History sitaGLIPtin PHOSPHATE [Januvia] 100 mg PO DAILY 03/15/22 03/15/22 History Allergies Allergy/AdvReac Type Severity Reaction Status Date / Time codeine Allergy Unknown Verified 03/15/22 16:45 Latex, Natural Rubber Allergy Itching Verified 03/15/22 16:45 morphine AdvReac Vomiting Verified 03/15/22 16:45 Physical Exam Vitals: Vital Signs Temp Pulse Resp BP BP Pulse Ox 03/16/22 15:39 98.3 F 65 16 123/63 98 03/16/22 11:16 98 F 70 17 133/62 94 L 03/16/22 08:28 98 F 67 16 178/67 93 L 03/16/22 04:00 98.3 F 66 18 162/77 93 L 03/16/22 02:00 67 18 03/16/22 00:00 98.5 F 67 18 114/72 95 Intake and Output 03/16/22 03/16/22 03/16/22 06:59 14:59 22:59 Intake Total 118 240 Balance 118 240 Intake: Oral 118 240 Other: Voiding Method Toilet Toilet # Voids 2 2 Weight 71.7 kg General: well nourished, well developed, NAD. Vitals reviewed Eyes: PERRL, EOMI, conjunctiva normal HENT: normocephalic, mucus membranes moist Neck: supple, no JVD Lungs: normal respiratory effort, no wheezes or rales CV: Regular rate and rhythm, no murmur. Peripheral pulses 2+ Abdomen: soft, nondistended, no organomegaly Lymph: no cervical or axillary LAD Skin: warm and dry. Neuro: A&Ox3, normal mood and affect Results CBC & Chem 7: 03/15/22 15:01 03/15/22 15:01 Labs: Abnormal Lab Results - Last 24 Hours (Table) 03/15/22 03/16/22 03/16/22 Range/Units 21:44 06:00 11:49 POC Glucose (mg/dL) 105 H 121 H 148 H (75-99) mg/dL Urine Glucose (UA) (Negative) Urine Ketones (Negative) 03/16/22 03/16/22 03/16/22 Range/Units 15:57 16:20 20:37 POC Glucose (mg/dL) 154 H 113 H (75-99) mg/dL Urine Glucose (UA) 4+ H (Negative) Urine Ketones Trace H (Negative) Thrombosis Risk Factor Assmnt - Choose All That Apply Other Risk Factors: Yes Each Risk Factor Represents 2 Points: Age 61-74 years Thrombosis Risk Factor Assessment Total Risk Factor Score: 2 Thrombosis Risk Factor Assessment Level: Low Risk Assessment and Plan Plan: 1. Subacute CVA. Neurology consult. Obtain echo and MRI. continue with plavix, ASA, lipitor. Heparin sq 2. Critical stenosis of carotid arteries. Vascular surgery consult 3. T2DM. Accucheck, sliding scale insulin 4. Tobacco cessation counseling 5. Diabetic neuropathy. Restart gabapentin
[2022-03-17] MEDS: ZOLPIDEM 5 MG TAB PO PRN ×2 (00:03→23:06)
[2022-03-17] MEDS: HYDROcodone/APAP 5-325MG 1 EACH TAB PO PRN ×2 (05:52→16:19)
[2022-03-17 05:56] LABS: Glucose,Whole Blood 125 mg/dL (75-99)
[2022-03-17] MEDS: INSULIN ASPART (NovoLOG) 100 UNIT/ML VIAL SQ SCH ×4 (06:19→21:22)
[2022-03-17] MEDS: CLOPIDOGREL 75 MG TAB PO SCH (08:12)
[2022-03-17] MEDS: GABAPENTIN 100 MG CAP PO SCH ×2 (08:12→21:22)
[2022-03-17] MEDS: OXYBUTYNIN CHLORIDE 5 MG TAB PO SCH ×2 (08:12→21:22)
[2022-03-17] MEDS: ATORVASTATIN 80 MG TAB PO SCH (08:12)
[2022-03-17] MEDS: HEPARIN SODIUM,PORCINE/PF 5,000 UNIT/0.5 ML SYRINGE SQ SCH ×2 (08:12→21:22)
[2022-03-17] MEDS: ASPIRIN 81 MG PO SCH (08:12)
[2022-03-17] MEDS: DULoxetine HCL 30 MG CAPSULE.DR PO SCH ×2 (08:12→21:22)
[2022-03-17] MEDS: EZETIMIBE 10 MG TAB PO SCH (08:12)
[2022-03-17] MEDS ORDERED: ACETAMINOPHEN IV (For NPO) 1,000 MG in EMPTY BAG 1 BAG IVPB STA (09:28)
[2022-03-17] MEDS ORDERED: METOCLOPRAMIDE 5 MG/ML 2 ML VIAL IVP STA (09:29)
[2022-03-17] MEDS ORDERED: MAGNESIUM SULFATE-D5W PMX 1 GM in DEXTROSE/WATER 1 100ML.BAG IVPB ONE (09:29)
[2022-03-17] MEDS: LORATADINE 10 MG TAB PO SCH (10:48)
--- NOTE | 2022-03-17 11:03 | P.PN ---
Subjective Progress Note Date: 03/17/22 Principal diagnosis: Carotid stenosis Patient is seen and examined is a follow-up for carotid stenosis. Patient was admitted with left hand weakness and neuropathy. Patient states left hand strength is improved. She denies any focal deficits. She was started on gabapentin yesterday. Carotid duplex reporting 60-70% stenosis of the left ICA. CTA reported near occlusion of left distal common carotid/carotid bifurcation. Objective - Vital Signs Vital signs: Vital Signs Temp 97.2 F L 03/17/22 08:15 Pulse 62 03/17/22 08:15 Resp 16 03/17/22 08:15 BP 125/70 03/17/22 08:15 Pulse Ox 96 03/17/22 08:15 Intake & Output 03/16/22 03/17/22 03/17/22 18:59 06:59 18:59 Intake Total 358 Balance 358 Intake: Oral 358 Other: Voiding Method Toilet Toilet Toilet # Voids 2 2 - Exam General appearance: The patient is alert, oriented, appears in no acute distress. HET: Head is normocephalic and atraumatic. Pupils are equal and reactive. Neck: Supple without lymphadenopathy. Trachea midline. Heart: S1 S2. Regular rate and rhythm. Lungs: Clear to auscultation bilaterally. Abdomen: Soft, nontender, nondistended. Extremities: Normal skin color and turgor. No cyanosis, rash, ulceration, clubbing, or edema. Neurological: No focal deficits. Strength and sensation are grossly intact. - Labs CBC & Chem 7: 03/15/22 15:01 03/15/22 15:01 Labs: Abnormal Lab Results - Last 24 Hours (Table) 03/16/22 03/16/22 03/16/22 Range/Units 11:49 15:57 16:20 POC Glucose (mg/dL) 148 H 154 H (75-99) mg/dL Urine Glucose (UA) 4+ H (Negative) Urine Ketones Trace H (Negative) 03/16/22 03/17/22 Range/Units 20:37 05:55 POC Glucose (mg/dL) 113 H 125 H (75-99) mg/dL Urine Glucose (UA) (Negative) Urine Ketones (Negative) Assessment and Plan Assessment: 1. Hemodynamically significant left ICA stenosis, measuring 60-70% to near occlusion per ultrasound/CT angiogram 2. History of right ICA stenosis status post carotid endarterectomy with patch angioplasty 2017 3. Left hand weakness 4. Subacute ischemic stroke involving right posterior frontal parietal region 5. History of old encephalomalacia involving left occipital lobe 6. Diabetes 7. Diabetic neuropathy 8. Current smoker 9. Hyperlipidemia 10. Hypertension Plan: 1. Continue aspirin, Plavix, Lipitor 2. Carotid duplex reviewed 3. Appreciate recommendations from neurology 4. No indication at this time for any vascular surgical intervention. Patient to follow-up with Dr. Montelongo for outpatient surveillance and further discussion of carotid intervention. Thank you for this consultation, the patient is cleared by vascular surgery for discharge. The impression and plan of care has been dictated as directed. I performed a history and examination of this patient, discussed the same with the dictator. I agree with the dictator's note ,documented as a scribe. Any additional findings or plans will be noted.
[2022-03-17 11:39] LABS: Glucose,Whole Blood 333 mg/dL (75-99)
--- NOTE | 2022-03-17 13:37 | P.PN ---
Subjective Progress Note Date: 03/17/22 Fiorella Lopez is a 72 yo F with PMH of CVA, carotid stenosis s/p CEA, T2DM, tobacco abuse who presented to the ED complaining of persistent weakness and tingling throughout her entire body. She complains that while she was at a green party on Tuesday she developed L hand weakness and numbness, was not able to feel anything and was dropping objects. She tried to ignore it but as her symptoms persisted throughout the weekend she decided to come to the hospital. She complains of burning throughout her entire body today as well as bladder pressure. On presentation vitals stable, WBC 11k, Hgb 14.8, Cr 0.7. CTA showing near complete L carotid occlusion and 50% R carotid occlusion. 03/17/22 Maintained on aspirin, Plavix and statin .Evaluated by both neurology and vascular surgery with recommendations noted and appreciated. unable to proceed with MRI IP secondary to permanent pacemaker. Carotid Doppler reported hemodynamically significant stenosis proximal left ICA 60 to 70%. Neurontin initiated yesterday at low dose with significant improvement in her neuropathy. Denies chest pain, palpitations or shortness of breath. Denies lightheadedness, double vision. Denies decreased sensation or tingling. Reports positive headache, that was initially resolved yesterday with migraine cocktail. Compla ins of nasal drainage with some ear discomfort as well. Objective - Vital Signs Vital signs: Vital Signs Temp 97.2 F L 03/17/22 08:15 Pulse 62 03/17/22 08:15 Resp 16 03/17/22 08:15 BP 125/70 03/17/22 08:15 Pulse Ox 96 03/17/22 08:15 Intake & Output 03/16/22 03/17/22 03/17/22 18:59 06:59 18:59 Intake Total 358 Balance 358 Intake: Oral 358 Other: Voiding Method Toilet Toilet Toilet # Voids 2 2 - Exam General: Sitting up in bed, NAD. Vitals reviewed Eyes: PERRL, EOMI, conjunctiva normal HENT: normocephalic, mucus membranes moist Neck: supple, no JVD Lungs: normal respiratory effort, no wheezes or rales CV: Regular rate and rhythm, no murmur. Peripheral pulses 2+ Abdomen: soft, nondistended, no organomegaly,+bs Skin: warm and dry. Neuro: A&Ox3, normal mood and affect, strength and sensation grossly intact. - Labs CBC & Chem 7: 03/15/22 15:01 03/15/22 15:01 Labs: Abnormal Lab Results - Last 24 Hours (Table) 03/16/22 03/16/22 03/16/22 Range/Units 15:57 16:20 20:37 POC Glucose (mg/dL) 154 H 113 H (75-99) mg/dL Urine Glucose (UA) 4+ H (Negative) Urine Ketones Trace H (Negative) 03/17/22 03/17/22 Range/Units 05:55 11:37 POC Glucose (mg/dL) 125 H 333 H (75-99) mg/dL Urine Glucose (UA) (Negative) Urine Ketones (Negative) Assessment and Plan Assessment: 1. Subacute CVA. Neurology consult. Obtain echo and MRI. continue with plavix, ASA, lipitor. Heparin sq 2. Critical stenosis of carotid arteries in a patient with history of right CEA. 3. T2DM. Accucheck, sliding scale insulin 4. Tobacco cessation counseling 5. Diabetic neuropathy. Restart gabapentin 6. Permanent pacemaker placement. 2021 Plan: Continue on current medication regime ,monitoring and symptomatic treatment. Continue on aspirin, Plavix, statin .Pacemaker interrogation, MUKUND, echo with bubble study pending. Continuous telemetry monitoring. Smoking cessation reinforced. Discharge planning in progress pending completion of neurology workup, final DC recommendations and clearance as per neurology and cardiology. The impression and plan of care has been dictated as directed. : I performed a history and examination of this patient, discussed the same with the dictator. I agree with the dictator's note ,documented as a scribe. Any additional findings or plans will be noted.
--- NOTE | 2022-03-17 14:15 | P.CRDCN ---
History of Present Illness History of present illness: HISTORY OF PRESENTING ILLNESS This is a pleasant 72-year-old female past medical history significant for sick sinus syndrome status post dual-chamber pacemaker 12/2021, CVA, hypertension, dyslipidemia type 2 diabetes, coronary artery disease status post PCI to the RCA in 2018, former tobacco use. She follows in the office with Dr. Mirza. We have been asked to see in consultation for MUKUND and pacemaker interrogation. Patient presents emergency department on 03/15/2022 with complaints of left arm and left leg weakness. She states that she was dropping everything with her left hand, she also had a persistent headache. CT of the brain revealed subacute infarct involving the right posterior frontal parietal region. Patient seen and examined at bedside, no acute distress. She states that her left arm and left leg weakness has improved. She denies any chest pain, leg numbness, dizziness, palpitations. Of noted, Patient underwent a loop recorder implantation and was found to have sinus bradycardia and sinus pauses, patient was symptomatic. Patient underwent dual-chamber pacemaker implantation at [facility] Dr. Mirza in 12/22/2021 DIAGNOSTICS -EKG reveals sinus rhythm, heart rate 72, nonspecific ST and T wave abnormalities. Repeat EKG also revealed sinus rhythm -Telemetry tracings indicate sinus mechanism, heart rates 5770s with occasional PACs. No atrial fibrillation or arrhythmia noted. -Echocardiogram revealed EF 5560 percent, no right to left shunting at the atrial level. -Carotid Dopplers revealed hemodynamically significant stenosis of the proximal internal carotid artery left course went to approximately 6070 percent reduction -Current home cardiac medications, rosuvastatin 40 mg daily, Zetia 10 mg daily, chart events, amlodipine 10 mg nightly, Plavix 75 mg daily, aspirin 81 mg daily, PRN nitro -Lexiscan stress test in the office 05/2021 was negative for reversible ischemia -Cardiac catheterization 11/2017 revealed acute occluded distal RCA with diffuse disease in the proximal midsegment of the RCA, mild to moderate disease in LAD and left circumflex. Patient underwent PCI of long segment of the mid RCA and distal RCA REVIEW OF SYSTEMS At the time of my exam: CONSTITUTIONAL: Denies fever or chills. CARDIOVASCULAR: Denies chest pain, shortness of breath, orthopnea, PND or palpitations. RESPIRATORY: Denies cough. GASTROINTESTINAL: Denies abdominal pain, diarrhea, constipation, nausea or vomiting. MUSCULOSKELETAL: Denies myalgias. NEUROLOGIC: Denies numbness, tingling, headacbe or weakness. ENDOCRINE: Denies fatigue, weight change, polydipsia or polyurina. GENITOURINARY: Denies burning, hematuria or urgency with micturation. HEMATOLOGIC: Denies history of anemia or bleeding. PHYSICAL EXAMINATION Blood pressure 125 rate 70, heart rate 60, afebrile, saturation 96% on room air CONSTITUTIONAL: No apparent distress. HEENT: Head is normocephalic. Pupils are equal, round. Sclerae anicteric. Mucous membranes of the mouth are moist. No JVD. No carotid bruit. CHEST EXAMINATION: Lungs are clear to auscultation. No chest wall tenderness is noted on palpation or with deep breathing. HEART EXAMINATION: Regular rate and rhythm. S1, S2 heard. No murmurs, gallops or rub. ABDOMEN: Soft, nontender. Positive bowel sounds. EXTREMITIES: 2+ peripheral pulses, no lower extremity edema and no calf tenderness. NEUROLOGIC EXAMINATION: Patient is awake, alert and oriented x3. Left arm and left leg weakness noted ASSESSMENT Subacute ischemic stroke History of CVA Left ICA stenosis Sick sinus syndrome status post dual-chamber pacemaker 12/2021 Hypertension Dyslipidemia Type 2 diabetes Coronary artery disease status post PCI to the RCA in 2018, former tobacco use PLAN Device interrogation Completed, no evidence of atrial fibrillation We will plan for MUKUND on 03/18/[address] Coronado I have discussed the risks, benefits and alternative therapies for the above- mentioned procedure and for sedation/analgesia, as they pertain to this patient. The patient has indicated understanding and acceptance of the risks and procedures discussed. Questions have been answered appropriately and she is agreeable to move forward with the above-stated procedure. NPO after midnight Continue home cardiac medications Further recommendations based on clinical course Nurse practitioner note has been reviewed by physician. Signing provider agrees with the documented findings, assessment, and plan of care. Past Medical History Past Medical History: COPD, GERD/Reflux, Hyperlipidemia, Hypertension, Osteoarthritis (OA), Vascular Disorder History of Any Multi-Drug Resistant Organisms: None Reported Past Surgical History: Bariatric Surgery, Bladder Surgery, Cholecystectomy, Heart Catheterization With Stent, Hysterectomy Additional Past Surgical History / Comment(s): cataract surg, gastric sleeve, right rotator cuff surgery, left knee replacement, bladder suspension, Rt carotid endarterectomy Past Anesthesia/Blood Transfusion Reactions: No Reported Reaction Date of Last Stent Placement:: Nov 2017 Type of Cardiac Device: Biventricular Pacemaker Device Placement Date:: 12/24/2021 Past Psychological History: Bipolar Smoking Status: Former smoker Past Alcohol Use History: None Reported Past Drug Use History: None Reported - Past Family History Mother Family Medical History: No Reported History, Coronary Artery Disease (CAD), Diabetes Mellitus Additional Family Medical History / Comment(s): CABG 4 vessel Father Family Medical History: Hypertension, Myocardial Infarction ([place]) Brother(s) Family Medical History: Coronary Artery Disease (CAD), Myocardial Infarction ([place]) Additional Family Medical History / Comment(s): CABG 3 vessel Medications and Allergies Home Medications Medication Instructions Recorded Confirmed Type Aspirin [Adult Low Dose Aspirin EC] 81 mg PO DAILY 11/19/17 03/15/22 History Clopidogrel Bisulfate [Plavix] 75 mg PO DAILY 11/19/17 03/15/22 History Nitroglycerin Sl Tabs [Nitrostat] 0.4 mg SUBLINGUAL Q5M PRN #25 tab 11/21/17 03/15/22 Rx DULoxetine HCL [Cymbalta] 30 mg PO BID 05/22/18 03/15/22 History Pramipexole [Mirapex] 0.5 mg PO HS 11/30/19 03/15/22 History Empagliflozin [Jardiance] 25 mg PO DAILY 03/15/22 03/15/22 History Ezetimibe [Zetia] 10 mg PO DAILY 03/15/22 03/15/22 History Fluticasone Propion/Salmeterol 1 puff INHALATION RT-BID 03/15/22 03/15/22 History [Fluticasone-Salmeterol 250-50] Oxybutynin Chloride [Oxybutynin 10 mg PO DAILY 03/15/22 03/15/22 History Chloride ER] Rosuvastatin Calcium [Crestor] 40 mg PO DAILY 03/15/22 03/15/22 History amLODIPine [Norvasc] 10 mg PO HS 03/15/22 03/15/22 History metFORMIN HCL 500 mg PO BID 03/15/22 03/15/22 History sitaGLIPtin PHOSPHATE [Januvia] 100 mg PO DAILY 03/15/22 03/15/22 History Allergies Allergy/AdvReac Type Severity Reaction Status Date / Time codeine Allergy Unknown Verified 03/15/22 16:45 Latex, Natural Rubber Allergy Itching Verified 03/15/22 16:45 morphine AdvReac Vomiting Verified 03/15/22 16:45 Physical Exam Vitals: Vital Signs Temp Pulse Resp BP Pulse Ox 03/17/22 08:15 97.2 F L 62 16 125/70 96 03/17/22 04:40 98.5 F 60 18 138/72 97 03/17/22 00:00 98.2 F 62 18 167/72 96 03/16/22 22:37 169/72 03/16/22 20:55 98.2 F 64 18 192/74 97 03/16/22 15:39 98.3 F 65 16 123/63 98 Intake and Output 03/16/22 03/17/22 03/17/22 22:59 06:59 14:59 Intake Total 240 Balance 240 Intake: Oral 240 Other: Voiding Method Toilet Toilet Toilet # Voids 2 Results 03/15/22 15:01 03/15/22 15:01 Current Medications Generic Name Dose Route Start Last Admin Trade Name Freq PRN Reason Stop Dose Admin Acetaminophen 650 mg 03/15/22 22:09 03/16/22 02:07 Acetaminophen Tab 325 Mg Tab PO 650 mg Q4HR PRN Administration Fever and/ or Pain Hydrocodone Bitart/Acetaminophen 1 each 03/16/22 04:24 03/17/22 05:52 Hydrocodone/Apap 5-325mg 1 Each Tab PO 1 each Q6HR PRN Administration Pain Amlodipine Besylate 10 mg 03/16/22 21:00 03/16/22 21:12 Amlodipine 10 Mg Tab PO 10 mg HS HORACE Administration Aspirin 81 mg 03/16/22 09:00 03/17/22 08:12 Aspirin 81 Mg PO 81 mg DAILY HORACE Administration Atorvastatin Calcium 80 mg 03/16/22 09:00 03/17/22 08:12 Atorvastatin 80 Mg Tab PO 80 mg DAILY HORACE Administration Clopidogrel Bisulfate 75 mg 03/16/22 09:00 03/17/22 08:12 Clopidogrel 75 Mg Tab PO 75 mg DAILY HORACE Administration Duloxetine HCl 30 mg 03/16/22 01:00 03/17/22 08:12 Duloxetine Hcl 30 Mg Capsule.Dr PO 30 mg BID HORACE Administration Ezetimibe 10 mg 03/16/22 09:00 03/17/22 08:12 Ezetimibe 10 Mg Tab PO 10 mg DAILY HORACE Administration Gabapentin 100 mg 03/16/22 11:45 03/17/22 08:12 Gabapentin 100 Mg Cap PO 100 mg BID HORACE Administration Heparin Sodium (Porcine) 5,000 unit 03/16/22 10:15 03/17/22 08:12 Heparin Sodium,Porcine/Pf 5,000 Unit/0.5 Ml Syringe SQ 5,000 unit Q12HR HORACE Administration Sodium Chloride 1,000 mls @ 20 mls/hr 03/15/22 16:00 03/16/22 16:37 Saline 0.9% IV Not Given .Q24H HORACE Insulin Aspart 0 unit 03/16/22 12:30 03/17/22 06:19 Insulin Aspart (Novolog) 100 Unit/Ml Vial SQ Not Given ACHS [facility] Protocol Loratadine 10 mg 03/17/22 09:30 03/17/22 10:48 Loratadine 10 Mg Tab PO 10 mg DAILY HORACE Administration Montelukast Sodium 10 mg 03/17/22 21:00 Montelukast 10 Mg Tab PO HS HORACE Naloxone HCl 0.2 mg 03/15/22 15:49 Naloxone 0.4 Mg/Ml 1 Ml Vial IV Q2M PRN Opioid Reversal Oxybutynin Chloride 10 mg 03/16/22 01:00 03/17/22 08:12 Oxybutynin Chloride 5 Mg Tab PO 10 mg DAILY HORACE Administration Oxybutynin Chloride 5 mg 03/16/22 21:00 03/16/22 21:12 Oxybutynin Chloride 5 Mg Tab PO 5 mg HS HORACE Administration Pramipexole Dihydrochloride 0.5 mg 03/16/22 21:00 03/16/22 21:13 Pramipexole 0.5 Mg Tab PO 0.5 mg HS HORACE Administration Zolpidem Tartrate 5 mg 03/16/22 22:06 03/17/22 00:03 Zolpidem 5 Mg Tab PO 5 mg HS PRN Administration Insomnia Intake and Output 03/16/22 03/17/22 03/17/22 22:59 06:59 14:59 Intake Total 240 Balance 240 Intake: Oral 240 Other: Voiding Method Toilet Toilet Toilet # Voids 2 03/15/22 15:01 03/15/22 15:01
[2022-03-17 15:11] LABS: Chol/HDL Ratio 3.08 Ratio; LDL Cholesterol,Calculated 27.8 mg/dL (0.0-131.0)
[2022-03-17 16:29] LABS: Glucose,Whole Blood 88 mg/dL (75-99)
[2022-03-17] MEDS: BUTALB/APAP/CAFF 50-325-40MG TAB PO PRN (17:42)
[2022-03-17] MEDS: SODIUM CHLORIDE 0.9% 1,000 ML IV SCH (17:51)
--- NOTE | 2022-03-17 18:59 | CT ---
EXAMINATION TYPE: CT brain wo con DATE OF EXAM: 03/17/2022 COMPARISON: INDICATION: headache 48 hours post cva DLP: 1143.4 mGycm, Automated exposure control for dose reduction was used. CONTRAST: None CT of the brain is performed utilizing 3 mm thick sections through the posterior fossa and 3 mm thick sections through the remaining calvarium. Study is not performed within 24 hours of arrival to the hospital. No abnormal hyperdensity is present to suggest an acute intracranial hemorrhage. No mass lesion is evident. There is a large right middle cerebral artery infarct present previously with similar distribution an d appearance on the current exam. Appears to be an old infarct within the inferior lateral right frontal lobe. Posttraumatic encephalom alacia, also be considered within the differential. There is an old infarct of the left occipital lob e. Some mild periventricular white matter hypodensity is present, likely on the basis of chronic white m atter ischemic changes. Ventricles and sulci are mildly prominent for the patient age. Paranasal sinuses and mastoid air cells within the [id number] are clear. IMPRESSIONS: 1. Large subacute right middle cerebral artery infarct similar to recent comparison. 2. Old infarcts present previously. 3. Chronic appearing stable periventricular deep white matter changes may be on the basis of chronic white matter ischemic change
[2022-03-17 20:13] LABS: Glucose,Whole Blood 184 mg/dL (75-99)
[2022-03-17] MEDS ORDERED: MONTELUKAST 10 MG TAB PO SCH (21:00)
[2022-03-17] MEDS: amLODIPine 10 MG TAB PO SCH (21:22)
[2022-03-17] MEDS: PRAMIPEXOLE 0.5 MG TAB PO SCH (21:22)
[2022-03-18] MEDS: HYDROcodone/APAP 5-325MG 1 EACH TAB PO PRN (04:48)
[2022-03-18 06:11] LABS: Glucose,Whole Blood 134 mg/dL (75-99)
[2022-03-18] MEDS: INSULIN ASPART (NovoLOG) 100 UNIT/ML VIAL SQ SCH ×3 (06:40→17:13)
[2022-03-18] MEDS ORDERED: fentaNYL (PF) 50 MCG/ML 2 ML AMP ONE (08:59)
[2022-03-18 09:10] VITALS: RESP 20
[2022-03-18] MEDS ORDERED: SODIUM CHLORIDE 0.9% 500 ML 500 ML IV ONE (09:20)
--- NOTE | 2022-03-18 09:20 | P.PN ---
Subjective Progress Note Date: 03/17/22 Patient was seen for a follow-up. Denies any new focal symptoms. Continues to complain of piercing pain in the right ear, states the headache keeps on coming back. At present she rates it 8/10. Heating pad helps. No new neurological symptoms. Patient tells me that she had undergone pacemaker placement in December 2021. She also mentions that at the time of her stroke symptoms, she felt some flu ttering in the heart. Concerned about atrial fibrillation. Objective - Vital Signs Vital signs: Vital Signs Temp 97.4 F L 03/18/22 08:00 Pulse 58 L 03/18/22 08:00 Resp 20 03/18/22 08:00 BP 156/71 03/18/22 08:00 Pulse Ox 98 03/18/22 08:00 Intake & Output 03/17/22 03/18/22 03/18/22 18:59 06:59 18:59 Intake Total 240 Output Total 0 Balance 240 Intake: Oral 240 Output: Urine 0 Stool 0 Urine/Stool Mix 0 Emesis 0 Other: Voiding Method Toilet Toilet # Voids 4 2 # Bowel Movements 0 - Exam Patient is an elderly female, very pleasant, in no acute distress. Patient is alert awake oriented to time place and person. Speech and language functions are normal. Attention, concentration and fund of knowledge is adequate. Patient can name and repeat very well. No aphasia or dysarthria. On cranial nerve examination, pupils are equal, round and reacting to light, visual contreras today are full on confrontation with no neglect. Her extraocular muscles are intact with no nystagmus. Face is symmetric, tongue protrudes to the midline. Palatal elevation and sensation normal, hearing and shoulder shrug normal, facial sensation normal. Shoulder shrug normal. On muscle strength testing, there is mild left-sided upward pronation and the strength is normal in arms and legs distally and proximally. Deep tendon reflexes are diminished and plantars downgoing bilaterally. Sensory to touch is severely decreased in the left arm, and left leg. Cerebellar function showed no ataxia for [id number] testing. Tone and bulk of muscles normal. Gait deferred. On general examination, there is no carotid bruit or murmur, S1-S2 audible. Abdomen is soft nontender. No organomegaly, bowel sounds present. Chest is clear to auscultation. Peripheral pulses are present. No edema. - Labs CBC & Chem 7: 03/15/22 15:01 03/15/22 15:01 Labs: Abnormal Lab Results - Last 24 Hours (Table) 03/17/22 03/17/22 03/17/22 Range/Units 08:46 11:37 20:12 POC Glucose (mg/dL) 333 H 184 H (75-99) mg/dL HDL Cholesterol 27.40 L (40.00-60.00) mg/dL 03/18/22 Range/Units 06:10 POC Glucose (mg/dL) 134 H (75-99) mg/dL HDL Cholesterol (40.00-60.00) mg/dL Assessment and Plan Assessment: * Subacute ischemic stroke involving right posterior frontal parietal region. 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 Both of these areas of infarction (recent and remote) suggest embolic phenomenon. * Diabetes * Hypertension * History of light smoking. * Hyperlipidemia * Pacemaker placement in December 2021 * Left ICA stenosis, significant * History of right CEA Plan: * Patient continues to have severe headache on the right side. We will repeat CT head today to rule out any intraparenchymal hemorrhage. * We will try Fioricet as needed for vascular headache. * Cardiology input appreciated. Pacemaker interrogation revealed no evidence of atrial fibrillation. Patient undergoing MUKUND in the morning. * Telemetric monitoring shows no evidence of atrial fibrillation at this time. May need an event monitor or a loop recorder if telemetry monitoring does not show any arrhythmia. * Patient has severe left ICA stenosis, which is asymptomatic at this time. Her stroke is on the contralateral side. Vascular surgery input appreciated. Carotid Doppler revealed hemodynamically significant stenosis proximal left ICA around 60-70% diameter reduction. Antegrade flow in both vertebral arteries. Patient will need left CEA as an outpatient. Agree with vascular surgical consultation plans. * Fasting a.m. lipid panel with cholesterol 84, LDL 27, HDL 27 and triglycerides 146. Patient on Lipitor 80 mg. We will decrease dose to 40 mg. * Hemoglobin A1c still pending. * Recommended tobacco cessation. * Heparin 5000 units subcu twice a day for DVT prophylaxis. Addendum: CT head revealed large subacute right middle cerebral artery infarct similar to recent comparison. No hemorrhage. Old infarcts present previously. I personally reviewed CT head and agree with the findings. No definite evidence of hemorrhagic conversion.
[2022-03-18] MEDS: BENZOCAINE SPRAY 1 CAN MUCOUS MEM ONE ×2 (09:24→09:32)
[2022-03-18] MEDS ORDERED: MIDAZOLAM 2 MG/2 ML VIAL IV ONE ×2 (09:32→09:33)
--- NOTE | 2022-03-18 11:17 | P.PCN ---
Date of Procedure: 03/18/22 Operative Findings: TRANSESOPHAGEAL ECHOCARDIOGRAM IN ROOM DINING SERVER: PAO MEHTA MD, RPVI INDICATION: Rule out cardiac source of embolization in this lady who presented with a stroke SEDATION: Conscious sedation COMPLICATION: None LEVEL OF SEDATION Moderate to sedation length of 10 minutes PROCEDURE DESCRIPTION: After obtaining an informed consent, the patient was brought to transesophageal echocardiogram room. Pulse oximetry and heart monitors were attached to the patient. The patient throat was sprayed using lidocaine. The patient was turned into left lateral position. After that a bite guard was placed. After an appropriate conscious sedation was initiated, the transesophageal echocardiogram was advanced through a bite guard into the mid esophagus. A 2-D echocardiogram images, color Doppler images, continuous wave images, pulse-wave images, of various cardiac structure were performed. After that the transesophageal echocardiogram probe was advanced into the stomach and fixed to obtain transgastric view was. The probe was brought into the mid esophagus. Inter-atrial septum was interrogated using 2D images, color Doppler images, and then contrast study. After that transesophageal echocardiogram was withdrawn out and upon withdrawing the descending thoracic aorta all the way up to the arch was evaluated. FINDING: The left ventricular dimension and systolic function appeared to be within no rmal limits the ejection fraction appears to be in the range of 50-55%. The right ventricle appeared to be of normal size and function with left atrium and right atrium are mildly dilated. The left atrial appendage appeared to be free from any thrombus. The interatrial septum appeared to be intact. There is a pacer lead was seen at the right atrium and right ventricle. The aortic valve appeared to be trileaflet valve with evidence of aortic sclerosis was moderate aortic insufficiency. There is also moderate mitral regurgitation with thickened of the anterior and posterior mitral leaflet. There is also moderate tricuspid regurgitation. No evidence of pericardial effusion identified. CONCLUSION: 1. Normal left ventricular dimension and systolic function 2. No evidence of cardiac source of emboli is a 3. Intact interatrial septum without any shunt. Normal left atrial appendage without any thrombus 4. Aortic sclerosis without stenosis with moderate insufficiency 5. Thickened anterior and posterior mitral leaflet with moderate mitral insufficiency 6. Moderate tricuspid regurgitation
[2022-03-18 11:22] LABS: Glucose,Whole Blood 235 mg/dL (75-99)
[2022-03-18 11:42] VITALS: TEMP 98
[2022-03-18] MEDS: CLOPIDOGREL 75 MG TAB PO SCH (12:12)
[2022-03-18] MEDS: GABAPENTIN 100 MG CAP PO SCH (12:13)
[2022-03-18] MEDS: EZETIMIBE 10 MG TAB PO SCH (12:13)
[2022-03-18] MEDS: LORATADINE 10 MG TAB PO SCH (12:13)
[2022-03-18] MEDS: ASPIRIN 81 MG PO SCH (12:13)
[2022-03-18] MEDS: ATORVASTATIN 80 MG TAB PO SCH (12:13)
[2022-03-18] MEDS: OXYBUTYNIN CHLORIDE 5 MG TAB PO SCH (12:13)
[2022-03-18] MEDS: DULoxetine HCL 30 MG CAPSULE.DR PO SCH (12:13)
[2022-03-18] MEDS: HEPARIN SODIUM,PORCINE/PF 5,000 UNIT/0.5 ML SYRINGE SQ SCH (12:14)
[2022-03-18] MEDS: BUTALB/APAP/CAFF 50-325-40MG TAB PO PRN (12:19)
[2022-03-18] MEDS ORDERED: AMOXIC-POT CLAV 875-125MG 1 EACH TAB PO SCH (12:30)
--- NOTE | 2022-03-18 13:56 | P.DS ---
Providers Date of admission: 03/15/22 15:50 Expected date of discharge: 03/18/22 Attending physician: Timi Morales MD Consults: 03/15/22 15:50 Consult Physician Routine Consulting Provider: Jaziel Guzmán Consult Reason/Comments: cva Do you want consulting provider notified?: Already Contacted 03/16/22 17:19 Consult Physician Routine Consulting Provider: Roni Mirza Consult Reason/Comments: Recurrent strokes, MUKUND, pacemaker interrogation [id number]?[id number] Do you want consulting provider notified?: Yes Primary care physician: Chelsie Morales [facility] Course: Final Diagnoses: 1. Subacute CVA. Neurology following. 2. Critical stenosis of carotid arteries in a patient with history of right CEA, vascular following 3. T2DM. Accucheck 4. Tobacco cessation counseling 5. Diabetic neuropathy. Restarted gabapentin 6. Permanent pacemaker placement. 2021 Hospital course:Fiorella Lopez is a 72 yo F with PMH of CVA, carotid stenosis s/p CEA, T2DM, tobacco abuse who presented to the ED complaining of persistent weakness and tingling throughout her entire body. She complains that while she was at a [employer] on Tuesday she developed L hand weakness and numbness, was not able to feel anything and was dropping objects. She tried to ignore it but as her symptoms persisted throughout the weekend she decided to come to the hospital. She complains of burning throughout her entire body today as well as bladder pressure. On presentation vitals stable, WBC 11k, Hgb 14.8, Cr 0.7. CTA showing near complete L carotid occlusion and 50% R carotid occlusion. 03/17/22 Maintained on aspirin, Plavix and statin .Evaluated by both neurology and vascular surgery with recommendations noted and appreciated. unable to proceed with MRI IP secondary to permanent pacemaker. Carotid Doppler reported hemodynamically significant stenosis proximal left ICA 60 to 70%. Neurontin initiated yesterday at low dose with significant improvement in her neuropathy. Denies chest pain, palpitations or shortness of breath. Denies lightheadedness, double vision. Denies decreased sensation or tingling. Reports positive headache, that was initially resolved yesterday with migraine cocktail. Complains of nasal drainage with some ear discomfort as well. Brain CT reporting large subacute right middle cerebral artery infarct similar to recent comparison, old infarcts present previously, chronic appearing stable,Ventricular deep bibasilar changes possibly on the basis of chronic white matter ischemic change. Complaining of ongoing right ear pressure, Augmentin initiated. MUKUND pending/pacemaker interrogation reported per cardiology with no evidence of atrial fibrillation, echo reported EF 50-60% with no shunt at the atrial level. Hemoglobin A1c pending. Denies chest pain, palpitations or eloise rtness of breath. Reports mild numbness of left shoulder. Significant clinical improvement. Patient will be discharged home in stable condition with guarded prognosis ,pending DC recommendations and clearance per cardiology and neurology. Smoking cessation reinforced. The impression and plan of care has been dictated as directed. : I performed a history and examination of this patient, discussed the same with the dictator. I agree with the dictator's note ,documented as a scribe. Any additional findings or plans will be noted. Patient Condition at Discharge: Stable Plan - Discharge Summary New Discharge Prescriptions: New Amoxic-Pot Clav 875-125Mg [Augmentin 875-125] 1 tab PO BID 5 Days #10 tab Loratadine [Claritin] 10 mg PO DAILY tab Gabapentin [Neurontin] 100 mg PO BID #6 cap Montelukast [Singulair] 10 mg PO HS #30 tab Continue Aspirin [Adult Low Dose Aspirin EC] 81 mg PO DAILY Clopidogrel Bisulfate [Plavix] 75 mg PO DAILY Nitroglycerin Sl Tabs [Nitrostat] 0.4 mg SUBLINGUAL Q5M PRN #25 tab PRN Reason: Chest Pain DULoxetine HCL [Cymbalta] 30 mg PO BID Pramipexole [Mirapex] 0.5 mg PO HS metFORMIN HCL 500 mg PO BID Rosuvastatin Calcium [Crestor] 40 mg PO DAILY sitaGLIPtin PHOSPHATE [Januvia] 100 mg PO DAILY Ezetimibe [Zetia] 10 mg PO DAILY amLODIPine [Norvasc] 10 mg PO HS Oxybutynin Chloride [Oxybutynin Chloride ER] 10 mg PO DAILY Empagliflozin [Jardiance] 25 mg PO DAILY Fluticasone Propion/Salmeterol [Fluticasone-Salmeterol 250-50] 1 puff INHALATION RT-BID Discharge Medication List Aspirin [Adult Low Dose Aspirin EC] 81 mg PO DAILY 11/19/17 [History] Clopidogrel Bisulfate [Plavix] 75 mg PO DAILY 11/19/17 [History] Nitroglycerin Sl Tabs [Nitrostat] 0.4 mg SUBLINGUAL Q5M PRN #25 tab 11/21/17 [Rx] DULoxetine HCL [Cymbalta] 30 mg PO BID 05/22/18 [History] Pramipexole [Mirapex] 0.5 mg PO HS 11/30/19 [History] Empagliflozin [Jardiance] 25 mg PO DAILY 03/15/22 [History] Ezetimibe [Zetia] 10 mg PO DAILY 03/15/22 [History] Fluticasone Propion/Salmeterol [Fluticasone-Salmeterol 250-50] 1 puff INHALATION RT-BID 03/15/22 [History] Oxybutynin Chloride [Oxybutynin Chloride ER] 10 mg PO DAILY 03/15/22 [History] Rosuvastatin Calcium [Crestor] 40 mg PO DAILY 03/15/22 [History] amLODIPine [Norvasc] 10 mg PO HS 03/15/22 [History] metFORMIN HCL 500 mg PO BID 03/15/22 [History] sitaGLIPtin PHOSPHATE [Januvia] 100 mg PO DAILY 03/15/22 [History] Amoxic-Pot Clav 875-125Mg [Augmentin 875-125] 1 tab PO BID 5 Days #10 tab 03/18/22 [Rx] Gabapentin [Neurontin] 100 mg PO BID #6 cap 03/18/22 [Rx] Loratadine [Claritin] 10 mg PO DAILY tab 03/18/22 [Rx] Montelukast [Singulair] 10 mg PO HS #30 tab 03/18/22 [Rx] Follow up Appointment(s)/Referral(s): Chelsie Morales DO [Primary Care Provider] - 03/22/22 2:30 pm
[2022-03-18 16:13] VITALS: BP 135/61; PULSE 62
[2022-03-18 16:40] LABS: Glucose,Whole Blood 217 mg/dL (75-99)
[2022-03-18] MEDS: SODIUM CHLORIDE 0.9% 1,000 ML IV SCH (17:09)
[2022-03-19] MEDS ORDERED: ATORVASTATIN 40 MG TAB PO SCH (09:00)
--- NOTE | 2022-03-19 10:38 | P.PN ---
Subjective Progress Note Date: 03/18/22 Patient was seen for a follow-up. Denies any new focal symptoms. Patient states Fioricet has helped with the headache. However the headache is continuing in the right ear temporal region. Telemetry monitoring showing sinus rhythm, pacer rhythm. No new neurological symptoms. Patient tells me that she had undergone pacemaker placement in December 2021. She also mentions that at the time of her stroke symptoms, she felt some fluttering in the heart. Concerned about atrial fibrillation. Objective - Vital Signs Vital signs: Vital Signs Temp 98 F 03/18/22 16:12 Pulse 62 03/18/22 16:12 Resp 20 03/18/22 16:12 BP 135/61 03/18/22 16:12 Pulse Ox 98 03/18/22 16:12 Intake & Output 03/17/22 03/18/22 03/18/22 18:59 06:59 18:59 Intake Total 240 270 Output Total 0 Balance 240 270 Intake: IV 150 Intake, IV Titration 0 Amount Sodium Chloride 0.9% 500 0 ml 500 ml @ 0 mls/hr IV . [facility] Rx#: [id number] Oral 240 120 Output: Urine 0 Stool 0 Urine/Stool Mix 0 Emesis 0 Other: Voiding Method Toilet Toilet Toilet # Voids 4 2 # Bowel Movements 0 - Exam Patient is an elderly female, very pleasant, in no acute distress. Patient is alert awake oriented to time place and person. Speech and language functions are normal. Attention, concentration and fund of knowledge is adequate. Patient can name and repeat very well. No aphasia or dysarthria. On cranial nerve examination, pupils are equal, round and reacting to light, visual contreras today are full on confrontation with no neglect on double simultaneous stimulation. Her extraocular muscles are intact with no nystagmus. Face is symmetric, tongue protrudes to the midline. Palatal elevation and sensation normal, hearing and shoulder shrug normal, facial sensation decreased on the left side. Shoulder shrug normal. On muscle strength testing, there is mild left-sided upward pronation and the strength is normal in arms and legs distally and proximally. Deep tendon reflexes are diminished and plantars downgoing bilaterally. Sensory to touch is quite decreased in the left arm, and left leg. Cerebellar function showed no ataxia for [id number] testing. Tone and bulk of muscles normal. Gait deferred. On general examination, there is no carotid bruit or murmur, S1-S2 audible. Abdomen is soft nontender. No organomegaly, bowel sounds present. Chest is c lear to auscultation. Peripheral pulses are present. No edema. - Labs CBC & Chem 7: 03/15/22 15:01 03/15/22 15:01 Labs: Abnormal Lab Results - Last 24 Hours (Table) 03/17/22 03/18/22 03/18/22 Range/Units 20:12 06:10 11:20 POC Glucose (mg/dL) 184 H 134 H 235 H (75-99) mg/dL 03/18/22 Range/Units 16:39 POC Glucose (mg/dL) 217 H (75-99) mg/dL Assessment and Plan Assessment: * Subacute ischemic stroke involving right posterior frontal parietal region. Her NIH stroke scale is 2 (left-sided sensory loss, and sensory neglect). Visual neglect has resolved. * History of old encephalomalacia involving the left occipital lobe. Both of these areas of infarction (recent and remote) suggest embolic phenomenon. * Diabetes * Hypertension * History of light smoking. * Hyperlipidemia * Pacemaker placement in December 2021 * Left ICA stenosis, significant * History of right CEA Plan: * MUKUND was performed today. Revealed normal left ventricular dimension and systolic function. No evidence of cardiac source of emboli. Intact interatrial septum without any shunt. Normal left atrial appendage without any thrombus. Aortic sclerosis without stenosis with moderate insufficiency. Thickened anterior and posterior mitral leaflet with moderate mitral insufficiency. Moderate TR. * CT head 03/17/2022 revealed large subacute right middle cerebral artery infarct similar to recent comparison. No hemorrhage. Old infarcts present previously. I personally reviewed CT head and agree with the findings. No definite evidence of hemorrhagic conversion. * Continue Fioricet as needed for vascular headache. * Cardiology input appreciated. Pacemaker interrogation revealed no evidence of atrial fibrillation. * Patient has severe left ICA stenosis, which is asymptomatic at this time. Her stroke is on the contralateral side. Vascular surgery input appreciated. Carotid Doppler revealed hemodynamically significant stenosis proximal left ICA around 60-70% diameter reduction. Antegrade flow in both vertebral arteries. Patient will need left CEA as an outpatient. Agree with vascular surgical consultation plans. * Fasting a.m. lipid panel with cholesterol 84, LDL 27, HDL 27 and triglycerides 146. Patient on Lipitor 80 mg. We will decrease dose to 40 mg. * Hemoglobin A1c 9.0. Need to optimize control of diabetes to target A1c < 7.0. (The result came after discharge, therefore left message on her voicemail to discuss results with her PCP). * Patient has been smoking 2 cigars per day. Recommended complete tobacco cessation. * Continue patient on aspirin 81 mg and Plavix 75 mg daily. Patient needs to address vascular risk factors as above. Blood pressure is well controlled. * Patient will follow up with vascular surgery, cardiology. Also recommended for patient to be seen by neurologist in 2-4 weeks for a follow-up.
== END 2022-03-18 17:42 | disposition home or self-care (01) | DRG 65 ==
LOC: EC 14:02 → 3SCARD 15:50
PROVIDERS: ADMIT Family Medicine; ATTEND Family Medicine
PROC: B246ZZ4 Ultrasonography of Right and Left Heart, Transesophageal (ICD-10-PCS; principal; 2022-03-18 09:50)
DX: I63.511 Cerebral infarction due to unspecified occlusion or stenosis of right middle cerebral artery (principal); R41.4 Neurologic neglect syndrome; I65.23 Occlusion and stenosis of bilateral carotid arteries; J44.9 Chronic obstructive pulmonary disease, unspecified; M79.605 Pain in left leg; E11.40 Type 2 diabetes mellitus with diabetic neuropathy, unspecified; E78.5 Hyperlipidemia, unspecified; F17.290 Nicotine dependence, other tobacco product, uncomplicated; Z71.6 Tobacco abuse counseling; G43.909 Migraine, unspecified, not intractable, without status migrainosus; G93.89 Other specified disorders of brain; H53.40 Unspecified visual field defects; I10 Essential (primary) hypertension; I25.10 Atherosclerotic heart disease of native coronary artery without angina pectoris; R29.702 NIHSS score 2; W22.01XA Walked into wall, initial encounter; Z79.02 Long term (current) use of antithrombotics/antiplatelets; Z79.82 Long term (current) use of aspirin; Z79.84 Long term (current) use of oral hypoglycemic drugs; Z79.899 Other long term (current) drug therapy; Z82.49 Family history of ischemic heart disease and other diseases of the circulatory system; Z86.73 Personal history of transient ischemic attack (TIA), and cerebral infarction without residual deficits; Z90.710 Acquired absence of both cervix and uterus; Z95.0 Presence of cardiac pacemaker; Z95.5 Presence of coronary angioplasty implant and graft; Z96.652 Presence of left artificial knee joint; Z88.5 Allergy status to narcotic agent; Z91.040 Latex allergy status; Z83.3 Family history of diabetes mellitus; Z90.49 Acquired absence of other specified parts of digestive tract; Z98.84 Bariatric surgery status
CPT/HCPCS: 36415; 70450; 70496; 70498; 80048; 80061; 81003; 83036; 85025; 85610; 85652; 85730; 86140; 93005; 93306; 93312; 93320; 93325; 93880; 96374; 96375; 99285

== ENCOUNTER → 2022-05-25 | Outpatient (CLI) | payer MEDICARE | END | disposition home or self-care (01) | LOC: LABPAT 15:31 | PROVIDERS: ATTEND Surgery | DX: Z53.9 Procedure and treatment not carried out, unspecified reason (principal) ==

== ENCOUNTER → 2022-05-27 | Outpatient (CLI) | payer MEDICARE ==
[2022-05-27 14:43] LABS: Basophils # (A) 0.04 X 10*3/uL (0.00-0.10); Basophils % (A) 0.5 %; Eosinophils # (A) 0.13 X 10*3/uL (0.04-0.35); Eosinophils % (A) 1.7 %; HCT 40.1 % (37.2-46.3); HGB 12.4 g/dL (12.0-15.0); Immature Grans, Automated 0.3 %; Lymphocytes # (A) 2.07 X 10*3/uL (0.90-5.00); Lymphocytes % (A) 26.3 %; MCH 25.3 pg (27.0-32.0); MCHC 30.9 g/dL (32.0-37.0); MCV 81.8 fL (80.0-97.0); Mean Platelet Volume 11.6 fL (9.5-12.2); Monocytes # (A) 0.65 X 10*3/uL (0.20-1.00); Monocytes % (A) 8.3 %; NRBC Per 100 WBC 0 /100 WBCS (0.0-0.0); Neutrophils # (A) 4.95 X 10*3/uL (1.80-7.70); Neutrophils % (A) 62.9 %; Platelet Count 145 X 10*3/uL (140-440); RDW 17.2 % (11.5-14.5); WBC 7.86 X 10*3/uL (4.50-10.00)
== END | disposition home or self-care (01) ==
LOC: LABPAT 09:22
PROVIDERS: ATTEND Surgery
DX: Z01.812 Encounter for preprocedural laboratory examination (principal)
CPT/HCPCS: 36415; 85025

== ENCOUNTER 2022-05-31 06:17 | Inpatient (IN) | payer MEDICARE ==
[2022-05-25 13:29] VITALS: BMI 28.0
[~2022-05-31 06:17] MED LIST changes: -LACTATED RINGERS 1,000 ML IV SCH; +LIDOCAINE 1% (10MG/ML) FOR IV START INTRADERMA PRN; -LIDOCAINE 1% 20 ML VIAL (10MG/ML) FOR IV START INTRADERMA PRN; -MIDAZOLAM 2 MG/2 ML VIAL IV PRN; -NITROGLYCERIN-D5W PMX 50 MG in DEXTROSE/WATER 1 250ML.BAG IV SCH; +ONDANSETRON 4 MG/2 ML VIAL IVP ONE; +ONDANSETRON 4 MG/2 ML VIAL IVP PRN; -PHENYLEPHRINE 40 MG in SODIUM CHLORIDE 0.9% 250 ML IV SCH; -ceFAZolin IN SWFI 2 GM/20 ML SYRINGE IVP ONE; -fentaNYL (PF) 50 MCG/ML 2 ML AMP IV PRN
[2022-05-31 06:38] LABS: Glucose,Whole Blood 192 mg/dL (70-110)
[2022-05-31] MEDS: LACTATED RINGERS 1,000 ML IV SCH (06:45)
[2022-05-31 06:56] LABS: Anisocytosis Slight; Basophils # (A) 0.1 k/uL (0-0.2); Basophils % (A) 1 %; Eosinophils # (A) 0.2 k/uL (0-0.7); Eosinophils % (A) 2 %; HCT 42.7 % (34.0-46.0); HGB 13.5 gm/dL (11.4-16.0); Hypochromasia Slight; Lymphocytes # (A) 2.7 k/uL (1.0-4.8); Lymphocytes % (A) 31 %; MCHC 31.7 g/dL (31.0-37.0); MCV 82.1 fL (80.0-100.0); Mean Platelet Volume 8.8; Monocytes # (A) 0.4 k/uL (0-1.0); Monocytes % (A) 5 %; Neutrophils # (A) 5.1 k/uL (1.3-7.7); Neutrophils % (A) 60 %; Platelet Count 147 k/uL (150-450); RBC 5.21 m/uL (3.80-5.40); RDW 16.8 % (11.5-15.5); WBC 8.5 k/uL (3.8-10.6)
[2022-05-31] MEDS: DEXAMETHASONE SOD PHOSPHATE 4 MG/ML 1 ML VIAL IV ONE ×2 (07:03→18:07)
[2022-05-31] MEDS ORDERED: MIDAZOLAM 2 MG/2 ML VIAL IVP ONE ×2 (07:09→07:20)
--- NOTE | 2022-05-31 07:26 | P.GSHP ---
History of Present Illness H&P Date: 05/31/22 Chief Complaint: carotid stenosis 72 year old female with history of carotid stenosis and right carotid endarterectomy presents for elective left carotid artery endarterectomy due to severe stenosis noted on the left proximal internal carotid artery. She does have a history of weakness and neuropathy previously and on CTA her left ICA noted >70% stenosis with near occlusion seen on ultrasound. Currently she denies any lateralizing symptoms. - Review of Systems All systems: negative (what is mentioned in the PMH or HPI) Past Medical History Past Medical History: COPD, CVA/TIA, Diabetes Mellitus, GERD/Reflux, Hearing Disorder / Deafness, Hyperlipidemia, Hypertension, Osteoarthritis (OA), Vascular Disorder Additional Past Medical History / Comment(s): See Dr Montelongo's H&P. Hx CVA 03/15/22 with residual left sided nerve pain, difficulty out of left ear and urina ry incontinence. States has hx of one other stroke but unknown when it happened. Insomnia. History of Any Multi-Drug Resistant Organisms: None Reported Past Surgical History: Bariatric Surgery, Bladder Surgery, Cholecystectomy, Heart Catheterization With Stent, Hysterectomy, Joint Replacement, Orthopedic Surgery, Pacemaker Additional Past Surgical History / Comment(s): Bilateral cataract surgery, gastric sleeve, right rotator cuff repair, left knee replacement, bladder suspension, right carotid endarterectomy, left femur surgery with daniella placed. Past Anesthesia/Blood Transfusion Reactions: No Reported Reaction Date of Last Stent Placement:: Nov 2017 Type of Cardiac Device: Unknown Device Placement Date:: Dual Chamber Pacemaker 01/05. Past Psychological History: Bipolar Smoking Status: Current every day smoker Past Alcohol Use History: None Reported Additional Past Alcohol Use History / Comment(s): Down to 1-2 cigarettes/day, has smoked since age of 29. Past Drug Use History: None Reported - Past Family History Mother Family Medical History: No Reported History, Coronary Artery Disease (CAD), Diabetes Mellitus Additional Family Medical History / Comment(s): CABG 4 vessel. Father Family Medical History: Hypertension, Myocardial Infarction ([place]) Brother(s) Family Medical History: Coronary Artery Disease (CAD), Myocardial Infarction ([place]) Additional Family Medical History / Comment(s): CABG 3 vessel. Medications and Allergies Home Medications Medication Instructions Recorded Confirmed Type Aspirin [Adult Low Dose Aspirin EC] 81 mg PO DAILY 11/19/17 05/26/22 History Clopidogrel Bisulfate [Plavix] 75 mg PO DAILY 11/19/17 05/26/22 History DULoxetine HCL [Cymbalta] 30 mg PO BID 05/22/18 05/26/22 History Ezetimibe [Zetia] 10 mg PO DAILY 03/15/22 05/26/22 History Oxybutynin Chloride [Oxybutynin 10 mg PO DAILY 03/15/22 05/26/22 History Chloride ER] Rosuvastatin Calcium [Crestor] 40 mg PO DAILY 03/15/22 05/26/22 History metFORMIN HCL 500 mg PO BID 03/15/22 05/26/22 History Empagliflozin [Jardiance] 10 mg PO DAILY 05/26/22 05/26/22 History Gabapentin 800 mg PO BID 05/26/22 05/26/22 History Losartan Potassium 100 mg PO QAM 05/26/22 05/26/22 History Omeprazole 40 mg PO PC-BRKFST 05/26/22 05/26/22 History Pramipexole [Mirapex] 0.5 mg PO HS 05/26/22 05/26/22 History clonazePAM [Clonazepam] 0.5 mg PO HS PRN 05/26/22 05/26/22 History sitaGLIPtin [Januvia] 100 mg PO DAILY 05/26/22 05/26/22 History Allergies Allergy/AdvReac Type Severity Reaction Status Date / Time codeine Allergy Unknown Verified 05/31/22 07:11 Latex, Natural Rubber Allergy Itching Verified 05/31/22 07:11 morphine AdvReac Vomiting Verified 05/31/22 07:11 Surgical - Exam Vital Signs Temp Pulse Resp BP Pulse Ox 97.6 F 59 L 16 192/84 96 05/31/22 06:27 05/31/22 06:27 05/31/22 06:27 05/31/22 06:27 05/31/22 06:27 - General well developed, well nourished, no distress - Eyes PERRL, normal ocular movement - ENT normal pinna, normal nares - Neck no masses - Respiratory normal expansion, normal respiratory effort, clear to auscultation - Cardiovascular Rhythm: regular - Abdomen Abdomen: soft, non tender - Integumentary no rash - Neurologic normal coordination, normal sensation - Psychiatric oriented to time, oriented to person, oriented to place, speech is normal Results - Labs 05/31/22 06:50 Abnormal Lab Results - Last 24 Hours (Table) 05/31/22 05/31/22 Range/Units 06:35 06:50 RDW 16.8 H (11.5-15.5) % Plt Count 147 L (150-450) k/uL POC Glucose (mg/dL) 192 H (70-110) mg/dL - Imaging Additional studies: CTA neck- 70% left ICA stenosis Carotid doppler- near occlusion left proximal ICA Assessment and Plan Assessment: 1. Hemodynamically significant left ICA stenosis 2. History of right CEA 3. History of TIA 4. History of subacute ischemic stroke involving the right posterior frontal, parietal region 5. DM 6. Tobacco abuse 7. HTN Plan: To OR for left CEA and patch angioplasty. Consent obtained and all risks, benefits and complications discussed. Questions answered.
[2022-05-31] MEDS ORDERED: WATER FOR INJECTION, STERILE 10 ML VIAL IV ONE (07:30)
[2022-05-31] MEDS ORDERED: NITROGLYCERIN-D5W PMX 50 MG in DEXTROSE/WATER 1 250ML.BAG IV SCH (07:30)
[2022-05-31] MEDS ORDERED: SUCCINYLCHOLINE CHLORIDE 100 MG/5 ML SYR IV ONE (07:30)
[2022-05-31] MEDS ORDERED: NEOSTIGMINE 1 MG/ML 10 ML VIAL ONE (07:30)
[2022-05-31] MEDS ORDERED: PROPOFOL 10 MG/ML 20 ML VIAL IV ONE (07:30)
[2022-05-31] MEDS ORDERED: PHENYLEPHRINE 40 MG in SODIUM CHLORIDE 0.9% 250 ML IV SCH (07:30)
[2022-05-31] MEDS ORDERED: fentaNYL (PF) 50 MCG/ML 2 ML AMP ONE (07:30)
[2022-05-31] MEDS ORDERED: ROCURONIUM 10 MG/ML (5 ML VIAL) IV ONE (07:30)
[2022-05-31] MEDS ORDERED: LIDOCAINE 2% INJ 20 MG/ML (2 ML VIAL) ONE (07:30)
[2022-05-31] MEDS ORDERED: HEPARIN SODIUM,PORCINE 10,000 UNIT/ML 1 ML VIAL ONE (07:30)
[2022-05-31] MEDS ORDERED: GLYCOPYRROLATE 0.2 MG/ML 2 ML VIAL ONE (07:30)
[2022-05-31] MEDS ORDERED: fentaNYL (PF) 50 MCG/ML 2 ML AMP IVP ONE (07:30)
[2022-05-31] MEDS ORDERED: NITROGLYCERIN-D5W PMX 50 MG/250 ML BOTTLE IV ONE (07:30)
[2022-05-31] MEDS ORDERED: ePHEDrine 50 MG/ML 1 ML VIAL ONE (07:30)
[2022-05-31] MEDS ORDERED: ceFAZolin 1,000 MG in SODIUM CHLORIDE 0.9% 1,000 ML IRRIGATION ONE (09:28)
[2022-05-31] MEDS ORDERED: HEPARIN SODIUM (1,000 UNIT/ML) 2,000 UNIT in SODIUM CHLORIDE 0.9% 1,000 ML IRRIGATION ONE (09:30)
--- NOTE | 2022-05-31 09:56 | P.ANPRN ---
Procedure Note - Anesthesia - Invasive Line Right Arterial Line Time Out Performed: Yes Date of Procedure: 05/31/22 Time of Procedure: 07:00 Location of Patient: PreOp Arterial Line Location: Brachial Ultrasound Used: Yes Purpose - Visualization and Identification of Vasculature: Yes Needle Guage: 20 G Image Stored and Saved: Yes Narrative: Central line placement per sterile protocol utilized.
[2022-05-31] MEDS ORDERED: THROMBIN (BOVINE) 5,000 UNIT VIAL TOPICAL ONE (10:02)
[2022-05-31] MEDS ORDERED: GELATIN SPONGE,ABSORB (LARGE) 1 EACH SPONGE TOPICAL ONE (10:03)
[2022-05-31] MEDS: HYDROmorphone 0.5 MG/0.5 ML SYRINGE IVP PRN ×4 (11:01→20:25)
[2022-05-31 11:26] LABS: Glucose,Whole Blood 275 mg/dL (70-110)
[2022-05-31] MEDS ORDERED: SODIUM CHLORIDE 0.9% 1,000 ML IV ONE (11:29)
[2022-05-31] MEDS ORDERED: HYDROmorphone 0.5 MG/0.5 ML SYRINGE IVP ONE ×2 (12:26→15:30)
[2022-05-31] MEDS ORDERED: INSULIN ASPART (NovoLOG) 100 UNIT/ML VIAL SQ ONE (12:58)
[2022-05-31] MEDS ORDERED: MAG HYDROX/AL HYDROX/SIMETH 30 ML CUP PO PRN (13:28)
[2022-05-31] MEDS ORDERED: TRIMETHOBENZAMIDE 100 MG/ML 2 ML VIAL IM PRN (13:28)
[2022-05-31] MEDS ORDERED: BENZOCAINE/MENTHOL LOZENG 1 EACH LOZENGE MUCOUS MEM PRN (13:28)
[2022-05-31 15:00] LABS: Glucose,Whole Blood 239 mg/dL (70-110)
[2022-05-31 17:57] LABS: Anisocytosis Slight; Basophils % (A) 0 %; Eosinophils # (A) 0.1 k/uL (0-0.7); Eosinophils % (A) 0 %; HCT 39.2 % (34.0-46.0); HGB 11.9 gm/dL (11.4-16.0); Hypochromasia Marked; Lymphocytes # (A) 1.4 k/uL (1.0-4.8); Lymphocytes % (A) 11 %; MCHC 30.4 g/dL (31.0-37.0); MCV 85.4 fL (80.0-100.0); Mean Platelet Volume 8.7; Monocytes # (A) 0.7 k/uL (0-1.0); Monocytes % (A) 5 %; Neutrophils # (A) 11.4 k/uL (1.3-7.7); Neutrophils % (A) 83 %; Platelet Count 156 k/uL (150-450); RBC 4.59 m/uL (3.80-5.40); RDW 17.1 % (11.5-15.5); WBC 13.7 k/uL (3.8-10.6)
[2022-05-31] MEDS: SODIUM CHLORIDE 0.9% 1,000 ML IV SCH (18:08)
[2022-05-31 20:16] LABS: Glucose,Whole Blood 257 mg/dL (70-110)
[2022-05-31] MEDS: GABAPENTIN 400 MG CAP PO SCH (20:24)
[2022-05-31] MEDS: DULoxetine HCL 30 MG CAPSULE.DR PO SCH (20:25)
[2022-05-31] MEDS ORDERED: PRAMIPEXOLE 0.25 MG TAB PO SCH (21:00)
--- NOTE | 2022-05-31 22:14 | P.OP ---
Date of Procedure: 05/31/22 Preoperative Diagnosis: Left ICA stenosis Postoperative Diagnosis: Same Procedure(s) Performed: 1. Left carotid endarterectomy with patch angioplasty 2. Left upper extremity ultrasound-guided radial artery line placement Anesthesia: VINCENTA Surgeon: Luisito Montelongo Estimated Blood Loss (ml): 10 Pathology: other (carotid plaque) Condition: stable Disposition: PACU Indications for Procedure: 72 year old female with history of carotid stenosis presents to the OR for left carotid artery endarterectomy. Operative Findings: dense calcifications throughout the common carotid and internal carotid artery Description of Procedure: Difficult arterial line access noted by anesthesia after multiple attempts. Utilizing ultrasound the left radial artery was visualized and with a multipurpose needle the artery was accessed. Guidewire was placed which went smoothly and followed by the arterial sheath. Wire was removed and sheath was connected to the monitor which demonstrated good wave form and signal. The catheter was then sutured in place with nylon suture. Attention was then placed to the carotid surgery. An oblique incision was then created just anterior to the sternocleidomastoid musculature with a 10 blade scalpel and dissection was carried down to the carotid sheath. The carotid sheath was then entered after facial vein was located and suture ligated in normal fashion. The common carotid, internal carotid, external carotid and superior thyroid arteries were located and dissected free in a meticulous fashion circumferentially and controlled with vessel loops. Attention was then placed to locating the vagus nerve as well as hypoglossal nerve which were both spared. Once controlled patient was administered heparin and followed with ACTs for appropriate heparinization. Once ACT was above 200 the proximal and distal aspects of the dissection were then controlled with vascular clamps. Arteriotomy was then created with 11 blade scalpel and extended with Baltazar Goyal scissors. Utilizing pressure tubing stump pressures were obtained and were 30. Shunt was required; a Sundt shunt was placed in normal fashion and endarterectomy was then performed with a [place] and elevator. The plaque was then feathered at the distal aspect and the internal carotid artery and removed. The area was copiously irrigated with heparinized saline and all free debris was removed. A 7-0 Prolene suture was then placed to tack the distal aspect of the dissection at the internal carotid artery. A 0.8 x 8 cm bovine pericardial patch was then chosen and patch angioplasty was performed with 6-0 Prolene suture in a running fashion. Prior to last sutures being placed the inflow was released flushing any free debris out of the patch. This was reclamped and the internal carotid artery was released revealing good brisk flow and was once again reclamped. The external carotid and superior thyroid artery were then released followed by the common carotid artery to allow any free debris to be flushed into the external system. Final sutures were placed and secured. Internal carotid artery control was then released. Good pulsatile flow was noted through the patch and a Doppler was utilized demonstrating good brisk flow into the internal, external carotid arteries without any signs of obstruction. Hemostasis was then assured with Gelfoam and thrombin. A 10-Malay EITAN drain was then placed in normal fashion and secured with 3-0 nylon suture. The incision was then closed in a multilayer fashion after hemostasis was assured. The skin was then cleansed and dressings were placed. Patient tolerated the procedure well and was following commands and moving all extremities. Patient was then sent to PACU for recovery.
[2022-05-31 22:17] LABS: Hepatitis B Surface Antigen Nonreactive (Nonreactive); Hepatitis C IgG Antibody Nonreactive (Nonreactive)
[2022-05-31] MEDS: ACETAMINOPHEN TAB 325 MG TAB PO PRN (23:21)
[2022-06-01] MEDS: HYDROmorphone 0.5 MG/0.5 ML SYRINGE IVP PRN ×2 (04:37→08:22)
[2022-06-01] MEDS: LACTATED RINGERS 1,000 ML IV SCH (06:01)
[2022-06-01 06:06] LABS: Glucose,Whole Blood 201 mg/dL (70-110)
[2022-06-01] MEDS: GABAPENTIN 400 MG CAP PO SCH (08:22)
[2022-06-01] MEDS: DULoxetine HCL 30 MG CAPSULE.DR PO SCH (08:22)
[2022-06-01] MEDS ORDERED: PANTOPRAZOLE 40 MG TABLET PO SCH (08:30)
[2022-06-01] MEDS ORDERED: EZETIMIBE 10 MG TAB PO SCH (09:00)
[2022-06-01] MEDS ORDERED: ASPIRIN 81 MG PO SCH (09:00)
[2022-06-01] MEDS ORDERED: ATORVASTATIN 80 MG TAB PO SCH (09:00)
[2022-06-01] MEDS ORDERED: OXYBUTYNIN 10 MG TAB.ER.24 PO SCH (09:00)
[2022-06-01] MEDS ORDERED: CLOPIDOGREL 75 MG TAB PO SCH (09:00)
[2022-06-01] MEDS ORDERED: LOSARTAN 50 MG TAB PO SCH (09:00)
[2022-06-01] MEDS ORDERED: LINAGLIPTIN 5 MG TABLET PO SCH (09:00)
[2022-06-01] MEDS ORDERED: hydrALAZINE HCL 20 MG/ML 1 ML VIAL IVP PRN (09:10)
[2022-06-01] MEDS: SODIUM CHLORIDE 0.9% 1,000 ML IV SCH (09:16)
[2022-06-01 11:32] LABS: Glucose,Whole Blood 239 mg/dL (70-110)
[2022-06-01] MEDS: ACETAMINOPHEN TAB 325 MG TAB PO PRN (11:41)
--- NOTE | 2022-06-01 14:54 | P.DS ---
Providers Date of admission: 05/31/22 06:17 Expected date of discharge: 06/01/22 Attending physician: Luisito Montelongo DO Consults: 06/01/22 08:39 Consult Physician Urgent Consulting Provider: Timi Morales Reason/Comments: medical managment, blood pressure management Do you want consulting provider notified?: Yes Primary care physician: Rust Course: This pleasant 72-year-old female with a history of carotid stenosis and right carotid endarterectomy that presented for elective left carotid artery endarterectomy due to severe stenosis. She is postop day #1 for left carotid endarterectomy with patch angioplasty. Patient did have some elevated blood pressures this morning likely related to pain, 202/79. Medical team was consulted for blood pressure management. They added hydralazine as needed. After patient received pain medications and her blood pressure medication her blood pressure stabilized. Her most recent blood pressures were 149/67 and 119/49. Patient states pain has improved. She has been up and ambulating the hallways. She is eating a regular diet. She is voiding without difficulty. She has no focal deficits. She is tolerating her diet. She has been afebrile. Patient had approximately 10 mL's of serosanguineous fluid from her EITAN drain from her neck. EITAN drain has been removed. Plan for patient discharge. Exam: General appearance: The patient is alert, oriented, appears in no acute distress. HET: Head is normocephalic and atraumatic. Pupils are equal and reactive. Neck: Supple without lymphadenopathy. Trachea midline. Left surgical incision well approximated with some ecchymosis, mild swelling. EITAN drain intact with serosanguineous drainage. Cardiovascular: Normal rate and rhythm. Lungs: Clear to auscultation bilaterally. Abdomen: Soft, nontender, nondistended. Extremities: Normal skin color and turgor. No cyanosis, rash, ulceration, clubbing, or edema. Palpable bilateral radial pulses. Neurological: No focal deficits. Strength and sensation are grossly intact. The impression and plan of care has been dictated as directed. I performed a history and examination of this patient, discussed the same with the dictator. I agree with the dictator's note ,documented as a scribe. Any additional findings or plans will be noted. Procedures: 1. Left carotid endarterectomy with patch angioplasty 2. Left upper extremity ultrasound-guided radial artery line placement Patient Condition at Discharge: Stable Plan - Discharge Summary Discharge Rx Participant: Yes New Discharge Prescriptions: Continue Aspirin [Adult Low Dose Aspirin EC] 81 mg PO DAILY Clopidogrel Bisulfate [Plavix] 75 mg PO DAILY DULoxetine HCL [Cymbalta] 30 mg PO BID metFORMIN HCL 500 mg PO BID Rosuvastatin Calcium [Crestor] 40 mg PO DAILY Ezetimibe [Zetia] 10 mg PO DAILY clonazePAM 0.5 mg PO HS PRN PRN Reason: Insomnia Omeprazole 40 mg PO PC-BRKFST Pramipexole [Mirapex] 0.5 mg PO HS Oxybutynin Chloride [Oxybutynin Chloride ER] 10 mg PO DAILY sitaGLIPtin [Januvia] 100 mg PO DAILY Gabapentin 800 mg PO BID Losartan Potassium 100 mg PO QAM Empagliflozin [Jardiance] 10 mg PO DAILY Discharge Medication List Aspirin [Adult Low Dose Aspirin EC] 81 mg PO DAILY 11/19/17 [History] Clopidogrel Bisulfate [Plavix] 75 mg PO DAILY 11/19/17 [History] DULoxetine HCL [Cymbalta] 30 mg PO BID 05/22/18 [History] Ezetimibe [Zetia] 10 mg PO DAILY 03/15/22 [History] Oxybutynin Chloride [Oxybutynin Chloride ER] 10 mg PO DAILY 03/15/22 [History] Rosuvastatin Calcium [Crestor] 40 mg PO DAILY 03/15/22 [History] metFORMIN HCL 500 mg PO BID 03/15/22 [History] Empagliflozin [Jardiance] 10 mg PO DAILY 05/26/22 [History] Gabapentin 800 mg PO BID 05/26/22 [History] Losartan Potassium 100 mg PO QAM 05/26/22 [History] Omeprazole 40 mg PO PC-BRKFST 05/26/22 [History] Pramipexole [Mirapex] 0.5 mg PO HS 05/26/22 [History] clonazePAM 0.5 mg PO HS PRN 05/26/22 [History] sitaGLIPtin [Januvia] 100 mg PO DAILY 05/26/22 [History] Follow up Appointment(s)/Referral(s): Luna Gomes [NON-STAFF] - Chelsie Morales DO [Primary Care Provider] - 3 Days Luisito Montelongo DO [STAFF PHYSICIAN] - 1 Week Patient Instructions/Handouts: Carotid Endarterectomy (DC) Activity/Diet/Wound Care/Special Instructions: May shower using soap and water. No heavy lifting, strenuous activity until follow-up with surgeon. Watch incision site for redness, swelling, drainage, and report fever greater than 100.4 [address] for 3-4 days. Continue aspirin, Plavix, and Crestor Discharge Disposition: HOME WITH HOME HEALTH SERVICES
[2022-06-01 15:30] VITALS: BP 138/64; PULSE 101; RESP 18; TEMP 98.1
== END 2022-06-01 15:20 | disposition home health service (06) | DRG 39 ==
LOC: 2ORMAIN 06:17 → 3SCARD 16:33
PROVIDERS: ADMIT Surgery; ATTEND Surgery
PROC: 4A133J1 Monitoring of Arterial Pulse, Peripheral, Percutaneous Approach (ICD-10-PCS; principal; 2022-05-31 07:30)
PROC: 03UL07Z Supplement Left Internal Carotid Artery with Autologous Tissue Substitute, Open Approach (ICD-10-PCS; principal; 2022-05-31 07:30)
PROC: 03CL0ZZ Extirpation of Matter from Left Internal Carotid Artery, Open Approach (ICD-10-PCS; principal; 2022-05-31 07:30)
PROC: 03HY32Z Insertion of Monitoring Device into Upper Artery, Percutaneous Approach (ICD-10-PCS; principal; 2022-05-31 07:30)
PROC: 4A133B1 Monitoring of Arterial Pressure, Peripheral, Percutaneous Approach (ICD-10-PCS; principal; 2022-05-31 07:30)
DX: I65.23 Occlusion and stenosis of bilateral carotid arteries (principal); I65.22 Occlusion and stenosis of left carotid artery; J44.9 Chronic obstructive pulmonary disease, unspecified; I10 Essential (primary) hypertension; H91.92 Unspecified hearing loss, left ear; K21.9 Gastro-esophageal reflux disease without esophagitis; M19.90 Unspecified osteoarthritis, unspecified site; G47.00 Insomnia, unspecified; F31.9 Bipolar disorder, unspecified; I69.398 Other sequelae of cerebral infarction; F17.210 Nicotine dependence, cigarettes, uncomplicated; E11.40 Type 2 diabetes mellitus with diabetic neuropathy, unspecified; Z79.84 Long term (current) use of oral hypoglycemic drugs; E78.5 Hyperlipidemia, unspecified; Z79.02 Long term (current) use of antithrombotics/antiplatelets; Z79.82 Long term (current) use of aspirin; Z79.899 Other long term (current) drug therapy; Z82.49 Family history of ischemic heart disease and other diseases of the circulatory system; Z98.84 Bariatric surgery status; Z88.5 Allergy status to narcotic agent; Z91.040 Latex allergy status; Z95.0 Presence of cardiac pacemaker
CPT/HCPCS: 85025; 86701; 86704; 86803; 86850; 86900; 86901; 87340; 88304; 88311

== ENCOUNTER → 2022-09-06 | Outpatient (CLI) | payer MEDICARE ==
[2022-09-06 14:34] LABS: African American GFR (CKD) >90 (>60 ml/min/1.73 sqM); Blood Urea Nitrogen 19 mg/dL (7-17); Non-African American GFR(CKD) >90 (>60 ml/min/1.73 sqM)
--- NOTE | 2022-09-07 20:32 | CT ---
EXAMINATION TYPE: CT angio abd aorta w/Runoff DATE OF EXAM: 09/06/2022 HISTORY: Embolism and thrombosis of arteries CT DLP: 1615.3mGycm Automated Exposure Control for Dose Reduction was Utilized. CONTRAST: CTA scan of the abdomen and pelvis with bilateral lower extremities runoff is performed without oral and without and with IV Contrast, patient injected with 125ml mL of Isovue 370. Three-D reconstructed images are created on a independent workstation and reviewed. COMPARISON: CT abdomen and pelvis 2018. FINDINGS: Vascular: Moderate mixed plaque of the abdominal aorta extends into branch vessels. No significant st enosis and celiac artery or SMA with bilateral single renal arteries. Patent LUKE. Moderate to severe mixed plaque in the common iliac arteries bilaterally without significant stenosis. Patent external i liac arteries with more mild to moderate plaque without significant stenosis. There is more severe plaque right groin region causing stenosis approaching 50% before bifurcation. T here is mild to moderate plaque in the proximal superficial femoral artery with more severe plaque al snehal the mid to distal superficial femoral artery with stenosis greater than 50% near axial image 300 noted. There is less prominent plaque into the popliteal artery. There is satisfactory bifurcation tr ifurcation with moderate plaque. Diminished three-vessel and two-vessel flow is noted. Moderate to severe plaque left groin region. With complete occlusion of the left SFA at its origin. S ome reconstitution of the distal SFA is noted. There is then good flow without significant plaque or stenosis in the popliteal artery with subsequent bifurcation trifurcation. There is poor three-vessel and two-vessel flow in the leg similar to the opposite right side. LUNG BASES: Partial visualization of pacemaker wires in the right heart system. Coronary artery trifu rcation aneurysm stents are redemonstrated. LIVER/GB: No significant abnormality is appreciated. PANCREAS: No significant abnormality is seen. SPLEEN: No significant abnormality is seen. ADRENALS: There are stable 3.3 x 2.3 cm low dense right adrenal mass consistent with benign lipid ri ch adenoma and smaller nodularity to the left adrenal gland consistent with additional benign lipid r ich adenomas. KIDNEYS: No significant abnormality is seen. BOWEL: No significant abnormality is seen. UTERUS/ADNEXA: Uterus is surgically absent or markedly atrophic. LYMPH NODES: No greater than 1cm abdominal or pelvic lymph nodes are appreciated. OSSEOUS STRUCTURES: Multilevel facet arthropathy in the lower lumbar spine. Metallic hardware from barjaas rgery in the left femur and left knee is noted. OTHER: No significant additional abnormality is seen. IMPRESSION: 1. Complete occlusion beginning at left SFA origin extending into the distal SFA where there is some reconstitution just above the knee. 2. Significant peripheral arterial disease bilaterally with poor three-vessel and two-vessel flow in the bilateral legs below mid leg level.
== END | disposition home or self-care (01) ==
LOC: RADCTMAIN 13:41
PROVIDERS: ATTEND Surgery
DX: I74.3 Embolism and thrombosis of arteries of the lower extremities (principal)
CPT/HCPCS: 82565; 84520; 75635; 36415; Q9967

== ENCOUNTER 2022-10-22 07:24 | Day surgery (SDC) | payer MEDICARE ==
[2022-10-20 15:28] VITALS: BMI 23.3
[2022-10-22] MEDS ORDERED: ALPRAZolam 0.5 MG TAB PO PRN (07:43)
[2022-10-22] MEDS ORDERED: HEPARIN SODIUM,PORCINE 2,500 UNIT in SODIUM CHLORIDE 0.9% 250 ML IRRIGATION PRN (07:43)
[2022-10-22] MEDS ORDERED: SODIUM CHLORIDE 0.9% 1,000 ML IV ONE (07:43)
[2022-10-22] MEDS ORDERED: SODIUM CHLORIDE 0.9% 1,000 ML in EMPTY BAG 1 BAG IV ONE (07:43)
[2022-10-22] MEDS ORDERED: ALPRAZolam 0.25 MG TAB PO PRN (07:43)
[2022-10-22] MEDS ORDERED: ASPIRIN 325 MG TAB PO PRN (07:43)
[2022-10-22] MEDS ORDERED: ZOLPIDEM 5 MG TAB PO PRN (07:43)
[2022-10-22] MEDS ORDERED: HEPARIN SODIUM,PORCINE 10,000 UNIT in SODIUM CHLORIDE 0.9% 1,000 ML IRRIGATION PRN (07:43)
[2022-10-22 07:58] LABS: Glucose,Whole Blood 146 mg/dL (70-110)
[2022-10-22 08:09] VITALS: TEMP 97.6
[2022-10-22] MEDS ORDERED: ASPIRIN 81 MG ONE (08:23)
[2022-10-22] MEDS ORDERED: fentaNYL (PF) 50 MCG/ML 2 ML AMP ONE (08:41)
[2022-10-22] MEDS ORDERED: LIDOCAINE 1% INJ 10MG/ML (30 ML VIAL-PF) SQ ONE (08:48)
[2022-10-22] MEDS ORDERED: MIDAZOLAM 2 MG/2 ML VIAL IV ONE (08:50)
[2022-10-22] MEDS ORDERED: fentaNYL (PF) 50 MCG/ML 2 ML AMP IV ONE (08:50)
[2022-10-22] MEDS ORDERED: HEPARIN SODIUM 1,000 UN/ML (10ML VL) ONE (09:05)
[2022-10-22] MEDS ORDERED: HEPARIN SODIUM 1,000 UN/ML (10ML VL) IV ONE (09:07)
[2022-10-22] MEDS ORDERED: PROTAMINE SULFATE 10 MG/ML 5 ML VIAL IV ONE ×2 (09:20→09:26)
[2022-10-22] MEDS ORDERED: IOPAMIDOL-370 100ML BTL INJ ONE (09:26)
--- NOTE | 2022-10-22 09:39 | P.OP ---
Date of Procedure: 10/22/22 Description of Procedure: Preoperative diagnosis: Disabling left lower extremity claudication, superficial femoral artery occlusive disease Postop diagnosis: Disabling left lower extremity claudication, superficial femoral artery occlusion with reconstitution above-knee popliteal, one-vessel runoff to the foot Procedure: Ultrasound-guided right common femoral artery access Aortogram with selective left lower extremity angiogram and attempt at revascularization Percutaneous closure with vascade Surgeon: Reginald Anesthesia: Moderate sedation times 35 minutes Estimated blood loss: Less than 5 mL Complications: None Condition: Stable Findings: Aorta: Distal aorta is patent without significant stenosis Iliacs: Bilateral common iliac arteries are patent with out significant stenosis. There is some calcification noted Femorals: left common femoral and profundus femoris arteries are widely patent without any significant stenosis. Left superficial femoral artery is occluded at the takeoff with reconstitution at the above-knee popliteal artery Popliteal: Above-knee popliteal artery is patent with minimal atherosclerotic disease throughout. Tibials: Three-vessel takeoff below the knee with one-vessel runoff to the foot being the posterior tibial artery. Anterior tibial artery dissipates at the ankle Operative narrative: After written informed consent was obtained the patient all risks benefits competitions were described the patient is brought to the Cath L ab and laid in a supine position. The area of the right groin was prepped and draped in the usual sterile fashion. Local anesthesia with moderate sedation was performed with continuous pulse ox monitoring and EKG monitoring. Utilizing ultrasound the right femoral artery was visualized and shown to be patent without any significant plaque. Utilizing a multipurpose needle under ultrasound guidance the artery was accessed. Guidewire was placed followed by 5-Tajik sheath. 035 Glidewire was then placed into the aorta followed by a RBI catheter. Angiogram was then obtained of the aorta. Catheter was then placed up and over into the left common iliac artery and selective angiogram was obtained. Multiple views were obtained of the common femoral artery to try to see the takeoff of the SFA. A 6-Tajik up and over sheath was then guided over the guidewire, heparin was given and attempt at crossing the occlusion was performed without success. Due to the fact there is only 1 vessel runoff to the foot it was determined that patient will require a fem-pop bypass above-knee. Once completed all guidewires, catheters and sheaths were removed, Vascade device was placed and pressure was placed for hemostasis. Patient was given protamine to assist with hemostasis. Patient tolerated procedure well was sent to PACU for recovery
[2022-10-22 11:08] VITALS: RESP 16
[2022-10-22 13:17] VITALS: BP 122/60; PULSE 60
== END 2022-10-22 14:00 | disposition home or self-care (01) ==
LOC: CATHCVL 07:24
PROVIDERS: ATTEND Surgery
DX: I70.213 Atherosclerosis of native arteries of extremities with intermittent claudication, bilateral legs (principal); E11.40 Type 2 diabetes mellitus with diabetic neuropathy, unspecified; I51.9 Heart disease, unspecified; I65.29 Occlusion and stenosis of unspecified carotid artery; F17.200 Nicotine dependence, unspecified, uncomplicated; Z86.73 Personal history of transient ischemic attack (TIA), and cerebral infarction without residual deficits; Z98.84 Bariatric surgery status; Z79.899 Other long term (current) drug therapy; Z79.1 Long term (current) use of non-steroidal anti-inflammatories (NSAID); Z79.84 Long term (current) use of oral hypoglycemic drugs; Z79.02 Long term (current) use of antithrombotics/antiplatelets; Z98.890 Other specified postprocedural states; Z95.5 Presence of coronary angioplasty implant and graft; Z98.41 Cataract extraction status, right eye; Z98.42 Cataract extraction status, left eye; Z90.710 Acquired absence of both cervix and uterus; Z90.49 Acquired absence of other specified parts of digestive tract; Z95.0 Presence of cardiac pacemaker
CPT/HCPCS: 36245; 75625; 75710; 76937; 99152; 99153; C1769 ×4; C1894 ×4; C1887; C1760; J2250; J2720; J2001; J3010; J1644; Q9967

== ENCOUNTER 2022-11-05 23:51 | Emergency (ER) | payer MEDICARE ==
[2022-11-05 23:59] VITALS: TEMP 97.5
[2022-11-06] MEDS ORDERED: SODIUM CHLORIDE 0.9% 1,000 ML IV STA
--- NOTE | 2022-11-06 00:01 | ED ---
Syncope HPI - General Chief Complaint: Syncope Stated Complaint: Syncope Time Seen by Provider: 11/05/22 23:58 Source: patient, RN notes reviewed, old records reviewed Mode of arrival: EMS Limitations: no limitations - History of Present Illness Initial Comments: This is a 72-year-old female the ER for evaluation. Patient presents today to the emergency department for evaluation regards to weakness. 4-5 episodes of syncope today. Lightheadedness dizziness not feeling well. History of same. Patient has a long medical history including lung and heart disease. No current headache chest pain no shortness of breath no abdominal pain. Just overall generalized weakness. Dizziness. MD Complaint: loss of consciousness -: hour(s) Prodromal Symptoms: lightheaded -: second(s) Witnessed: no Injuries Sustained Associated with Event: None Current Symptoms: back to baseline History: previous syncopal episode Context: at rest, during exertion, getting out of bed, standing up Treatments Prior to Arrival: none - Related Data Home Medications Medication Instructions Recorded Confirmed Clopidogrel Bisulfate [Plavix] 75 mg PO DAILY 11/19/17 10/20/22 DULoxetine HCL [Cymbalta] 30 mg PO BID 05/22/18 10/22/22 Ezetimibe [Zetia] 10 mg PO DAILY 03/15/22 10/22/22 Oxybutynin Chloride [Oxybutynin 10 mg PO DAILY 03/15/22 10/22/22 Chloride ER] Rosuvastatin Calcium [Crestor] 40 mg PO DAILY 03/15/22 10/22/22 metFORMIN HCL 500 mg PO TID 03/15/22 10/22/22 Omeprazole 40 mg PO PC-BRKFST 05/26/22 10/22/22 Pramipexole [Mirapex] 0.5 mg PO HS 05/26/22 10/22/22 clonazePAM 0.5 mg PO HS PRN 05/26/22 10/20/22 Apixaban [Eliquis] 2.5 mg PO BID 10/20/22 10/20/22 Pregabalin [Lyrica] 150 mg PO TID 10/20/22 10/22/22 Semaglutide [Ozempic] 0.5 mg SQ Q7D 10/20/22 10/22/22 lamoTRIgine [LaMICtal] 150 mg PO DAILY 10/20/22 10/22/22 Alendronate Sodium [Fosamax] 70 mg PO WEEKLY 10/22/22 10/22/22 Aspirin [Adult Low Dose Aspirin EC] 81 mg PO ONCE PRN 10/22/22 10/22/22 Atorvastatin [Lipitor] 80 mg PO DAILY 10/22/22 10/22/22 Furosemide [Lasix] 20 mg PO DIRECTED PRN 10/22/22 10/22/22 Losartan [Cozaar] 100 mg PO DAILY 10/22/22 10/22/22 Mirabegron [Myrbetriq] 25 mg PO DAILY 10/22/22 10/22/22 Potassium Chloride [Potassium 10 meq PO DIRECTED PRN 10/22/22 10/22/22 Chloride ER] Allergies Allergy/AdvReac Type Severity Reaction Status Date / Time codeine Allergy Unknown Verified 10/20/22 14:51 Latex, Natural Rubber Allergy Itching Verified 10/20/22 14:51 morphine AdvReac Vomiting Verified 10/20/22 14:51 Review of Systems ROS Statement: Those systems with pertinent positive or pertinent negative responses have been documented in the HPI. ROS Other: All systems not noted in ROS Statement are negative. Past Medical History Past Medical History: COPD, CVA/TIA, Diabetes Mellitus, GERD/Reflux, Hearing Disorder / Deafness, Hyperlipidemia, Hypertension, Osteoarthritis (OA), Vascular Disorder Additional Past Medical History / Comment(s): See Dr Montelongo's H&P. 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 States has hx of one other stroke but unknown when it happened. Insomnia. History of Any Multi-Drug Resistant Organisms: None Reported Past Surgical History: Bariatric Surgery, Bladder Surgery, Cholecystectomy, Heart Catheterization With Stent, Hysterectomy, Joint Replacement, Orthopedic Surgery, Pacemaker Additional Past Surgical History / Comment(s): Bilateral cataract surgery, gastric sleeve, right rotator cuff repair, left knee replacement, bladder suspension, right carotid endarterectomy, left femur surgery with daniella placed. Past Anesthesia/Blood Transfusion Reactions: No Reported Reaction Date of Last Stent Placement:: Nov 2017 Type of Cardiac Device: Unknown Device Placement Date:: Dual Chamber Pacemaker 01/05. Past Psychological History: Anxiety, Bipolar, Depression Smoking Status: Current every day smoker - Past Family History Mother Family Medical History: No Reported History, Coronary Artery Disease (CAD), Diabetes Mellitus Additional Family Medical History / Comment(s): CABG 4 vessel. Father Family Medical History: Hypertension, Myocardial Infarction (NM) Brother(s) Family Medical History: Coronary Artery Disease (CAD), Myocardial Infarction (NM) Additional Family Medical History / Comment(s): CABG 3 vessel. General Exam Limitations: no limitations General appearance: alert, in no apparent distress, cachectic Head exam: Present: atraumatic, normocephalic, normal inspection Eye exam: Present: normal appearance, PERRL, EOMI. Absent: scleral icterus, conjunctival injection, periorbital swelling ENT exam: Present: normal exam, mucous membranes moist Neck exam: Present: normal inspection. Absent: tenderness, meningismus, lymphadenopathy Respiratory exam: Present: normal lung sounds bilaterally. Absent: respiratory distress, wheezes, rales, rhonchi, stridor Cardiovascular Exam: Present: regular rate, normal rhythm, normal heart sounds. Absent: systolic murmur, diastolic murmur, rubs, gallop, clicks GI/Abdominal exam: Present: soft, normal bowel sounds. Absent: distended, tenderness, guarding, rebound, rigid Extremities exam: Present: normal inspection, full ROM, normal capillary refill. Absent: tenderness, pedal edema, joint swelling, calf tenderness Back exam: Present: normal inspection Neurological exam: Present: alert, oriented X3, CN II-XII intact Psychiatric exam: Present: normal affect, normal mood Skin exam: Present: warm, dry, intact, normal color. Absent: rash Course Vital Signs 11/05/22 11/06/22 11/06/22 23:55 00:04 01:59 Temperature 97.5 F L Pulse Rate 85 75 59 L Respiratory 16 20 20 Rate Blood Pressure 141/53 134/75 112/55 O2 Sat by Pulse 96 96 92 L Oximetry 11/06/22 02:49 Temperature Pulse Rate 59 L Respiratory 16 Rate Blood Pressure 124/53 O2 Sat by Pulse 95 Oximetry - Reevaluation(s) Reevaluation #1: 11/06/22 00:11 Medical record is reviewed Reevaluation #2: 11/06/22 03:36 Patient feeling improved here in the ER is okay for discharge home Reevaluation #3: 11/06/22 03:36 Patient informed results and questions are answered EKG Findings - EKG Comments: EKG Findings:: EKG is sinus 64 HI 145 QRS 87 QTC 421 Medical Decision Making - Medical Decision Making 72 female to the emergency department for evaluation. Patient here in the ER for evaluation regards to dehydration weakness syncope. No recurrent syncope here in the ER feeling better with hydration and can be discharged home - Lab Data Result diagrams: 11/06/22 00:02 11/06/22 00:02 Lab Results 11/06/22 11/06/22 11/06/22 Range/Units 00:02 00:02 00:02 WBC 16.0 H (3.8-10.6) k/uL RBC 4.84 (3.80-5.40) m/uL Hgb 13.3 (11.4-16.0) gm/dL Hct 39.1 (34.0-46.0) % MCV 80.8 (80.0-100.0) fL MCH 27.5 (25.0-35.0) pg MCHC 34.1 (31.0-37.0) g/dL RDW 17.1 H (11.5-15.5) % Plt Count 181 (150-450) k/uL MPV 9.4 Neutrophils % 87 % Lymphocytes % 7 % Monocytes % 4 % Eosinophils % 0 % Basophils % 0 % Neutrophils # 14.0 H (1.3-7.7) k/uL Lymphocytes # 1.2 (1.0-4.8) k/uL Monocytes # 0.6 (0-1.0) k/uL Eosinophils # 0.0 (0-0.7) k/uL Basophils # 0.0 (0-0.2) k/uL Hypochromasia Slight Anisocytosis Slight Microcytosis Slight PT 11.2 (9.0-12.0) sec INR 1.1 (<1.2) APTT 25.1 (22.0-30.0) sec Sodium 138 (137-145) mmol/L Potassium 4.2 (3.5-5.1) mmol/L Chloride 107 (98-107) mmol/L Carbon Dioxide 21 L (22-30) mmol/L Anion Gap 10 mmol/L BUN 22 H (7-17) mg/dL Creatinine 1.07 H (0.52-1.04) mg/dL Est GFR (CKD-EPI)AfAm 61 (>60 ml/min/1.73 sqM) Est GFR (CKD-EPI)NonAf 53 (>60 ml/min/1.73 sqM) Glucose 181 H (74-99) mg/dL Lactic Ac Sepsis Rflx Plasma Lactic Acid Kevin (0.7-2.0) mmol/L Calcium 9.1 (8.4-10.2) mg/dL Phosphorus 4.0 (2.5-4.5) mg/dL Magnesium 1.9 (1.6-2.3) mg/dL Total Bilirubin 0.3 (0.2-1.3) mg/dL AST 18 (14-36) U/L ALT 14 (4-34) U/L Alkaline Phosphatase 57 (38-126) U/L Troponin I (0.000-0.034) ng/mL NT-Pro-B Natriuret Pep pg/mL Total Protein 6.0 L (6.3-8.2) g/dL Albumin 3.6 (3.5-5.0) g/dL TSH 2.480 (0.465-4.680) mIU/L Urine Color Urine Appearance (Clear) Urine pH (5.0-8.0) Ur Specific [place] (1.001-1.035) Urine Protein (Negative) Urine Glucose (UA) (Negative) Urine Ketones (Negative) Urine Blood (Negative) Urine Nitrite (Negative) Urine Bilirubin (Negative) Urine Urobilinogen (<2.0) mg/dL Ur Leukocyte Esterase (Negative) Urine RBC (0-5) /hpf Urine WBC (0-5) /hpf Ur Squamous Epith Cells (0-4) /hpf Urine Bacteria (None) /hpf Cellular Casts (0) /lpf Hyaline Casts (0-2) /lpf Granular Casts (0) /lpf Urine Mucus (None) /hpf 11/06/22 11/06/22 11/06/22 Range/Units 00:02 00:02 00:02 WBC (3.8-10.6) k/uL RBC (3.80-5.40) m/uL Hgb (11.4-16.0) gm/dL Hct (34.0-46.0) % MCV (80.0-100.0) fL MCH (25.0-35.0) pg MCHC (31.0-37.0) g/dL RDW (11.5-15.5) % Plt Count (150-450) k/uL MPV Neutrophils % % Lymphocytes % % Monocytes % % Eosinophils % % Basophils % % Neutrophils # (1.3-7.7) k/uL Lymphocytes # (1.0-4.8) k/uL Monocytes # (0-1.0) k/uL Eosinophils # (0-0.7) k/uL Basophils # (0-0.2) k/uL Hypochromasia Anisocytosis Microcytosis PT (9.0-12.0) sec INR (<1.2) APTT (22.0-30.0) sec Sodium (137-145) mmol/L Potassium (3.5-5.1) mmol/L Chloride (98-107) mmol/L Carbon Dioxide (22-30) mmol/L Anion Gap mmol/L BUN (7-17) mg/dL Creatinine (0.52-1.04) mg/dL Est GFR (CKD-EPI)AfAm (>60 ml/min/1.73 sqM) Est GFR (CKD-EPI)NonAf (>60 ml/min/1.73 sqM) Glucose (74-99) mg/dL Lactic Ac Sepsis Rflx Plasma Lactic Acid Kevin 4.4 H* (0.7-2.0) mmol/L Calcium (8.4-10.2) mg/dL Phosphorus (2.5-4.5) mg/dL Magnesium (1.6-2.3) mg/dL Total Bilirubin (0.2-1.3) mg/dL AST (14-36) U/L ALT (4-34) U/L Alkaline Phosphatase (38-126) U/L Troponin I <0.012 (0.000-0.034) ng/mL NT-Pro-B Natriuret Pep 515 pg/mL Total Protein (6.3-8.2) g/dL Albumin (3.5-5.0) g/dL TSH (0.465-4.680) mIU/L Urine Color Urine Appearance (Clear) Urine pH (5.0-8.0) Ur Specific [place] (1.001-1.035) Urine Protein (Negative) Urine Glucose (UA) (Negative) Urine Ketones (Negative) Urine Blood (Negative) Urine Nitrite (Negative) Urine Bilirubin (Negative) Urine Urobilinogen (<2.0) mg/dL Ur Leukocyte Esterase (Negative) Urine RBC (0-5) /hpf Urine WBC (0-5) /hpf Ur Squamous Epith Cells (0-4) /hpf Urine Bacteria (None) /hpf Cellular Casts (0) /lpf Hyaline Casts (0-2) /lpf Granular Casts (0) /lpf Urine Mucus (None) /hpf 11/06/22 11/06/22 Range/Units 01:12 01:58 WBC (3.8-10.6) k/uL RBC (3.80-5.40) m/uL Hgb (11.4-16.0) gm/dL Hct (34.0-46.0) % MCV (80.0-100.0) fL MCH (25.0-35.0) pg MCHC (31.0-37.0) g/dL RDW (11.5-15.5) % Plt Count (150-450) k/uL MPV Neutrophils % % Lymphocytes % % Monocytes % % Eosinophils % % Basophils % % Neutrophils # (1.3-7.7) k/uL Lymphocytes # (1.0-4.8) k/uL Monocytes # (0-1.0) k/uL Eosinophils # (0-0.7) k/uL Basophils # (0-0.2) k/uL Hypochromasia Anisocytosis Microcytosis PT (9.0-12.0) sec INR (<1.2) APTT (22.0-30.0) sec Sodium (137-145) mmol/L Potassium (3.5-5.1) mmol/L Chloride (98-107) mmol/L Carbon Dioxide (22-30) mmol/L Anion Gap mmol/L BUN (7-17) mg/dL Creatinine (0.52-1.04) mg/dL Est GFR (CKD-EPI)AfAm (>60 ml/min/1.73 sqM) Est GFR (CKD-EPI)NonAf (>60 ml/min/1.73 sqM) Glucose (74-99) mg/dL Lactic Ac Sepsis Rflx Y Plasma Lactic Acid Kevin (0.7-2.0) mmol/L Calcium (8.4-10.2) mg/dL Phosphorus (2.5-4.5) mg/dL Magnesium (1.6-2.3) mg/dL Total Bilirubin (0.2-1.3) mg/dL AST (14-36) U/L ALT (4-34) U/L Alkaline Phosphatase (38-126) U/L Troponin I (0.000-0.034) ng/mL NT-Pro-B Natriuret Pep pg/mL Total Protein (6.3-8.2) g/dL Albumin (3.5-5.0) g/dL TSH (0.465-4.680) mIU/L Urine Color Yellow Urine Appearance Cloudy H (Clear) Urine pH 6.0 (5.0-8.0) Ur Specific [place] 1.015 (1.001-1.035) Urine Protein 1+ H (Negative) Urine Glucose (UA) 1+ H (Negative) Urine Ketones Negative (Negative) Urine Blood Negative (Negative) Urine Nitrite Negative (Negative) Urine Bilirubin Negative (Negative) Urine Urobilinogen 2.0 (<2.0) mg/dL Ur Leukocyte Esterase Negative (Negative) Urine RBC 1 (0-5) /hpf Urine WBC 9 H (0-5) /hpf Ur Squamous Epith Cells 2 (0-4) /hpf Urine Bacteria Rare H (None) /hpf Cellular Casts 3 (0) /lpf Hyaline Casts 20 H (0-2) /lpf Granular Casts 1 (0) /lpf Urine Mucus Few H (None) /hpf Disposition Clinical Impression: Vasovagal syncope, Dehydration Disposition: HOME SELF-CARE Condition: Good Instructions (If sedation given, give patient instructions): Dehydration (ED) Is patient prescribed a controlled substance at d/c from ED?: No Referrals: Chelsie Morales DO [Primary Care Provider] - 1-2 days Time of Disposition: 03:40
[2022-11-06 00:32] LABS: Anisocytosis Slight; Basophils % (A) 0 %; Eosinophils % (A) 0 %; HCT 39.1 % (34.0-46.0); HGB 13.3 gm/dL (11.4-16.0); Hypochromasia Slight; Lymphocytes # (A) 1.2 k/uL (1.0-4.8); Lymphocytes % (A) 7 %; MCH 27.5 pg (25.0-35.0); MCHC 34.1 g/dL (31.0-37.0); MCV 80.8 fL (80.0-100.0); Mean Platelet Volume 9.4; Microcytosis Slight; Monocytes # (A) 0.6 k/uL (0-1.0); Monocytes % (A) 4 %; Neutrophils % (A) 87 %; Platelet Count 181 k/uL (150-450); RBC 4.84 m/uL (3.80-5.40); RDW 17.1 % (11.5-15.5)
[2022-11-06 00:44] LABS: INR 1.1 (<1.2); Partial Thromboplastin Time 25.1 sec (22.0-30.0); Prothrombin Time 11.2 sec (9.0-12.0)
[2022-11-06 00:54] LABS: Albumin 3.6 g/dL (3.5-5.0); Calcium 9.1 mg/dL (8.4-10.2); Magnesium 1.9 mg/dL (1.6-2.3); Potassium 4.2 mmol/L (3.5-5.1); Total Bilirubin 0.3 mg/dL (0.2-1.3)
[2022-11-06] MEDS ORDERED: SODIUM CHLORIDE 0.9% 500 ML 500 ML IV STA (01:29)
[2022-11-06] MEDS ORDERED: SODIUM CHLORIDE 0.9% 1,000 ML IV SCH (01:30)
[2022-11-06 02:13] LABS: Appearance,Urine Cloudy (Clear); Bacteria,Urine Rare /hpf; Bilirubin,Urine Negative (Negative); Blood,Urine Negative (Negative); Cellular Casts,Urine 3 /lpf (0); Color,Urine Yellow; Glucose,Urine (UA) 1+ (Negative); Granular Casts,Urine 1 /lpf (0); Hyaline Casts,Urine 20 /lpf (0-2); Ketones,Urine Negative (Negative); Leukocyte Esterase,Urine Negative (Negative); Mucus,Urine Few /hpf; Nitrite,Urine Negative (Negative); Protein,Urine 1+ (Negative); RBC,Urine 1 /hpf (0-5); Specific Gravity,Urine 1.015 (1.001-1.035); Squamous Epithelial Cell,Urine 2 /hpf (0-4); WBC,Urine 9 /hpf (0-5)
[2022-11-06 02:50] VITALS: RESP 16
[2022-11-06 04:15] VITALS: BP 145/63; PULSE 61
== END 2022-11-06 04:13 | disposition home or self-care (01) ==
LOC: EC 23:51
DX: R55 Syncope and collapse (principal); E86.0 Dehydration; J44.9 Chronic obstructive pulmonary disease, unspecified; E11.9 Type 2 diabetes mellitus without complications; I10 Essential (primary) hypertension; I63.9 Cerebral infarction, unspecified; K21.9 Gastro-esophageal reflux disease without esophagitis; E78.5 Hyperlipidemia, unspecified; Z88.5 Allergy status to narcotic agent; Z91.040 Latex allergy status; F41.9 Anxiety disorder, unspecified; F31.9 Bipolar disorder, unspecified; F17.200 Nicotine dependence, unspecified, uncomplicated; Z79.84 Long term (current) use of oral hypoglycemic drugs; Z79.01 Long term (current) use of anticoagulants; Z79.899 Other long term (current) drug therapy
CPT/HCPCS: 36415; 93005; 83880; 80053; 83605; 83735; 84100; 84443; 84484; 85025; 85610; 85730; 81001; 99284; 96365; 96361 ×4; J0696

== ENCOUNTER → 2023-02-15 | Outpatient (CLI) | payer MEDICARE ==
--- NOTE | 2023-02-16 09:36 | MM ---
Reason for Exam: Screening (asymptomatic). Last mammogram was performed 3 year(s) and 4 month(s) ago. Patient History: Menarche at age 12. First Full-Term at age 22. Hysterectomy at age 32. 2004, Benign Excisional Biopsy on the left side. Risk Values: Shalini 5 year model risk: 2.0%. NCI Lifetime model risk: 5.6%. Prior Study Comparison: 08/07/2014 Screening Mammogram, [facility]. 10/10/2017 Screening Mammogram, [facility]. 10/19/2019 Bilateral Screening Mammogram, [facility]. Tissue Density: There are scattered fibroglandular densities. Findings: Analyzed By CAD. Pattern appears stable. No suspicious groups of microcalcifications, spiculated or lobular masses, architectural distortion or other secondary signs of malignancy are mammographically apparent. Overall Assessment: Negative, BI-RAD 1 Management: Screening Mammogram of both breasts in 1 year. A negative mammogram report should not preclude additional follow up of suspicious palpable abnormalities. Patient should continue monthly self breast exam. A clinical breast exam by your physician is recommended on an annual basis and results should be correlated with mammographic findings. Electronically signed and approved by: Allen Norwood D.O. Radiologis
== END | disposition home or self-care (01) ==
LOC: RADMAMWWP 13:43
PROVIDERS: ATTEND Family Medicine
DX: Z12.31 Encounter for screening mammogram for malignant neoplasm of breast (principal)
CPT/HCPCS: 77063; 77067

== ENCOUNTER 2023-02-25 18:30 | Observation (INO) | payer MEDICARE ==
--- NOTE | 2023-02-25 21:18 | ED ---
General Adult HPI - General Source: patient, EMS Mode of arrival: EMS Limitations: no limitations <Dane Paige - Last Filed: 02/25/23 21:24> <Elliott Kamara - Last Filed: 02/25/23 22:28> - General Chief complaint: Syncope Stated complaint: Seizure Time Seen by Provider: 02/25/23 19:52 - History of Present Illness Initial comments: Dictation was produced using [employer] dictation software. please excuse any grammatical, word or spelling errors. Chief Complaint: 73-year-old female presents emergency Department after syncope History of Present Illness: Patient 73-year-old female she has past medical history of pacemaker. Patient states she is not pacemaker dependent. She presents today after having episode of syncope. Earlier today patient had an CT for evaluation of "'whole-body nerve ending pain." There was no abnormality to her knowledge of the CT. States that she was given oral contrast. Reports that the oral contrast may have caused her to feel nauseated. She had some bouts of vomiting. Is not sure if she had an ALLERGIC reaction to the contrast. Patient denies any chest pain. Denies palpitations. No abdominal pain. No diarrhea. The ROS documented in this emergency department record has been reviewed and confirmed by me. Those systems with pertinent positive or negative responses have been documented in the HPI. All other systems are other negative and/or noncontributory. (Dane Paige) - Related Data Home Medications Medication Instructions Recorded Confirmed Clopidogrel Bisulfate [Plavix] 75 mg PO DAILY 11/19/17 02/25/23 DULoxetine HCL [Cymbalta] 30 mg PO BID 05/22/18 02/25/23 Oxybutynin Chloride [Oxybutynin 10 mg PO HS 03/15/22 02/25/23 Chloride ER] Rosuvastatin Calcium [Crestor] 40 mg PO HS 03/15/22 02/25/23 metFORMIN HCL 500 mg PO DIRECTED PRN 03/15/22 02/25/23 clonazePAM 0.5 mg PO HS PRN 05/26/22 02/25/23 Apixaban [Eliquis] 2.5 mg PO BID 10/20/22 02/25/23 Pregabalin [Lyrica] 150 mg PO TID 10/20/22 02/25/23 lamoTRIgine [LaMICtal] 1.5 tab PO DAILY 10/20/22 02/25/23 Losartan [Cozaar] 100 mg PO DAILY 10/22/22 02/25/23 Amitriptyline HCl 10 mg PO HS 02/25/23 02/25/23 Fluticasone Inhaler - Dose ? 1 dose INHALATION DIRECTED 02/25/23 02/25/23 Pantoprazole [Protonix] 40 mg PO DAILY 02/25/23 02/25/23 Pramipexole [Mirapex] 0.5 mg PO HS 02/25/23 02/25/23 Semaglutide [Ozempic] 0.25 mg SQ Q7D 02/25/23 02/25/23 cilostazoL [Pletal] 100 mg PO DAILY 02/25/23 02/25/23 Allergies Allergy/AdvReac Type Severity Reaction Status Date / Time codeine Allergy Unknown Verified 02/25/23 15:29 Latex, Natural Rubber Allergy Itching Verified 02/25/23 15:29 morphine AdvReac Vomiting Verified 02/25/23 15:29 Review of Systems ROS Other: All systems not noted in ROS Statement are negative. <Dane Paige - Last Filed: 02/25/23 21:24> ROS Other: All systems not noted in ROS Statement are negative. <Elliott Kamara - Last Filed: 02/25/23 22:28> ROS Statement: Those systems with pertinent positive or pertinent negative responses have been documented in the HPI. Past Medical History Past Medical History: COPD, CVA/TIA, Diabetes Mellitus, GERD/Reflux, Hearing Disorder / Deafness, Hyperlipidemia, Hypertension, Osteoarthritis (OA), Vascular Disorder Additional Past Medical History / Comment(s): See Dr Montelongo's H&P. 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 States has hx of one other stroke but unknown when it happened. Insomnia. History of Any Multi-Drug Resistant Organisms: None Reported Past Surgical History: Bariatric Surgery, Bladder Surgery, Cholecystectomy, Heart Catheterization With Stent, Hysterectomy, Joint Replacement, Orthopedic Surgery, Pacemaker Additional Past Surgical History / Comment(s): Bilateral cataract surgery, gastric sleeve, right rotator cuff repair, left knee replacement, bladder suspension, right carotid endarterectomy, left femur surgery with daniella placed. Past Anesthesia/Blood Transfusion Reactions: No Reported Reaction Date of Last Stent Placement:: Nov 2017 Type of Cardiac Device: Unknown Device Placement Date:: Dual Chamber Pacemaker 01/05. Past Psychological History: Anxiety, Bipolar, Depression Smoking Status: Current every day smoker Additional Past Alcohol Use History / Comment(s): Has smoked since age of 29. Quit smoking 2 months ago. - Past Family History Mother Family Medical History: No Reported History, Coronary Artery Disease (CAD), Diabetes Mellitus Additional Family Medical History / Comment(s): CABG 4 vessel. Father Family Medical History: Hypertension, Myocardial Infarction (MS) Brother(s) Family Medical History: Coronary Artery Disease (CAD), Myocardial Infarction (MS) Additional Family Medical History / Comment(s): CABG 3 vessel. <Dane Paige - Last Filed: 02/25/23 21:24> General Exam Limitations: no limitations <Dane Paige - Last Filed: 02/25/23 21:24> - General Exam Comments Initial Comments: PHYSICAL EXAM: General Impression: Alert and oriented x3, not in acute distress HEENT: Normocephalic atraumatic, extra-ocular movements intact, pupils equal and reactive to light bilaterally, mucous membranes moist. Cardiovascular: Heart regular rate and rhythm Chest: Able to complete full sentences, no retractions, no tachypnea Abdomen: abdomen soft, non-tender, non-distended, no organomegaly Musculoskeletal: Pulses present and equal in all extremities, no peripheral edema Motor: no focal deficits noted Neurological: CN II-XII grossly intact, no focal motor or sensory deficits noted Skin: Intact with no visualized rashes Psych: Normal affect and mood (Dane Paige) Course Vital Signs 02/25/23 02/25/23 02/25/23 18:31 18:50 19:00 Temperature 98.6 F Pulse Rate 66 60 63 Respiratory 18 17 18 Rate Blood Pressure 129/48 110/56 110/56 O2 Sat by Pulse 95 99 98 Oximetry 02/25/23 02/25/23 02/25/23 19:10 19:20 19:30 Temperature Pulse Rate 57 L 56 L 60 Respiratory 18 18 16 Rate Blood Pressure 92/76 92/76 92/76 O2 Sat by Pulse 96 98 97 Oximetry 02/25/23 02/25/23 02/25/23 19:40 19:50 20:00 Temperature Pulse Rate 57 L Respiratory 18 Rate Blood Pressure 97/44 97/44 97/44 O2 Sat by Pulse 96 99 98 Oximetry 02/25/23 02/25/23 02/25/23 20:10 20:20 20:30 Temperature Pulse Rate 60 Respiratory Rate Blood Pressure 106/52 106/52 106/52 O2 Sat by Pulse 97 98 98 Oximetry 02/25/23 02/25/23 02/25/23 20:40 20:50 21:00 Temperature Pulse Rate 58 L 57 L 61 Respiratory Rate Blood Pressure 119/59 119/59 119/59 O2 Sat by Pulse 100 97 95 Oximetry 02/25/23 21:10 Temperature Pulse Rate 61 Respiratory Rate Blood Pressure 125/69 O2 Sat by Pulse 99 Oximetry EKG Findings - EKG Comments: EKG Findings:: My EKG interpretation: Ventricular rate 65, sinus rhythm,. 162, QRS 92, QTC 426. No MD prolongation, no QTC prolongation, no ST or T-wave changes noted. EKG compared to 11/05/2022 showing no changes. Overall, this EKG is unremarkable <Dane Paige - Last Filed: 02/25/23 21:24> Medical Decision Making - Lab Data Result diagrams: 02/25/23 20:28 02/25/23 20:28 <Dane Paige - Last Filed: 02/25/23 21:24> - Lab Data Result diagrams: 02/25/23 20:28 02/25/23 20:28 <Elliott Kamara - Last Filed: 02/25/23 22:28> - Medical Decision Making Pacemaker was interrogated. According to the interrogation since 02/08/2023 is no episodes of ventricular tachycardia, fast AV or AT/AF Was pt. sent in by a medical professional or institution (, PA, SLIDE FORMING MACHINE TENDER, urgent care, hospital, or care home...) When possible be specific @ -[No] Did you speak to anyone other than the patient for history (EMS, parent, family, police, friend...)? What history was obtained from this source @ -[No] Did you review nursing and triage notes (agree or disagree)? Why? @ -[I reviewed and agree with nursing and triage notes] Were old charts reviewed (outside hosp., previous admission, EMS record, old EKG, old radiological studies, urgent care reports/EKG's, care home records)? Report findings @ -[No old charts were reviewed] Differential Diagnosis (chest pain, altered mental status, abdominal pain women, abdominal pain men, vaginal bleeding, musculoskeletal, weakness, fever, dyspnea, syncope, headache, dizziness, GI bleed, back pain, seizure, CVA, palpatations, mental health)? @ -Differential Syncope: Valvular disease, hypertrophic cardiomyopathy, pulmonary embolism, tamponade, tachycardia, bradycardia, MS, hypovolemia, hemorrhage, dissection, anemia, intracranial hemorrhage, seizure, hypoglycemia, carbon monoxide poisoning, this is not meant to be an all-inclusive list. EKG interpreted by me (3pts min.). @ -see above X-rays interpreted by me (1pt min.). @ -[None done] CT interpreted by me (1pt min.). @ -[None done] U/S interpreted by me (1pt. min.). @ -[None done] What testing was considered but not performed or refused? (CT, X-rays, U/S, labs)? Why? @ -[None] What meds were considered but not given or refused? Why? @ -[None] Did you discuss the management of the patient with other professionals (professionals i.e. , PA, SLIDE FORMING MACHINE TENDER, lab, RT, psych nurse, home health care social worker, bag worker, teacher, property disposal officer, foster care case manager)? Give summary @ -[No] Was smoking cessation discussed for >3mins.? @ -[No] Was critical care preformed (if so, how long)? @ -[No] Were there social determinants of health that impacted care today? How? (Homelessness, low income, unemployed, alcoholism, drug addiction, transportation, low edu. Level, literacy, decrease access to med. care, alf, rehab)? @ -[No] Was there de-escalation of care discussed even if they declined (Discuss DNR or withdrawal of care, Hospice)? DNR status @ -[No] What co-morbidities impacted this encounter? (DM, HTN, Smoking, COPD, CAD, Cancer, CVA, ARF, Chemo, Hep., AIDS, mental health diagnosis, sleep apnea, morbid obesity)? @ -[None] Was patient admitted / discharged? Hospital course, mention meds given and route, prescriptions, significant lab abnormalities, going to OR and other pertinent info. @ -9-year-old female with cardiac history presents after syncopal episode. EKG is unremarkable. Pacemaker interrogated. Patient is signed out to Dr. Kamara 9:30 PM Undiagnosed new problem with uncertain prognosis? @ -[No] Drug Therapy requiring intensive monitoring for toxicity (Heparin, Nitro, Insulin, Cardizem)? @ -[No] Were any procedures done? @ -[No] Diagnosis/symptom? Acute, or Chronic, or Acute on Chronic? Uncomplicated (without systemic symptoms) or Complicated (systemic symptoms)? @ -[default] Side effects of treatment? @ -[No] Exacerbation, Progression, or Severe Exacerbation? @ -[No] Poses a threat to life or bodily function? How? (Chest pain, USA, MS, pneumonia, PE, COPD, DKA, ARF, appy, cholecystitis, CVA, Diverticulitis, Homicidal, Suicidal, threat to staff... and all critical care pts) @ -yes (Dane Paige) I assumed care of the patient from Dr. Paige. The patient was signed out pending completion the laboratory workup. All laboratory workup was obtained and was within normal limits. Reevaluation, the patient did continue to remain stable however due to the patient's syncopal episode in the setting of pacemaker patient and significant past medical history, the patient will be placed in ob servation to be seen and evaluated by cardiology. The patient was told of this plan and was agreeable. The patient was placed in observation in stable condition. (Elliott Kamara) - Lab Data Lab Results 02/25/23 02/25/23 02/25/23 Range/Units 20:28 20:28 20:53 WBC 8.8 (3.8-10.6) k/uL RBC 4.32 (3.80-5.40) m/uL Hgb 12.1 (11.4-16.0) gm/dL Hct 36.7 (34.0-46.0) % MCV 84.8 (80.0-100.0) fL MCH 27.9 (25.0-35.0) pg MCHC 32.9 (31.0-37.0) g/dL RDW 15.2 (11.5-15.5) % Plt Count 134 L (150-450) k/uL MPV 9.2 Neutrophils % 80 % Lymphocytes % 14 % Monocytes % 5 % Eosinophils % 1 % Basophils % 0 % Neutrophils # 7.0 (1.3-7.7) k/uL Lymphocytes # 1.2 (1.0-4.8) k/uL Monocytes # 0.4 (0-1.0) k/uL Eosinophils # 0.1 (0-0.7) k/uL Basophils # 0.0 (0-0.2) k/uL Sodium 136 L (137-145) mmol/L Potassium 3.9 (3.5-5.1) mmol/L Chloride 106 (98-107) mmol/L Carbon Dioxide 25 (22-30) mmol/L Anion Gap 5 mmol/L BUN 15 (7-17) mg/dL Creatinine 0.65 (0.52-1.04) mg/dL Est GFR (CKD-EPI)AfAm >90 (>60 ml/min/1.73 sqM) Est GFR (CKD-EPI)NonAf 90 (>60 ml/min/1.73 sqM) Glucose 87 (74-99) mg/dL Calcium 8.4 (8.4-10.2) mg/dL Magnesium 2.1 (1.6-2.3) mg/dL Total Bilirubin 0.4 (0.2-1.3) mg/dL AST 17 (14-36) U/L ALT 12 (4-34) U/L Alkaline Phosphatase 52 (38-126) U/L Troponin I 0.021 (0.000-0.034) ng/mL Total Protein 5.7 L (6.3-8.2) g/dL Albumin 3.3 L (3.5-5.0) g/dL Disposition <Dane Paige - Last Filed: 02/25/23 21:24> Is patient prescribed a controlled substance at d/c from ED?: No Time of Disposition: 22:00 Decision to Admit Reason: Admit from EC Decision Date: 02/25/23 Decision Time: 22:00 <Elliott Kmaara - Last Filed: 02/25/23 22:28> Clinical Impression: Syncope Disposition: ADMITTED IP TO THIS HOSP Condition: Stable Referrals: Chelsie Morales DO [Primary Care Provider] - 1-2 days
[2023-02-25 21:20] LABS: Basophils % (A) 0 %; Eosinophils # (A) 0.1 k/uL (0-0.7); Eosinophils % (A) 1 %; HCT 36.7 % (34.0-46.0); HGB 12.1 gm/dL (11.4-16.0); Lymphocytes # (A) 1.2 k/uL (1.0-4.8); Lymphocytes % (A) 14 %; MCH 27.9 pg (25.0-35.0); MCHC 32.9 g/dL (31.0-37.0); MCV 84.8 fL (80.0-100.0); Mean Platelet Volume 9.2; Monocytes # (A) 0.4 k/uL (0-1.0); Monocytes % (A) 5 %; Neutrophils % (A) 80 %; Platelet Count 134 k/uL (150-450); RBC 4.32 m/uL (3.80-5.40); RDW 15.2 % (11.5-15.5); WBC 8.8 k/uL (3.8-10.6)
[2023-02-25 21:23] LABS: ALT 12 U/L (4-34); AST 17 U/L (14-36); African American GFR (CKD) >90 (>60 ml/min/1.73 sqM); Albumin 3.3 g/dL (3.5-5.0); Alkaline Phosphatase 52 U/L (38-126); Anion Gap 5 mmol/L; Blood Urea Nitrogen 15 mg/dL (7-17); Calcium 8.4 mg/dL (8.4-10.2); Carbon Dioxide 25 mmol/L (22-30); Chloride 106 mmol/L (98-107); Glucose 87 mg/dL (74-99); Magnesium 2.1 mg/dL (1.6-2.3); Non-African American GFR(CKD) 90 (>60 ml/min/1.73 sqM); Potassium 3.9 mmol/L (3.5-5.1); Sodium 136 mmol/L (137-145); Total Bilirubin 0.4 mg/dL (0.2-1.3); Total Protein 5.7 g/dL (6.3-8.2)
[2023-02-25] MEDS ORDERED: NALOXONE 0.4 MG/ML 1 ML VIAL IV PRN (22:20)
[2023-02-25] MEDS ORDERED: AMITRIPTYLINE HCL 10 MG TAB PO SCH (23:30)
[2023-02-25] MEDS: PREGABALIN 75 MG CAP PO SCH (23:58)
[2023-02-26] MEDS ORDERED: metFORMIN 500 MG TAB PO PRN (09:00)
[2023-02-26] MEDS ORDERED: LOSARTAN 50 MG TAB PO SCH (09:00)
[2023-02-26] MEDS ORDERED: APIXABAN 2.5 MG TABLET PO SCH (09:00)
[2023-02-26] MEDS ORDERED: CLOPIDOGREL 75 MG TAB PO SCH (09:00)
[2023-02-26] MEDS ORDERED: DULoxetine HCL 30 MG CAPSULE.DR PO SCH (09:00)
[2023-02-26] MEDS: PREGABALIN 75 MG CAP PO SCH ×2 (10:08→16:24)
--- NOTE | 2023-02-26 11:47 | P.CRDCN ---
History of Present Illness History of present illness: This is a pleasant 72-year-old female past medical history significant for sick sinus syndrome status post dual-chamber pacemaker 12/2021, CVA, hypertension, dyslipidemia type 2 diabetes, coronary artery disease status post PCI to the RCA in 2018, former tobacco use, carotid artery stenosis status post bilateral carotid endarterectomy. She follows in the office with Dr. Mirza. We have been asked to see in consultation for syncope/near syncope. Patient has been having intermittent episodes of lightheadedness and dizziness which comes and goes. She states it can occur when she is doing things and when she is sitting. Denies any associated chest pain, shortness breath, nausea or diaphoresis. She additionally has significant nausea and vomiting which is separate. She states she had an episode yesterday when she was sitting on the porch and felt like she was nearly given a pass out and symptoms persisted for a few hours. Her recommended to her to go to the emergency department however she states symptoms are somewhat similar to prior episodes. Her blood pressure has been labile with significantly lower numbers on the left arm than the right however these were done in our part. She denies any history of subclavian stenosis however does admit to some weakness on the left side when she over works the left side. She had bilateral carotid endarterectomy performed by Dr. Montelongo and states she had recent carotid ultrasound a few weeks ago which was reportedly normal. After that episode she admitted to feeling nauseous and throwing up the contrast that she was given. She denies any actual abdominal pain. She admits that she eats too much she will get nauseous and throw up and attributes this to her prior gastric sleeve. REVIEW OF SYSTEMS At the time of my exam: CONSTITUTIONAL: Denies fever or chills. CARDIOVASCULAR: Denies chest pain, shortness of breath, orthopnea, PND or palpitations. RESPIRATORY: Denies cough. GASTROINTESTINAL: Denies abdominal pain, diarrhea, constipation, nausea or vomiting. MUSCULOSKELETAL: Denies myalgias. NEUROLOGIC: Denies numbness, tingling, headacbe or weakness. ENDOCRINE: Denies fatigue, weight change, polydipsia or polyurina. GENITOURINARY: Denies burning, hematuria or urgency with micturation. HEMATOLOGIC: Denies history of anemia or bleeding. PHYSICAL EXAMINATION Vitals reviewed CONSTITUTIONAL: No apparent distress. HEENT: Head is normocephalic. Pupils are equal, round. Sclerae anicteric. Mucous membranes of the mouth are moist. No JVD. No carotid bruit. CHEST EXAMINATION: Lungs are clear to auscultation. No chest wall tenderness is noted on palpation or with deep breathing. HEART EXAMINATION: Regular rate and rhythm. S1, S2 heard. No murmurs, gallops or rub. ABDOMEN: Soft, nontender. Positive bowel sounds. EXTREMITIES: 2+ peripheral pulses, no lower extremity edema and no calf tenderness. NEUROLOGIC EXAMINATION: Patient is awake, alert and oriented x3. Left arm and left leg weakness noted ASSESSMENT Recurrent intermittent episodes of lightheadedness more concerning for hypotension with variable blood pressures. Patient scheduled for tilt table as an outpatient Discrepancy between left and right blood pressure, rule out subclavian stenosis, subclavian steal syndrome History of bilateral carotid stenosis status post carotid endarterectomy History of CVA Sick sinus syndrome status post dual-chamber pacemaker 12/2021 Hypertension Dyslipidemia Type 2 diabetes Coronary artery disease status post PCI to the RCA in 2018, former tobacco use PLAN No significant arrhythmias noted on telemetry. Symptoms appear more likely related to hypotensive episodes and possibly subclavian steal syndrome. Check blood pressures on both sides and evaluate for any discrepancy. Check orthos tatic vitals. Decrease losartan to 50 mg daily and allow for mild permissive hypertension. Check repeat troponin for completeness sake. If patient feeling better, some of workup may be performed outpatient as symptoms have been going on for a few months. Tilt table has already been scheduled outpatient. Past Medical History Past Medical History: COPD, CVA/TIA, Diabetes Mellitus, GERD/Reflux, Hearing Disorder / Deafness, Hyperlipidemia, Hypertension, Osteoarthritis (OA), Vascular Disorder Additional Past Medical History / Comment(s): Hx CVA 03/15/22 with residual left sided nerve pain, hearing loss left ear, urinary incontinence. States has hx of one other stroke but unknown when it happened. PAD. Insomnia. History of Any Multi-Drug Resistant Organisms: None Reported Past Surgical History: Bariatric Surgery, Bladder Surgery, Cholecystectomy, Heart Catheterization With Stent, Hysterectomy, Joint Replacement, Orthopedic Surgery, Pacemaker Additional Past Surgical History / Comment(s): Bilateral cataract surgery, gastric sleeve, right rotator cuff repair, left knee replacement, bladder suspension, right and left carotid endarterectomy, left femur surgery with daniella placed. 4 cardiac stents. Past Anesthesia/Blood Transfusion Reactions: No Reported Reaction Date of Last Stent Placement:: Nov 2017 Type of Cardiac Device: Unknown Device Placement Date:: Dual Chamber Pacemaker 01/05. Past Psychological History: Anxiety, Bipolar, Depression Smoking Status: Current some day smoker Past Alcohol Use History: Abuse Past Drug Use History: None Reported - Past Family History Mother Family Medical History: No Reported History, Coronary Artery Disease (CAD), Diabetes Mellitus Additional Family Medical History / Comment(s): CABG 4 vessel. Father Family Medical History: Hypertension, Myocardial Infarction ([place]) Brother(s) Family Medical History: Coronary Artery Disease (CAD), Myocardial Infarction ([place]) Additional Family Medical History / Comment(s): CABG 3 vessel. Medications and Allergies Home Medications Medication Instructions Recorded Confirmed Type Clopidogrel Bisulfate [Plavix] 75 mg PO DAILY 11/19/17 02/25/23 History DULoxetine HCL [Cymbalta] 30 mg PO BID 05/22/18 02/25/23 History Oxybutynin Chloride [Oxybutynin 10 mg PO HS 03/15/22 02/25/23 History Chloride ER] Rosuvastatin Calcium [Crestor] 40 mg PO HS 03/15/22 02/25/23 History metFORMIN HCL 500 mg PO DAILY PRN 03/15/22 02/25/23 History clonazePAM 0.5 mg PO HS PRN 05/26/22 02/25/23 History Apixaban [Eliquis] 2.5 mg PO BID 10/20/22 02/25/23 History Pregabalin [Lyrica] 150 mg PO TID 10/20/22 02/25/23 History lamoTRIgine [LaMICtal] 225 mg PO HS 10/20/22 02/25/23 History Amitriptyline HCl 10 mg PO HS 02/25/23 02/25/23 History Ezetimibe [Zetia] 10 mg PO DAILY 02/25/23 02/25/23 History Fluticasone Propion/Salmeterol 1 puff INHALATION RT-HS 02/25/23 02/25/23 History [Fluticasone-Salmeterol 250-50] Losartan Potassium 100 mg PO DAILY 02/25/23 02/25/23 History Pantoprazole [Protonix] 40 mg PO HS 02/25/23 02/25/23 History Pramipexole [Mirapex] 0.5 mg PO HS 02/25/23 02/25/23 History Semaglutide [Ozempic] 0.25 mg SQ MO 02/25/23 02/25/23 History cilostazoL [Pletal] 100 mg PO BID 02/25/23 02/25/23 History Allergies Allergy/AdvReac Type Severity Reaction Status Date / Time codeine Allergy Unknown Verified 02/25/23 22:32 Latex, Natural Rubber Allergy Itching Verified 02/25/23 22:32 morphine AdvReac Vomiting Verified 02/25/23 22:32 Physical Exam Vitals: Vital Signs Temp Pulse Pulse Resp BP BP Pulse Ox 02/26/23 07:00 98.4 F 60 16 188/65 96 02/26/23 02:40 16 02/26/23 02:32 97.8 F 57 L 16 186/68 100 02/26/23 01:52 56 L 16 139/62 97 02/25/23 22:30 59 L 17 116/73 98 02/25/23 22:00 60 16 146/67 95 02/25/23 21:30 58 L 18 125/69 99 02/25/23 21:10 61 125/69 99 02/25/23 21:00 61 119/59 95 02/25/23 20:50 57 L 119/59 97 02/25/23 20:40 58 L 119/59 100 02/25/23 20:30 60 106/52 98 02/25/23 20:20 106/52 98 02/25/23 20:10 106/52 97 02/25/23 20:00 97/44 98 02/25/23 19:50 97/44 99 02/25/23 19:40 57 L 18 97/44 96 02/25/23 19:30 60 16 92/76 97 02/25/23 19:20 56 L 18 92/76 98 02/25/23 19:10 57 L 18 92/76 96 02/25/23 19:00 63 18 110/56 98 02/25/23 18:50 60 17 110/56 99 02/25/23 18:31 98.6 F 66 18 129/48 95 Intake and Output 02/25/23 02/26/23 02/26/23 22:59 06:59 14:59 Other: Voiding Method Toilet # Voids 2 Weight 54.431 kg 54.431 kg Results 02/25/23 20:28 02/25/23 20:28 Cardiac Enzymes 02/25/23 02/25/23 Range/Units 20:28 20:53 AST 17 (14-36) U/L Troponin I 0.021 (0.000-0.034) ng/mL CBC 02/25/23 Range/Units 20:28 WBC 8.8 (3.8-10.6) k/uL RBC 4.32 (3.80-5.40) m/uL Hgb 12.1 (11.4-16.0) gm/dL Hct 36.7 (34.0-46.0) % Plt Count 134 L (150-450) k/uL Comprehensive Metabolic Panel 02/25/23 Range/Units 20:28 Sodium 136 L (137-145) mmol/L Potassium 3.9 (3.5-5.1) mmol/L Chloride 106 (98-107) mmol/L Carbon Dioxide 25 (22-30) mmol/L BUN 15 (7-17) mg/dL Creatinine 0.65 (0.52-1.04) mg/dL Glucose 87 (74-99) mg/dL Calcium 8.4 (8.4-10.2) mg/dL AST 17 (14-36) U/L ALT 12 (4-34) U/L Alkaline Phosphatase 52 (38-126) U/L Total Protein 5.7 L (6.3-8.2) g/dL Albumin 3.3 L (3.5-5.0) g/dL Current Medications Generic Name Dose Route Start Last Admin Trade Name Freq PRN Reason Stop Dose Admin Amitriptyline HCl 10 mg 02/25/23 23:30 02/25/23 23:58 Amitriptyline Hcl 10 Mg Tab PO 10 mg HS HORACE Administration Apixaban 2.5 mg 02/26/23 09:00 02/26/23 10:05 Apixaban 2.5 Mg Tablet PO 2.5 mg BID HORACE Administration Protocol Budesonide/Formoterol Fumarate 2 puff 02/26/23 20:00 Symbicort 80-4.5 Mcg Inhaler INHALATION RT-BID [facility] Clopidogrel Bisulfate 75 mg 02/26/23 09:00 02/26/23 10:05 Clopidogrel 75 Mg Tab PO 75 mg DAILY HORACE Administration Duloxetine HCl 30 mg 02/26/23 09:00 02/26/23 10:06 Duloxetine Hcl 30 Mg Capsule.Dr PO 30 mg BID HORACE Administration Lamotrigine 200 mg 02/26/23 21:00 Lamotrigine 100 Mg Tab PO HS HORACE Lamotrigine 25 mg 02/26/23 21:00 Lamotrigine 25 Mg Tab PO HS HORACE Losartan Potassium 50 mg 02/27/23 09:00 Losartan 50 Mg Tab PO DAILY HORACE Metformin HCl 500 mg 02/26/23 09:00 Metformin 500 Mg Tab PO DAILY PRN Blood Sugar - High Naloxone HCl 0.2 mg 02/25/23 22:20 Naloxone 0.4 Mg/Ml 1 Ml Vial IV Q2M PRN Opioid Reversal Pantoprazole Sodium 40 mg 02/26/23 21:00 Pantoprazole 40 Mg Tablet PO HS HORACE Pramipexole Dihydrochloride 0.5 mg 02/26/23 21:00 Pramipexole 0.5 Mg Tab PO HS HORACE Pregabalin 150 mg 02/25/23 23:30 02/26/23 10:08 Pregabalin 75 Mg Cap PO 150 mg TID HORACE Administration Intake and Output 02/25/23 02/26/23 02/26/23 22:59 06:59 14:59 Other: Voiding Method Toilet # Voids 2 Weight 54.431 kg 54.431 kg 02/25/23 20:28 02/25/23 20:28
--- NOTE | 2023-02-26 15:07 | P.HPIM ---
History of Present Illness H&P Date: 02/26/23 Chief Complaint: Syncope Patient is a 73-year-old female with a known history of coronary artery disease history of stent placement, sick sinus syndrome status post dual-chamber pacemaker in December 2021, hypertension, hyperlipidemia, history of bilateral carotid endarterectomy, history of TIA and left-sided neural pain as per patient and further medical problems including anxiety/depression and bipolar disorder and currently some day smoker presents to ER with complaints of dizziness or lightheadedness. Patient felt foggy when she was sitting on the couch at home. Patient did have CT of the abdominal pelvis and chest this morning to workup for unintentional weight loss.Patient felt nauseous when contrast was given prior to computed tomography scan this morning. Patient felt dizzy and lightheadedness. Denied any complaints of associated shortness of breath chest pain. No nausea vomiting or diaphoresis. Patient has been having the symptoms and is being worked up as an outpatient. Patient is also scheduled for tilt table test. Patient has issues with nausea and also prior history of gastric sleeve surgery. EKG showed sinus rhythm. Low voltage QRS in the precordial leads. Laboratory data showed WBC 8.8 hemoglobin 12.1 and platelets 134, sodium 136 potassium 3.9 chloride 106 bicarb is 25 BUN 15 and creatinine 0.65 and troponin 2 negative Patient's blood pressure was 92/76 with heart rate 57 on admission. Review of Systems Constitutional: Patient denies any fever or chills . No generalized weakness or weight loss. Abdomen: Patient denied nausea vomiting and diarrhea and abdominal pain. Cardiovascular: Patient denies any chest pain or short of breath no palpitations. Respiratory: patient denied any cough is from production. No shortness of breath Neurologic: Patient denied any numbness or tingling headache. Musculoskeletal: Patient denies any complaints of joint swelling or deformity. Skin: Negative Psychiatric: Negative Endocrine: No heat or cold intolerance. No recent weight gain. Genitourinary: No dysuria or hematuria. All other 14 point ROS negative except the above Past Medical History Past Medical History: COPD, CVA/TIA, Diabetes Mellitus, GERD/Reflux, Hearing Disorder / Deafness, Hyperlipidemia, Hypertension, Osteoarthritis (OA), Vascular Disorder Additional Past Medical History / Comment(s): Hx CVA 03/15/22 with residual left sided nerve pain, hearing loss left ear, urinary incontinence. States has hx of one other stroke but unknown when it happened. PAD. Insomnia. History of Any Multi-Drug Resistant Organisms: None Reported Past Surgical History: Bariatric Surgery, Bladder Surgery, Cholecystectomy, Heart Catheterization With Stent, Hysterectomy, Joint Replacement, Orthopedic Surgery, Pacemaker Additional Past Surgical History / Comment(s): Bilateral cataract surgery, gastric sleeve, right rotator cuff repair, left knee replacement, bladder suspension, right and left carotid endarterectomy, left femur surgery with daniella placed. 4 cardiac stents. Past Anesthesia/Blood Transfusion Reactions: No Reported Reaction Date of Last Stent Placement:: Nov 2017 Type of Cardiac Device: Unknown Device Placement Date:: Dual Chamber Pacemaker 01/05. Past Psychological History: Anxiety, Bipolar, Depression Smoking Status: Current some day smoker Past Alcohol Use History: Abuse Past Drug Use History: None Reported - Past Family History Mother Family Medical History: No Reported History, Coronary Artery Disease (CAD), Diabetes Mellitus Additional Family Medical History / Comment(s): CABG 4 vessel. Father Family Medical History: Hypertension, Myocardial Infarction ([place]) Brother(s) Family Medical History: Coronary Artery Disease (CAD), Myocardial Infarction ([place]) Additional Family Medical History / Comment(s): CABG 3 vessel. Medications and Allergies Home Medications Medication Instructions Recorded Confirmed Type Clopidogrel Bisulfate [Plavix] 75 mg PO DAILY 11/19/17 02/25/23 History DULoxetine HCL [Cymbalta] 30 mg PO BID 05/22/18 02/25/23 History Oxybutynin Chloride [Oxybutynin 10 mg PO HS 03/15/22 02/25/23 History Chloride ER] Rosuvastatin Calcium [Crestor] 40 mg PO HS 03/15/22 02/25/23 History metFORMIN HCL 500 mg PO DAILY PRN 03/15/22 02/25/23 History clonazePAM 0.5 mg PO HS PRN 05/26/22 02/25/23 History Apixaban [Eliquis] 2.5 mg PO BID 10/20/22 02/25/23 History Pregabalin [Lyrica] 150 mg PO TID 10/20/22 02/25/23 History lamoTRIgine [LaMICtal] 225 mg PO HS 10/20/22 02/25/23 History Amitriptyline HCl 10 mg PO HS 02/25/23 02/25/23 History Ezetimibe [Zetia] 10 mg PO DAILY 02/25/23 02/25/23 History Fluticasone Propion/Salmeterol 1 puff INHALATION RT-HS 02/25/23 02/25/23 History [Fluticasone-Salmeterol 250-50] Pantoprazole [Protonix] 40 mg PO HS 02/25/23 02/25/23 History Pramipexole [Mirapex] 0.5 mg PO HS 02/25/23 02/25/23 History Semaglutide [Ozempic] 0.25 mg SQ MO 02/25/23 02/25/23 History cilostazoL [Pletal] 100 mg PO BID 02/25/23 02/25/23 History Losartan [Cozaar] 50 mg PO DAILY #30 tab 02/26/23 Rx Allergies Allergy/AdvReac Type Severity Reaction Status Date / Time codeine Allergy Unknown Verified 02/25/23 22:32 Latex, Natural Rubber Allergy Itching Verified 02/25/23 22:32 morphine AdvReac Vomiting Verified 02/25/23 22:32 Physical Exam Vitals: Vital Signs Temp Pulse Pulse Resp BP BP Pulse Ox 02/26/23 07:00 98.4 F 60 16 188/65 96 02/26/23 02:40 16 02/26/23 02:32 97.8 F 57 L 16 186/68 100 02/26/23 01:52 56 L 16 139/62 97 02/25/23 22:30 59 L 17 116/73 98 02/25/23 22:00 60 16 146/67 95 02/25/23 21:30 58 L 18 125/69 99 02/25/23 21:10 61 125/69 99 02/25/23 21:00 61 119/59 95 02/25/23 20:50 57 L 119/59 97 02/25/23 20:40 58 L 119/59 100 02/25/23 20:30 60 106/52 98 02/25/23 20:20 106/52 98 02/25/23 20:10 106/52 97 02/25/23 20:00 97/44 98 02/25/23 19:50 97/44 99 02/25/23 19:40 57 L 18 97/44 96 02/25/23 19:30 60 16 92/76 97 02/25/23 19:20 56 L 18 92/76 98 02/25/23 19:10 57 L 18 92/76 96 02/25/23 19:00 63 18 110/56 98 02/25/23 18:50 60 17 110/56 99 02/25/23 18:31 98.6 F 66 18 129/48 95 Intake and Output 02/25/23 02/26/23 02/26/23 22:59 06:59 14:59 Other: Voiding Method Toilet # Voids 2 Weight 54.431 kg 54.431 kg PHYSICAL EXAMINATION: Patient is lying in the bed comfortably, no acute distress, awake alert and oriented.. HEENT: Normocephalic. Neck is supple. Pupils reactive. Nostrils clear. Oral cavity is moist. Neck reveals no JVD, carotid bruits, or thyromegaly. CHEST EXAMINATION: Trachea is central. Symmetrical expansion. Lung contreras clear to auscultation and percussion. CARDIAC: Normal S1, S2 with no gallops. No murmurs ABDOMEN: Soft. Bowel sounds normal. No organomegaly. No abdominal bruits. Extremities: reveal no edema. No clubbing or cyanosis Neurologically awake, alert, oriented x3 with well-coordinated movements. No focal deficits noted Skin: No rash or skin lesions. Psychiatric: Coperative. Nonsuicidal Musculoskeletal: No joint swelling or deformity. Normal range of motion. Results CBC & Chem 7: 02/25/23 20:28 02/25/23 20:28 Labs: Abnormal Lab Results - Last 24 Hours (Table) 02/25/23 02/25/23 Range/Units 20:28 20:28 Plt Count 134 L (150-450) k/uL Sodium 136 L (137-145) mmol/L Total Protein 5.7 L (6.3-8.2) g/dL Albumin 3.3 L (3.5-5.0) g/dL Thrombosis Risk Factor Assmnt - DVT/VTE Prophylaxis DVT/VTE Prophylaxis: Pharmacologic Prophylaxis ordered - Choose All That Apply Each Factor Represents 1 point: Abnormal pulmonary function (COPD) Each Risk Factor Represents 2 Points: Age 61-74 years Thrombosis Risk Factor Assessment Total Risk Factor Score: 3 Thrombosis Risk Factor Assessment Level: Moderate Risk Assessment and Plan Assessment: Dizziness and lightheadedness likely due to hypotension on admission. Denied loss of consciousness. Rule out orthostatic hypotension. Patient is scheduled for outpatient tilt table test. Coronary artery disease history of stent placement 4. Sick sinus syndrome status post dual-chamber pacemaker placement in December 2021 History of CVA/TIA with left-sided paresthesias as per patient. No compressive weakness. History of bilateral carotid endarterectomy Hypertension Diabetes type 2 non-insulin dependent Hyperlipidemia Hearing loss left ear Urinary incontinence Peripheral vascular disease Anxiety/depression and bipolar disorder Currently some day smoker History of gastric sleeve surgery DVT prophylaxis with heparin subcu Plan: Patient will be continued on telemetry monitoring. Orthostatic vitals were ordered. Continue to follow serial EKGs and troponins 3. Patient already scheduled for tilt table test as an outpatient. Cardiology was consulted for evaluation. Otherwise patient did improve symptomatically. Continue with home medications and monitor blood pressure closely. Time with Patient: Greater than 30
[2023-02-26 15:10] VITALS: BP 163/70; PULSE 62; RESP 18; TEMP 98.1
[2023-02-26] MEDS ORDERED: SYMBICORT 80-4.5 MCG INHALER INHALATION SCH (20:00)
[2023-02-26] MEDS ORDERED: PANTOPRAZOLE 40 MG TABLET PO SCH (21:00)
[2023-02-26] MEDS ORDERED: lamoTRIgine 100 MG TAB PO SCH (21:00)
[2023-02-26] MEDS ORDERED: lamoTRIgine 25 MG TAB PO SCH (21:00)
[2023-02-26] MEDS ORDERED: PRAMIPEXOLE 0.5 MG TAB PO SCH (21:00)
[2023-02-27] MEDS ORDERED: LOSARTAN 50 MG TAB PO SCH (09:00)
== END 2023-02-26 16:30 | disposition home or self-care (01) ==
LOC: EC 18:30 → 6NMEDSUR 22:25
PROVIDERS: ADMIT Internal Medicine; ATTEND Internal Medicine
DX: R55 Syncope and collapse (principal); R42 Dizziness and giddiness; Z98.890 Other specified postprocedural states; I49.5 Sick sinus syndrome; Z95.0 Presence of cardiac pacemaker; Z86.73 Personal history of transient ischemic attack (TIA), and cerebral infarction without residual deficits; I10 Essential (primary) hypertension; E78.5 Hyperlipidemia, unspecified; Z87.891 Personal history of nicotine dependence; J44.9 Chronic obstructive pulmonary disease, unspecified; E11.51 Type 2 diabetes mellitus with diabetic peripheral angiopathy without gangrene; M19.90 Unspecified osteoarthritis, unspecified site; H91.92 Unspecified hearing loss, left ear; R32 Unspecified urinary incontinence; G47.00 Insomnia, unspecified; Z98.84 Bariatric surgery status; Z90.49 Acquired absence of other specified parts of digestive tract; Z95.5 Presence of coronary angioplasty implant and graft; Z98.42 Cataract extraction status, left eye; Z98.41 Cataract extraction status, right eye; Z96.652 Presence of left artificial knee joint; F41.9 Anxiety disorder, unspecified; F31.9 Bipolar disorder, unspecified; F10.11 Alcohol abuse, in remission; Z83.3 Family history of diabetes mellitus; Z82.49 Family history of ischemic heart disease and other diseases of the circulatory system; Z79.01 Long term (current) use of anticoagulants; Z79.84 Long term (current) use of oral hypoglycemic drugs; Z79.02 Long term (current) use of antithrombotics/antiplatelets; Z79.899 Other long term (current) drug therapy; Z88.5 Allergy status to narcotic agent; Z91.040 Latex allergy status
CPT/HCPCS: 99285; 36415; 93005; 80053; 83735; 84484 ×2; 85025; G0378 ×2

== ENCOUNTER → 2023-02-25 | Outpatient (CLI) | payer MEDICARE ==
[2023-02-25 13:35] LABS: African American GFR (CKD) >90 (>60 ml/min/1.73 sqM); Blood Urea Nitrogen 14 mg/dL (7-17); Non-African American GFR(CKD) >90 (>60 ml/min/1.73 sqM)
--- NOTE | 2023-02-25 15:12 | CT ---
EXAMINATION TYPE: CT ChestAbdPelvis w con CT DLP: 1306 mGycm, Automated exposure control for dose reduction was used. DATE OF EXAM: 02/25/2023 2:23 PM COMPARISON: CTA abdomen aorta with runoff 09/06/2022, CT chest 09/27/2019, CT abdomen pelvis 8. CLINICAL INDICATION:Female, 73 years old with history of R63.4 J44.9 F17.200; PHH, abnormal weight lo ss Technique: Multiple axial images of the chest, abdomen, and pelvis were obtained following the intrav enous administration of 100 mL Isovue-300. Oral contrast was administered. Two-dimensional coronal an d sagittal reconstructions were obtained. Findings: CHEST: LUNGS/ PLEURA: No pneumothorax, pleural effusion, focal consolidation. Stable 4 mm posterior right up per lobe pulmonary nodule (series 4, image 12). Stable 4 mm left upper lobe pulmonary nodule (series 4, image 17). These are both considered benign due to stability dating back to 2019. No new or enlar ging pulmonary nodules. AIRWAY: Patent and unremarkable.. HEART: Cardiomegaly is demonstrated. No pericardial effusion. Moderate coronary artery calcifications . MEDIASTINUM: No gross evidence of adenopathy. VASCULATURE: No aortic aneurysm. Chest wall dual lead cardiac pacemaking device. Mild atheroscleroti c calcification of the aorta and its branches. MUSCULOSKELETAL: No acute osseous abnormalities. Fixation changes of the left proximal femur. SOFT TISSUES/LYMPH NODES: Multiple subcentimeter nodules demonstrated within the thyroid gland. LOWER NECK: No significant findings. ABDOMEN: ABDOMEN LIVER: Unremarkable GALLBLADDER AND BILE DUCTS: Unremarkable. PANCREAS: Unremarkable. SPLEEN: Subcentimeter hypodense lesion which is statistically benign. ADRENAL GLANDS: Stable bilateral adrenal gland nodules previously described as benign lipid rich jd omas. KIDNEYS AND URETERS: No evidence of hydronephrosis or renal calculus. The kidneys enhance symmetrical ly. Bilateral subcentimeter hypodense lesions which are too small to characterize but likely represen t cysts. PELVIS BLADDER: Unremarkable REPRODUCTIVE: The uterus is surgically absent. ABDOMEN & PELVIS STOMACH AND BOWEL: Postsurgical changes from gastric bypass. Contrast reaches the distal small bowel. Distal colonic diverticulosis without evidence for acute diverticulitis. No evidence of bowel obstru ction. PERITONEUM: No evidence of pneumoperitoneum or free fluid. VASCULATURE: Severe atherosclerotic calcifications are present throughout the abdominal aorta and its branches. No abdominal aortic aneurysm. 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 MUSCULOSKELETAL: No acute osseous abnormalities. No aggressive osseous lesion. LYMPH NODES: No gross evidence for lymphadenopathy. SOFT TISSUE/ABDOMINAL WALL: Unremarkable IMPRESSION: 1. No acute process within the chest, abdomen, and pelvis. 2. No CT evidence for malignancy. No pathologic lymphadenopathy. 3. Distal colonic diverticulosis without evidence for acute diverticulitis. 4. Stable bilateral adrenal gland nodules previously described as benign lipid rich adenomas.
== END | disposition home or self-care (01) ==
LOC: RADCTMAIN 12:23
PROVIDERS: ATTEND Family Medicine
DX: J44.9 Chronic obstructive pulmonary disease, unspecified (principal); E27.8 Other specified disorders of adrenal gland; R63.4 Abnormal weight loss; F17.200 Nicotine dependence, unspecified, uncomplicated; K57.30 Diverticulosis of large intestine without perforation or abscess without bleeding
CPT/HCPCS: 82565; 84520; 71260; 74177; 36415; Q9967

== ENCOUNTER 2023-03-03 07:47 | Day surgery (SDC) | payer MEDICARE ==
[2023-02-25 15:54] VITALS: BMI 21.2
[~2023-03-03 07:47] MED LIST changes: -LIDOCAINE 1% (10MG/ML) FOR IV START INTRADERMA PRN; -ONDANSETRON 4 MG/2 ML VIAL IVP ONE; -ONDANSETRON 4 MG/2 ML VIAL IVP PRN; +SODIUM CHLORIDE 0.9% 1,000 ML IV SCH
[2023-03-03 08:20] LABS: Glucose,Whole Blood 86 mg/dL (70-110)
[2023-03-03 08:22] VITALS: BP 197/79; PULSE 55; RESP 18; TEMP 98.6
[2023-03-03] MEDS ORDERED: ONDANSETRON 4 MG/2 ML VIAL ONE (09:25)
[2023-03-03] MEDS ORDERED: ONDANSETRON 4 MG/2 ML VIAL IVP STA (10:00)
[2023-03-03] MEDS ORDERED: LOSARTAN 50 MG TAB PO STA (10:23)
--- NOTE | 2023-03-03 10:30 | P.EPPROC ---
- EP Procedure Note Electrophysiology Procedure Note: Diagnosis Recurrent syncope often with headache nausea 12-lead EKG shows sinus mechanism normal OK narrow QRS normal ST segments normal QT interval Tilt table test for protocol Baseline blood pressure 183/79 mmHg Baseline heart rate 51 beats a minute. Corresponding blood pressures by [employer] were also elevated 151/93 mmHg Patient was tilted upright at the angle of 70 per protocol her blood pressure remained elevated but she started complaining of being lightheaded nauseous and threw up. Her blood pressure spiked to almost 224/100 mmHg and she started to lose consciousness She was laid supine. No evidence for dysautonomia/orthostatic hypotension syndrome or neurocardiogenic syncope Pacemaker interrogation Medtronic device dual-chamber, normal pacemaker function Longevity 40 years Atrial pacing impedance 722 ohms RV pacing impedance 437 ohms Atrial pacing threshold 0.4 1.4 ms RV pacing thresholds 1.2 V at 0.4 ms P waves 2.8 mV R waves 5.4 mV No arrhythmias Ventricular pacing less than ointment 1% line atrial pacing 4% Impression Normal twelve-lead EKG Normal Medtronic dual-chamber pacemaker function, no arrhythmias Tilt table test revealed severely hypertensive response associated with her usual symptoms Patient stated that this resembled her clinical episodes Plan Secondary hypertension workup. Serum aldosterone, plasma renin and metanephrines and cortisol levels sent Renal artery Doppler study scheduled as an outpatient Increase losartan to 150 mg per day in split doses, 100 mg in the morning and 50 mg in the evening Follow-up in the office in 3-4 weeks
[2023-03-03 16:06] LABS: Chol/HDL Ratio 4.59 Ratio
== END 2023-03-03 10:52 | disposition home or self-care (01) ==
LOC: CATHEP 07:47
PROVIDERS: ATTEND Internal Medicine Clinical Cardiac Electrophysiology
DX: R55 Syncope and collapse (principal); I10 Essential (primary) hypertension; E11.9 Type 2 diabetes mellitus without complications; Z82.49 Family history of ischemic heart disease and other diseases of the circulatory system; Z79.01 Long term (current) use of anticoagulants; Z88.5 Allergy status to narcotic agent; Z88.8 Allergy status to other drugs, medicaments and biological substances; Z79.899 Other long term (current) drug therapy
CPT/HCPCS: 93660; 83835; 80061; 82533; 82088; 84244; J2405

== ENCOUNTER → 2023-06-09 | Outpatient (CLI) | payer MEDICARE ==
[2023-06-09 13:38] LABS: INR 0.9 (<1.2); Partial Thromboplastin Time 22.6 sec (22.0-30.0); Prothrombin Time 9.6 sec (9.0-12.0)
[2023-06-09 18:20] LABS: Basophils # (A) 0.05 X 10*3/uL (0.00-0.10); Basophils % (A) 0.6 %; Eosinophils # (A) 0.06 X 10*3/uL (0.04-0.35); Eosinophils % (A) 0.7 %; HCT 42.8 % (37.2-46.3); HGB 13.3 d/dL (12.0-15.0); Lymphocytes # (A) 1.96 X 10*3/uL (0.90-5.00); Lymphocytes % (A) 23.9 %; MCHC 31.1 d/dL (32.0-37.0); MCV 90.1 FL (80.0-97.0); Mean Platelet Volume 11.9 FL (9.5-12.2); Monocytes # (A) 0.57 X 10*3/uL (0.20-1.00); Monocytes % (A) 6.9 %; NRBC Per 100 WBC 0 X 10*3/uL (0.00-0.01); Neutrophils # (A) 5.55 X 10*3/uL (1.80-7.70); Neutrophils % (A) 67.7 %; Platelet Count 213 X 10*3/uL (140-440); RBC 4.75 X 10*6/uL (4.10-5.20); RDW 15.9 % (11.5-14.5); WBC 8.21 X 10*3/uL (4.50-10.00)
== END | disposition home or self-care (01) ==
LOC: LABWHC1 11:35
PROVIDERS: ATTEND Family Medicine
DX: Z01.812 Encounter for preprocedural laboratory examination (principal)
CPT/HCPCS: 36415; 85025; 85610; 85730

== ENCOUNTER 2023-06-14 12:54 | Observation (INO) | payer MEDICARE ==
--- NOTE | 2023-06-14 13:37 | ED ---
General Adult HPI - General Chief complaint: Chest Pain Stated complaint: abnormal EKG Time Seen by Provider: 06/14/23 13:05 Source: patient, RN notes reviewed, old records reviewed Mode of arrival: wheelchair Limitations: no limitations - History of Present Illness Initial comments: This is a 73-year-old female who presents emergency Department after having been in preop for a femoral popliteal bypass. Patient had an EKG done preop area and it was determined that it was grossly abnormal from a previous EKGs to the emergency department. Patient states she is not having any new pain no chest pain, shortness of breath or difficulty breathing denies any diaphoretic episodes. Patient states she feels at her baseline. Patient denies headache patient denies numbness weakness. Patient denies lightheadedness or dizziness. - Related Data Home Medications Medication Instructions Recorded Confirmed Clopidogrel Bisulfate [Plavix] 75 mg PO DAILY 11/19/17 06/14/23 DULoxetine HCL [Cymbalta] 30 mg PO BID 05/22/18 06/14/23 Oxybutynin Chloride [oxyBUTYnin 10 mg PO HS 03/15/22 06/14/23 chloride ER] Rosuvastatin Calcium [Crestor] 40 mg PO HS 03/15/22 06/14/23 clonazePAM 0.5 mg PO HS PRN 05/26/22 06/14/23 Apixaban [Eliquis] 2.5 mg PO BID 10/20/22 06/14/23 Pregabalin [Lyrica] 150 mg PO TID 10/20/22 06/14/23 Amitriptyline HCl 10 mg PO HS 02/25/23 06/14/23 Ezetimibe [Zetia] 10 mg PO DAILY 02/25/23 06/14/23 Pantoprazole [Protonix] 40 mg PO DAILY 02/25/23 06/14/23 Pramipexole [Mirapex] 0.5 mg PO HS 02/25/23 06/14/23 cilostazoL [Pletal] 100 mg PO BID 02/25/23 06/08/23 Fluticasone Inhaler 25/50 1 puff INHALATION DAILY 06/08/23 Losartan Potassium [Cozaar] 100 mg PO DAILY 06/08/23 06/08/23 Spironolactone [Aldactone] 50 mg PO DAILY 06/08/23 06/14/23 lamoTRIgine [LaMICtal] 225 mg PO HS 06/08/23 06/14/23 metFORMIN HCL 500 mg PO DAILY PRN 06/08/23 06/14/23 Allergies Allergy/AdvReac Type Severity Reaction Status Date / Time codeine Allergy passed out Verified 06/14/23 13:14 Latex, Natural Rubber Allergy Rash/Hives Verified 06/14/23 13:14 morphine AdvReac Vomiting Verified 06/14/23 13:14 Review of Systems ROS Statement: Those systems with pertinent positive or pertinent negative responses have been documented in the HPI. ROS Other: All systems not noted in ROS Statement are negative. Past Medical History Past Medical History: Coronary Artery Disease (CAD), COPD, CVA/TIA, Diabetes Mellitus, GERD/Reflux, Hearing Disorder / Deafness, Hyperlipidemia, Hypertension, Osteoarthritis (OA), Sleep Apnea/CPAP/BIPAP, Vascular Disorder Additional Past Medical History / Comment(s): Hx CVA 03/15/22 with residual left sided nerve pain, hearing loss left ear, urinary incontinence. PAD. Insomnia. hx sleep apnea-does not use machine., diverticulitis, gastric sleeve., occasional vertigo with loss of balance., pain left leg. History of Any Multi-Drug Resistant Organisms: None Reported Past Surgical History: Bariatric Surgery, Bladder Surgery, Cholecystectomy, Heart Catheterization With Stent, Hysterectomy, Joint Replacement, Orthopedic Surgery, Pacemaker Additional Past Surgical History / Comment(s): Bilateral cataracts, gastric sleeve, right rotator cuff repair, left knee replacement, bladder suspension x3, right and left carotid endarterectomy, left femur surgery with daniella placed. 4 cardiac stents,tilt table test Past Anesthesia/Blood Transfusion Reactions: Previous Problems w/ Anesthesia, Motion Sickness, Postoperative Nausea & Vomiting (PONV) Additional Past Anesthesia/Blood Transfusion Reaction / Comment(s): no hx blood transfusion Date of Last Stent Placement:: Nov 2017 Type of Cardiac Device: Unknown Device Placement Date:: Dual Chamber Pacemaker 01/05. Past Psychological History: Anxiety, Bipolar, Depression Smoking Status: Current some day smoker Past Alcohol Use History: None Reported, Abuse Past Drug Use History: None Reported - Past Family History Mother Family Medical History: No Reported History, Coronary Artery Disease (CAD), Diabetes Mellitus Additional Family Medical History / Comment(s): CABG Father Family Medical History: Hypertension, Myocardial Infarction ([place]) Brother(s) Family Medical History: Coronary Artery Disease (CAD), Myocardial Infarction ([place]) Additional Family Medical History / Comment(s): CABG General Exam - General Exam Comments Initial Comments: GENERAL: Patient is well-developed and well-nourished. Patient is nontoxic and well- hydrated and is in no acute distress. ENT: Neck is soft and supple. No significant lymphadenopathy is noted. Oropharynx is clear. Moist mucous membranes. Neck has full range of motion without eliciting any pain. EYES: The sclera were anicteric and conjunctiva were pink and moist. Extraocular movements were intact and pupils were equal round and reactive to light. Eyelids were unremarkable. PULMONARY: Unlabored respirations. Good breath sounds bilaterally. No audible rales rhonchi or wheezing was noted. CARDIOVASCULAR: There is a regular rate and rhythm without any murmurs gallops or rubs. ABDOMEN: Soft and nontender with normal bowel sounds. SKIN: Skin is clear with no lesions or rashes and otherwise unremarkable. NEUROLOGIC: Patient is alert and oriented x3. Cranial nerves II through XII are grossly intact. Motor and sensory are also intact. Normal speech, volume and content. Symmetrical smile. MUSCULOSKELETAL: Normal extremities with adequate strength and full range of motion. LYMPHATICS: No significant lymphadenopathy is noted PSYCHIATRIC: Normal psychiatric evaluation. Limitations: no limitations Course Vital Signs 06/14/23 06/14/23 06/14/23 13:05 13:10 13:20 Temperature 98.7 F Pulse Rate 56 L 56 L 61 Respiratory 16 24 20 Rate Blood Pressure 163/72 163/72 O2 Sat by Pulse 98 99 Oximetry 06/14/23 15:19 Temperature 98.2 F Pulse Rate 60 Respiratory 18 Rate Blood Pressure 157/99 O2 Sat by Pulse 99 Oximetry Medical Decision Making - Medical Decision Making Was pt. sent in by a medical professional or institution (, PA, CLERICAL CLERK, urgent care, hospital, or halfway...) When possible be specific @ -Patient was sent to us by the vascular surgeon Did you speak to anyone other than the patient for history (EMS, parent, family, police, friend...)? What history was obtained from this source @ -[No] Did you review nursing and triage notes (agree or disagree)? Why? @ -[I reviewed and agree with nursing and triage notes] Were old charts reviewed (outside hosp., previous admission, EMS record, old EKG, old radiological studies, urgent care reports/EKG's, halfway records)? Report findings @ -I reviewed prior lab work prior EKGs in prior charts of this patient Differential Diagnosis (chest pain, altered mental status, abdominal pain women, abdominal pain men, vaginal bleeding, weakness, fever, dyspnea, syncope, headache, dizziness, GI bleed, back pain, seizure, CVA, palpatations, mental health, musculoskeletal)? @ -Differential Chest Pain: Stable Angina, Unstable Angina, STEMI, NSTEMI Aortic Dissection, Pneumothorax, Musculoskeletal, Esophageal Spasm GERD, Cholecystitis, Pancreatitis, Zoster, this is not meant to be an all-inclusive list. EKG interpreted by me (3pts min.). @ -EKG shows a sinus bradycardia 54 bpm VA interval 142 QRS is 89 QT interval is 5:30 QTC is 516. Patient's EKG shows T-wave inversions in inferior leads as well as precordial leads V3 through V6. These were not seen on previous EKG. X-rays interpreted by me (1pt min.). @ -X-ray shows no acute abnormality CT interpreted by me (1pt min.). @ -[None done] U/S interpreted by me (1pt. min.). @ -[None done] What testing was considered but not performed or refused? (CT, X-rays, U/S, labs)? Why? @ -[None] What meds were considered but not given or refused? Why? @ -[None] Did you discuss the management of the patient with other professionals (professionals i.e. , PA, CLERICAL CLERK, lab, RT, psych nurse, school social worker, obstetrics/gynecology nurse, teacher, community service officer, outsole caser)? Give summary @ -I spoke with Dr. Morales and he agreed to admit the patient Was smoking cessation discussed for >3mins.? @ -[No] Was critical care preformed (if so, how long)? @ -[No] Were there social determinants of health that impacted care today? How? (Homelessness, low income, unemployed, alcoholism, drug addiction, angulo sportation, low edu. Level, literacy, decrease access to med. care, senior living, rehab)? @ -[No] Was there de-escalation of care discussed even if they declined (Discuss DNR or withdrawal of care, Hospice)? DNR status @ -[No] What co-morbidities impacted this encounter? (DM, HTN, Smoking, COPD, CAD, Cancer, CVA, ARF, Chemo, Hep., AIDS, mental health diagnosis, sleep apnea, morbid obesity)? @ -[None] Was patient admitted / discharged? Hospital course, mention meds given and route, prescriptions, significant lab abnormalities, going to OR and other pertinent info. @ -Patient was asymptomatic through her ED course. I admitted the patient to Dr. Morales consulted cardiology and vascular surgery Undiagnosed new problem with uncertain prognosis? @ -[No] Drug Therapy requiring intensive monitoring for toxicity (Heparin, Nitro, Insulin, Cardizem)? @ -[No] Were any procedures done? @ -[No] Diagnosis/symptom? @ -Abnormal EKG Acute, or Chronic, or Acute on Chronic? @ -Acute Uncomplicated (without systemic symptoms) or Complicated (systemic symptoms)? @ -Complicated Side effects of treatment? @ -[No] Exacerbation, Progression, or Severe Exacerbation? @ -[No] Poses a threat to life or bodily function? How? (Chest pain, USA, DE, pneumonia, PE, COPD, DKA, ARF, appy, cholecystitis, CVA, Diverticulitis, Homicidal, Suicidal, threat to staff... and all critical care pts) @ -Yes patient could go on to have an DE which could lead to end organ dysfunction - Lab Data Result diagrams: 06/14/23 13:59 06/14/23 13:57 Lab Results 06/14/23 06/14/23 06/14/23 Range/Units 13:57 13:57 13:57 WBC (3.8-10.6) k/uL RBC (3.80-5.40) m/uL Hgb (11.4-16.0) gm/dL Hct (34.0-46.0) % MCV (80.0-100.0) fL MCH (25.0-35.0) pg MCHC (31.0-37.0) g/dL RDW (11.5-15.5) % Plt Count (150-450) k/uL MPV Neutrophils % % Lymphocytes % % Monocytes % % Eosinophils % % Basophils % % Neutrophils # (1.3-7.7) k/uL Lymphocytes # (1.0-4.8) k/uL Monocytes # (0-1.0) k/uL Eosinophils # (0-0.7) k/uL Basophils # (0-0.2) k/uL PT 9.8 (9.0-12.0) sec INR 0.9 (<1.2) APTT 19.9 L (22.0-30.0) sec Sodium 136 L (137-145) mmol/L Potassium 5.0 (3.5-5.1) mmol/L Chloride 106 (98-107) mmol/L Carbon Dioxide 25 (22-30) mmol/L Anion Gap 5 mmol/L BUN 17 (7-17) mg/dL Creatinine 0.47 L (0.52-1.04) mg/dL Est GFR (CKD-EPI)AfAm >90 (>60 ml/min/1.73 sqM) Est GFR (CKD-EPI)NonAf >90 (>60 ml/min/1.73 sqM) Glucose 94 (74-99) mg/dL Calcium 8.8 (8.4-10.2) mg/dL Magnesium 1.9 (1.6-2.3) mg/dL Total Bilirubin 1.1 (0.2-1.3) mg/dL AST 33 (14-36) U/L ALT 16 (4-34) U/L Alkaline Phosphatase 51 (38-126) U/L Troponin I <0.012 (0.000-0.034) ng/mL Total Protein 6.6 (6.3-8.2) g/dL Albumin 3.6 (3.5-5.0) g/dL 06/14/23 Range/Units 13:59 WBC 7.7 (3.8-10.6) k/uL RBC 4.62 (3.80-5.40) m/uL Hgb 13.6 (11.4-16.0) gm/dL Hct 40.6 (34.0-46.0) % MCV 87.8 (80.0-100.0) fL MCH 29.5 (25.0-35.0) pg MCHC 33.6 (31.0-37.0) g/dL RDW 15.5 (11.5-15.5) % Plt Count 119 L (150-450) k/uL MPV 8.8 Neutrophils % 66 % Lymphocytes % 26 % Monocytes % 6 % Eosinophils % 1 % Basophils % 0 % Neutrophils # 5.1 (1.3-7.7) k/uL Lymphocytes # 2.0 (1.0-4.8) k/uL Monocytes # 0.5 (0-1.0) k/uL Eosinophils # 0.1 (0-0.7) k/uL Basophils # 0.0 (0-0.2) k/uL PT (9.0-12.0) sec INR (<1.2) APTT (22.0-30.0) sec Sodium (137-145) mmol/L Potassium (3.5-5.1) mmol/L Chloride (98-107) mmol/L Carbon Dioxide (22-30) mmol/L Anion Gap mmol/L BUN (7-17) mg/dL Creatinine (0.52-1.04) mg/dL Est GFR (CKD-EPI)AfAm (>60 ml/min/1.73 sqM) Est GFR (CKD-EPI)NonAf (>60 ml/min/1.73 sqM) Glucose (74-99) mg/dL Calcium (8.4-10.2) mg/dL Magnesium (1.6-2.3) mg/dL Total Bilirubin (0.2-1.3) mg/dL AST (14-36) U/L ALT (4-34) U/L Alkaline Phosphatase (38-126) U/L Troponin I (0.000-0.034) ng/mL Total Protein (6.3-8.2) g/dL Albumin (3.5-5.0) g/dL Disposition Clinical Impression: Abnormal EKG Disposition: ADMITTED IP TO THIS HOSP Referrals: Chelsie Morales DO [Primary Care Provider] - 1-2 days Time of Disposition: 15:49
[2023-06-14 14:33] LABS: Basophils % (A) 0 %; Eosinophils # (A) 0.1 k/uL (0-0.7); Eosinophils % (A) 1 %; HCT 40.6 % (34.0-46.0); HGB 13.6 gm/dL (11.4-16.0); Lymphocytes % (A) 26 %; MCH 29.5 pg (25.0-35.0); MCHC 33.6 g/dL (31.0-37.0); MCV 87.8 fL (80.0-100.0); Mean Platelet Volume 8.8; Monocytes # (A) 0.5 k/uL (0-1.0); Monocytes % (A) 6 %; Neutrophils # (A) 5.1 k/uL (1.3-7.7); Neutrophils % (A) 66 %; Platelet Count 119 k/uL (150-450); RBC 4.62 m/uL (3.80-5.40); RDW 15.5 % (11.5-15.5); WBC 7.7 k/uL (3.8-10.6)
--- NOTE | 2023-06-14 14:48 | XR ---
EXAMINATION TYPE: XR chest 2V DATE OF EXAM: 06/14/2023 COMPARISON: 11/30/2019 TECHNIQUE: PA and lateral views submitted. HISTORY: Chest pain FINDINGS: The lungs are clear and there is no pneumothorax, pleural effusion, or focal pneumonia. Heart size normal and no overt failure. There is coarsening of the interstitium. Osseous structures demonstrate hypertrophic and degenerative changes of the spine. A cardiac device n oted on the left. There is a benign granuloma right upper lobe. Diffuse osteopenia with arthropathy a nd shoulders. IMPRESSION: 1. No acute process. Correlate for COPD. 2. Suspect mild interstitial mild pulmonary fibrosis.
[2023-06-14 14:50] LABS: ALT 16 U/L (4-34); African American GFR (CKD) >90 (>60 ml/min/1.73 sqM); Anion Gap 5 mmol/L; Blood Urea Nitrogen 17 mg/dL (7-17); Calcium 8.8 mg/dL (8.4-10.2); Carbon Dioxide 25 mmol/L (22-30); Chloride 106 mmol/L (98-107); Glucose 94 mg/dL (74-99); Non-African American GFR(CKD) >90 (>60 ml/min/1.73 sqM); Sodium 136 mmol/L (137-145); Total Bilirubin 1.1 mg/dL (0.2-1.3)
[2023-06-14 14:54] LABS: INR 0.9 (<1.2); Prothrombin Time 9.8 sec (9.0-12.0)
[2023-06-14 14:59] LABS: Partial Thromboplastin Time 19.9 sec (22.0-30.0)
[2023-06-14 15:07] LABS: Magnesium 1.9 mg/dL (1.6-2.3); Total Protein 6.6 g/dL (6.3-8.2)
[2023-06-14 15:08] LABS: AST 33 U/L (14-36); Albumin 3.6 g/dL (3.5-5.0); Alkaline Phosphatase 51 U/L (38-126)
[2023-06-14] MEDS ORDERED: NITROGLYCERIN SL TABS 0.4 MG TAB SUBLINGUAL PRN (15:49)
[2023-06-14] MEDS ORDERED: hydrALAZINE HCL 20 MG/ML 1 ML VIAL IVP STA (22:44)
[2023-06-14] MEDS ORDERED: amLODIPine 10 MG TAB PO ONE (23:00)
[2023-06-14] MEDS: DULoxetine HCL 30 MG CAPSULE.DR PO SCH (23:10)
[2023-06-14] MEDS: PRAMIPEXOLE 0.5 MG TAB PO SCH (23:10)
[2023-06-14] MEDS: AMITRIPTYLINE HCL 10 MG TAB PO SCH (23:10)
[2023-06-14] MEDS: ATORVASTATIN 80 MG TAB PO SCH (23:11)
[2023-06-14] MEDS: lamoTRIgine 100 MG TAB PO SCH (23:11)
[2023-06-14] MEDS: lamoTRIgine 25 MG TAB PO SCH (23:11)
[2023-06-15] MEDS ORDERED: REGADENOSON 0.4 MG/5 ML SYRINGE IV PRN (07:15)
[2023-06-15] MEDS ORDERED: CAFFEINE CITRATE 60 MG/3 ML VIAL IV PRN (07:15)
[2023-06-15] MEDS ORDERED: AMINOPHYLLINE 500 MG/20 ML VIAL IV PRN (07:15)
[2023-06-15] MEDS: LOSARTAN 50 MG TAB PO SCH (07:45)
[2023-06-15] MEDS: SPIRONOLACTONE 25 MG TAB PO SCH (07:46)
[2023-06-15] MEDS: DULoxetine HCL 30 MG CAPSULE.DR PO SCH ×2 (07:46→20:18)
[2023-06-15 08:45] LABS: Basophils # (A) 0.04 X 10*3/uL (0.00-0.10); Basophils % (A) 0.5 %; Eosinophils # (A) 0.04 X 10*3/uL (0.04-0.35); Eosinophils % (A) 0.5 %; HCT 43.3 % (37.2-46.3); HGB 14.2 d/dL (12.0-15.0); Lymphocytes # (A) 1.63 X 10*3/uL (0.90-5.00); MCH 28.1 pg (27.0-32.0); MCHC 32.8 d/dL (32.0-37.0); MCV 85.7 FL (80.0-97.0); Mean Platelet Volume 11.5 FL (9.5-12.2); Monocytes # (A) 0.47 X 10*3/uL (0.20-1.00); Monocytes % (A) 5.8 %; NRBC Per 100 WBC 0 X 10*3/uL (0.00-0.01); Neutrophils # (A) 5.93 X 10*3/uL (1.80-7.70); Platelet Count 183 X 10*3/uL (140-440); RBC 5.05 X 10*6/uL (4.10-5.20); RDW 15.2 % (11.5-14.5); WBC 8.13 X 10*3/uL (4.50-10.00)
[2023-06-15 08:48] LABS: VLDL Calculation 18.66 mg/dL (5.00-40.00)
[2023-06-15] MEDS ORDERED: ASPIRIN 325 MG TAB PO SCH (09:00)
--- NOTE | 2023-06-15 09:11 | P.CRDCN ---
History of Present Illness History of present illness: HISTORY OF PRESENT ILLNESS: This is a 73-year-old female with a past medical history significant for sick sinus syndrome status post dual-chamber pacemaker December 2021, CVA, hypertension, hyperlipidemia, diabetes, coronary artery disease with PCI to RCA in 2018, carotid artery stenosis, status post bilateral carotid endarterectomy, and former nicotine dependence. Patient follows in the office with Dr. Mirza. We have been asked to see the patient in consultation for abnormal EKG. Patient was scheduled to undergo intervention with vascular surgery today for left SFA occlusion. Patient had an EKG performed in the pre-op area revealing deep T-wave inversions in anterior lateral leads and prolonged QT. These findings are new compared to old EKG. The patient denies having any chest pain or pressure. She does report having shortness of breath recently. No laboratory data is available for review at this time. REVIEW OF SYSTEMS: At the time of my exam: CONSTITUTIONAL: Denies fever or chills. HEENT: Denies blurred vision, vision changes, or eye pain. Denies hemoptysis CARDIOVASCULAR: Denies chest pain. Denies orthopnea. Denies PND. Denies palpitations RESPIRATORY: Denies shortness of breath. GASTROINTESTINAL: Denies abdominal pain. Denies nausea or vomiting. HEMATOLOGIC: Denies bleeding disorders. GENITOURINARY: Denies any blood in urine. SKIN: Denies pruitis. Denies rash. PHYSICAL EXAM: VITAL SIGNS: Reviewed. GENERAL: Well-developed in no acute distress. HEENT: Head is normocephalic. Pupils are equal, round. Sclerae anicteric. Mucous membranes of the mouth are moist. Neck supple. No JVD or thyromegaly LUNGS: Respirations even and unlabored. Lungs essentially clear to auscultation bilaterally. HEART: Regular rate and rhythm. S1 and S2 heard. ABDOMEN: Soft. Nondistended. Nontender. EXTREMITIES: Normal range of motion. No clubbing or cyanosis. Peripheral pulses intact. No lower extremity edema NEUROLOGIC: Awake and alert. Oriented x 3. ASSESSMENT: Left SFA occlusion Abnormal EKG revealing deep TWI in anterolateral leads with prolonged QT Coronary artery disease with previous PCI to the RCA in 2018 Sick sinus syndrome status post dual-chamber pacemaker, December 2021 History of carotid stenosis with previous bilateral carotid endarterectomy Hypertension Hyperlipidemia History of CVA Diabetes Former nicotine dependence PLAN: Patient with new EKG findings compared to old EKG. Due to this, recommend cancelling vascular procedure today. NPO at midnight We will check Any scan stress test tomorrow to evaluate for new areas of ischemia. Differential diagnosis includes Takotsubo and possible pacemaker memory causing abnormal EKG. Obtain CBC and BMP Obtain 2D echo to assess cardiac structure and function Avoid QT prolonging medications Continue to hold Plavix and Eliquis Further recommendations pending patient course Nurse practitioner note has been reviewed by physician. Signing provider agrees with the documented findings, assessment, and plan of care. Past Medical History Past Medical History: Coronary Artery Disease (CAD), COPD, CVA/TIA, Diabetes Mellitus, GERD/Reflux, Hearing Disorder / Deafness, Hyperlipidemia, Hypertension, Osteoarthritis (OA), Sleep Apnea/CPAP/BIPAP, Vascular Disorder Additional Past Medical History / Comment(s): Hx CVA 03/15/22 with residual left sided nerve pain, hearing loss left ear, urinary incontinence. PAD. Insomnia. hx sleep apnea-does not use machine., diverticulitis, gastric sleeve., occasional vertigo with loss of balance., pain left leg. History of Any Multi-Drug Resistant Organisms: None Reported Past Surgical History: Bariatric Surgery, Bladder Surgery, Cholecystectomy, Heart Catheterization With Stent, Hysterectomy, Joint Replacement, Orthopedic Surgery, Pacemaker Additional Past Surgical History / Comment(s): Bilateral cataracts, gastric sleeve, right rotator cuff repair, left knee replacement, bladder suspension x3, right and left carotid endarterectomy, left femur surgery with daniella placed. 4 cardiac stents,tilt table test Past Anesthesia/Blood Transfusion Reactions: Previous Problems w/ Anesthesia, Motion Sickness, Postoperative Nausea & Vomiting (PONV) Additional Past Anesthesia/Blood Transfusion Reaction / Comment(s): no hx blood transfusion Date of Last Stent Placement:: Nov 2017 Type of Cardiac Device: Unknown Device Placement Date:: Dual Chamber Pacemaker 01/05. Past Psychological History: Anxiety, Bipolar, Depression Additional Psychological History / Comment(s): . Smoking Status: Current some day smoker Past Alcohol Use History: None Reported, Abuse Additional Past Alcohol Use History / Comment(s): smokes occasionally. , started smoking age 29, hx of 1/2 ppd., Has smoked since age of 29. quit alcohol 1988 Past Drug Use History: None Reported - Past Family History Mother Family Medical History: No Reported History, Coronary Artery Disease (CAD), Diabetes Mellitus Additional Family Medical History / Comment(s): CABG Father Family Medical History: Hypertension, Myocardial Infarction (OK) Brother(s) Family Medical History: Coronary Artery Disease (CAD), Myocardial Infarction (OK) Additional Family Medical History / Comment(s): CABG Medications and Allergies Home Medications Medication Instructions Recorded Confirmed Type Clopidogrel Bisulfate [Plavix] 75 mg PO DAILY 11/19/17 06/14/23 History DULoxetine HCL [Cymbalta] 30 mg PO BID 05/22/18 06/14/23 History Oxybutynin Chloride [oxyBUTYnin 10 mg PO HS 03/15/22 06/14/23 History chloride ER] Rosuvastatin Calcium [Crestor] 40 mg PO HS 03/15/22 06/14/23 History Apixaban [Eliquis] 2.5 mg PO BID 10/20/22 06/14/23 History Amitriptyline HCl 10 mg PO HS 02/25/23 06/14/23 History Ezetimibe [Zetia] 10 mg PO DAILY 02/25/23 06/14/23 History Pramipexole [Mirapex] 0.5 mg PO HS 02/25/23 06/14/23 History Losartan Potassium [Cozaar] 100 mg PO DAILY 06/08/23 06/14/23 History Spironolactone [Aldactone] 50 mg PO DAILY 06/08/23 06/14/23 History lamoTRIgine [LaMICtal] 225 mg PO HS 06/08/23 06/14/23 History metFORMIN HCL 500 mg PO DAILY PRN 06/08/23 06/14/23 History Allergies Allergy/AdvReac Type Severity Reaction Status Date / Time codeine Allergy passed out Verified 06/14/23 16:50 Latex, Natural Rubber Allergy Rash/Hives Verified 06/14/23 16:50 morphine AdvReac Vomiting Verified 06/14/23 16:50 Physical Exam Vitals: Vital Signs Temp Pulse Pulse Resp BP BP Pulse Ox 06/15/23 07:00 98.2 F 99 16 212/64 80 L 06/15/23 00:40 98 F 67 14 131/52 100 06/14/23 23:03 98 F 54 L 16 209/69 100 06/14/23 22:03 149/77 06/14/23 22:01 55 L 18 97 06/14/23 18:03 64 17 157/99 94 L 06/14/23 15:19 98.2 F 60 18 157/99 99 06/14/23 13:20 61 20 163/72 99 06/14/23 13:10 56 L 24 06/14/23 13:05 98.7 F 56 L 16 163/72 98 Intake and Output 06/14/23 06/15/23 06/15/23 22:59 06:59 14:59 Other: Weight 52.163 kg Results 06/15/23 05:20 06/14/23 13:57 Cardiac Enzymes 06/14/23 06/14/23 06/14/23 Range/Units 13:57 13:57 17:35 AST 33 (14-36) U/L Troponin I <0.012 0.016 (0.000-0.034) ng/mL 06/14/23 Range/Units 20:08 AST (14-36) U/L Troponin I 0.013 (0.000-0.034) ng/mL Coagulation 06/14/23 Range/Units 13:57 PT 9.8 (9.0-12.0) sec APTT 19.9 L (22.0-30.0) sec Lipids 06/15/23 Range/Units 05:20 Triglycerides 93.30 (0.00-149.00) mg/dL Cholesterol 169.00 (0.00-200.00) mg/dL HDL Cholesterol 43.30 (40.00-60.00) mg/dL Cholesterol/HDL Ratio 3.90 Ratio CBC 06/14/23 06/15/23 Range/Units 13:59 05:20 WBC 7.7 8.13 (3.8-10.6) k/uL RBC 4.62 5.05 (3.80-5.40) m/uL Hgb 13.6 14.2 (11.4-16.0) gm/dL Hct 40.6 43.3 (34.0-46.0) % Plt Count 119 L 183 (150-450) k/uL Comprehensive Metabolic Panel 06/14/23 Range/Units 13:57 Sodium 136 L (137-145) mmol/L Potassium 5.0 (3.5-5.1) mmol/L Chloride 106 (98-107) mmol/L Carbon Dioxide 25 (22-30) mmol/L BUN 17 (7-17) mg/dL Creatinine 0.47 L (0.52-1.04) mg/dL Glucose 94 (74-99) mg/dL Calcium 8.8 (8.4-10.2) mg/dL AST 33 (14-36) U/L ALT 16 (4-34) U/L Alkaline Phosphatase 51 (38-126) U/L Total Protein 6.6 (6.3-8.2) g/dL Albumin 3.6 (3.5-5.0) g/dL Current Medications Generic Name Dose Route Start Last Admin Trade Name Freq PRN Reason Stop Dose Admin Aminophylline 100 mg 06/15/23 07:15 Aminophylline 500 Mg/20 Ml Vial IV 06/15/23 11:15 ONCE PRN Patient Response Amitriptyline HCl 10 mg 06/14/23 23:00 06/14/23 23:10 Amitriptyline Hcl 10 Mg Tab PO 10 mg HS HORACE Administration Atorvastatin Calcium 80 mg 06/14/23 23:00 06/14/23 23:11 Atorvastatin 80 Mg Tab PO 80 mg HS HORACE Administration Caffeine Citrate 60 mg 06/15/23 07:15 Caffeine Citrate 60 Mg/3 Ml Vial IV 06/15/23 11:15 ONCE PRN Patient Response Duloxetine HCl 30 mg 06/14/23 23:00 06/15/23 07:46 Duloxetine Hcl 30 Mg Capsule.Dr PO 30 mg BID HORACE Administration Lamotrigine 200 mg 06/14/23 23:00 06/14/23 23:11 Lamotrigine 100 Mg Tab PO 200 mg HS HORACE Administration Lamotrigine 25 mg 06/14/23 23:00 06/14/23 23:11 Lamotrigine 25 Mg Tab PO 25 mg HS HORACE Administration Losartan Potassium 100 mg 06/15/23 09:00 06/15/23 07:45 Losartan 50 Mg Tab PO 100 mg DAILY HORACE Administration Nitroglycerin 0.4 mg 06/14/23 15:49 Nitroglycerin Sl Tabs 0.4 Mg Tab SUBLINGUAL Q5M PRN Chest Pain Pramipexole Dihydrochloride 0.5 mg 06/14/23 23:00 06/14/23 23:10 Pramipexole 0.5 Mg Tab PO 0.5 mg HS HORACE Administration Regadenoson 0.4 mg 06/15/23 07:15 Regadenoson 0.4 Mg/5 Ml Syringe IV 06/15/23 11:15 ONCE PRN Per Protocol Spironolactone 50 mg 06/15/23 09:00 06/15/23 07:46 Spironolactone 25 Mg Tab PO 50 mg DAILY HORACE Administration Intake and Output 06/14/23 06/15/23 06/15/23 22:59 06:59 14:59 Other: Weight 52.163 kg 06/15/23 05:20 06/14/23 13:57
[2023-06-15] MEDS: amLODIPine 10 MG TAB PO SCH (10:17)
--- NOTE | 2023-06-15 10:36 | P.PN ---
Subjective HISTORY OF PRESENT ILLNESS: This is a 73-year-old female with a past medical history significant for sick sinus syndrome status post dual-chamber pacemaker December 2021, CVA, hypertension, hyperlipidemia, diabetes, coronary artery disease with PCI to RCA in 2018, carotid artery stenosis, status post bilateral carotid endarterectomy, and former nicotine dependence. Patient follows in the office with Dr. Mirza. We have been asked to see the patient in consultation for abnormal EKG. Patient was scheduled to undergo intervention with vascular surgery today for left SFA occlusion. Patient had an EKG performed in the pre-op area revealing deep T-wave inversions in anterior lateral leads and prolonged QT. These findings are new compared to old EKG. The patient denies having any chest pain or pressure. She does report having shortness of breath recently. No laboratory data is available for review at this time. 06/15/2023 Patient examined this morning at the bedside. Patient denies chest pain or pressure. She currently denies shortness of breath. She does report some left- sided shoulder pain this morning. Blood pressure is elevated this morning with a systolic around 200. Echocardiogram completed revealing ejection fraction 55- 60%, mild pulmonary hypertension, [id number] mitral regurgitation, mild tricuspid regurgitation, [id number] aortic regurgitation PHYSICAL EXAM: VITAL SIGNS: Reviewed. GENERAL: Well-developed in no acute distress. HEENT: Head is normocephalic. Pupils are equal, round. Sclerae anicteric. Mucous membranes of the mouth are moist. Neck supple. No JVD or thyromegaly LUNGS: Respirations even and unlabored. Lungs essentially clear to auscultation bilaterally. HEART: Regular rate and rhythm. S1 and S2 heard. ABDOMEN: Soft. Nondistended. Nontender. EXTREMITIES: Normal range of motion. No clubbing or cyanosis. Peripheral pulses intact. No lower extremity edema NEUROLOGIC: Awake and alert. Oriented x 3. ASSESSMENT: Left SFA occlusion Abnormal EKG revealing deep TWI in anterolateral leads with prolonged QT Coronary artery disease with previous PCI to the RCA in 2017 Sick sinus syndrome status post dual-chamber pacemaker, December 2021 History of carotid stenosis with previous bilateral carotid endarterectomy Hypertension Hyperlipidemia History of CVA Diabetes Former nicotine dependence PLAN: Patient to undergo Any scan stress test today to evaluate for new areas of ischemia Continue to hold Plavix and Eliquis Add Norvasc 10 mg daily for optimal blood pressure control Further recommendations pending patient course Nurse practitioner note has been reviewed by physician. Signing provider agrees with the documented findings, assessment, and plan of care. Objective - Vital Signs Vital signs: Vital Signs Temp 98.2 F 06/15/23 07:00 Pulse 99 06/15/23 08:00 Resp 16 06/15/23 08:00 BP 212/64 06/15/23 07:00 Pulse Ox 80 L 06/15/23 07:00 FiO2 Intake & Output 06/14/23 06/15/23 06/15/23 18:59 06:59 18:59 Weight 52.163 kg 52.163 kg Other: Voiding Method Toilet - Labs CBC & Chem 7: 06/15/23 05:20 06/14/23 13:57 Labs: Abnormal Lab Results - Last 24 Hours (Table) 06/14/23 06/14/23 06/14/23 Range/Units 13:57 13:57 13:59 RDW (11.5-14.5) % Plt Count 119 L (150-450) k/uL APTT 19.9 L (22.0-30.0) sec Sodium 136 L (137-145) mmol/L Creatinine 0.47 L (0.52-1.04) mg/dL 06/15/23 Range/Units 05:20 RDW 15.2 H (11.5-14.5) % Plt Count (150-450) k/uL APTT (22.0-30.0) sec Sodium (137-145) mmol/L Creatinine (0.52-1.04) mg/dL
[2023-06-15] MEDS: ONDANSETRON 4 MG/2 ML VIAL IVP PRN (12:05)
[2023-06-15] MEDS: LORATADINE 10 MG TAB PO SCH (12:05)
[2023-06-15] MEDS: hydroCHLOROthiazide 25 MG TAB PO SCH (12:05)
[2023-06-15 12:48] LABS: Glucose,Whole Blood 165 mg/dL (70-110)
[2023-06-15] MEDS: ACETAMINOPHEN TAB 325 MG TAB PO PRN (13:50)
--- NOTE | 2023-06-15 15:11 | P.GSCN ---
History of Present Illness Consult date: 06/15/23 Reason for Consult: Peripheral arterial disease, scheduled for lower extremity bypass surgery Requesting physician: Kuldip Zapata History of present illness: 73-year-old female with a history of claudication, left superficial femoral artery occlusion with previous attempt at revascularization was initially scheduled for surgery with Dr. Montelongo for a left femoral to popliteal artery bypass. While patient was in preop she was noted to have some cardiac changes with inverted T waves and prolonged QT waves. Surgery was canceled at that time and cardiology was consulted. Cardiology currently following patient for hypertension and cardiac rhythm changes. Patient tentatively scheduled for cardiac stress test however has been canceled due to hypertension. Patient currently denies any chest pain or shortness of breath. She denies any pain in her lower extremities at rest. Denies any fevers or chills. She underwent a CT angiogram abdomen and pelvis and aorta with runoff reporting complete occlusion beginning at the left SFA origin extending into the distal SFA where there is some reconstitution just above the knee. Demonstrated. No new vascular occlusion. Significant peripheral arterial disease bilaterally with poor 3 vessel and two-vessel flow in the bilateral legs below mid level is redemonstrated Review of Systems A 14 point review systems was completed all pertinent positives and negatives as stated in the HPI. 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 PAD. Insomnia. hx sleep apnea-does not use machine., diverticulitis, gastric sleeve., occasional vertigo with loss of balance., pain left leg. History of Any Multi-Drug Resistant Organisms: None Reported Past Surgical History: Bariatric Surgery, Bladder Surgery, Cholecystectomy, Heart Catheterization With Stent, Hysterectomy, Joint Replacement, Orthopedic Surgery, Pacemaker Additional Past Surgical History / Comment(s): Bilateral cataracts, gastric sleeve, right rotator cuff repair, left knee replacement, bladder suspension x3, right and left carotid endarterectomy, left femur surgery with daniella placed. 4 cardiac stents,tilt table test Past Anesthesia/Blood Transfusion Reactions: Previous Problems w/ Anesthesia, Motion Sickness, Postoperative Nausea & Vomiting (PONV) Additional Past Anesthesia/Blood Transfusion Reaction / Comm: no hx blood transfusion Date of Last Stent Placement:: Nov 2017 Type of Cardiac Device: Unknown Device Placement Date:: Dual Chamber Pacemaker 01/05. Past Psychological History: Anxiety, Bipolar, Depression Additional Psychological History / Comment(s): . Smoking Status: Current some day smoker Past Alcohol Use History: None Reported, Abuse Additional Past Alcohol Use History / Comment(s): smokes occasionally. , started smoking age 29, hx of / ppd., Has smoked since age of 29. quit alcohol 1988 Past Drug Use History: None Reported - Past Family History Mother Family Medical History: No Reported History, Coronary Artery Disease (CAD), Diabetes Mellitus Additional Family Medical History / Comment(s): CABG Father Family Medical History: Hypertension, Myocardial Infarction ([place]) Brother(s) Family Medical History: Coronary Artery Disease (CAD), Myocardial Infarction ([place]) Additional Family Medical History / Comment(s): CABG Medications and Allergies Home Medications Medication Instructions Recorded Confirmed Type Clopidogrel Bisulfate [Plavix] 75 mg PO DAILY 11/19/17 06/14/23 History DULoxetine HCL [Cymbalta] 30 mg PO BID 05/22/18 06/14/23 History Oxybutynin Chloride [oxyBUTYnin 10 mg PO HS 03/15/22 06/14/23 History chloride ER] Rosuvastatin Calcium [Crestor] 40 mg PO HS 03/15/22 06/14/23 History Apixaban [Eliquis] 2.5 mg PO BID 10/20/22 06/14/23 History Amitriptyline HCl 10 mg PO HS 02/25/23 06/14/23 History Ezetimibe [Zetia] 10 mg PO DAILY 02/25/23 06/14/23 History Pramipexole [Mirapex] 0.5 mg PO HS 02/25/23 06/14/23 History Losartan Potassium [Cozaar] 100 mg PO DAILY 06/08/23 06/14/23 History Spironolactone [Aldactone] 50 mg PO DAILY 06/08/23 06/14/23 History lamoTRIgine [LaMICtal] 225 mg PO HS 06/08/23 06/14/23 History metFORMIN HCL 500 mg PO DAILY PRN 06/08/23 06/14/23 History Allergies Allergy/AdvReac Type Severity Reaction Status Date / Time codeine Allergy passed out Verified 06/14/23 16:50 Latex, Natural Rubber Allergy Rash/Hives Verified 06/14/23 16:50 morphine AdvReac Vomiting Verified 06/14/23 16:50 Surgical - Exam Vital Signs Temp Pulse Resp BP Pulse Ox 98.7 F 56 L 16 163/72 98 06/14/23 13:05 06/14/23 13:05 06/14/23 13:05 06/14/23 13:05 06/14/23 13:05 General appearance: The patient is alert, oriented, appears in no acute distress. HET: Head is normocephalic and atraumatic. Pupils are equal and reactive. Neck: Supple. Heart: Regular. Lungs: Equal expansion, normal respiratory effort. Abdomen: Soft, nontender, nondistended. Extremities: Normal skin color and turgor. Neurological: No focal deficits. Results - Labs 06/15/23 05:20 06/14/23 13:57 Abnormal Lab Results - Last 24 Hours (Table) 06/14/23 06/14/23 06/14/23 Range/Units 13:57 13:57 13:59 Plt Count 119 L (150-450) k/uL APTT 19.9 L (22.0-30.0) sec Sodium 136 L (137-145) mmol/L Creatinine 0.47 L (0.52-1.04) mg/dL Diabetes panel 06/14/23 Range/Units 13:57 Sodium 136 L (137-145) mmol/L Potassium 5.0 (3.5-5.1) mmol/L Chloride 106 (98-107) mmol/L Carbon Dioxide 25 (22-30) mmol/L BUN 17 (7-17) mg/dL Creatinine 0.47 L (0.52-1.04) mg/dL Glucose 94 (74-99) mg/dL Calcium 8.8 (8.4-10.2) mg/dL AST 33 (14-36) U/L ALT 16 (4-34) U/L Alkaline Phosphatase 51 (38-126) U/L Total Protein 6.6 (6.3-8.2) g/dL Albumin 3.6 (3.5-5.0) g/dL Calcium panel 06/14/23 Range/Units 13:57 Calcium 8.8 (8.4-10.2) mg/dL Albumin 3.6 (3.5-5.0) g/dL Pituitary panel 06/14/23 Range/Units 13:57 Sodium 136 L (137-145) mmol/L Potassium 5.0 (3.5-5.1) mmol/L Chloride 106 (98-107) mmol/L Carbon Dioxide 25 (22-30) mmol/L BUN 17 (7-17) mg/dL Creatinine 0.47 L (0.52-1.04) mg/dL Glucose 94 (74-99) mg/dL Calcium 8.8 (8.4-10.2) mg/dL Adrenal panel 06/14/23 Range/Units 13:57 Sodium 136 L (137-145) mmol/L Potassium 5.0 (3.5-5.1) mmol/L Chloride 106 (98-107) mmol/L Carbon Dioxide 25 (22-30) mmol/L BUN 17 (7-17) mg/dL Creatinine 0.47 L (0.52-1.04) mg/dL Glucose 94 (74-99) mg/dL Calcium 8.8 (8.4-10.2) mg/dL Total Bilirubin 1.1 (0.2-1.3) mg/dL AST 33 (14-36) U/L ALT 16 (4-34) U/L Alkaline Phosphatase 51 (38-126) U/L Total Protein 6.6 (6.3-8.2) g/dL Albumin 3.6 (3.5-5.0) g/dL Assessment and Plan Assessment: 1. Left superficial femoral artery occlusion 2. Claudication 3. Abnormal EKG revealingDr. Bhesania. ALCON: [id number] DWI and anterior lateral leads with prolonged QT 4. History of coronary artery disease with pacemaker and previous PCI to RCA. 5. History of carotid stenosis with previous bilateral carotid endarterectomy 6. Hypertension 7. Hyperlipidemia 8. Diabetes 9. Former smoker 10. History CVA Plan: 1. Continue medical management 2. Continue cardiology workup and recommendations, will need clearance to proceed with left femoral to popliteal artery bypass 3. The postpone left femoral to popliteal artery bypass and reschedule as outpatient if cleared by cardiology Thank you for this consultation, we will sign off at this time. The impression and plan of care has been dictated as directed. Dr. Montelongo I performed a history and examination of this patient, discussed the same with the dictator. I agree with the dictator's note ,documented as a scribe. Any additional findings or plans will be noted.
[2023-06-15 17:11] LABS: Glucose,Whole Blood 156 mg/dL (70-110)
--- NOTE | 2023-06-15 18:06 | P.HPIM ---
History of Present Illness H&P Date: 06/15/23 Chief Complaint: Abnormal EKG This is a 73-year-old female with past medical history significant for CAD, history of stents, pacemaker placement for sick sinus syndrome, CVA, diabetes mellitus, nicotine dependence, claudication and multiple other medical issues, initially scheduled for left femoral popliteal artery bypass yesterday with vascular surgery. Presented in preop abnormal EKG, acute changes compared to prior EKG. Procedure cancelled, cardiology consulted. This morning patient reports left posterior shoulder blade pain, no increased shortness of breath. Hypertensive with systolic blood pressure in the 200s, antihypertensives further testing per cardiology. Scheduled for Lexiscan stress test pending better controlled blood pressures. Echo ordered. Review of Systems ROS Statement: Those systems with pertinent positive or pertinent negative responses have been documented in the HPI. ROS Other: All systems not noted in ROS Statement are negative. Past Medical History Past Medical History: Coronary Artery Disease (CAD), COPD, CVA/TIA, Diabetes Mellitus, GERD/Reflux, Hearing Disorder / Deafness, Hyperlipidemia, Hypertension, Osteoarthritis (OA), Sleep Apnea/CPAP/BIPAP, Vascular Disorder Additional Past Medical History / Comment(s): Hx CVA 03/15/22 with residual left sided nerve pain, hearing loss left ear, urinary incontinence. PAD. Insomnia. hx sleep apnea-does not use machine., diverticulitis, gastric sleeve., occasional vertigo with loss of balance., pain left leg. History of Any Multi-Drug Resistant Organisms: None Reported Past Surgical History: Bariatric Surgery, Bladder Surgery, Cholecystectomy, Heart Catheterization With Stent, Hysterectomy, Joint Replacement, Orthopedic Surgery, Pacemaker Additional Past Surgical History / Comment(s): Bilateral cataracts, gastric sleeve, right rotator cuff repair, left knee replacement, bladder suspension x3, right and left carotid endarterectomy, left femur surgery with daniella placed. 4 cardiac stents,tilt table test Past Anesthesia/Blood Transfusion Reactions: Previous Problems w/ Anesthesia, Motion Sickness, Postoperative Nausea & Vomiting (PONV) Additional Past Anesthesia/Blood Transfusion Reaction / Comment(s): no hx blood transfusion Date of Last Stent Placement:: Nov 2017 Type of Cardiac Device: Unknown Device Placement Date:: Dual Chamber Pacemaker 01/05. Past Psychological History: Anxiety, Bipolar, Depression Additional Psychological History / Comment(s): . Smoking Status: Current some day smoker Past Alcohol Use History: None Reported, Abuse Additional Past Alcohol Use History / Comment(s): smokes occasionally. , started smoking age 29, hx of 1/2 ppd., Has smoked since age of 29. quit alcohol 1988 Past Drug Use History: None Reported - Past Family History Mother Family Medical History: No Reported History, Coronary Artery Disease (CAD), Diabetes Mellitus Additional Family Medical History / Comment(s): CABG Father Family Medical History: Hypertension, Myocardial Infarction ([place]) Brother(s) Family Medical History: Coronary Artery Disease (CAD), Myocardial Infarction ([place]) Additional Family Medical History / Comment(s): CABG Medications and Allergies Home Medications Medication Instructions Recorded Confirmed Type Clopidogrel Bisulfate [Plavix] 75 mg PO DAILY 11/19/17 06/14/23 History DULoxetine HCL [Cymbalta] 30 mg PO BID 05/22/18 06/14/23 History Oxybutynin Chloride [oxyBUTYnin 10 mg PO HS 03/15/22 06/14/23 History chloride ER] Rosuvastatin Calcium [Crestor] 40 mg PO HS 03/15/22 06/14/23 History Apixaban [Eliquis] 2.5 mg PO BID 10/20/22 06/14/23 History Amitriptyline HCl 10 mg PO HS 02/25/23 06/14/23 History Ezetimibe [Zetia] 10 mg PO DAILY 02/25/23 06/14/23 History Pramipexole [Mirapex] 0.5 mg PO HS 02/25/23 06/14/23 History Losartan Potassium [Cozaar] 100 mg PO DAILY 06/08/23 06/14/23 History Spironolactone [Aldactone] 50 mg PO DAILY 06/08/23 06/14/23 History lamoTRIgine [LaMICtal] 225 mg PO HS 06/08/23 06/14/23 History metFORMIN HCL 500 mg PO DAILY PRN 06/08/23 06/14/23 History Allergies Allergy/AdvReac Type Severity Reaction Status Date / Time codeine Allergy passed out Verified 06/14/23 16:50 Latex, Natural Rubber Allergy Rash/Hives Verified 06/14/23 16:50 morphine AdvReac Vomiting Verified 06/14/23 16:50 Physical Exam Vitals: Vital Signs Temp Pulse Pulse Resp BP BP Pulse Ox 06/15/23 14:48 98.1 F 62 16 180/49 98 06/15/23 14:00 99 16 06/15/23 13:03 97 06/15/23 08:00 99 16 06/15/23 07:00 98.2 F 99 16 212/64 80 L 06/15/23 00:40 98 F 67 14 131/52 100 06/14/23 23:03 98 F 54 L 16 209/69 100 06/14/23 22:03 149/77 06/14/23 22:01 55 L 18 97 06/14/23 18:03 64 17 157/99 94 L Intake and Output 06/15/23 06/15/23 06/15/23 06:59 14:59 22:59 Other: Voiding Method Toilet # Voids 3 Weight 52.163 kg PHYSICAL EXAMINATION: GENERAL:Patient is sitting up in bed, no acute distress no acute distress. HEENT: Normocephalic. Neck is supple. Pupils reactive. Neck: supple, no JVD, no thyromegaly. LUNGS: Unlabored, equal air entry,Lungs clear. CARDIAC: Normal S1, S2 with no gallops. No murmurs ABDOMEN: Soft. Bowel sounds normal. No organomegaly noted. Positive bowel sounds Extremities: reveal no edema, skin turgor and color normal. Neurologically awake, alert, oriented x3 with well-coordinated movements. No focal deficits noted Skin: No rash, warm and dry. Psychiatric: Alert and oriented 3, mood and affect normal. Results CBC & Chem 7: 06/15/23 05:20 06/14/23 13:57 Labs: Abnormal Lab Results - Last 24 Hours (Table) 06/15/23 06/15/23 06/15/23 Range/Units 05:20 12:46 17:10 RDW 15.2 H (11.5-14.5) % POC Glucose (mg/dL) 165 H 156 H (70-110) mg/dL Thrombosis Risk Factor Assmnt - Choose All That Apply Each Factor Represents 1 point: Abnormal pulmonary function (COPD), Minor surgery planned Each Risk Factor Represents 2 Points: Age 61-74 years Thrombosis Risk Factor Assessment Total Risk Factor Score: 4 Thrombosis Risk Factor Assessment Level: Moderate Risk Assessment and Plan Assessment: Left SFA occlusion, procedure cancelled secondary to abnormal EKG Coronary artery disease, history of stents Sick sinus syndrome status post dual-chamber pacemaker placement in December 2021 History of CVA/TIA History of bilateral carotid endarterectomy Hypertension Hyperlipidemia Diabetes type 2 non-insulin dependent Hearing loss left ear Urinary incontinence, history of Peripheral vascular disease Anxiety/depression and bipolar disorder Ongoing nicotine dependence History of gastric sleeve surgery Plan: Continue on current medication regime ,monitoring and symptomatic mandeep atment.Plavix and Eliquis remain on hold. Evaluated by cardiology, antihypertensives further adjusted, scheduled for Lexiscan stress test today, pending better control blood pressures. Avoiding QT prolonging medications. Smoking cessation reinforced. The impression and plan of care has been dictated as directed. : I performed a history and examination of this patient, discussed the same with the dictator. I agree with the dictator's note ,documented as a scribe. Any additional findings or plans will be noted.
[2023-06-15] MEDS: APIXABAN 2.5 MG TABLET PO SCH (20:18)
[2023-06-15] MEDS: ATORVASTATIN 80 MG TAB PO SCH (20:18)
[2023-06-15] MEDS: AMITRIPTYLINE HCL 10 MG TAB PO SCH (20:18)
[2023-06-15] MEDS: PRAMIPEXOLE 0.5 MG TAB PO SCH (20:19)
[2023-06-15] MEDS: lamoTRIgine 100 MG TAB PO SCH (20:19)
[2023-06-15] MEDS: lamoTRIgine 25 MG TAB PO SCH (20:19)
[2023-06-15 20:25] LABS: Glucose,Whole Blood 123 mg/dL (70-110)
[2023-06-16] MEDS: ACETAMINOPHEN TAB 325 MG TAB PO PRN (06:35)
[2023-06-16] MEDS: LOSARTAN 50 MG TAB PO SCH (07:57)
[2023-06-16] MEDS: DULoxetine HCL 30 MG CAPSULE.DR PO SCH (07:58)
[2023-06-16] MEDS: LORATADINE 10 MG TAB PO SCH (07:58)
[2023-06-16] MEDS: SPIRONOLACTONE 25 MG TAB PO SCH (07:58)
[2023-06-16] MEDS: amLODIPine 10 MG TAB PO SCH (07:58)
[2023-06-16] MEDS: hydroCHLOROthiazide 25 MG TAB PO SCH (07:58)
[2023-06-16] MEDS: APIXABAN 2.5 MG TABLET PO SCH (07:59)
[2023-06-16 08:15] VITALS: RESP 16; TEMP 98
[2023-06-16] MEDS ORDERED: CLOPIDOGREL 75 MG TAB PO SCH (09:00)
--- NOTE | 2023-06-16 10:24 | P.PN ---
Subjective HISTORY OF PRESENT ILLNESS: This is a 73-year-old female with a past medical history significant for sick sinus syndrome status post dual-chamber pacemaker December 2021, CVA, hypertension, hyperlipidemia, diabetes, coronary artery disease with PCI to RCA in 2018, carotid artery stenosis, status post bilateral carotid endarterectomy, and former nicotine dependence. Patient follows in the office with Dr. Mirza. We have been asked to see the patient in consultation for abnormal EKG. Patient was scheduled to undergo intervention with vascular surgery today for left SFA occlusion. Patient had an EKG performed in the pre-op area revealing deep T-wave inversions in anterior lateral leads and prolonged QT. These findings are new compared to old EKG. The patient denies having any chest pain or pressure. She does report having shortness of breath recently. No laboratory data is available for review at this time. 06/15/2023 Patient examined this morning at the bedside. Patient denies chest pain or pressure. She currently denies shortness of breath. She does report some left- sided shoulder pain this morning. Blood pressure is elevated this morning with a systolic around 200. Echocardiogram completed revealing ejection fraction 55- 60%, mild pulmonary hypertension, [id number] mitral regurgitation, mild tricuspid regurgitation, [id number] aortic regurgitation 06/16/2023 Patient examined this morning at the bedside. Patient denies chest pain or pressure. She denies shortness of breath. She continues to report pain on her left side beneath her shoulder blade. Patient's blood pressures improved this morning with a systolic in the 150s. Vascular surgery is currently not planning any intervention this hospital admission. Patient's anticoagulation and Plavix has been resumed. PHYSICAL EXAM: VITAL SIGNS: Reviewed. GENERAL: Well-developed in no acute distress. HEENT: Head is normocephalic. Pupils are equal, round. Sclerae anicteric. Mucous membranes of the mouth are moist. Neck supple. No JVD or thyromegaly LUNGS: Respirations even and unlabored. Lungs essentially clear to auscultation bilaterally. HEART: Regular rate and rhythm. S1 and S2 heard. ABDOMEN: Soft. Nondistended. Nontender. EXTREMITIES: Normal range of motion. No clubbing or cyanosis. Peripheral pulses intact. No lower extremity edema NEUROLOGIC: Awake and alert. Oriented x 3. ASSESSMENT: Left SFA occlusion Abnormal EKG revealing deep TWI in anterolateral leads with prolonged QT Coronary artery disease with previous PCI to the RCA in 2017 Sick sinus syndrome status post dual-chamber pacemaker, December 2021 History of carotid stenosis with previous bilateral carotid endarterectomy Hypertension Hyperlipidemia History of CVA Diabetes Former nicotine dependence PLAN: Patient to undergo Any scan stress test today to evaluate for new areas of ischemia Continue current cardiac medications Continue to monitor blood pressure Further recommendations pending patient course Nurse practitioner note has been reviewed by physician. Signing provider agrees with the documented findings, assessment, and plan of care. Objective - Vital Signs Vital signs: Vital Signs Temp 98 F 06/16/23 07:00 Pulse 66 06/16/23 08:00 Resp 16 06/16/23 08:00 BP 154/64 06/16/23 07:00 Pulse Ox 95 06/16/23 08:38 FiO2 Intake & Output 06/15/23 06/16/23 06/16/23 18:59 06:59 18:59 Other: Voiding Method Toilet Toilet Toilet # Voids 3 2 1 - Labs CBC & Chem 7: 06/15/23 05:20 06/14/23 13:57 Labs: Abnormal Lab Results - Last 24 Hours (Table) 06/15/23 06/15/23 06/15/23 Range/Units 12:46 17:10 20:24 POC Glucose (mg/dL) 165 H 156 H 123 H (70-110) mg/dL
[2023-06-16 11:27] LABS: Glucose,Whole Blood 173 mg/dL (70-110)
[2023-06-16] MEDS: ONDANSETRON 4 MG/2 ML VIAL IVP PRN (11:40)
[2023-06-16 13:58] VITALS: BP 152/69; PULSE 72
--- NOTE | 2023-06-16 14:12 | NM ---
EXAMINATION TYPE: NM stress lexiscan cardiolite DATE OF EXAM: 06/16/2023 COMPARISON: NONE CLINICAL INDICATION: Female, 73 years old with history of ABN ECG; TECHNIQUE: After the intravenous administration of 10 mCi Tc 99m Sestamibi - Cardiolite resting SPEC T images acquired 100 minutes post injection. The patient received 0.4mg Lexiscan, 25.1 mCi Tc 99m Sestamibi - Stress images obtained [address] injection FINDINGS: Review of stress and rest SPECT images demonstrates no distinct perfusion abnormality. Gated analysi s shows normal wall motion with an estimated left ventricular ejection fraction of 63 %. IMPRESSION: No scintigraphic evidence for reversible ischemia.
--- NOTE | 2023-06-16 14:57 | P.PN ---
Progress Note - Text Progress Note Date: 06/16/23 Patient not seen, off the floor for Clay. The impression and plan of care has been dictated as directed. : I performed a history and examination of this patient, discussed the same with the dictator. I agree with the dictator's note ,documented as a scribe. Any additional findings or plans will be noted.
--- NOTE | 2023-06-16 14:57 | CA ---
Lexiscan Nuclear Stress Test Report Name: Fiorella Lopez Exam Date: 06/16/2023 09:58 Exam Location: [facility] Stress Ht (in): 63 Wt (lb): 115 BSA: 1.53 Ordering Phys: Gricelda King Referring Phys: Reginald, Technologist: Gilberto Mcclellan Age: 73 Gender: F : 1950 Procedure CPT: Indications: Reflex order-Stress test ICD-10 Codes: Patient History: DIFFICULTY IN BREATHING, PALPITATIONS, ANGINA, HTN, DIABETES, PRIOR STROKE, ELEVATED CHOLESTEROL LEVELS, FAMILY HX OF HEART DISEASE, CURRENT SMOKER 0.5 PPD X 45 YEARS, PRIOR SD, PRIOR CARDIAC CATH WITH 4 STENTS, COPD Medications: Meds past 24 hrs: Pretest Chest Pain: STRESS TEST Lexiscan Protocol Exercise Duration (min:sec): 02:[address] Depressions (mm): Angina Score: Alt[place]irano Score: Resting HR (bpm): 82 Peak HR (bpm): 136 Resting BP (mmHg): 204 / 84 Peak BP (mmHg): 282 / 100 MPHR: 149 Target HR: 127 % MPHR: 91 METS: 1.0 Total Dose: Peak Dose: Atropine: Double Product: 00350 BP Response: Stress Termination: INFUSION COMPLETE Stress Symptoms: CHEST PAIN, NAUSEA, AND VOMITING Stress Summary: ECG ANALYSIS Resting ECG: Sinus rhythm. Normal conduction. No arrhythmias. Nonspecific ST-T abnormality. Stress ECG: No ECG changes from baseline with Lexiscan infusion. CONCLUSIONS No ECG evidence of ischemia with Lexiscan infusion. Nuclear test results to follow. Dr. Kelvin Miguel MD (Electronically Signed) Final Date: 16 June 2023 14:56
--- NOTE | 2023-06-16 16:07 | P.DS ---
Providers Date of admission: 06/14/23 15:52 Expected date of discharge: 06/16/23 Attending physician: Timi Morales MD Consults: 06/14/23 15:50 Consult Physician Urgent Consulting Provider: [facility] Consult Reason/Comments: Abnormal EKG Do you want consulting provider notified?: Yes Primary care physician: Chelsie Morales [facility] Course: Final Diagnoses: Left SFA occlusion, procedure cancelled secondary to abnormal EKG . Follow-up outpatient with vascular surgery in 2 weeks. Coronary artery disease, history of stents Sick sinus syndrome status post dual-chamber pacemaker placement in December 2021 History of CVA/TIA History of bilateral carotid endarterectomy Hypertension Hyperlipidemia Diabetes type 2 non-insulin dependent Hearing loss left ear Urinary incontinence, history of Peripheral vascular disease Anxiety/depression and bipolar disorder Ongoing nicotine dependence History of gastric sleeve surgery Hospital course:H&P Date: 06/15/23 Chief Complaint: Abnormal EKG This is a 73-year-old female with past medical history significant for CAD, history of stents, pacemaker placement for sick sinus syndrome, CVA, diabetes mellitus, nicotine dependence, claudication and multiple other medical issues, initially scheduled for left femoral popliteal artery bypass yesterday with vascular surgery. Presented in preop abnormal EKG, acute changes compared to prior EKG. Procedure cancelled, cardiology consulted. This morning patient reports left posterior shoulder blade pain, no increased shortness of breath. Hypertensive with systolic blood pressure in the 200s, antihypertensives further testing per cardiology. Scheduled for Lexiscan stress test pending better controlled blood pressures. Echo ordered. Echo reported EF 55-60%, pulmonary hypertension, moderate mitral regurgitation, mild tricuspid regurgitation, mild to moderate aortic regurgitation. Denies chest pain, palpitations or shortness of breath. Denies lightheadedness, dizziness or focal deficits. Blood pressure is better controlled with the addition of Norvasc and HCTZ. Patient will be discharged home today, in a stable condition with guarded prognosis, pending Lexiscan stress test, final DC recommendations and clearance as per cardiology. Has been advised to follow-up in a couple weeks with vascular surgery to reschedule procedure for her left SFA occlusion. The impression and plan of care has been dictated as directed. : I performed a history and examination of this patient, discussed the same with the dictator. I agree with the dictator's note ,documented as a scribe. Any additional findings or plans will be noted. Patient Condition at Discharge: Stable Plan - Discharge Summary New Discharge Prescriptions: New Loratadine [Claritin] 10 mg PO DAILY tab hydroCHLOROthiazide [Hydrodiuril] 25 mg PO DAILY #30 tab amLODIPine [Norvasc] 10 mg PO DAILY #30 tab Continue Clopidogrel Bisulfate [Plavix] 75 mg PO DAILY DULoxetine HCL [Cymbalta] 30 mg PO BID Rosuvastatin Calcium [Crestor] 40 mg PO HS Losartan Potassium [Cozaar] 100 mg PO DAILY Spironolactone [Aldactone] 50 mg PO DAILY lamoTRIgine [LaMICtal] 225 mg PO HS Oxybutynin Chloride [oxyBUTYnin chloride ER] 10 mg PO HS Apixaban [Eliquis] 2.5 mg PO BID Pramipexole [Mirapex] 0.5 mg PO HS Amitriptyline HCl 10 mg PO HS Ezetimibe [Zetia] 10 mg PO DAILY metFORMIN HCL 500 mg PO DAILY PRN PRN Reason: cbg 200 Discharge Medication List Clopidogrel Bisulfate [Plavix] 75 mg PO DAILY 11/19/17 [History] DULoxetine HCL [Cymbalta] 30 mg PO BID 05/22/18 [History] Oxybutynin Chloride [oxyBUTYnin chloride ER] 10 mg PO HS 03/15/22 [History] Rosuvastatin Calcium [Crestor] 40 mg PO HS 03/15/22 [History] Apixaban [Eliquis] 2.5 mg PO BID 10/20/22 [History] Amitriptyline HCl 10 mg PO HS 02/25/23 [History] Ezetimibe [Zetia] 10 mg PO DAILY 02/25/23 [History] Pramipexole [Mirapex] 0.5 mg PO HS 02/25/23 [History] Losartan Potassium [Cozaar] 100 mg PO DAILY 06/08/23 [History] Spironolactone [Aldactone] 50 mg PO DAILY 06/08/23 [History] lamoTRIgine [LaMICtal] 225 mg PO HS 06/08/23 [History] metFORMIN HCL 500 mg PO DAILY PRN 06/08/23 [History] Loratadine [Claritin] 10 mg PO DAILY tab 06/16/23 [Rx] amLODIPine [Norvasc] 10 mg PO DAILY #30 tab 06/16/23 [Rx] hydroCHLOROthiazide [Hydrodiuril] 25 mg PO DAILY #30 tab 06/16/23 [Rx] Follow up Appointment(s)/Referral(s): Chelsie Morales DO [Primary Care Provider] - 3 Days Luisito Montelongo DO [STAFF PHYSICIAN] - 2 Weeks Activity/Diet/Wound Care/Special Instructions: Cleared by cardiology
== END 2023-06-16 16:28 ==
LOC: EC 12:54 → 6NMEDSUR 15:52
PROVIDERS: ADMIT Family Medicine; ATTEND Family Medicine
DX: I77.9 Disorder of arteries and arterioles, unspecified (principal); I45.81 Long QT syndrome; Z53.8 Procedure and treatment not carried out for other reasons; R06.02 Shortness of breath; I25.10 Atherosclerotic heart disease of native coronary artery without angina pectoris; I08.3 Combined rheumatic disorders of mitral, aortic and tricuspid valves; I49.5 Sick sinus syndrome; Z95.5 Presence of coronary angioplasty implant and graft; Z95.0 Presence of cardiac pacemaker; Z98.890 Other specified postprocedural states; I10 Essential (primary) hypertension; E78.5 Hyperlipidemia, unspecified; E11.51 Type 2 diabetes mellitus with diabetic peripheral angiopathy without gangrene; H91.92 Unspecified hearing loss, left ear; F41.9 Anxiety disorder, unspecified; F31.9 Bipolar disorder, unspecified; F10.11 Alcohol abuse, in remission; F17.210 Nicotine dependence, cigarettes, uncomplicated; Z98.84 Bariatric surgery status; G47.30 Sleep apnea, unspecified; I69.398 Other sequelae of cerebral infarction; R32 Unspecified urinary incontinence; G47.00 Insomnia, unspecified; Z87.19 Personal history of other diseases of the digestive system; Z90.49 Acquired absence of other specified parts of digestive tract; Z98.42 Cataract extraction status, left eye; Z98.41 Cataract extraction status, right eye; Z82.49 Family history of ischemic heart disease and other diseases of the circulatory system; Z83.3 Family history of diabetes mellitus; Z79.01 Long term (current) use of anticoagulants; Z79.84 Long term (current) use of oral hypoglycemic drugs; Z79.02 Long term (current) use of antithrombotics/antiplatelets; Z79.899 Other long term (current) drug therapy; Z88.5 Allergy status to narcotic agent; Z91.040 Latex allergy status
CPT/HCPCS: 96374; 99285; 36415; 94760 ×2; 93005; 93017; 80061; 80053; 83735; 84484; 85025 ×2; 85610; 85730; 71046; 78452; G0378 ×3; A9500; J0360; J2405 ×2; J2785

== ENCOUNTER → 2023-06-14 | Outpatient (CLI) | payer MEDICARE ==
[~2023-06-14] MED LIST changes: +AMINOPHYLLINE 500 MG/20 ML VIAL IV PRN; +CAFFEINE CITRATE 60 MG/3 ML VIAL IV PRN; +DEXAMETHASONE SOD PHOSPHATE 4 MG/ML 1 ML VIAL IV ONE; +EZETIMIBE 10 MG TAB PO SCH; +LACTATED RINGERS 1,000 ML IV SCH; +MIDAZOLAM 2 MG/2 ML VIAL IV PRN; +NON FORMULARY DRUG (Losartan Potassium [Cozaar] 100 MG Tablet) PO SCH; +NON FORMULARY DRUG (Rosuvastatin Calcium [Crestor] 40 MG Tablet) PO SCH; +NON FORMULARY DRUG (Spironolactone [Aldactone] 50 MG Tablet) PO SCH; +ONDANSETRON 4 MG/2 ML VIAL IVP ONE; +REGADENOSON 0.4 MG/5 ML SYRINGE IV PRN; -SODIUM CHLORIDE 0.9% 1,000 ML IV SCH; +fentaNYL (PF) 50 MCG/ML 2 ML AMP IV PRN
[2023-06-14 11:00] VITALS: RESP 16; TEMP 97.9
[2023-06-14 11:20] LABS: Glucose,Whole Blood 135 mg/dL (70-110)
[2023-06-14 12:30] VITALS: BP 178/77; PULSE 60
--- NOTE | 2023-06-14 12:42 | P.CRDCN ---
History of Present Illness History of present illness: HISTORY OF PRESENT ILLNESS: This is a 73-year-old female with a past medical history significant for sick sinus syndrome status post dual-chamber pacemaker December 2021, CVA, hypertension, hyperlipidemia, diabetes, coronary artery disease with PCI to RCA in 2018, carotid artery stenosis, status post bilateral carotid endarterectomy, and former nicotine dependence. Patient follows in the office with Dr. Mirza. We have been asked to see the patient in consultation for abnormal EKG. Patient was scheduled to undergo intervention with vascular surgery today for left SFA occlusion. Patient had an EKG performed in the pre-op area revealing deep T-wave inversions in anterior lateral leads and prolonged QT. These findings are new compared to old EKG. The patient denies having any chest pain or pressure. She does report having shortness of breath recently. No laboratory data is available for review at this time. REVIEW OF SYSTEMS: At the time of my exam: CONSTITUTIONAL: Denies fever or chills. HEENT: Denies blurred vision, vision changes, or eye pain. Denies hemoptysis CARDIOVASCULAR: Denies chest pain. Denies orthopnea. Denies PND. Denies palpitations RESPIRATORY: Denies shortness of breath. GASTROINTESTINAL: Denies abdominal pain. Denies nausea or vomiting. HEMATOLOGIC: Denies bleeding disorders. GENITOURINARY: Denies any blood in urine. SKIN: Denies pruitis. Denies rash. PHYSICAL EXAM: VITAL SIGNS: Reviewed. GENERAL: Well-developed in no acute distress. HEENT: Head is normocephalic. Pupils are equal, round. Sclerae anicteric. Mucous membranes of the mouth are moist. Neck supple. No JVD or thyromegaly LUNGS: Respirations even and unlabored. Lungs essentially clear to auscultation bilaterally. HEART: Regular rate and rhythm. S1 and S2 heard. ABDOMEN: Soft. Nondistended. Nontender. EXTREMITIES: Normal range of motion. No clubbing or cyanosis. Peripheral pulses intact. No lower extremity edema NEUROLOGIC: Awake and alert. Oriented x 3. ASSESSMENT: Left SFA occlusion Abnormal EKG revealing deep TWI in anterolateral leads with prolonged QT Coronary artery disease with previous PCI to the RCA in 2018 Sick sinus syndrome status post dual-chamber pacemaker, December 2021 History of carotid stenosis with previous bilateral carotid endarterectomy Hypertension Hyperlipidemia History of CVA Diabetes Former nicotine dependence PLAN: Patient with new EKG findings compared to old EKG. Due to this, recommend cancelling vascular procedure today. NPO at midnight We will check Any scan stress test tomorrow to evaluate for new areas of ischemia. Differential diagnosis includes Takotsubo and possible pacemaker memory causing abnormal EKG. Obtain CBC and BMP Obtain 2D echo to assess cardiac structure and function Avoid QT prolonging medications Continue to hold Plavix and Eliquis Further recommendations pending patient course Nurse practitioner note has been reviewed by physician. Signing provider agrees with the documented findings, assessment, and plan of care. Past Medical History Past Medical History: Coronary Artery Disease (CAD), COPD, CVA/TIA, Diabetes Mellitus, GERD/Reflux, Hearing Disorder / Deafness, Hyperlipidemia, Hypertension, Osteoarthritis (OA), Sleep Apnea/CPAP/BIPAP, Vascular Disorder Additional Past Medical History / Comment(s): Hx CVA 03/15/22 with residual left sided nerve pain, hearing loss left ear, urinary incontinence. PAD. Insomnia. hx sleep apnea-does not use machine., diverticulitis, gastric sleeve., occasional vertigo with loss of balance., pain left leg. History of Any Multi-Drug Resistant Organisms: None Reported Past Surgical History: Bariatric Surgery, Bladder Surgery, Cholecystectomy, Heart Catheterization With Stent, Hysterectomy, Joint Replacement, Orthopedic Surgery, Pacemaker Additional Past Surgical History / Comment(s): Bilateral cataracts, gastric sleeve, right rotator cuff repair, left knee replacement, bladder suspension x3, right and left carotid endarterectomy, left femur surgery with daniella placed. 4 cardiac stents,tilt table test Past Anesthesia/Blood Transfusion Reactions: Previous Problems w/ Anesthesia, Motion Sickness, Postoperative Nausea & Vomiting (PONV) Additional Past Anesthesia/Blood Transfusion Reaction / Comment(s): no hx blood transfusion Date of Last Stent Placement:: Nov 2017 Type of Cardiac Device: Unknown Device Placement Date:: Dual Chamber Pacemaker 01/05. Past Psychological History: Anxiety, Bipolar, Depression Additional Psychological History / Comment(s): . Smoking Status: Current some day smoker Past Alcohol Use History: None Reported, Abuse Additional Past Alcohol Use History / Comment(s): smokes occasionally. , started smoking age 29, hx of 1/2 ppd., Has smoked since age of 29. quit alcohol 1988 Past Drug Use History: None Reported - Past Family History Mother Family Medical History: No Reported History, Coronary Artery Disease (CAD), Diabetes Mellitus Additional Family Medical History / Comment(s): CABG Father Family Medical History: Hypertension, Myocardial Infarction ([place]) Brother(s) Family Medical History: Coronary Artery Disease (CAD), Myocardial Infarction (AR) Additional Family Medical History / Comment(s): CABG Medications and Allergies Home Medications Medication Instructions Recorded Confirmed Type Clopidogrel Bisulfate [Plavix] 75 mg PO DAILY 11/19/17 06/14/23 History DULoxetine HCL [Cymbalta] 30 mg PO BID 05/22/18 06/14/23 History Oxybutynin Chloride [oxyBUTYnin 10 mg PO HS 03/15/22 06/14/23 History chloride ER] Rosuvastatin Calcium [Crestor] 40 mg PO HS 03/15/22 06/14/23 History clonazePAM 0.5 mg PO HS PRN 05/26/22 06/14/23 History Apixaban [Eliquis] 2.5 mg PO BID 10/20/22 06/14/23 History Pregabalin [Lyrica] 150 mg PO TID 10/20/22 06/14/23 History Amitriptyline HCl 10 mg PO HS 02/25/23 06/14/23 History Ezetimibe [Zetia] 10 mg PO DAILY 02/25/23 06/14/23 History Pantoprazole [Protonix] 40 mg PO DAILY 02/25/23 06/14/23 History Pramipexole [Mirapex] 0.5 mg PO HS 02/25/23 06/14/23 History cilostazoL [Pletal] 100 mg PO BID 02/25/23 06/08/23 History Fluticasone Inhaler 25/50 1 puff INHALATION DAILY 06/08/23 History Losartan Potassium [Cozaar] 100 mg PO DAILY 06/08/23 06/08/23 History Spironolactone [Aldactone] 50 mg PO DAILY 06/08/23 06/14/23 History lamoTRIgine [LaMICtal] 225 mg PO HS 06/08/23 06/14/23 History metFORMIN HCL 500 mg PO DAILY PRN 06/08/23 06/14/23 History Allergies Allergy/AdvReac Type Severity Reaction Status Date / Time codeine Allergy passed out Verified 06/14/23 10:50 Latex, Natural Rubber Allergy Rash/Hives Verified 06/14/23 10:50 morphine AdvReac Vomiting Verified 06/14/23 10:50 Physical Exam Vitals: Vital Signs Temp Pulse Resp BP Pulse Ox 06/14/23 10:59 97.9 F 69 16 189/89 99 Intake and Output 06/13/23 06/14/23 06/14/23 22:59 06:59 14:59 Other: Weight 52.6 kg Results Current Medications Generic Name Dose Route Start Last Admin Trade Name Freq PRN Reason Stop Dose Admin Aminophylline 100 mg 06/14/23 12:07 Aminophylline 500 Mg/20 Ml Vial IV 06/14/23 16:07 ONCE PRN Patient Response Caffeine Citrate 60 mg 06/14/23 12:07 Caffeine Citrate 60 Mg/3 Ml Vial IV 06/14/23 16:07 ONCE PRN Patient Response Ezetimibe 10 mg 06/15/23 09:00 Ezetimibe 10 Mg Tab PO DAILY HORACE Fentanyl Citrate 50 mcg 06/14/23 07:00 Fentanyl (Pf) 50 Mcg/Ml 2 Ml Amp IV 06/14/23 23:00 Q3M PRN Phase I - Pain Control Cefazolin Sodium 2 gm/ Sodium 50 mls @ 100 mls/hr 06/14/23 05:00 Chloride IVPB 06/15/23 00:01 ONCE PRN pre-op Lactated Ringer's 1,000 mls @ 20 mls/hr 06/14/23 05:53 06/14/23 11:49 Lactated Ringers IV 0 mls .Q24H HORACE Administration Midazolam HCl 2 mg 06/14/23 05:53 Midazolam 2 Mg/2 Ml Vial IV 06/15/23 05:54 ONCE PRN Pre-Op Anxiety Non-Formulary Medication 100 mg 06/15/23 09:00 Losartan Potassium [Cozaar] PO DAILY HORACE Non-Formulary Medication 40 mg 06/14/23 21:00 Rosuvastatin Calcium [Crestor] PO HS HORACE Non-Formulary Medication 50 mg 06/15/23 09:00 Spironolactone [Aldactone] PO DAILY HORACE Regadenoson 0.4 mg 06/14/23 12:07 Regadenoson 0.4 Mg/5 Ml Syringe IV 06/14/23 16:07 ONCE PRN Per Protocol Intake and Output 0706/14/23 06/14/23 22:59 06:59 14:59 Other: Weight 52.6 kg Patient Weight 06/15/23 06:59 Weight 52.6 kg
[2023-06-14 12:48] LABS: ALT 14 U/L (4-34); AST 16 U/L (14-36); African American GFR (CKD) >90 (>60 ml/min/1.73 sqM); Albumin 3.2 g/dL (3.5-5.0); Alkaline Phosphatase 54 U/L (38-126); Anion Gap 3 mmol/L; Blood Urea Nitrogen 17 mg/dL (7-17); Calcium 8.5 mg/dL (8.4-10.2); Carbon Dioxide 27 mmol/L (22-30); Chloride 108 mmol/L (98-107); Glucose 121 mg/dL (74-99); Non-African American GFR(CKD) >90 (>60 ml/min/1.73 sqM); Potassium 3.9 mmol/L (3.5-5.1); Sodium 138 mmol/L (137-145); Total Bilirubin 0.6 mg/dL (0.2-1.3); Total Protein 5.6 g/dL (6.3-8.2)
--- NOTE | 2023-06-14 14:31 | CT ---
EXAMINATION TYPE: CT angio abd aorta w/Runoff CT DLP: 1269.2 mGycm, Automated exposure control for dose reduction was used. DATE OF EXAM: 06/14/2023 2:00 PM COMPARISON: CT abdomen pelvis 02/25/2023, CTA abdomen aorta with runoff 09/06/2022. CLINICAL INDICATION:Female, 73 years old with history of PAD; PHH, pad CONTRAST: CTA scan of the abdomen and pelvis with bilateral lower extremities runoff is performed without oral and without and with IV Contrast, patient injected with 100 mL of Isovue 370. Three-D reconstructed i mages are created on a independent workstation and reviewed. FINDINGS: Vascular: Moderate mixed plaque of the abdominal aorta extends into branch vessels. No significant st enosis and celiac artery or SMA with bilateral single renal arteries. Patent LUKE. Moderate to severe mixed plaque in the common iliac arteries bilaterally without significant stenosis. Patent external i liac arteries with more mild to moderate plaque without significant stenosis. Moderate stenosis at th e origin of the left internal iliac artery. There is more severe plaque right groin region again causing stenosis approaching 50 % before bifurca tion. There is mild to moderate plaque in the proximal superficial femoral artery with more severe pl aque along the mid to distal superficial femoral artery with stenosis greater than 50% in demonstrate d. There is less prominent plaque into the popliteal artery. There is satisfactory bifurcation trifur cation with moderate plaque. Diminished three-vessel and two-vessel flow is again noted. Moderate to severe plaque left groin region. With complete occlusion of the left SFA at its origin ag ain demonstrated. Some reconstitution of the distal SFA is again noted. There is then good flow witho ut significant plaque or stenosis in the popliteal artery with subsequent bifurcation trifurcation ag ain. There is poor three-vessel and two-vessel flow in the leg similar to the opposite right side aga in. LUNG BASES: Partial visualization of pacemaker wires in the right heart system. Coronary artery trifu rcation aneurysm stents are redemonstrated. LIVER/GB: No significant abnormality is appreciated. PANCREAS: No significant abnormality is seen. SPLEEN: No significant abnormality is seen. ADRENALS: There are stable 3.3 x 2.3 cm low dense right adrenal mass consistent with benign lipid foster h adenoma and smaller nodularity to the left adrenal gland consistent with additional benign lipid ri ch adenomas. KIDNEYS: No hydronephrosis. The kidneys enhance symmetrically. Few subcentimeter cortical hypodense f oci which likely represent cysts. BOWEL: Postsurgical changes of the stomach gastric sleeve. At or distal colonic diverticulosis withou t evidence for acute diverticulitis.2 UTERUS/ADNEXA: Uterus appears surgically absent. LYMPH NODES: No greater than 1cm abdominal or pelvic lymph nodes are appreciated. OSSEOUS STRUCTURES: Multilevel facet arthropathy in the lower lumbar spine. Metallic hardware from barajas rgery in the left femur and left knee is noted. OTHER: No significant additional abnormality is seen. IMPRESSION: 1. Complete occlusion beginning at left SFA origin extending into the distal SFA where there is some reconstitution just above the knee redemonstrated. No new vascular occlusion. 2. Significant peripheral arterial disease bilaterally with poor three-vessel and two-vessel flow in the bilateral legs below mid leg level is redemonstrated.
--- NOTE | 2023-06-15 06:56 | CA ---
Transthoracic Echo Report Name: Fiorella Lopez Age: 73 Gender: F : 1950 Exam Date: 06/14/2023 14:10 Exam Location: [facility] Ht (in): 63 Wt (lb): 115 Ordering Physician: Gricelda King Attending/Referring Phys: [id number], Fernando Manager [employer] Neris Cameron RDCS Procedure CPT: Indications: LV function, abnormal EKG Cardiac Hx: Technical Quality: Fair Contrast 1: Total Dose (mL): Contrast 2: Total Dose (mL): MEASUREMENTS (Male / Female) Normal Values 2D ECHO LV Diastolic Diameter PLAX 4.4 cm 4.2 - 5.9 / 3.9 - 5.3 cm LV Systolic Diameter PLAX 3.4 cm IVS Diastolic Thickness 1.4 cm 0.6 - 1.0 / 0.6 - 0.9 cm LVPW Diastolic Thickness 1.3 cm 0.6 - 1.0 / 0.6 - 0.9 cm LV Relative Wall Thickness 0.6 RV Internal Dim ED PLAX 3.1 cm LA Volume 84.2 cm??? 18 - 58 / 22 - 52 cm??? M-MODE Aortic Root Diameter MM 2.9 cm LA Systolic Diameter MM 4.4 cm LA Ao Ratio MM 1.5 AV Cusp Separation MM 1.9 cm DOPPLER AV Peak Velocity 143.8 cm/s AV Peak Gradient 8.3 mmHg AV Mean Velocity 90.4 cm/s AV Mean Gradient 3.8 mmHg AV Velocity Time Integral 28.2 cm AI Peak Velocity 311.4 cm/s AI Peak Gradient 38.8 mmHg AI Pressure Half Time 581.7 ms LVOT Peak Velocity 147.8 cm/s LVOT Peak Gradient 8.7 mmHg LVOT Velocity Time Integral 34.6 cm MV Area PHT 3.0 cm??? Mitral E Point Velocity 118.8 cm/s Mitral A Point Velocity 135.4 cm/s Mitral E to A Ratio 0.9 MV Deceleration Time 253.5 ms MV E' Velocity 4.6 cm/s Mitral E to MV E' Ratio 25.7 TR Peak Velocity 285.2 cm/s TR Peak Gradient 32.5 mmHg Right Ventricular Systolic Press 36.3 mmHg FINDINGS Left Ventricle Mildly increased left ventricular wall thickness. Normal left ventricular systolic function with no obvious regional wall motion abnormalities. Left ventricular cavity size normal. Left ventricular ejection fraction is estimated at 55-60 %. Right Ventricle Normal right ventricular size and function. Mild pulmonary hypertension. Right Atrium Normal right atrial size. Catheter/pacemaker wire in the right atrial cavity. Left Atrium Severely increased left atrial volume. Mildly increased left atrial area. Mitral Valve Structurally normal mitral valve. Mitral valve thickened. Mitral annular calcification. Mild to moderate mitral regurgitation. Aortic Valve Trileaflet aortic valve. Aortic valve sclerosis. Mild to moderate aortic regurgitation. Tricuspid Valve Structurally normal tricuspid valve. Mild tricuspid regurgitation. Pulmonic Valve Trace pulmonic regurgitation. Pericardium No pericardial effusion. Aorta Normal size aortic root and proximal ascending aorta. CONCLUSIONS 1. Normal left ventricular size and systolic function 2. Mild to moderate mitral with mild tricuspid regurgitation 3. Mild to moderate aortic regurgitation Previewed by: Dr. Kelvin Miguel MD (Electronically Signed) Final Date: 15 June 2023 06:55
== END ==
LOC: 2ORMAIN 10:20 → OR 10:20 → UNDOADMIN 10:20 → EDSTATUS 12:30 → UNDODISIN 12:50
PROVIDERS: ATTEND Surgery
DX: E11.51 Type 2 diabetes mellitus with diabetic peripheral angiopathy without gangrene (principal); I70.202 Unspecified atherosclerosis of native arteries of extremities, left leg; Z53.09 Procedure and treatment not carried out because of other contraindication; R94.31 Abnormal electrocardiogram [ECG] [EKG]
CPT/HCPCS: 93306; 86900; 86901; 80053; 86850; 75635; Q9967

== ENCOUNTER 2023-08-05 06:34 | Inpatient (IN) | payer MEDICARE ==
[2023-08-04 10:02] VITALS: BMI 20.9
[~2023-08-05 06:34] MED LIST changes: -AMINOPHYLLINE 500 MG/20 ML VIAL IV PRN; -CAFFEINE CITRATE 60 MG/3 ML VIAL IV PRN; -EZETIMIBE 10 MG TAB PO SCH; -LACTATED RINGERS 1,000 ML IV SCH; +LIDOCAINE 1% (10MG/ML) FOR IV START INTRADERMA PRN; -MIDAZOLAM 2 MG/2 ML VIAL IV PRN; -NON FORMULARY DRUG (Losartan Potassium [Cozaar] 100 MG Tablet) PO SCH; -NON FORMULARY DRUG (Rosuvastatin Calcium [Crestor] 40 MG Tablet) PO SCH; -NON FORMULARY DRUG (Spironolactone [Aldactone] 50 MG Tablet) PO SCH; -REGADENOSON 0.4 MG/5 ML SYRINGE IV PRN; -fentaNYL (PF) 50 MCG/ML 2 ML AMP IV PRN
[2023-08-05] MEDS ORDERED: MIDAZOLAM 2 MG/2 ML VIAL IV PRN (07:00)
[2023-08-05] MEDS: LACTATED RINGERS 1,000 ML IV SCH ×2 (07:19→07:30)
[2023-08-05 07:54] LABS: Glucose,Whole Blood 118 mg/dL (70-110)
[2023-08-05] MEDS ORDERED: fentaNYL (PF) 50 MCG/ML 2 ML AMP IVP ONE (08:14)
[2023-08-05] MEDS ORDERED: HEPARIN SODIUM,PORCINE 10,000 UNIT/ML 1 ML VIAL ONE (08:53)
[2023-08-05] MEDS ORDERED: fentaNYL (PF) 50 MCG/ML 2 ML AMP ONE (08:53)
[2023-08-05] MEDS ORDERED: ROCURONIUM 10 MG/ML (5 ML VIAL) IV ONE (08:53)
[2023-08-05] MEDS ORDERED: SUCCINYLCHOLINE CHLORIDE 200 MG/10 ML VIAL IV ONE (08:53)
[2023-08-05] MEDS ORDERED: PROPOFOL 10 MG/ML 20 ML VIAL IV ONE (08:53)
[2023-08-05] MEDS ORDERED: KETAMINE 10 MG/ML 20 ML VIAL ONE (08:53)
[2023-08-05] MEDS ORDERED: WATER FOR INJECTION, STERILE 10 ML VIAL IV ONE (08:53)
[2023-08-05] MEDS ORDERED: NEOSTIGMINE 1 MG/ML 10 ML VIAL ONE (08:53)
[2023-08-05] MEDS ORDERED: LABETALOL 5 MG/ML VIAL MDV ONE (08:53)
[2023-08-05] MEDS ORDERED: ePHEDrine 50 MG/ML 1 ML VIAL ONE (08:53)
[2023-08-05] MEDS ORDERED: PHENYLEPHRINE-0.9% NACL SYG 1,000 MCG/10 ML SYRINGE ONE (08:53)
[2023-08-05] MEDS ORDERED: GLYCOPYRROLATE 0.2 MG/ML 2 ML VIAL ONE (08:53)
[2023-08-05] MEDS ORDERED: MIDAZOLAM 2 MG/2 ML VIAL ONE (08:53)
[2023-08-05] MEDS ORDERED: LIDOCAINE 2% INJ 20 MG/ML (2 ML VIAL) ONE (08:53)
--- NOTE | 2023-08-05 09:21 | P.ANPRN ---
Procedure Note - Anesthesia - Invasive Line Right Arterial Line Time Out Performed: Yes Date of Procedure: 08/05/23 Time of Procedure: 08:14 Location of Patient: PreOp Preparation: Sterile Prep, Sterile Dressing Arterial Line Location: Radial Ultrasound Used: Yes Purpose - Visualization and Identification of Vasculature: Yes Needle Guage: 20 Image Stored and Saved: Yes Narrative: Arterial line placement using Seldinger technique per sterile protocol.
[2023-08-05] MEDS ORDERED: ceFAZolin 4 GM in SODIUM CHLORIDE 0.9% 1,000 ML IRRIGATION ONE (09:38)
[2023-08-05] MEDS ORDERED: HEPARIN SODIUM,PORCINE 10,000 UNIT in SODIUM CHLORIDE 0.9% 1,000 ML IRRIGATION ONE (09:38)
[2023-08-05] MEDS ORDERED: THROMBIN (BOVINE) 5,000 UNIT VIAL TOPICAL ONE (09:38)
[2023-08-05] MEDS ORDERED: GELATIN SPONGE,ABSORB (LARGE) 1 EACH SPONGE TOPICAL ONE (09:38)
[2023-08-05 11:29] LABS: Glucose,Whole Blood 160 mg/dL (70-110)
[2023-08-05 13:14] LABS: Glucose,Whole Blood 164 mg/dL (70-110)
[2023-08-05] MEDS: HYDROmorphone 0.5 MG/0.5 ML SYRINGE IVP PRN ×3 (13:19→20:46)
[2023-08-05] MEDS ORDERED: MAG HYDROX/AL HYDROX/SIMETH 30 ML CUP PO PRN (14:05)
[2023-08-05] MEDS ORDERED: ACETAMINOPHEN TAB 325 MG TAB PO PRN (14:05)
[2023-08-05] MEDS ORDERED: ONDANSETRON 4 MG/2 ML VIAL IVP PRN (14:05)
[2023-08-05] MEDS ORDERED: SODIUM CHLORIDE 0.9% 1,000 ML IV ONE (14:10)
--- NOTE | 2023-08-05 14:10 | P.OP ---
Date of Procedure: 08/05/23 Description of Procedure: Preoperative diagnosis: Disabling claudication with rest pain Akash classification 4, left SFA occlusion Postoperative diagnosis: Same Procedure: Left femoral endarterectomy with patch angioplasty with left femoral- popliteal artery bypass with Neola PTFE 6mm graft Surgeon: Luisito Bacon assistant: mohsen Anesthesia: General Estimated blood loss: 100 mL Complications: None Condition: Stable Disposition: Multiphasic PT signal and DP signal on the left Indication for procedure: 73-year-old female with history of peripheral arterial disease, claudication who recently has been having worsening pain in her left lower extremity now at night as well presents to the hospital for elective femoral to above-knee versus below-knee bypass. She did undergo CTA which demonstrated patent vessels above the knee but due to her hardware from a total knee replacement was difficult to assess behind the knee popliteal artery patency. He was discussed in the office if no brisk backbleeding from her above-knee popliteal then she would require a below-knee bypass. Operative narrative: After written and informed consent was obtained from the patient all risks benefits and competitions were described the patient is brought to the operative suite and laid in a supine position. The area of the abdomen, left lower extremity was prepped and draped in usual sterile fashion after appropriate anesthetic was performed per the anesthesiologist. A timeout was performed in normal fashion. Antibiotics were administered prior to incision. A oblique incision was created at the left groin and dissection was carried down to the common femoral artery. The common femoral, superficial femoral and profundus femoris arteries were dissected free in a circumferential manner and controlled with vessel loops. Attention was then placed distally and a transverse incision was created on the medial aspect of the lower thigh just above the knee with a 15 blade scalpel. Dissection was then carried down with electrocautery through the fascia to the popliteal artery. Popliteal artery was then dissected free in a circumferential manner and controlled with vessel loops. A 6 mm Neola PTFE graft was then tunneled from the groin incision to the above-knee incision in normal fashion. Arteriotomy at the common femoral artery was then created with 11 blade scalpel and extended with Pott Goyal scissors. There was dense calcification and plaque throughout the common femoral artery and therefore an endarterectomy and patch angioplasty was chosen to be performed. The plaque was removed and feathered distally at the profundus as well as the superficial femoral artery. There was dense plaque within the profundus was well and eversion endarterectomy was performed in normal fashion. An 8 x 8mm patch was then placed and sutured with 6-0 Prolene suture. Control was released revealing good pulsatile flow within the patch. The artery was then clamped again proximally and distally and the graft was spatulated in normal fashion and brought over to the patch. The patch out any was then created and end-to-side anastomosis was then created with 6-0 Prolene suture in a running fashion. Attention was then placed to the distal anastomosis. The popliteal artery was controlled and arteriotomy was created with 11 blade scalpel and extended with Pott Goyal scissors. There was good backbleeding noted. The graft was then spatulated and an end-to-side anastomosis was created with 6-0 Prolene suture in a running fashion. Prior to last sutures being placed backbleeding was once again assessed which was adequate and proximal control was released revealing good pulsatile blood flow. Final sutures were placed and good pulsatile blood flow was noted within the bypass and distal. Doppler signals were then noted distal to the bypass and were multiphasic. The areas were then copiously irrigated with antibiotic solution. The incisions were then closed in a multilayer fashion after hemostasis was assured with Surgicel and the skin was then cleansed and dressings were placed. The patient tolerated procedure well was sent to PACU for recovery.
[2023-08-05] MEDS: HYDROcodone/APAP 5-325MG 1 EACH TAB PO PRN (15:42)
[2023-08-05 16:33] LABS: Glucose,Whole Blood 184 mg/dL (70-110)
[2023-08-05] MEDS: INSULIN ASPART (NovoLOG) 100 UNIT/ML VIAL SQ SCH ×2 (17:32→20:48)
[2023-08-05] MEDS ORDERED: diphenhydrAMINE 25 MG CAP PO PRN (17:35)
[2023-08-05] MEDS ORDERED: clonazePAM 0.5 MG TAB PO PRN (17:35)
[2023-08-05 20:30] LABS: Glucose,Whole Blood 276 mg/dL (70-110)
[2023-08-05] MEDS: AMITRIPTYLINE HCL 10 MG TAB PO SCH (20:46)
[2023-08-05] MEDS: ATORVASTATIN 80 MG TAB PO SCH (20:46)
[2023-08-05] MEDS: cilostazoL 100 MG TAB PO SCH (20:46)
[2023-08-05] MEDS: lamoTRIgine 25 MG TAB PO SCH (20:47)
[2023-08-05] MEDS: PRAMIPEXOLE 0.5 MG TAB PO SCH (20:47)
[2023-08-05] MEDS: lamoTRIgine 100 MG TAB PO SCH (20:47)
[2023-08-05] MEDS: PREGABALIN 75 MG CAP PO SCH (20:47)
[2023-08-05] MEDS: DULoxetine HCL 30 MG CAPSULE.DR PO SCH (20:47)
[2023-08-05] MEDS: OXYBUTYNIN 10 MG TAB.ER.24 PO SCH (20:48)
[2023-08-06] MEDS: HYDROcodone/APAP 5-325MG 1 EACH TAB PO PRN ×3 (00:17→21:29)
[2023-08-06 06:12] LABS: Glucose,Whole Blood 126 mg/dL (70-110)
[2023-08-06] MEDS: INSULIN ASPART (NovoLOG) 100 UNIT/ML VIAL SQ SCH ×4 (06:13→21:30)
[2023-08-06] MEDS: PANTOPRAZOLE 40 MG TABLET PO SCH (06:14)
[2023-08-06] MEDS: CLOPIDOGREL 75 MG TAB PO SCH (07:47)
[2023-08-06] MEDS: DULoxetine HCL 30 MG CAPSULE.DR PO SCH ×3 (07:47→21:30)
[2023-08-06] MEDS: EZETIMIBE 10 MG TAB PO SCH (07:47)
[2023-08-06] MEDS: amLODIPine 10 MG TAB PO SCH (07:47)
[2023-08-06] MEDS: PREGABALIN 75 MG CAP PO SCH ×3 (07:47→21:29)
[2023-08-06] MEDS: hydroCHLOROthiazide 25 MG TAB PO SCH (07:47)
[2023-08-06] MEDS: cilostazoL 100 MG TAB PO SCH ×2 (07:48→21:30)
[2023-08-06] MEDS: HYDROmorphone 0.5 MG/0.5 ML SYRINGE IVP PRN (07:51)
[2023-08-06] MEDS: SYMBICORT 80-4.5 MCG INHALER INHALATION SCH ×2 (09:25→19:26)
[2023-08-06] MEDS: TIOTROPIUM 2.5 MCG INHALER INHALATION SCH (09:26)
[2023-08-06] MEDS ORDERED: DEXTROSE 50% SYRINGE 50 ML IVP PRN ×2 (09:28)
[2023-08-06] MEDS: DOCUSATE 100 MG CAP PO SCH (09:48)
[2023-08-06 09:58] LABS: African American GFR (CKD) >90 (>60 ml/min/1.73 sqM); Anion Gap 2 mmol/L; Blood Urea Nitrogen 18 mg/dL (7-17); Carbon Dioxide 25 mmol/L (22-30); Chloride 108 mmol/L (98-107); Glucose 186 mg/dL (74-99); Non-African American GFR(CKD) >90 (>60 ml/min/1.73 sqM); Sodium 135 mmol/L (137-145)
[2023-08-06 10:18] LABS: HCT 28.2 % (34.0-46.0); MCH 28.8 pg (25.0-35.0); MCHC 32.5 g/dL (31.0-37.0); MCV 88.5 fL (80.0-100.0); Mean Platelet Volume 10.6; Platelet Count 116 k/uL (150-450); RBC 3.19 m/uL (3.80-5.40); RDW 15.3 % (11.5-15.5); WBC 11.1 k/uL (3.8-10.6)
[2023-08-06 10:20] LABS: HGB 9.2 gm/dL (11.4-16.0)
[2023-08-06 11:44] LABS: Glucose,Whole Blood 193 mg/dL (70-110)
--- NOTE | 2023-08-06 13:45 | P.CONS ---
History of Present Illness - Reason for Consult Consult date: 08/06/23 - Chief Complaint Postoperative management. Full arterial disease - History of Present Illness * 73-year-old lady with past medical history significant for coronary artery disease, history of sick sinus syndrome status post pacemaker, history of CVA and diabetes mellitus history of claudication lower extremity was admitted under vascular surgery service for disabling claudication at rest. * Patient was admitted for elective femoral to above-knee versus below-knee bypass. Patient underwent left femoral endarterectomy with patch angioplasty with left femoral/popliteal artery bypass. Estimated blood loss 100 mL during the procedure. * Postprocedure patient admitted to medical floor with consultations obtained from medicine service for evaluation REVIEW OF SYSTEMS: Complains of left leg pain CONSTITUTIONAL: No fever, no malaise, no fatigue. HEENT: No recent visual problems or hearing problems. Denied any sore throat. CARDIOVASCULAR: No chest pain, orthopnea, PND, no palpitations, no syncope. PULMONARY: No shortness of breath, no cough, no hemoptysis. GASTROINTESTINAL: No diarrhea, no nausea, no vomiting, no abdominal pain. NEUROLOGICAL: No headaches, no weakness, no numbness. HEMATOLOGICAL: Denies any bleeding or petechiae. GENITOURINARY: Denies any burning micturition, frequency, or urgency. MUSCULOSKELETAL/RHEUMATOLOGICAL: Denies any joint pain, swelling, or any muscle pain. ENDOCRINE: Denies any polyuria or polydipsia. The rest of the 14-point review of systems is negative. PHYSICAL EXAMINATION: GENERAL: The patient is alert and oriented x3, not in any acute distress. Well developed, well nourished. HEENT: Pupils are round and equally reacting to light. EOMI. No scleral icterus. No conjunctival pallor. Normocephalic, atraumatic. No pharyngeal erythema. No thyromegaly. CARDIOVASCULAR: S1 and S2 present. No murmurs, rubs, or gallops. PULMONARY: Chest is clear to auscultation, no wheezing or crackles. ABDOMEN: Soft, nontender, nondistended, normoactive bowel sounds. No palpable organomegaly. MUSCULOSKELETAL: Left leg incision intact no hematoma noted EXTREMITIES: Left leg with edema noted NEUROLOGICAL: Gross neurological examination did not reveal any focal deficits. SKIN: No rashes. Past Medical History Past Medical History: Coronary Artery Disease (CAD), COPD, CVA/TIA, Diabetes Mellitus, GERD/Reflux, Hearing Disorder / Deafness, Hyperlipidemia, Hypertension, Myocardial Infarction (SC), Osteoarthritis (OA), [employer] Hand ea/CPAP/BIPAP, Vascular Disorder Additional Past Medical History / Comment(s): Hx CVA 03/15/22 with residual left sided nerve pain & hearing loss left ear, . PAD. Insomnia. hx sleep apnea-does not use machine., emphysema., diverticulitis, gastric sleeve., occasional vertigo with loss of balance., pain left leg., uses cane prn. Last Myocardial Infarction Date:: 2017 History of Any Multi-Drug Resistant Organisms: None Reported Past Surgical History: Bariatric Surgery, Bladder Surgery, Cholecystectomy, Heart Catheterization With Stent, Hysterectomy, Joint Replacement, Orthopedic Surgery, Pacemaker Additional Past Surgical History / Comment(s): Bilateral cataracts, gastric sleeve, right rotator cuff repair, left knee replacement, bladder suspension x3, right and left carotid endarterectomy, left femur surgery with daniella placed. 4 cardiac stents,tilt table test, dual chamber pacemaker Past Anesthesia/Blood Transfusion Reactions: Previous Problems w/ Anesthesia, Motion Sickness, Postoperative Nausea & Vomiting (PONV) Additional Past Anesthesia/Blood Transfusion Reaction / Comm: . Date of Last Stent Placement:: Nov 2017 Type of Cardiac Device: Unknown Device Placement Date:: Dual Chamber Pacemaker 01/05. Past Psychological History: Anxiety, Bipolar, Depression Additional Psychological History / Comment(s): . Smoking Status: Current some day smoker Past Alcohol Use History: None Reported, Abuse Additional Past Alcohol Use History / Comment(s): smokes occasionally. , started smoking age 29, hx of / ppd., Has smoked since age of 29. quit alcohol 1988 Past Drug Use History: None Reported Additional Drug Use History / Comment(s): occasional cigarette daily - Past Family History Mother Family Medical History: Coronary Artery Disease (CAD), Diabetes Mellitus Additional Family Medical History / Comment(s): CABG Father Family Medical History: Hypertension, Myocardial Infarction (SC) Brother(s) Family Medical History: Blood Disorder, Coronary Artery Disease (CAD), Myocardial Infarction (SC) Additional Family Medical History / Comment(s): CABG, unknown type of blood disorder Medications and Allergies Home Medications Medication Instructions Recorded Confirmed Type Clopidogrel Bisulfate [Plavix] 75 mg PO DAILY 11/19/17 08/05/23 History DULoxetine HCL [Cymbalta] 30 mg PO TID 05/22/18 08/05/23 History Oxybutynin Chloride [oxyBUTYnin 10 mg PO HS 03/15/22 08/05/23 History chloride ER] Rosuvastatin Calcium [Crestor] 40 mg PO HS 03/15/22 08/05/23 History Apixaban [Eliquis] 2.5 mg PO BID 10/20/22 08/05/23 History Amitriptyline HCl 10 mg PO HS 02/25/23 08/05/23 History Ezetimibe [Zetia] 10 mg PO DAILY 02/25/23 08/05/23 History Pramipexole [Mirapex] 0.5 mg PO HS 02/25/23 08/05/23 History Spironolactone [Aldactone] 50 mg PO DAILY PRN 06/08/23 08/05/23 History metFORMIN HCL 500 mg PO DAILY PRN 06/08/23 08/05/23 History amLODIPine [Norvasc] 10 mg PO DAILY #30 tab 06/16/23 08/05/23 Rx Fluticasone Propion/Salmeterol 1 inhalation PO DAILY 08/04/23 08/05/23 History [Fluticasone-Salmeterol 250-50] Pantoprazole [Protonix] 40 mg PO DAILY PRN 08/04/23 08/05/23 History Pregabalin [Lyrica] 150 mg PO TID 08/04/23 08/05/23 History Tiotropium 2.5 Mcg/Puff [Spiriva 1 puff INHALATION BID 08/04/23 08/05/23 History Respimat 2.5 Mcg] Valsartan [Diovan] 320 mg PO DAILY 08/04/23 08/05/23 History cilostazoL [Pletal] 100 mg PO BID 08/04/23 08/05/23 History clonazePAM [KlonoPIN] 0.5 mg PO HS PRN 08/04/23 08/05/23 History diphenhydrAMINE [Benadryl] 25 mg PO HS PRN 08/04/23 08/05/23 History hydroCHLOROthiazide 25 mg PO DAILY 08/05/23 08/05/23 History lamoTRIgine 1.5 tab PO HS 08/05/23 08/05/23 History Allergies Allergy/AdvReac Type Severity Reaction Status Date / Time codeine Allergy passed out Verified 08/05/23 07:14 Latex, Natural Rubber Allergy Rash/Hives Verified 08/05/23 07:14 morphine AdvReac Vomiting Verified 08/05/23 07:14 Physical Exam Vitals: Vital Signs Temp Pulse Pulse Pulse Resp BP BP 08/06/23 07:45 98.4 F 90 17 157/67 08/06/23 04:00 57 L 18 158/51 08/06/23 02:00 57 L 57 L 16 08/06/23 00:00 57 L 16 113/57 08/05/23 20:00 57 L 57 L 16 108/56 08/05/23 18:22 97.8 F 52 L 16 132/54 08/05/23 16:24 97.3 F L 53 L 16 132/54 08/05/23 15:24 97.8 F 52 L 16 150/64 08/05/23 14:15 55 L 16 128/63 08/05/23 14:00 52 L 16 111/56 103/30 08/05/23 13:45 60 16 115/58 123/34 08/05/23 13:34 51 L 16 172/77 169/44 08/05/23 13:19 50 L 16 173/74 192/52 08/05/23 13:03 49 L 16 178/75 191/53 08/05/23 12:48 96.8 F L 56 L 16 166/44 Pulse Ox 08/06/23 07:45 97 08/06/23 04:00 96 08/06/23 02:00 08/06/23 00:00 96 08/05/23 20:00 98 08/05/23 18:22 98 08/05/23 16:24 100 08/05/23 15:24 98 08/05/23 14:15 95 08/05/23 14:00 95 08/05/23 13:45 99 08/05/23 13:34 100 08/05/23 13:19 100 08/05/23 13:03 100 08/05/23 12:48 100 Intake and Output 08/05/23 08/06/23 08/06/23 22:59 06:59 14:59 Intake Total 180 240 Balance 180 240 Intake: Oral 180 240 Other: Voiding Method Indwelling Catheter Indwelling Catheter Weight 56.7 kg Results CBC & Chem 7: 08/06/23 09:03 08/06/23 09:03 Labs: Abnormal Lab Results - Last 24 Hours (Table) 08/05/23 08/05/23 08/05/23 Range/Units 11:28 13:12 16:32 POC Glucose (mg/dL) 160 H 164 H 184 H (70-110) mg/dL 08/05/23 08/06/23 Range/Units 20:29 06:11 POC Glucose (mg/dL) 276 H 126 H (70-110) mg/dL Assessment and Plan Assessment: Assessment and plan * Peripheral arterial disease with history of left SFA occlusion, claudication status post bypass postoperative day 1 * Coronary artery disease with history of PCI and RCA 2018 * 6 sinus syndrome status post pacemaker * History of carotid stenosis with history of bilateral carotid endarterectomy * Diabetes mellitus type 2 * Hypertension * Hyperlipidemia * History of CVA * In regards to history of femoropopliteal bypass, continue management per vascular surgery. Continue Lipitor, Eliquis, Plavix. Continue neurovascular checks lower extremity * In regards to history of coronary artery disease continue current medical management including Plavix Lipitor * In regards to history of hypertension continue patient on amlodipine, hydrochlorothiazide, Diovan * In regards to history of diabetes mellitus metformin on hold, Accu-Cheks before meals at bedtime continue patient on correctional insulin * In regards to history of dyslipidemia continue patient on Lipitor
--- NOTE | 2023-08-06 14:17 | P.PN ---
Subjective Progress Note Date: 08/06/23 Postop day #1. Objective - Vital Signs Vital signs: Vital Signs Temp 97.7 F 08/06/23 11:43 Pulse 62 08/06/23 11:43 Resp 18 08/06/23 11:43 BP 118/50 08/06/23 11:43 Pulse Ox 94 L 08/06/23 11:43 FiO2 Intake & Output 08/05/23 08/06/23 08/06/23 18:59 06:59 18:59 Intake Total 203 420 Output Total 500 Balance 1532 420 Weight 56.7 kg Intake: IV 1852 Oral 180 420 Output: Urine 400 Estimated Blood Loss 100 Other: Voiding Method Indwelling Catheter - Exam Patient complains of appropriate postoperative discomfort. When I saw her she was resting comfortably and in fact sleeping. Left leg is free of edema. Popliteal area wound is clean, dry and otherwise unremarkable. Vacuum dressing remains intact in the groin. I discussed with the patient my desire for her to become more ambulatory and if she otherwise feels well could reasonably be discharged tomorrow. - Labs CBC & Chem 7: 08/06/23 09:03 08/06/23 09:03 Labs: Abnormal Lab Results - Last 24 Hours (Table) 08/05/23 08/05/23 08/06/23 Range/Units 16:32 20:29 06:11 WBC (3.8-10.6) k/uL RBC (3.80-5.40) m/uL Hgb (11.4-16.0) gm/dL Hct (34.0-46.0) % Plt Count (150-450) k/uL Sodium (137-145) mmol/L Chloride (98-107) mmol/L BUN (7-17) mg/dL Glucose (74-99) mg/dL POC Glucose (mg/dL) 184 H 276 H 126 H (70-110) mg/dL Calcium (8.4-10.2) mg/dL 08/06/23 08/06/23 08/06/23 Range/Units 09:03 09:03 11:43 WBC 11.1 H (3.8-10.6) k/uL RBC 3.19 L (3.80-5.40) m/uL Hgb 9.2 L D (11.4-16.0) gm/dL Hct 28.2 L (34.0-46.0) % Plt Count 116 L (150-450) k/uL Sodium 135 L (137-145) mmol/L Chloride 108 H (98-107) mmol/L BUN 18 H (7-17) mg/dL Glucose 186 H (74-99) mg/dL POC Glucose (mg/dL) 193 H (70-110) mg/dL Calcium 8.0 L (8.4-10.2) mg/dL Assessment and Plan Assessment: Postop day #1 status post left femoral-popliteal bypass. Plan: 1: Encourage patient to become more ambulatory. 2: Possible dismissal Tuesday the . Time with Patient: Less than 30
[2023-08-06 16:16] LABS: Glucose,Whole Blood 171 mg/dL (70-110)
[2023-08-06 20:40] LABS: Glucose,Whole Blood 186 mg/dL (70-110)
[2023-08-06] MEDS: PRAMIPEXOLE 0.5 MG TAB PO SCH (21:29)
[2023-08-06] MEDS: APIXABAN 2.5 MG TABLET PO SCH (21:30)
[2023-08-06] MEDS: AMITRIPTYLINE HCL 10 MG TAB PO SCH (21:30)
[2023-08-06] MEDS: ATORVASTATIN 80 MG TAB PO SCH (21:30)
[2023-08-06] MEDS: OXYBUTYNIN 10 MG TAB.ER.24 PO SCH (21:30)
[2023-08-06] MEDS: lamoTRIgine 25 MG TAB PO SCH (21:30)
[2023-08-06] MEDS: lamoTRIgine 100 MG TAB PO SCH (21:30)
[2023-08-07 06:03] LABS: Glucose,Whole Blood 147 mg/dL (70-110)
[2023-08-07] MEDS: INSULIN ASPART (NovoLOG) 100 UNIT/ML VIAL SQ SCH ×4 (06:21→20:45)
[2023-08-07] MEDS: PANTOPRAZOLE 40 MG TABLET PO SCH (06:56)
[2023-08-07] MEDS: EZETIMIBE 10 MG TAB PO SCH (07:40)
[2023-08-07] MEDS: amLODIPine 10 MG TAB PO SCH (07:40)
[2023-08-07] MEDS: hydroCHLOROthiazide 25 MG TAB PO SCH (07:40)
[2023-08-07] MEDS: PREGABALIN 75 MG CAP PO SCH ×3 (07:40→20:44)
[2023-08-07] MEDS: DOCUSATE 100 MG CAP PO SCH (07:40)
[2023-08-07] MEDS: CLOPIDOGREL 75 MG TAB PO SCH (07:40)
[2023-08-07] MEDS: APIXABAN 2.5 MG TABLET PO SCH ×2 (07:40→20:44)
[2023-08-07] MEDS: VALSARTAN 160 MG TAB PO SCH (07:40)
[2023-08-07] MEDS: DULoxetine HCL 30 MG CAPSULE.DR PO SCH ×3 (07:40→20:44)
[2023-08-07] MEDS: cilostazoL 100 MG TAB PO SCH ×2 (07:41→20:44)
[2023-08-07] MEDS: SYMBICORT 80-4.5 MCG INHALER INHALATION SCH ×2 (08:52→20:33)
[2023-08-07] MEDS: TIOTROPIUM 2.5 MCG INHALER INHALATION SCH (08:56)
[2023-08-07 11:15] LABS: HCT 26.9 % (34.0-46.0); HGB 8.8 gm/dL (11.4-16.0); MCH 29.3 pg (25.0-35.0); MCHC 32.8 g/dL (31.0-37.0); MCV 89.2 fL (80.0-100.0); Mean Platelet Volume 9.6; Platelet Count 105 k/uL (150-450); RBC 3.02 m/uL (3.80-5.40); RDW 15.3 % (11.5-15.5); WBC 10.3 k/uL (3.8-10.6)
[2023-08-07 11:33] LABS: Glucose,Whole Blood 181 mg/dL (70-110)
--- NOTE | 2023-08-07 13:23 | P.PN ---
Subjective Progress Note Date: 08/07/23 * 73-year-old lady with past medical history significant for coronary artery disease, history of sick sinus syndrome status post pacemaker, history of CVA and diabetes mellitus history of claudication lower extremity was admitted under vascular surgery service for disabling claudication at rest. * Patient was admitted for elective femoral to above-knee versus below-knee bypass. Patient underwent left femoral endarterectomy with patch angioplasty with left femoral/popliteal artery bypass. Estimated blood loss 100 mL during the procedure. * Postprocedure patient admitted to medical floor with consultations obtained from medicine service for evaluation * 08/07/23 >> patient seen and evaluated bedside. Patient evaluated CBC reviewed WBC 10.3. Hemoglobin 8. Serum chemistry is reviewed Objective - Vital Signs Vital signs: Vital Signs Temp 98.5 F 08/07/23 11:10 Pulse 92 08/07/23 11:10 Resp 17 08/07/23 11:10 BP 138/61 08/07/23 11:10 Pulse Ox 95 08/07/23 11:10 FiO2 Intake & Output 08/06/23 08/07/23 08/07/23 18:59 06:59 18:59 Intake Total 960 Balance 960 Intake: Oral 960 Other: Voiding Method Toilet Toilet Toilet - Exam PHYSICAL EXAMINATION: GENERAL: The patient is alert and oriented x3, not in any acute distress. Well developed, well nourished. HEENT: Pupils are round and equally reacting to light. EOMI. PULMONARY: Chest is clear to auscultation, no wheezing or crackles. ABDOMEN: Soft, nontender, nondistended, normoactive bowel sounds. No palpable organomegaly. MUSCULOSKELETAL: Left leg incision intact no hematoma noted EXTREMITIES: Left leg with edema noted NEUROLOGICAL: Gross neurological examination did not reveal any focal deficits. SKIN: Surgical incision intact no drainage noted - Labs CBC & Chem 7: 08/07/23 10:31 08/06/23 09:03 Labs: Abnormal Lab Results - Last 24 Hours (Table) 08/06/23 08/06/23 08/07/23 Range/Units 16:15 20:38 06:00 RBC (3.80-5.40) m/uL Hgb (11.4-16.0) gm/dL Hct (34.0-46.0) % Plt Count (150-450) k/uL POC Glucose (mg/dL) 171 H 186 H 147 H (70-110) mg/dL 08/07/23 08/07/23 Range/Units 10:31 11:31 RBC 3.02 L (3.80-5.40) m/uL Hgb 8.8 L (11.4-16.0) gm/dL Hct 26.9 L (34.0-46.0) % Plt Count 105 L (150-450) k/uL POC Glucose (mg/dL) 181 H (70-110) mg/dL Assessment and Plan Assessment: Assessment and plan * Peripheral arterial disease with history of left SFA occlusion, claudication status post bypass postoperative day 2 * Coronary artery disease with history of PCI and RCA 2017 * 6 sinus syndrome status post pacemaker * History of carotid stenosis with history of bilateral carotid endarterectomy * Diabetes mellitus type 2 * Hypertension * Hyperlipidemia * History of CVA * In regards to history of femoropopliteal bypass, continue management per vascular surgery. Continue Lipitor, Eliquis, Plavix. Continue neurovascular checks lower extremity * In regards to history of coronary artery disease continue current medical management including Plavix Lipitor * In regards to history of hypertension continue patient on amlodipine, hydrochlorothiazide, Diovan * In regards to history of diabetes mellitus metformin on hold, Accu-Cheks before meals at bedtime continue patient on correctional insulin * In regards to history of dyslipidemia continue patient on Lipitor
[2023-08-07] MEDS: HYDROcodone/APAP 5-325MG 1 EACH TAB PO PRN ×2 (15:21→20:44)
[2023-08-07 16:40] LABS: Glucose,Whole Blood 148 mg/dL (70-110)
[2023-08-07 20:03] LABS: Glucose,Whole Blood 183 mg/dL (70-110)
[2023-08-07] MEDS: lamoTRIgine 25 MG TAB PO SCH (20:44)
[2023-08-07] MEDS: ATORVASTATIN 80 MG TAB PO SCH (20:44)
[2023-08-07] MEDS: lamoTRIgine 100 MG TAB PO SCH (20:44)
[2023-08-07] MEDS: AMITRIPTYLINE HCL 10 MG TAB PO SCH (20:44)
[2023-08-07] MEDS: OXYBUTYNIN 10 MG TAB.ER.24 PO SCH (20:44)
[2023-08-07] MEDS: PRAMIPEXOLE 0.5 MG TAB PO SCH (20:44)
[2023-08-08 03:25] VITALS: RESP 18
[2023-08-08 06:20] LABS: Glucose,Whole Blood 157 mg/dL (70-110)
[2023-08-08] MEDS: INSULIN ASPART (NovoLOG) 100 UNIT/ML VIAL SQ SCH ×2 (06:56→12:07)
[2023-08-08] MEDS: PANTOPRAZOLE 40 MG TABLET PO SCH (06:56)
[2023-08-08] MEDS: CLOPIDOGREL 75 MG TAB PO SCH (08:13)
[2023-08-08] MEDS: PREGABALIN 75 MG CAP PO SCH (08:13)
[2023-08-08] MEDS: DULoxetine HCL 30 MG CAPSULE.DR PO SCH (08:13)
[2023-08-08] MEDS: cilostazoL 100 MG TAB PO SCH (08:13)
[2023-08-08] MEDS: DOCUSATE 100 MG CAP PO SCH (08:13)
[2023-08-08] MEDS: amLODIPine 10 MG TAB PO SCH (08:13)
[2023-08-08] MEDS: hydroCHLOROthiazide 25 MG TAB PO SCH (08:13)
[2023-08-08] MEDS: APIXABAN 2.5 MG TABLET PO SCH (08:13)
[2023-08-08] MEDS: VALSARTAN 160 MG TAB PO SCH (08:13)
[2023-08-08] MEDS: EZETIMIBE 10 MG TAB PO SCH (08:14)
[2023-08-08] MEDS: SYMBICORT 80-4.5 MCG INHALER INHALATION SCH (08:15)
[2023-08-08] MEDS: TIOTROPIUM 2.5 MCG INHALER INHALATION SCH (08:15)
[2023-08-08 08:20] VITALS: TEMP 98.6
[2023-08-08 08:55] LABS: HCT 27.6 % (34.0-46.0); Hypochromasia Slight; MCH 29.6 pg (25.0-35.0); MCHC 32.5 g/dL (31.0-37.0); Mean Platelet Volume 10.1; Platelet Count 102 k/uL (150-450); RBC 3.03 m/uL (3.80-5.40); RDW 15.3 % (11.5-15.5); WBC 10.2 k/uL (3.8-10.6)
[2023-08-08 09:15] LABS: African American GFR (CKD) >90 (>60 ml/min/1.73 sqM); Anion Gap 8 mmol/L; Blood Urea Nitrogen 16 mg/dL (7-17); Calcium 8.5 mg/dL (8.4-10.2); Carbon Dioxide 25 mmol/L (22-30); Chloride 100 mmol/L (98-107); Glucose 209 mg/dL (74-99); Non-African American GFR(CKD) 80 (>60 ml/min/1.73 sqM); Potassium 3.9 mmol/L (3.5-5.1); Sodium 133 mmol/L (137-145)
[2023-08-08 09:31] LABS: C Reactive Protein 15.9 mg/dL (<1.0)
--- NOTE | 2023-08-08 11:02 | P.DS ---
Providers Date of admission: 08/05/23 06:34 Expected date of discharge: 08/08/23 Attending physician: Luisito Montelongo DO Consults: 08/08/23 08:42 Consult Physician Urgent Consulting Provider: Timi Morales Reason/Comments: primary care service Do you want consulting provider notified?: Already Contacted Primary care physician: Chelsie [facility] Hospital Course: Pleasant 73-year-old female with a history of peripheral arterial disease with disabling claudication with rest pain, worsening pain in the left lower extremity at night as well had presented to the hospital for elective femoral to [id number] versus below the knee bypass. Today she is postop day #3 for left femoral endarterectomy with patch angioplasty with left femoral to popliteal artery bypass with graft. Patient has been up and ambulating to the bathroom with assistance. States pain is improved. She did have left thigh hematoma status post surgery which is improved. Patient denies any significant pain. She denies any shortness of breath, chest pain, abdominal pain, nausea or vomiting. She did have some confusion through the night and early this morning likely related to underlying dementia. Patient is otherwise alert and oriented 3. Patient's is at the bedside. Physical therapy to see patient and has cleared her for discharge. Plan is for home with home health care. Patient with good Doppler signals. Lower extremities warm to the touch. Exam General appearance: The patient is alert and oriented 3, appears in no acute distress. HET: Head is normocephalic and atraumatic. Pupils are equal and reactive. Neck: Supple. Heart: Regular. Lungs: Equal expansion, normal respiratory effort. Abdomen: Soft, nontender, nondistended. Extremities: Left lower extremity warm to the touch. Left groin with peripheral venous dressing without a good suction, incision is well approximated clean dry and intact. Left lower extremity incision with Steri-Strips well approximated. Popliteal, PT and DP signal present. Neurological: No focal deficits. Patient with some mild confusion this morning however reoriented. Underlying dementia likely. Strength and sensation are grossly intact. Assessment 1. Postop day #3 left femoral endarterectomy with patch angioplasty with left femoral-popliteal bypass 2. Disabling claudication with rest pain, Cobb classification 4 3. Left SFA occlusion 4. Tobacco abuse Plan Discharge home with home care. Prevena vac to stay in place until 08/12/2029. Smoking cessation discussed and advised. Discharge instructions and r estrictions reviewed with patient and . They are in discharge summary. The impression and plan of care has been dictated as directed. Dr. Jernigan I performed a history and examination of this patient, discussed the same with the dictator. I agree with the dictator's note ,documented as a scribe. Any additional findings or plans will be noted. Procedures: Procedure: Left femoral endarterectomy with patch angioplasty with left femoral- popliteal artery bypass with [place] PTFE 6mm graft Patient Condition at Discharge: Stable Plan - Discharge Summary Discharge Rx Participant: No New Discharge Prescriptions: New Acetaminophen Tab [Tylenol] 650 mg PO Q6HR PRN tab PRN Reason: Pain Scale 1 To 5 HYDROcodone/APAP 5-325MG [[place] 5-325] 1 each PO Q6HR PRN #9 tab PRN Reason: Pain Continue Clopidogrel Bisulfate [Plavix] 75 mg PO DAILY DULoxetine HCL [Cymbalta] 30 mg PO TID Rosuvastatin Calcium [Crestor] 40 mg PO HS Spironolactone [Aldactone] 50 mg PO DAILY PRN PRN Reason: Edema Valsartan [Diovan] 320 mg PO DAILY Tiotropium 2.5 Mcg/Puff [Spiriva Respimat 2.5 Mcg] 1 puff INHALATION BID Fluticasone Propion/Salmeterol [Fluticasone-Salmeterol 250-50] 1 inhalation PO DAILY hydroCHLOROthiazide 25 mg PO DAILY Oxybutynin Chloride [oxyBUTYnin chloride ER] 10 mg PO HS Apixaban [Eliquis] 2.5 mg PO BID Pramipexole [Mirapex] 0.5 mg PO HS Amitriptyline HCl 10 mg PO HS Ezetimibe [Zetia] 10 mg PO DAILY metFORMIN HCL 500 mg PO DAILY PRN PRN Reason: cbg above 150 amLODIPine [Norvasc] 10 mg PO DAILY #30 tab clonazePAM [KlonoPIN] 0.5 mg PO HS PRN PRN Reason: Insomnia Pantoprazole [Protonix] 40 mg PO DAILY PRN PRN Reason: Heartburn diphenhydrAMINE [Benadryl] 25 mg PO HS PRN PRN Reason: Allergy Symptoms cilostazoL [Pletal] 100 mg PO BID Pregabalin [Lyrica] 150 mg PO TID lamoTRIgine 1.5 tab PO HS Discharge Medication List Clopidogrel Bisulfate [Plavix] 75 mg PO DAILY 11/19/17 [History] DULoxetine HCL [Cymbalta] 30 mg PO TID 05/22/18 [History] Oxybutynin Chloride [oxyBUTYnin chloride ER] 10 mg PO HS 03/15/22 [History] Rosuvastatin Calcium [Crestor] 40 mg PO HS 03/15/22 [History] Apixaban [Eliquis] 2.5 mg PO BID 10/20/22 [History] Amitriptyline HCl 10 mg PO HS 02/25/23 [History] Ezetimibe [Zetia] 10 mg PO DAILY 02/25/23 [History] Pramipexole [Mirapex] 0.5 mg PO HS 02/25/23 [History] Spironolactone [Aldactone] 50 mg PO DAILY PRN 06/08/23 [History] metFORMIN HCL 500 mg PO DAILY PRN 06/08/23 [History] amLODIPine [Norvasc] 10 mg PO DAILY #30 tab 06/16/23 [Rx] Fluticasone Propion/Salmeterol [Fluticasone-Salmeterol 250-50] 1 inhalation PO DAILY 08/04/23 [History] Pantoprazole [Protonix] 40 mg PO DAILY PRN 08/04/23 [History] Pregabalin [Lyrica] 150 mg PO TID 08/04/23 [History] Tiotropium 2.5 Mcg/Puff [Spiriva Respimat 2.5 Mcg] 1 puff INHALATION BID 08/04/23 [History] Valsartan [Diovan] 320 mg PO DAILY 08/04/23 [History] cilostazoL [Pletal] 100 mg PO BID 08/04/23 [History] clonazePAM [KlonoPIN] 0.5 mg PO HS PRN 08/04/23 [History] diphenhydrAMINE [Benadryl] 25 mg PO HS PRN 08/04/23 [History] hydroCHLOROthiazide 25 mg PO DAILY 08/05/23 [History] lamoTRIgine 1.5 tab PO HS 08/05/23 [History] Acetaminophen Tab [Tylenol] 650 mg PO Q6HR PRN tab 08/08/23 [Rx] HYDROcodone/APAP 5-325MG [[place] 5-325] 1 each PO Q6HR PRN #9 tab 08/08/23 [Rx] Follow up Appointment(s)/Referral(s): Luisito Montelongo DO [STAFF PHYSICIAN] - 1 Week (Office is closed. Please call tomorrow to schedule follow up. ) [facility] [NON-STAFF] - Patient Instructions/Handouts: Remote Superficial Femoral Artery Endarterectomy (PRE) Discharge/Stand Alone Forms: Who Do I Call?, Community Resources, Personal Yarn Spinner
[2023-08-08 11:30] LABS: Glucose,Whole Blood 129 mg/dL (70-110)
[2023-08-08 12:15] VITALS: BP 120/84; PULSE 74
== END 2023-08-08 17:07 | disposition home or self-care (01) | DRG 254 ==
LOC: 2ORMAIN 06:34 → 3SCARD 13:50
PROVIDERS: ADMIT Surgery; ATTEND Surgery
PROC: 04CL0ZZ Extirpation of Matter from Left Femoral Artery, Open Approach (ICD-10-PCS; 2023-08-05)
PROC: 04UJ0JZ Supplement Left External Iliac Artery with Synthetic Substitute, Open Approach (ICD-10-PCS; 2023-08-05)
PROC: 041L0AL Bypass Left Femoral Artery to Popliteal Artery with Autologous Arterial Tissue, Open Approach (ICD-10-PCS; principal; 2023-08-05 08:30)
DX: E11.51 Type 2 diabetes mellitus with diabetic peripheral angiopathy without gangrene (principal); I70.213 Atherosclerosis of native arteries of extremities with intermittent claudication, bilateral legs; E78.5 Hyperlipidemia, unspecified; F17.210 Nicotine dependence, cigarettes, uncomplicated; F31.9 Bipolar disorder, unspecified; H91.92 Unspecified hearing loss, left ear; I10 Essential (primary) hypertension; I25.10 Atherosclerotic heart disease of native coronary artery without angina pectoris; I25.2 Old myocardial infarction; I69.398 Other sequelae of cerebral infarction; M19.90 Unspecified osteoarthritis, unspecified site; K21.9 Gastro-esophageal reflux disease without esophagitis; G47.00 Insomnia, unspecified; Z98.84 Bariatric surgery status; G47.30 Sleep apnea, unspecified; Z79.84 Long term (current) use of oral hypoglycemic drugs; Z79.02 Long term (current) use of antithrombotics/antiplatelets; Z79.899 Other long term (current) drug therapy; Z79.01 Long term (current) use of anticoagulants; Z82.49 Family history of ischemic heart disease and other diseases of the circulatory system; Z90.710 Acquired absence of both cervix and uterus; Z95.0 Presence of cardiac pacemaker; Z95.5 Presence of coronary angioplasty implant and graft; Z96.652 Presence of left artificial knee joint; Z90.49 Acquired absence of other specified parts of digestive tract; Z98.42 Cataract extraction status, left eye; Z98.41 Cataract extraction status, right eye; Z86.79 Personal history of other diseases of the circulatory system
CPT/HCPCS: 80048; 83036; 85027; 86140; 86850; 86900; 86901; 88304; 88305; 88311; 94640

== ENCOUNTER 2023-09-14 17:40 | Emergency (ER) | payer MEDICARE ==
--- NOTE | 2023-09-14 17:58 | ED ---
Weakness HPI - General Chief complaint: Syncope Stated complaint: Dizziness Time Seen by Provider: 09/14/23 17:42 Source: EMS, RN notes reviewed, old records reviewed Mode of arrival: EMS Limitations: no limitations - History of Present Illness Initial comments: This is a 73-year-old female to the emergency department today for evaluation she was weak all day. Patient had some difficulty moving standing up. Difficulty with activity becomes significantly dizzy. Patient has no headache , no chest pain chest pain , no shortness of breath shortness with no other complaints and patient states that she did not pass out. Patient was feeling dizzy and off-balance, felt dehydrated MD Complaint: generalized weakness, lack of energy, difficulty walking -: hour(s) Location: generalized Severity: mild Severity scale (1-10): 2 Consistency: constant Improves with: none Worsens with: none Context: history of similar Associated Symptoms: denies other symptoms - Related Data Home Medications Medication Instructions Recorded Confirmed Clopidogrel Bisulfate [Plavix] 75 mg PO DAILY 11/19/17 09/14/23 DULoxetine HCL [Cymbalta] 30 mg PO TID 05/22/18 09/14/23 Oxybutynin Chloride [oxyBUTYnin 10 mg PO HS 03/15/22 09/14/23 chloride ER] Rosuvastatin Calcium [Crestor] 40 mg PO HS 03/15/22 09/14/23 Apixaban [Eliquis] 2.5 mg PO BID 10/20/22 09/14/23 Amitriptyline HCl 10 mg PO HS 02/25/23 09/14/23 Ezetimibe [Zetia] 10 mg PO DAILY 02/25/23 09/14/23 Pramipexole [Mirapex] 0.5 mg PO HS PRN 02/25/23 09/14/23 Spironolactone [Aldactone] 50 mg PO DAILY PRN 06/08/23 09/14/23 metFORMIN HCL 500 mg PO DAILY PRN 06/08/23 09/14/23 Pantoprazole [Protonix] 40 mg PO DAILY PRN 08/04/23 09/14/23 Pregabalin [Lyrica] 150 mg PO TID 08/04/23 09/14/23 Tiotropium 2.5 Mcg/Puff [Spiriva 1 puff INHALATION RT-BID 08/04/23 09/14/23 Respimat 2.5 Mcg] Valsartan [Diovan] 320 mg PO DAILY 08/04/23 09/14/23 clonazePAM [KlonoPIN] 0.5 mg PO HS PRN 08/04/23 09/14/23 diphenhydrAMINE [Benadryl] 25 mg PO HS PRN 08/04/23 09/14/23 lamoTRIgine 225 tab PO HS 08/05/23 09/14/23 Cephalexin [Keflex] 500 mg PO Q6HR 09/14/23 09/14/23 HYDROcodone/APAP 5-325MG [[place] 1 tab PO Q6HR PRN 09/14/23 09/14/23 5-325] Metoprolol Succinate [Metoprolol 25 mg PO DAILY 09/14/23 09/14/23 Succinate ER] Previous Rx's Medication Instructions Recorded amLODIPine [Norvasc] 10 mg PO DAILY #30 tab 06/16/23 Acetaminophen Tab [Tylenol] 650 mg PO Q6HR PRN tab 08/08/23 Allergies Allergy/AdvReac Type Severity Reaction Status Date / Time codeine Allergy passed out Verified 09/14/23 20:48 Latex, Natural Rubber Allergy Rash/Hives Verified 09/14/23 20:48 morphine AdvReac Vomiting Verified 09/14/23 20:48 Review of Systems ROS Statement: Those systems with pertinent positive or pertinent negative responses have been documented in the HPI. ROS Other: All systems not noted in ROS Statement are negative. 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 PAD. Insomnia. hx sleep apnea-does not use machine., emphysema., diverticulitis, gastric sleeve., occasional vertigo with loss of balance., pain left leg., uses cane prn. Last Myocardial Infarction Date:: 2017 History of Any Multi-Drug Resistant Organisms: None Reported Past Surgical History: Bariatric Surgery, Bladder Surgery, Cholecystectomy, Heart Catheterization With Stent, Hysterectomy, Joint Replacement, Orthopedic Surgery, Pacemaker Additional Past Surgical History / Comment(s): Bilateral cataracts, gastric sleeve, right rotator cuff repair, left knee replacement, bladder suspension x3, right and left carotid endarterectomy, left femur surgery with daniella placed. 4 cardiac stents,tilt table test, dual chamber pacemaker, femoral artery bypass w/graft Past Anesthesia/Blood Transfusion Reactions: Previous Problems w/ Anesthesia, Motion Sickness, Postoperative Nausea & Vomiting (PONV) Additional Past Anesthesia/Blood Transfusion Reaction / Comment(s): . Date of Last Stent Placement:: Nov 2017 Type of Cardiac Device: Unknown Device Placement Date:: Dual Chamber Pacemaker 01/05. Past Psychological History: Anxiety, Bipolar, Depression Smoking Status: Current some day smoker Past Alcohol Use History: None Reported, Abuse Past Drug Use History: None Reported - Past Family History Mother Family Medical History: Coronary Artery Disease (CAD), Diabetes Mellitus Additional Family Medical History / Comment(s): CABG Father Family Medical History: Hypertension, Myocardial Infarction (AL) Brother(s) Family Medical History: Blood Disorder, Coronary Artery Disease (CAD), Myocardial Infarction (AL) Additional Family Medical History / Comment(s): CABG, unknown type of blood disorder General Exam Limitations: no limitations General appearance: alert, in no apparent distress Head exam: Present: atraumatic, normocephalic, normal inspection Eye exam: Present: normal appearance, PERRL, EOMI. Absent: scleral icterus, conjunctival injection, periorbital swelling ENT exam: Present: normal exam, mucous membranes moist Neck exam: Present: normal inspection. Absent: tenderness, meningismus, lymphad enopathy Respiratory exam: Present: normal lung sounds bilaterally. Absent: respiratory distress, wheezes, rales, rhonchi, stridor Cardiovascular Exam: Present: regular rate, normal rhythm, normal heart sounds. Absent: systolic murmur, diastolic murmur, rubs, gallop, clicks GI/Abdominal exam: Present: soft, normal bowel sounds. Absent: distended, tenderness, guarding, rebound, rigid Extremities exam: Present: normal inspection, full ROM, normal capillary refill. Absent: tenderness, pedal edema, joint swelling, calf tenderness Back exam: Present: normal inspection Neurological exam: Present: alert, oriented X3, CN II-XII intact Psychiatric exam: Present: normal affect, normal mood Skin exam: Present: warm, dry, intact, normal color. Absent: rash Course Vital Signs 09/14/23 09/14/23 09/14/23 17:42 18:51 22:00 Temperature 98.1 F 98.5 F Pulse Rate 53 L 53 L 57 L Respiratory 18 18 16 Rate Blood Pressure 153/62 150/62 117/61 O2 Sat by Pulse 95 99 100 Oximetry 09/14/23 23:13 Temperature 98.2 F Pulse Rate 58 L Respiratory 18 Rate Blood Pressure 117/84 O2 Sat by Pulse 97 Oximetry - Reevaluation(s) Reevaluation #1: 09/14/23 23:21 Medical record is reviewed Reevaluation #2: 09/14/23 23:21 Patient symptoms are improved Reevaluation #3: 09/14/23 23:21 patient informed results questions answered Reevaluation #4: 09/14/23 23:21 Was pt. sent in by a medical professional or institution (, PA, MEDIA PROFESSIONAL, urgent care, hospital, or snf...) When possible be specific @ -no Did you speak to anyone other than the patient for history (EMS, parent, family, police, friend...)? What history was obtained from this source @ -no Did you review nursing and triage notes (agree or disagree)? Why? @ -agree Are old charts reviewed (outside hosp., previous admission, EMS record, old EKG, old radiological studies, urgent care reports/EKG's, snf records)? Report findings @ -yes Differential Diagnosis (chest pain, altered mental status, abdominal pain women, abdominal pain men, vaginal bleeding, weakness, fever, dyspnea, syncope, headache, dizziness, GI bleed, back pain, seizure, CVA, palpatations, mental health, musculoskeletal)? @ -prior EKG interpreted by me (3pts min.). @ -yes X-rays interpreted by me (1pt min.). @ -no CT interpreted by me (1pt min.). @ -yes U/S interpreted by me (1pt. min.). @ -no What testing was considered but not performed or refused? (CT, X-rays, U/S, labs)? Why? @ -none What meds were considered but not given or refused? Why? @ -none Did you discuss the management of the patient with other professionals (professionals i.e. , PA, MEDIA PROFESSIONAL, lab, RT, psych nurse, social insurance analyst, social service worker, teacher, mechanical engineering officer, patient case manager)? Give summary @ -no Was smoking cessation discussed for >3mins.? @ -no Was critical care preformed (if so, how long)? @ -no Were there social determinants of health that impacted care today? How? (Homelessness, low income, unemployed, alcoholism, drug addiction, transportation, low edu. Level, literacy, decrease access to med. care, long-term, rehab)? @ -none Was there de-escalation of care discussed even if they declined (Discuss DNR or withdrawal of care, Hospice)? DNR status @ -no What co-morbidities impacted this encounter? (DM, HTN, Smoking, COPD, CAD, Cancer, CVA, ARF, Chemo, Hep., AIDS, mental health diagnosis, sleep apnea, morbid obesity)? @ -none Was patient admitted / discharged? Hospital course, mention meds given and route, prescriptions, significant lab abnormalities, going to OR and other pertinent info. @ - 73 female to the ER today for evaluation of dizziness dizziness especially with activity. No syncope no chest pain no headache no other complaints. Patient feels well here in the ER and can be discharged Discharge Undiagnosed new problem with uncertain prognosis? @ -no Drug Therapy requiring intensive monitoring for toxicity (Heparin, Nitro, Insulin, Cardizem)? @ -no Were any procedures done? @ -no Diagnosis/symptom? @ -Dizziness Acute, or Chronic, or Acute on Chronic? @ -Acute Uncomplicated (without systemic symptoms) or Complicated (systemic symptoms)? @ -Complicated Side effects of treatment? @ -no Exacerbation, Progression, or Severe Exacerbation? @ -exacerbation Poses a threat to life or bodily function? How? (Chest pain, [place], AL, pneumonia, PE, COPD, DKA, ARF, appy, cholecystitis, CVA, Diverticulitis, Homicidal, Suicidal, threat to staff... and all critical care pts) @ -yes with age and symptoms of dizziness underlying causes can be ACS, CVA Reevaluation #5: 09/14/23 23:22 Differential Weakness: Hypoglycemia, shock, sepsis, hyponatremia, anemia, infection, AL, ETOH, adverse medicine reaction, overdose, stroke, this is not meant to be an all-inclusive list. EKG Findings - EKG Comments: EKG Findings:: EKG is sinus bradycardia 54 [place] 159 QRS 73 QTC 424 - EKG Results: EKG: interpreted by JOSÉ LUIS Medical Decision Making - Medical Decision Making 73 female to the ER today for evaluation of dizziness dizziness especially with activity. No syncope no chest pain no headache no other complaints. Patient feels well here in the ER and can be discharged - Lab Data Result diagrams: 09/14/23 18:25 09/14/23 18:25 Lab Results 09/14/23 09/14/23 09/14/23 Range/Units 18:25 18:25 18:25 WBC 10.2 (3.8-10.6) k/uL RBC 4.31 (3.80-5.40) m/uL Hgb 11.7 (11.4-16.0) gm/dL Hct 37.0 (34.0-46.0) % MCV 86.0 D (80.0-100.0) fL MCH 27.2 (25.0-35.0) pg MCHC 31.6 (31.0-37.0) g/dL RDW 15.0 (11.5-15.5) % Plt Count 198 D (150-450) k/uL MPV 9.4 Neutrophils % 59 % Lymphocytes % 30 % Monocytes % 5 % Eosinophils % 2 % Basophils % 1 % Neutrophils # 6.0 (1.3-7.7) k/uL Lymphocytes # 3.1 (1.0-4.8) k/uL Monocytes # 0.6 (0-1.0) k/uL Eosinophils # 0.2 (0-0.7) k/uL Basophils # 0.1 (0-0.2) k/uL Hypochromasia Marked Poikilocytosis Slight PT 9.7 L (10.0-12.5) sec INR 0.9 (<1.2) APTT 18.5 L (22.0-30.0) sec D-Dimer 5.80 H (<0.60) mg/L FEU Sodium 138 (137-145) mmol/L Potassium 4.1 (3.5-5.1) mmol/L Chloride 104 (98-107) mmol/L Carbon Dioxide 20 L (22-30) mmol/L Anion Gap 14 mmol/L BUN 29 H (7-17) mg/dL Creatinine 0.66 (0.52-1.04) mg/dL Est GFR (CKD-EPI)AfAm >90 (>60 ml/min/1.73 sqM) Est GFR (CKD-EPI)NonAf 89 (>60 ml/min/1.73 sqM) Glucose 135 H (74-99) mg/dL Lactic Ac Sepsis Rflx Plasma Lactic Acid Kevin (0.7-2.0) mmol/L Calcium 9.1 (8.4-10.2) mg/dL Phosphorus 4.5 (2.5-4.5) mg/dL Magnesium 2.4 H (1.6-2.3) mg/dL Total Bilirubin 0.3 (0.2-1.3) mg/dL AST 27 (14-36) U/L ALT 16 (4-34) U/L Alkaline Phosphatase 67 (38-126) U/L Troponin I (0.000-0.034) ng/mL NT-Pro-B Natriuret Pep 2690 pg/mL Total Protein 6.7 (6.3-8.2) g/dL Albumin 3.9 (3.5-5.0) g/dL TSH 3.170 (0.465-4.680) mIU/L 09/14/23 09/14/23 09/14/23 Range/Units 18:25 18:25 19:28 WBC (3.8-10.6) k/uL RBC (3.80-5.40) m/uL Hgb (11.4-16.0) gm/dL Hct (34.0-46.0) % MCV (80.0-100.0) fL MCH (25.0-35.0) pg MCHC (31.0-37.0) g/dL RDW (11.5-15.5) % Plt Count (150-450) k/uL MPV Neutrophils % % Lymphocytes % % Monocytes % % Eosinophils % % Basophils % % Neutrophils # (1.3-7.7) k/uL Lymphocytes # (1.0-4.8) k/uL Monocytes # (0-1.0) k/uL Eosinophils # (0-0.7) k/uL Basophils # (0-0.2) k/uL Hypochromasia Poikilocytosis PT (10.0-12.5) sec INR (<1.2) APTT (22.0-30.0) sec D-Dimer (<0.60) mg/L FEU Sodium (137-145) mmol/L Potassium (3.5-5.1) mmol/L Chloride (98-107) mmol/L Carbon Dioxide (22-30) mmol/L Anion Gap mmol/L BUN (7-17) mg/dL Creatinine (0.52-1.04) mg/dL Est GFR (CKD-EPI)AfAm (>60 ml/min/1.73 sqM) Est GFR (CKD-EPI)NonAf (>60 ml/min/1.73 sqM) Glucose (74-99) mg/dL Lactic Ac Sepsis Rflx Y Plasma Lactic Acid Kevin 3.3 H* (0.7-2.0) mmol/L Calcium (8.4-10.2) mg/dL Phosphorus (2.5-4.5) mg/dL Magnesium (1.6-2.3) mg/dL Total Bilirubin (0.2-1.3) mg/dL AST (14-36) U/L ALT (4-34) U/L Alkaline Phosphatase (38-126) U/L Troponin I 0.047 H* (0.000-0.034) ng/mL NT-Pro-B Natriuret Pep pg/mL Total Protein (6.3-8.2) g/dL Albumin (3.5-5.0) g/dL TSH (0.465-4.680) mIU/L - EKG Data -: EKG Interpreted by Ok - Radiology Data Radiology results: report reviewed (CT chest is negative for acute disease), image reviewed Disposition Clinical Impression: Dehydration Disposition: HOME SELF-CARE Condition: Good Instructions (If sedation given, give patient instructions): Dehydration (ED) Is patient prescribed a controlled substance at d/c from ED?: No Referrals: Chelsie Morales DO [Primary Care Provider] - 1-2 days Time of Disposition: 23:20
[2023-09-14] MEDS ORDERED: SODIUM CHLORIDE 0.9% 1,000 ML IV STA (18:14)
[2023-09-14 18:39] LABS: Basophils # (A) 0.1 k/uL (0-0.2); Basophils % (A) 1 %; Eosinophils # (A) 0.2 k/uL (0-0.7); Eosinophils % (A) 2 %; HGB 11.7 gm/dL (11.4-16.0); Hypochromasia Marked; Lymphocytes # (A) 3.1 k/uL (1.0-4.8); Lymphocytes % (A) 30 %; MCH 27.2 pg (25.0-35.0); MCHC 31.6 g/dL (31.0-37.0); Mean Platelet Volume 9.4; Monocytes # (A) 0.6 k/uL (0-1.0); Monocytes % (A) 5 %; Neutrophils % (A) 59 %; Poikilocytosis Slight; RBC 4.31 m/uL (3.80-5.40); WBC 10.2 k/uL (3.8-10.6)
[2023-09-14 18:41] LABS: Platelet Count 198 k/uL (150-450)
[2023-09-14 19:03] LABS: INR 0.9 (<1.2); Prothrombin Time 9.7 sec (10.0-12.5)
[2023-09-14 19:09] LABS: NT-Pro-B-Type Natriuretic Pept 2690 pg/mL
[2023-09-14 19:10] LABS: Partial Thromboplastin Time 18.5 sec (22.0-30.0)
[2023-09-14 19:22] LABS: ALT 16 U/L (4-34); AST 27 U/L (14-36); African American GFR (CKD) >90 (>60 ml/min/1.73 sqM); Albumin 3.9 g/dL (3.5-5.0); Alkaline Phosphatase 67 U/L (38-126); Anion Gap 14 mmol/L; Blood Urea Nitrogen 29 mg/dL (7-17); Calcium 9.1 mg/dL (8.4-10.2); Carbon Dioxide 20 mmol/L (22-30); Chloride 104 mmol/L (98-107); Glucose 135 mg/dL (74-99); Magnesium 2.4 mg/dL (1.6-2.3); Non-African American GFR(CKD) 89 (>60 ml/min/1.73 sqM); Phosphorus 4.5 mg/dL (2.5-4.5); Potassium 4.1 mmol/L (3.5-5.1); Sodium 138 mmol/L (137-145); Total Bilirubin 0.3 mg/dL (0.2-1.3); Total Protein 6.7 g/dL (6.3-8.2)
--- NOTE | 2023-09-14 22:26 | CT ---
CT CHEST FOR PULMONARY EMBOLISM. EXAMINATION TYPE: CT angio chest DATE OF EXAM: 09/14/2023 INDICATION: ELEVATED D-DIMER R/O PE CT DLP: 293.10 mGycm, Automated exposure control for dose reduction was used. CONTRAST: Patient injected with 53 mL of Isovue 370. COMPARISON: TECHNIQUE: CT of the chest is performed on a spiral scan at 2 mm thick sections. Study is performed with intravenous contrast timed for evaluation for pulmonary embolism. This will limit additional po rtions of the evaluation. 3-D MIP images reconstructed by the technologist are reviewed on the compu ter in the coronal and sagittal planes. FINDINGS: No persistent filling defects are evident to suggest an acute pulmonary embolism. No mediastinal or hilar adenopathy enlarged by CT criteria is evident. The ascending aorta diameter at the level of the main pulmonary artery is 3.7 cm. The main pulmonary artery diameter at the bifur cation is 2.9 cm. There is a punctate calcification along the pleural margin posterior right lung. Series 4 image 30. O n lung windows there is a 0.4 cm nodule posterior right apex, series 4. There is a 0.5 cm nodule in t he periphery as the posterior lateral right upper lung field. Image [address] section through the upper abdomen hiatal hernia is present. Gastric sleeve surgery extends past the diaphragm posterior thorax. Right adrenal gland is enlarged measuring 2 cm. Left adrenal gl and is normal. IMPRESSION: 1. No acute pulmonary embolism. 2. Scattered small nodules. Follow-up chest CT in 6 months is recommended. 3. Enlarged right adrenal gland. 4. Hiatal hernia
[2023-09-14 23:29] VITALS: BP 117/84; PULSE 58; RESP 18; TEMP 98.2
== END 2023-09-14 23:14 | disposition home or self-care (01) ==
LOC: EC 17:40
DX: E86.0 Dehydration (principal); R00.1 Bradycardia, unspecified; E78.5 Hyperlipidemia, unspecified; E11.9 Type 2 diabetes mellitus without complications; I10 Essential (primary) hypertension; I25.10 Atherosclerotic heart disease of native coronary artery without angina pectoris; I25.2 Old myocardial infarction; J43.9 Emphysema, unspecified; G47.30 Sleep apnea, unspecified; K21.9 Gastro-esophageal reflux disease without esophagitis; F41.9 Anxiety disorder, unspecified; F31.9 Bipolar disorder, unspecified; F17.200 Nicotine dependence, unspecified, uncomplicated; Z79.84 Long term (current) use of oral hypoglycemic drugs; Z79.899 Other long term (current) drug therapy; Z79.01 Long term (current) use of anticoagulants; Z91.040 Latex allergy status; Z88.5 Allergy status to narcotic agent
CPT/HCPCS: 36415; 93005; 85379; 83880; 80053; 83605; 83735; 84100; 84443; 84484; 85025; 85610; 85730; 71275; 99285; 96360; Q9967

== ENCOUNTER 2023-11-04 16:25 | Inpatient (IN) | payer MEDICARE ==
[2023-11-04] MEDS ORDERED: ALBUTEROL NEBULIZED 2.5 MG/3 ML INHALATION STA (16:36)
[2023-11-04] MEDS ORDERED: MAGNESIUM SULFATE-D5W PMX 1 GM in DEXTROSE/WATER 1 100ML.BAG IVPB STA (16:36)
[2023-11-04] MEDS ORDERED: methylPREDNISolone SOD SUCCI 125 MG/2 ML VIAL IV STA (16:36)
[2023-11-04 17:08] LABS: ABG Base Excess -1.9 mmol/L; ABG HCO3 23 mmol/L (21-25); ABG Oxygen Saturation 99.9 % (94-97); ABG PCO2 41 mmHg (35-45); ABG PH 7.37 (7.35-7.45); ABG PO2 324 mmHg (83-108); ABG TCO2 25 mmol/L (19-24); Allen Test Performed? Yes
--- NOTE | 2023-11-04 17:10 | XR ---
EXAMINATION TYPE: XR chest 1V portable DATE OF EXAM: 11/04/2023 Comparison: 06/14/2023 Clinical History: 73-year-old female hypoxia Findings: Left anterior chest wall pacemaker generator with right atrial and right ventricular leads. Heart wer e limited size. Interstitial density. Stable high density nodule periphery of the right midlung, like ly calcified granuloma. Patchy opacities at the lung bases with trace right effusion. Impression: 1. Correlate for COPD and superimposed CHF with pulmonary vascular congestion. 2. More patchy edema or developing infiltrate at the right base and likely trace effusion.
[2023-11-04] MEDS ORDERED: NITROGLYCERIN SL TABS 0.4 MG TAB SUBLINGUAL STA (17:28)
[2023-11-04] MEDS ORDERED: FUROSEMIDE 10 MG/ML 4 ML VIAL IV STA (17:29)
--- NOTE | 2023-11-04 17:38 | ED ---
SOB HPI - General Chief Complaint: Shortness of Breath Stated Complaint: Sob Time Seen by Provider: 11/04/23 16:36 Source: patient Mode of arrival: EMS Limitations: no limitations - History of Present Illness Initial Comments: 73-year-old female with past medical history of COPD not on home O2, sick sinus syndrome with pacemaker, CVA, peripheral arterial disease on anticoagulation who presents to the emergency department with shortness of breath. States that she does have some family members that are sick. She has been short of breath for the past week. EMS was called to the house today and found her to have an oxygen saturation of 40% on room air. She was placed on CPAP and oxygenation only improved to the 60s. Patient denies having any chest pain. Does have history of coronary stents. Denies history of congestive heart failure. She h as had previous hospitalizations with BiPAP before. Denies ever being on life support. She admits to a chronic cough. No fevers. No other alleviating, precipitating or modifying factors - Related Data Home Medications Medication Instructions Recorded Confirmed Clopidogrel Bisulfate [Plavix] 75 mg PO DAILY 11/19/17 11/04/23 DULoxetine HCL [Cymbalta] 30 mg PO TID 05/22/18 11/04/23 Rosuvastatin Calcium [Crestor] 40 mg PO HS 03/15/22 11/04/23 Apixaban [Eliquis] 2.5 mg PO BID 10/20/22 11/04/23 Amitriptyline HCl 10 mg PO HS 02/25/23 11/04/23 Ezetimibe [Zetia] 10 mg PO DAILY 02/25/23 11/04/23 Spironolactone [Aldactone] 50 mg PO DAILY 06/08/23 11/04/23 Pregabalin [Lyrica] 150 mg PO TID 08/04/23 11/04/23 Valsartan [Diovan] 320 mg PO DAILY 08/04/23 11/04/23 Metoprolol Succinate [Metoprolol 25 mg PO DAILY 09/14/23 11/04/23 Succinate ER] Azithromycin [Zithromax Z Pack] See Taper PO DIRECTED 11/04/23 11/04/23 Benzonatate [Tessalon Perles] 100 mg PO TID PRN 11/04/23 11/04/23 predniSONE See Taper PO DIRECTED 11/04/23 11/04/23 Previous Rx's Medication Instructions Recorded amLODIPine [Norvasc] 10 mg PO DAILY #30 tab 06/16/23 Acetaminophen Tab [Tylenol] 650 mg PO Q6HR PRN tab 08/08/23 Allergies Allergy/AdvReac Type Severity Reaction Status Date / Time codeine Allergy passed out Verified 11/04/23 16:35 Latex, Natural Rubber Allergy Rash/Hives Verified 11/04/23 16:35 morphine AdvReac Vomiting Verified 11/04/23 16:35 Review of Systems ROS Statement: Those systems with pertinent positive or pertinent negative responses have been documented in the HPI. ROS Other: All systems not noted in ROS Statement are negative. Past Medical History Past Medical History: Coronary Artery Disease (CAD), COPD, CVA/TIA, Diabetes Mellitus, GERD/Reflux, Hearing Disorder / Deafness, Hyperlipidemia, Hypertension, Myocardial Infarction (AK), Osteoarthritis (OA), Sleep Apnea/CPAP/BIPAP, Vascular Disorder Additional Past Medical History / Comment(s): Hx CVA 03/15/22 with residual left sided nerve pain & hearing loss left ear, . PAD. Insomnia. hx sleep apnea-does not use machine., emphysema., diverticulitis, gastric sleeve., occasional vertigo with loss of balance., pain left leg., uses cane prn. Last Myocardial Infarction Date:: 2017 History of Any Multi-Drug Resistant Organisms: None Reported Past Surgical History: Bariatric Surgery, Bladder Surgery, Cholecystectomy, Heart Catheterization With Stent, Hysterectomy, Joint Replacement, Orthopedic Surgery, Pacemaker Additional Past Surgical History / Comment(s): Bilateral cataracts, gastric sleeve, right rotator cuff repair, left knee replacement, bladder suspension x3, right and left carotid endarterectomy, left femur surgery with daniella placed. 4 cardiac stents,tilt table test, dual chamber pacemaker, femoral artery bypass w/graft Past Anesthesia/Blood Transfusion Reactions: Previous Problems w/ Anesthesia, Motion Sickness, Postoperative Nausea & Vomiting (PONV) Additional Past Anesthesia/Blood Transfusion Reaction / Comment(s): . Date of Last Stent Placement:: Nov 2017 Type of Cardiac Device: Unknown Device Placement Date:: Dual Chamber Pacemaker 01/05. Past Psychological History: Anxiety, Bipolar, Depression Smoking Status: Current some day smoker Past Alcohol Use History: None Reported, Abuse Past Drug Use History: None Reported - Past Family History Mother Family Medical History: Coronary Artery Disease (CAD), Diabetes Mellitus Additional Family Medical History / Comment(s): CABG Father Family Medical History: Hypertension, Myocardial Infarction ([place]) Brother(s) Family Medical History: Blood Disorder, Coronary Artery Disease (CAD), Myocardial Infarction ([place]) Additional Family Medical History / Comment(s): CABG, unknown type of blood disorder General Exam Limitations: no limitations General appearance: alert, in distress Head exam: Present: atraumatic, normocephalic, normal inspection Eye exam: Present: normal appearance, PERRL, EOMI. Absent: scleral icterus, conjunctival injection, periorbital swelling ENT exam: Present: mucous membranes dry Respiratory exam: Present: rales, decreased breath sounds Cardiovascular Exam: Present: tachycardia GI/Abdominal exam: Present: soft, normal bowel sounds. Absent: distended, tenderness, guarding, rebound, rigid Extremities exam: Present: normal inspection, full ROM, normal capillary refill. Absent: tenderness, pedal edema, joint swelling, calf tenderness Neurological exam: Present: alert Psychiatric exam: Present: anxious Skin exam: Present: pallor Course Vital Signs 11/04/23 11/04/23 11/04/23 16:28 16:36 16:38 Temperature 98.1 F Pulse Rate 135 H 112 H Respiratory 50 H 46 H Rate Blood Pressure 240/118 O2 Sat by Pulse 100 Oximetry Fraction of Inspired Oxygen (FIO2) 11/04/23 11/04/23 11/04/23 16:40 16:51 17:03 Temperature Pulse Rate 89 75 Respiratory 34 H Rate Blood Pressure 197/98 O2 Sat by Pulse 100 Oximetry Fraction of 100 Inspired Oxygen (FIO2) 11/04/23 11/04/23 11/04/23 17:13 17:15 17:41 Temperature Pulse Rate 77 Respiratory 33 H Rate Blood Pressure 157/71 O2 Sat by Pulse 100 Oximetry Fraction of 50 40 Inspired Oxygen (FIO2) 11/04/23 11/04/23 11/04/23 17:45 18:32 18:53 Temperature Pulse Rate 77 71 78 Respiratory 24 22 30 H Rate Blood Pressure 134/58 146/63 119/83 O2 Sat by Pulse 97 100 94 L Oximetry Fraction of Inspired Oxygen (FIO2) 11/04/23 11/04/23 11/04/23 19:27 19:30 22:05 Temperature Pulse Rate 74 67 Respiratory 25 H 20 Rate Blood Pressure 109/57 135/71 O2 Sat by Pulse 98 99 Oximetry Fraction of 40 Inspired Oxygen (FIO2) Medical Decision Making - Medical Decision Making Was pt. sent in by a medical professional or institution (LANNY Barker, NETWORK FIELD ENGINEER, urgent care, hospital, or senior care...) When possible be specific @ -No Did you speak to anyone other than the patient for history (EMS, parent, family, police, friend...)? What history was obtained from this source @ -Spoke with EMS for history Did you review nursing and triage notes (agree or disagree)? Why? @ -I reviewed and agree with nursing and triage notes Were old charts reviewed (outside hosp., previous admission, EMS record, old EKG, old radiological studies, urgent care reports/EKG's, senior care records)? Report findings @ -Previous echo from June 2023 is reviewed as well as her heart cath from 2019 Differential Diagnosis (chest pain, altered mental status, abdominal pain women, abdominal pain men, vaginal bleeding, weakness, fever, dyspnea, syncope, headache, dizziness, GI bleed, back pain, seizure, CVA, palpatations, mental health, musculoskeletal)? @ -Differential Dyspnea: Coronary syndrome, arrhythmia, tamponade, asthma, COPD, pulmonary embolism, pneumonia, pneumothorax, pulmonary effusion, anaphylaxis, diabetic ketoacidosis, flailed chest, pulmonary contusion, diaphragmatic rupture, anemia, neuromuscular, this is not meant to be an all-inclusive list. EKG interpreted by me (3pts min.). @ -Yes and demonstrates sinus tachycardia with a rate of 129. WI interval 130. QRS 88. QTC 352. No acute ST segment elevations or depressions Repeat done at 1827 demonstrates sinus rhythm with a rate of 74. WI interval 123. QRS 89. QTC of 437. No acute ST segment elevations or depressions X-rays interpreted by me (1pt min.). @ -Yes and demonstrates pulmonary vascular congestion CT interpreted by me (1pt min.). @ -Yes and does not demonstrate PE U/S interpreted by me (1pt. min.). @ -None done What testing was considered but not performed or refused? (CT, X-rays, U/S, labs)? Why? @ -None What meds were considered but not given or refused? Why? @ -Nitro however the patient's blood pressure does come down significantly on its own Did you discuss the management of the patient with other professionals (prof yepez i.e. , PA, NETWORK FIELD ENGINEER, lab, RT, psych nurse, social media editor, attorney lawyer, teacher, communications officer, rn case manager)? Give summary @ -I spoke with Dr. Miguel in regards to the patient. States to hold the patient's Eliquis, start patient on heparin without a bolus Was smoking cessation discussed for >3mins.? @ -No Was critical care preformed (if so, how long)? @ -Yes, 35 minutes for BiPAP management and heparinization Were there social determinants of health that impacted care today? How? (Homelessness, low income, unemployed, alcoholism, drug addiction, transportation, low edu. Level, literacy, decrease access to med. care, penitentiary, rehab)? @ -No Was there de-escalation of care discussed even if they declined (Discuss DNR or withdrawal of care, Hospice)? DNR status @ -Yes and patient would like to proceed as a full code What co-morbidities impacted this encounter? (DM, HTN, Smoking, COPD, CAD, Cancer, CVA, ARF, Chemo, Hep., AIDS, mental health diagnosis, sleep apnea, morbid obesity)? @ -EOP, sick sinus syndrome, coronary artery disease Was patient admitted / discharged? Hospital course, mention meds given and route, prescriptions, significant lab abnormalities, going to OR and other pertinent info. @ -Admitted. Upon arrival patient has significant work of breathing. She is transitioned from CPAP to BiPAP. IV was established. Laboratory studies were conducted. She was given a DuoNeb breathing treatments by EMS and one albuterol treatment in the emergency department. Laboratory studies are remarkable for markedly elevated d-dimer, troponin and BNP. Results are discussed with Dr. Miguel who recommended that the patient be heparinized. Patient was given Solu- Medrol and magnesium for increased work of breathing. She does have improvement in her symptoms on the BiPAP. Recommended admission for which the patient was agreeable. Patient's pending a bed on the floor. Spoke with Eladia from [facility] to accepted the admission Undiagnosed new problem with uncertain prognosis? @ -No Drug Therapy requiring intensive monitoring for toxicity (Heparin, Nitro, Insulin, Cardizem)? @ -heparin Were any procedures done? @ -No Diagnosis/symptom? @ -Acute hypoxic respiratory failure, acute BiPAP dependent respiratory failure, covid infection, possible new onset CHF, NSTEMI Acute, or Chronic, or Acute on Chronic? @ -acute Uncomplicated (without systemic symptoms) or Complicated (systemic symptoms)? @ -Complicated Side effects of treatment? @ -No Exacerbation, Progression, or Severe Exacerbation? @ -No Poses a threat to life or bodily function? How? (Chest pain, [place], [place], pneumonia, PE, COPD, DKA, ARF, appy, cholecystitis, CVA, Diverticulitis, Homicidal, Suicidal, threat to staff... and all critical care pts) @ -yes, patient's oxygenation was significantly low - Lab Data Result diagrams: 11/04/23 16:46 11/04/23 16:46 Lab Results 11/04/23 11/04/23 11/04/23 Range/Units 16:46 16:46 16:46 WBC 18.6 H (3.8-10.6) k/uL RBC 4.78 (3.80-5.40) m/uL Hgb 12.4 (11.4-16.0) gm/dL Hct 40.4 (34.0-46.0) % MCV 84.5 (80.0-100.0) fL MCH 25.9 (25.0-35.0) pg MCHC 30.6 L (31.0-37.0) g/dL RDW 16.8 H (11.5-15.5) % Plt Count 297 (150-450) k/uL MPV 8.0 Neutrophils % (Manual) 66 % Lymphocytes % (Manual) 29 % Monocytes % (Manual) 5 % Neutrophils # (Manual) 12.28 H (1.3-7.7) k/uL Lymphocytes # (Manual) 5.39 H (1.0-4.8) k/uL Monocytes # (Manual) 0.93 (0-1.0) k/uL Nucleated RBCs 0 (0-0) /100 WBC Manual Slide Review Performed Hypochromasia Marked Anisocytosis Slight PT 9.8 L (10.0-12.5) sec INR 0.9 (<1.2) APTT 18.6 L (22.0-30.0) sec D-Dimer 5.99 H (<0.60) mg/L FEU Sample Site ABG pH (7.35-7.45) ABG pCO2 (35-45) mmHg ABG pO2 (83-108) mmHg ABG HCO3 (21-25) mmol/L ABG Total CO2 (19-24) mmol/L ABG O2 Saturation (94-97) % ABG Base Excess mmol/L Geraldo Test FiO2 % Sodium 138 (137-145) mmol/L Potassium 4.4 (3.5-5.1) mmol/L Chloride 101 (98-107) mmol/L Carbon Dioxide 20 L (22-30) mmol/L Anion Gap 17 mmol/L BUN 25 H (7-17) mg/dL Creatinine 0.59 (0.52-1.04) mg/dL Est GFR (CKD-EPI)AfAm >90 (>60 ml/min/1.73 sqM) Est GFR (CKD-EPI)NonAf >90 (>60 ml/min/1.73 sqM) Glucose 306 H (74-99) mg/dL Lactic Ac Sepsis Rflx Plasma Lactic Acid Kevin (0.7-2.0) mmol/L Calcium 8.7 (8.4-10.2) mg/dL Magnesium 2.0 (1.6-2.3) mg/dL Total Bilirubin 0.5 (0.2-1.3) mg/dL AST 67 H (14-36) U/L ALT 26 (4-34) U/L Alkaline Phosphatase 88 (38-126) U/L Troponin I (0.000-0.034) ng/mL NT-Pro-B Natriuret Pep 43210 pg/mL Total Protein 6.5 (6.3-8.2) g/dL Albumin 3.6 (3.5-5.0) g/dL Influenza Type A (PCR) (Not Detectd) Influenza Type B (PCR) (Not Detectd) RSV (PCR) (Not Detectd) SARS-CoV-2 (PCR) (Not Detectd) 11/04/23 11/04/23 11/04/23 Range/Units 16:46 16:46 16:46 WBC (3.8-10.6) k/uL RBC (3.80-5.40) m/uL Hgb (11.4-16.0) gm/dL Hct (34.0-46.0) % MCV (80.0-100.0) fL MCH (25.0-35.0) pg MCHC (31.0-37.0) g/dL RDW (11.5-15.5) % Plt Count (150-450) k/uL MPV Neutrophils % (Manual) % Lymphocytes % (Manual) % Monocytes % (Manual) % Neutrophils # (Manual) (1.3-7.7) k/uL Lymphocytes # (Manual) (1.0-4.8) k/uL Monocytes # (Manual) (0-1.0) k/uL Nucleated RBCs (0-0) /100 WBC Manual Slide Review Hypochromasia Anisocytosis PT (10.0-12.5) sec INR (<1.2) APTT (22.0-30.0) sec D-Dimer (<0.60) mg/L FEU Sample Site ABG pH (7.35-7.45) ABG pCO2 (35-45) mmHg ABG pO2 (83-108) mmHg ABG HCO3 (21-25) mmol/L ABG Total CO2 (19-24) mmol/L ABG O2 Saturation (94-97) % ABG Base Excess mmol/L Geraldo Test FiO2 % Sodium (137-145) mmol/L Potassium (3.5-5.1) mmol/L Chloride (98-107) mmol/L Carbon Dioxide (22-30) mmol/L Anion Gap mmol/L BUN (7-17) mg/dL Creatinine (0.52-1.04) mg/dL Est GFR (CKD-EPI)AfAm (>60 ml/min/1.73 sqM) Est GFR (CKD-EPI)NonAf (>60 ml/min/1.73 sqM) Glucose (74-99) mg/dL Lactic Ac Sepsis Rflx Plasma Lactic Acid Kevin 8.0 H* (0.7-2.0) mmol/L Calcium (8.4-10.2) mg/dL Magnesium (1.6-2.3) mg/dL Total Bilirubin (0.2-1.3) mg/dL AST (14-36) U/L ALT (4-34) U/L Alkaline Phosphatase (38-126) U/L Troponin I 14.400 H* (0.000-0.034) ng/mL NT-Pro-B Natriuret Pep pg/mL Total Protein (6.3-8.2) g/dL Albumin (3.5-5.0) g/dL Influenza Type A (PCR) Not Detected (Not Detectd) Influenza Type B (PCR) Not Detected (Not Detectd) RSV (PCR) Not Detected (Not Detectd) SARS-CoV-2 (PCR) Detected A (Not Detectd) 11/04/23 11/04/23 Range/Units 17:02 17:48 WBC (3.8-10.6) k/uL RBC (3.80-5.40) m/uL Hgb (11.4-16.0) gm/dL Hct (34.0-46.0) % MCV (80.0-100.0) fL MCH (25.0-35.0) pg MCHC (31.0-37.0) g/dL RDW (11.5-15.5) % Plt Count (150-450) k/uL MPV Neutrophils % (Manual) % Lymphocytes % (Manual) % Monocytes % (Manual) % Neutrophils # (Manual) (1.3-7.7) k/uL Lymphocytes # (Manual) (1.0-4.8) k/uL Monocytes # (Manual) (0-1.0) k/uL Nucleated RBCs (0-0) /100 WBC Manual Slide Review Hypochromasia Anisocytosis PT (10.0-12.5) sec INR (<1.2) APTT (22.0-30.0) sec D-Dimer (<0.60) mg/L FEU Sample Site Right Radial ABG pH 7.37 (7.35-7.45) ABG pCO2 41 (35-45) mmHg ABG pO2 324 H (83-108) mmHg ABG HCO3 23 (21-25) mmol/L ABG Total CO2 25 H (19-24) mmol/L ABG O2 Saturation 99.9 H (94-97) % ABG Base Excess -1.9 mmol/L Geraldo Test Yes FiO2 80 % Sodium (137-145) mmol/L Potassium (3.5-5.1) mmol/L Chloride (98-107) mmol/L Carbon Dioxide (22-30) mmol/L Anion Gap mmol/L BUN (7-17) mg/dL Creatinine (0.52-1.04) mg/dL Est GFR (CKD-EPI)AfAm (>60 ml/min/1.73 sqM) Est GFR (CKD-EPI)NonAf (>60 ml/min/1.73 sqM) Glucose (74-99) mg/dL Lactic Ac Sepsis Rflx Y Plasma Lactic Acid Kevin (0.7-2.0) mmol/L Calcium (8.4-10.2) mg/dL Magnesium (1.6-2.3) mg/dL Total Bilirubin (0.2-1.3) mg/dL AST (14-36) U/L ALT (4-34) U/L Alkaline Phosphatase (38-126) U/L Troponin I (0.000-0.034) ng/mL NT-Pro-B Natriuret Pep pg/mL Total Protein (6.3-8.2) g/dL Albumin (3.5-5.0) g/dL Influenza Type A (PCR) (Not Detectd) Influenza Type B (PCR) (Not Detectd) RSV (PCR) (Not Detectd) SARS-CoV-2 (PCR) (Not Detectd) Disposition Clinical Impression: BiPAP (biphasic positive airway pressure) dependence, Non-STEMI (non-ST elevated myocardial infarction), COVID-19, CHF exacerbation Disposition: ADMITTED IP TO THIS HOSP Condition: Serious Is patient prescribed a controlled substance at d/c from ED?: No Time of Disposition: 19:34 Decision to Admit Reason: Admit from EC Decision Date: 11/04/23 Decision Time: 19:35
[2023-11-04 17:46] LABS: Anisocytosis Slight; HCT 40.4 % (34.0-46.0); HGB 12.4 gm/dL (11.4-16.0); Hypochromasia Marked; MCH 25.9 pg (25.0-35.0); MCHC 30.6 g/dL (31.0-37.0); MCV 84.5 fL (80.0-100.0); Platelet Count 297 k/uL (150-450); RBC 4.78 m/uL (3.80-5.40); RDW 16.8 % (11.5-15.5); WBC 18.6 k/uL (3.8-10.6)
[2023-11-04 17:54] LABS: ALT 26 U/L (4-34); AST 67 U/L (14-36); African American GFR (CKD) >90 (>60 ml/min/1.73 sqM); Albumin 3.6 g/dL (3.5-5.0); Alkaline Phosphatase 88 U/L (38-126); Anion Gap 17 mmol/L; Blood Urea Nitrogen 25 mg/dL (7-17); Calcium 8.7 mg/dL (8.4-10.2); Carbon Dioxide 20 mmol/L (22-30); Chloride 101 mmol/L (98-107); Glucose 306 mg/dL (74-99); Non-African American GFR(CKD) >90 (>60 ml/min/1.73 sqM); Sodium 138 mmol/L (137-145); Total Bilirubin 0.5 mg/dL (0.2-1.3); Total Protein 6.5 g/dL (6.3-8.2)
[2023-11-04 17:58] LABS: Potassium 4.4 mmol/L (3.5-5.1)
[2023-11-04 18:02] LABS: NT-Pro-B-Type Natriuretic Pept 10600 pg/mL
[2023-11-04 18:06] LABS: INR 0.9 (<1.2); Prothrombin Time 9.8 sec (10.0-12.5)
[2023-11-04 18:09] LABS: Partial Thromboplastin Time 18.6 sec (22.0-30.0)
[2023-11-04] MEDS ORDERED: HYDROmorphone 0.5 MG/0.5 ML SYRINGE IVP STA (18:52)
--- NOTE | 2023-11-04 19:06 | CT ---
EXAMINATION TYPE: CT chest angio for PE DATE OF EXAM: 11/04/2023 COMPARISON: 09/14/2023 HISTORY: 73-year-old female Hypoxia, elevated D-dimer. TECHNIQUE: Contiguous axial scanning of the chest performed with IV Contrast, patient injected wit h 100 ml mL of Isovue 370. Coronal and sagittal MIP reconstructions performed. CT DLP: 367.6 mGycm Automated exposure control for dose reduction was used. FINDINGS: Left anterior chest wall pacemaker generator with right atrial and right ventricular leads. Heart upper limits of normal in size. No flattening of the interventricular septum or reflux of contr ast. LAD coronary artery calcifications. Aorta normal caliber with conventional branching anatomy. No thoracic lymphadenopathy by CT size criteria. Large caliber to the main right and left pulmonary arteries measuring up to 2.6 cm suggesting underly ing pulmonary hypertension. Exam is limited due to excessive breathing motion artifact. However, no definite pulmonary embolus is seen. The smaller arterial branches are very limited in assessment. There are trace bilateral pleural effusions. Septal lines in the lower lungs with patchy and confluen t groundglass at the lung bases. Small to moderate-sized hiatal hernia. Post surgical changes hysterectomy. Visualized upper abdomen s hows 3.3 cm lipid rich adrenal adenoma right adrenal gland and 1.7 cm left adrenal gland. No osseous destructive process. IMPRESSION: 1. BREATHING MOTION ARTIFACT LIMITING EVALUATION FOR PULMONARY EMBOLI ESPECIALLY IN THE MORE DISTAL A RTERIAL BRANCHES. NO DEFINITE PULMONARY EMBOLUS IS SEEN. 2. CONSTELLATION OF FINDINGS INCLUDING BORDERLINE HEART SIZE, PULMONARY ARTERIAL HYPERTENSION, MILD A NASARCA CHANGE, TRACE PLEURAL EFFUSIONS, SEPTAL LINES, AND GROUNDGLASS AIRSPACE DISEASE IN THE LOWER LUNGS. FINDINGS SUGGEST CHF WITH EARLY PULMONARY EDEMA. 3. SMALL TO MODERATE SIZED HIATAL HERNIA WITH PREVIOUSLY SLEEVE GASTRECTOMY. 4. BILATERAL LIPID RICH ADRENAL ADENOMAS MEASURING UP TO 3.3 CM.
[2023-11-04 19:25] LABS: Lymphocytes # (M) 5.39 k/uL (1.0-4.8); Monocytes # (M) 0.93 k/uL (0-1.0); Neutrophils # (M) 12.28 k/uL (1.3-7.7); Neutrophils % (M) 66 %; Nucleated Red Blood Cells 0 /100 WBC (0-0); Total Cells Counted 100
[2023-11-04] MEDS ORDERED: NALOXONE 0.4 MG/ML 1 ML VIAL IV PRN (19:41)
[2023-11-04] MEDS: HEPARIN SOD,PORK IN 0.45% NACL 25,000 UNIT in 0.45% NACL 1 250ML.BAG IV SCH (21:16)
[2023-11-05] MEDS: HEPARIN SODIUM 1,000 UN/ML (10ML VL) IV PRN ×2 (03:59→11:09)
[2023-11-05 04:49] LABS: Anisocytosis Slight; Basophils % (A) 0 %; Eosinophils % (A) 0 %; HGB 10.8 gm/dL (11.4-16.0); Hypochromasia Moderate; Lymphocytes # (A) 0.7 k/uL (1.0-4.8); Lymphocytes % (A) 7 %; MCH 24.5 pg (25.0-35.0); MCV 81.8 fL (80.0-100.0); Mean Platelet Volume 8.6; Monocytes # (A) 0.3 k/uL (0-1.0); Monocytes % (A) 3 %; Neutrophils # (A) 8.7 k/uL (1.3-7.7); Neutrophils % (A) 90 %; Platelet Count 166 k/uL (150-450); RDW 16.6 % (11.5-15.5); WBC 9.7 k/uL (3.8-10.6)
[2023-11-05 04:56] LABS: Prothrombin Time 10.8 sec (10.0-12.5)
[2023-11-05 05:36] LABS: African American GFR (CKD) >90 (>60 ml/min/1.73 sqM); Anion Gap 10 mmol/L; Blood Urea Nitrogen 28 mg/dL (7-17); Calcium 8.5 mg/dL (8.4-10.2); Carbon Dioxide 25 mmol/L (22-30); Chloride 97 mmol/L (98-107); Glucose 291 mg/dL (74-99); Non-African American GFR(CKD) >90 (>60 ml/min/1.73 sqM); Potassium 4.7 mmol/L (3.5-5.1); Sodium 132 mmol/L (137-145)
[2023-11-05] MEDS ORDERED: methylPREDNISolone SOD SUCCI 40 MG/ML 1 ML VIAL IV SCH ×2 (08:00→09:30)
[2023-11-05] MEDS: FUROSEMIDE 10 MG/ML 4 ML VIAL IV SCH ×2 (08:27→20:39)
[2023-11-05] MEDS ORDERED: IPRATROPIUM-ALBUTEROL 3 ML NEB INHALATION PRN (09:24)
[2023-11-05] MEDS ORDERED: BENZONATATE 100 MG CAP PO PRN (09:24)
[2023-11-05] MEDS ORDERED: METOPROLOL SUCCINATE (ER) 25 MG TAB.ER.24H PO SCH (09:45)
[2023-11-05] MEDS: guaiFENesin 600 MG TABLET.ER PO SCH ×2 (09:59→20:39)
[2023-11-05] MEDS: ZINC SULFATE 220 MG CAP PO SCH (09:59)
[2023-11-05] MEDS: HYDROmorphone 0.5 MG/0.5 ML SYRINGE IVP PRN ×3 (10:00→22:44)
[2023-11-05] MEDS ORDERED: METOPROLOL SUCCINATE (ER) 25 MG TAB.ER.24H PO STA (10:07)
[2023-11-05] MEDS ORDERED: ALBUTEROL HFA INHALER INHALATION PRN (10:18)
--- NOTE | 2023-11-05 12:33 | P.CNPUL ---
History of Present Illness Consult date: 11/05/23 Requesting physician: Pancho Cantu Reason for consult: dyspnea, hypoxemia, abnormal CXR/CT Chief complaint: Shortness of breath History of present illness: This is a pleasant 73-year-old female patient with a known history of hyperlipidemia, hypertension, congestive heart failure, coronary artery disease with previous stent placement, anxiety/depression, sick sinus syndrome status post permanent pacemaker implantation, CVA, peripheral arterial disease anticoagulated with Eliquis, chronic obstructive pulmonary disease and chronic and ongoing tobacco dependence. She had developed increasing shortness of breath, cough and congestion she was treated with a Z-Jaylen and a Medrol Dosepak in the outpatient setting without much improvement. She presented here to the emergency room yesterday the rather acute onset of shortness of breath. Chest x-ray revealed evidence of COPD and superimposed congestive heart failure and pulmonary vascular congestion. More patchy edema or developing infiltrate in the right base. Trace effusion. CT angiogram ruled out pulmonary embolism. There is borderline heart size. Groundglass airspace disease in the lower lung field suggestive of congestive heart failure. I count 9.7. Hemoglobin 10.8. Platelets 166. Sodium 132. Potassium 4.7. Bicarb 25. BUN 28. Creatinine 0.50. Glucose 291. Troponins 14.4, 9.9, 8.7. ProBNP 0. Positive for COVI D-19 infection. She states she tested positive originally on October 14. Arterial blood gases on 80% FiO2 revealed a PaO2 of 324, pCO2 41 and pH of 7.37. She is seen today in consultation in the emergency department. She is currently on BiPAP 12/6 and 40% FiO2 alternating with 3 L/m per nasal cannula. She is breathing a bit easier today compared to yesterday. Currently denies any chest pain. She is currently on a heparin drip. Initiated on IV diuretics. Continued on bronchodilators and Solu-Medrol. Vitamin supplements. Review of Systems REVIEW OF SYSTEMS: CONSTITUTIONAL: Denies any recent significant weight loss or weight gain. EYES: Denies change in vision. EARS, NOSE, MOUTH, THROAT: Denies headaches, denies sore throat. CARDIOVASCULAR: Denies chest pain, palpitations or syncopal episodes. RESPIRATORY: Positive for shortness of breath, cough, congestion no hemoptysis. GASTROINTESTINAL: Denies change in appetite, denies abdominal pain GENITOURINARY: Denies hematuria, denies infections. MUSKULOSKELETAL: Denies pain, denies swelling. INTEGUMENTARY: Denies rash, denies eczema. NEUROLOGICAL: Denies recent memory loss, no recent seizure activity. PSYCHIATRIC: Denies anxiety, denies depression. HEMATOLOGIC/LYMPHATIC: Denies anemia, denies enlarged lymph nodes. Past Medical History Past Medical History: Coronary Artery Disease (CAD), COPD, CVA/TIA, Diabetes Mellitus, GERD/Reflux, Hearing Disorder / Deafness, Hyperlipidemia, Hypertension, Myocardial Infarction (MD), Osteoarthritis (OA), Sleep Apnea/CPAP/ BIPAP, Vascular Disorder Additional Past Medical History / Comment(s): Hx CVA 03/15/22 with residual left sided nerve pain & hearing loss left ear, . PAD. Insomnia. hx sleep apnea-does not use machine., emphysema., diverticulitis, gastric sleeve., occasional vertigo with loss of balance., pain left leg., uses cane prn. Last Myocardial Infarction Date:: 2017 History of Any Multi-Drug Resistant Organisms: None Reported Past Surgical History: Bariatric Surgery, Bladder Surgery, Cholecystectomy, Heart Catheterization With Stent, Hysterectomy, Joint Replacement, Orthopedic Surgery, Pacemaker Additional Past Surgical History / Comment(s): Bilateral cataracts, gastric sleeve, right rotator cuff repair, left knee replacement, bladder suspension x3, right and left carotid endarterectomy, left femur surgery with daniella placed. 4 cardiac stents,tilt table test, dual chamber pacemaker, femoral artery bypass w/graft Past Anesthesia/Blood Transfusion Reactions: Previous Problems w/ Anesthesia, Motion Sickness, Postoperative Nausea & Vomiting (PONV) Additional Past Anesthesia/Blood Transfusion Reaction / Comment(s): . Date of Last Stent Placement:: Nov 2017 Type of Cardiac Device: Unknown Device Placement Date:: Dual Chamber Pacemaker 01/05. Past Psychological History: Anxiety, Bipolar, Depression Smoking Status: Current some day smoker Past Alcohol Use History: None Reported, Abuse Past Drug Use History: None Reported - Past Family History Mother Family Medical History: Coronary Artery Disease (CAD), Diabetes Mellitus Additional Family Medical History / Comment(s): CABG Father Family Medical History: Hypertension, Myocardial Infarction (MD) Brother(s) Family Medical History: Blood Disorder, Coronary Artery Disease (CAD), Myocardial Infarction (MD) Additional Family Medical History / Comment(s): CABG, unknown type of blood disorder Medications and Allergies Home Medications Medication Instructions Recorded Confirmed Type Clopidogrel Bisulfate [Plavix] 75 mg PO DAILY 11/19/17 11/04/23 History DULoxetine HCL [Cymbalta] 30 mg PO TID 05/22/18 11/04/23 History Rosuvastatin Calcium [Crestor] 40 mg PO HS 03/15/22 11/04/23 History Apixaban [Eliquis] 2.5 mg PO BID 10/20/22 11/04/23 History Amitriptyline HCl 10 mg PO HS 02/25/23 11/04/23 History Ezetimibe [Zetia] 10 mg PO DAILY 02/25/23 11/04/23 History Spironolactone [Aldactone] 50 mg PO DAILY 06/08/23 11/04/23 History amLODIPine [Norvasc] 10 mg PO DAILY #30 tab 06/16/23 11/04/23 Rx Pregabalin [Lyrica] 150 mg PO TID 08/04/23 11/04/23 History Valsartan [Diovan] 320 mg PO DAILY 08/04/23 11/04/23 History Acetaminophen Tab [Tylenol] 650 mg PO Q6HR PRN tab 08/08/23 11/04/23 Rx Metoprolol Succinate [Metoprolol 25 mg PO DAILY 09/14/23 11/04/23 History Succinate ER] Azithromycin [Zithromax Z Pack] See Taper PO DIRECTED 11/04/23 11/04/23 History Benzonatate [Tessalon Perles] 100 mg PO TID PRN 11/04/23 11/04/23 History predniSONE See Taper PO DIRECTED 11/04/23 11/04/23 History Allergies Allergy/AdvReac Type Severity Reaction Status Date / Time codeine Allergy passed out Verified 11/04/23 16:35 Latex, Natural Rubber Allergy Rash/Hives Verified 11/04/23 16:35 morphine AdvReac Vomiting Verified 11/04/23 16:35 Physical Exam Vitals: Vital Signs Temp Pulse Pulse Resp BP BP Pulse Ox 11/05/23 08:22 98.1 F 73 18 135/58 98 11/05/23 07:42 97 11/05/23 04:00 97.8 F 61 14 125/57 100 11/05/23 03:51 11/05/23 02:25 62 17 100 12/23/23 01:39 60 20 126/73 95 11/05/23 00:03 64 20 122/60 100 11/04/23 23:52 11/04/23 22:05 67 20 135/71 99 11/04/23 19:30 11/04/23 19:27 74 25 H 109/57 98 11/04/23 18:53 78 30 H 119/83 94 L 11/04/23 18:32 71 22 146/63 100 11/04/23 17:45 77 24 134/58 97 11/04/23 17:41 11/04/23 17:15 77 33 H 157/71 100 11/04/23 17:13 11/04/23 17:03 75 11/04/23 16:51 89 34 H 197/98 100 11/04/23 16:40 11/04/23 16:38 112 H 11/04/23 16:36 46 H 11/04/23 16:28 98.1 F 135 H 50 H 240/118 100 FiO2 11/05/23 08:22 11/05/23 07:42 11/05/23 04:00 40 11/05/23 03:51 40 11/05/23 02:25 11/05/23 01:39 11/05/23 00:03 11/04/23 23:52 40 11/04/23 22:05 11/04/23 19:30 40 11/04/23 19:27 11/04/23 18:53 11/04/23 18:32 11/04/23 17:45 11/04/23 17:41 40 11/04/23 17:15 11/04/23 17:13 50 11/04/23 17:03 11/04/23 16:51 11/04/23 16:40 100 11/04/23 16:38 11/04/23 16:36 11/04/23 16:28 Intake and Output 11/04/23 11/05/23 11/05/23 22:59 06:59 14:59 Intake Total 101.764 78.364 Output Total 300 Balance -198.236 78.364 Intake: Intake, IV Titration 51.764 78.364 Amount Heparin Sod,Pork in 0.45% 51.764 78.364 NaCl 25,000 unit In 0.45 % NaCl 1 250ml.bag @ 12 UNITS/KG/HR 7.784 mls/hr IV .Q24H [facility] Rx#: [id number] Oral 50 Output: Urine 300 Other: # Voids 1 Weight 64.864 kg GENERAL EXAM: Alert, pleasant 73-year-old female, on BiPAP 10/19 at 40% FiO2 alternating with 3 L nasal cannula, fairly comfortable in no apparent distress. HEAD: Normocephalic. EYES: Normal reaction of pupils, equal size. NOSE: Clear with pink turbinates. THROAT: No erythema or exudates. NECK: No masses, no JVD. CHEST: No chest wall deformity. LUNGS: Equal air entry with crackles in the bilateral bases. CVS: S1 and S2 normal with no audible murmur, regular rhythm. ABDOMEN: No hepatosplenomegaly, normal bowel sounds, no guarding or rigidity. SPINE: No scoliosis or deformity SKIN: No rashes CENTRAL NERVOUS SYSTEM: No focal deficits, tone is normal in all 4 extremities. EXTREMITIES: There is 1+ peripheral edema. No clubbing, no cyanosis. Peripheral pulses are intact. Results - Laboratory Findings CBC and BMP: 11/05/23 04:16 11/05/23 04:16 ABG ABG pH 7.37 (7.35-7.45) 11/04/23 17:02 ABG pCO2 41 mmHg (35-45) 11/04/23 17:02 ABG pO2 324 mmHg (83-108) H 11/04/23 17:02 ABG O2 Saturation 99.9 % (94-97) H 11/04/23 17:02 PT/INR, D-dimer PT 10.8 sec (10.0-12.5) 11/05/23 04:16 INR 1.0 (<1.2) 11/05/23 04:16 D-Dimer 5.99 mg/L FEU (<0.60) H 11/04/23 16:46 Abnormal lab findings: Abnormal Labs 11/04/23 11/04/23 11/04/23 16:46 16:46 16:46 WBC 18.6 H Hgb MCH MCHC 30.6 L RDW 16.8 H Neutrophils # Neutrophils # (Manual) 12.28 H Lymphocytes # Lymphocytes # (Manual) 5.39 H PT 9.8 L APTT 18.6 L D-Dimer 5.99 H ABG pO2 ABG Total CO2 ABG O2 Saturation Sodium Chloride Carbon Dioxide 20 L BUN 25 H Creatinine Glucose 306 H Plasma Lactic Acid Kevin AST 67 H Troponin I SARS-CoV-2 (PCR) 11/04/23 11/04/23 11/04/23 16:46 16:46 16:46 WBC Hgb MCH MCHC RDW Neutrophils # Neutrophils # (Manual) Lymphocytes # Lymphocytes # (Manual) PT APTT D-Dimer ABG pO2 ABG Total CO2 ABG O2 Saturation Sodium Chloride Carbon Dioxide BUN Creatinine Glucose Plasma Lactic Acid Kevin 8.0 H* AST Troponin I 14.400 H* SARS-CoV-2 (PCR) Detected A 11/04/23 11/04/23 11/04/23 17:02 20:16 20:55 WBC Hgb MCH MCHC RDW Neutrophils # Neutrophils # (Manual) Lymphocytes # Lymphocytes # (Manual) PT APTT D-Dimer ABG pO2 324 H ABG Total CO2 25 H ABG O2 Saturation 99.9 H Sodium Chloride Carbon Dioxide BUN Creatinine Glucose Plasma Lactic Acid Kevin 6.6 H* AST Troponin I 9.930 H* SARS-CoV-2 (PCR) 11/04/23 11/04/23 11/05/23 23:47 23:47 04:16 WBC Hgb MCH MCHC RDW Neutrophils # Neutrophils # (Manual) Lymphocytes # Lymphocytes # (Manual) PT APTT D-Dimer ABG pO2 ABG Total CO2 ABG O2 Saturation Sodium 132 L Chloride 97 L Carbon Dioxide BUN 28 H Creatinine 0.50 L Glucose 291 H Plasma Lactic Acid Kevin 5.4 H* AST Troponin I 8.770 H* SARS-CoV-2 (PCR) 11/05/23 11/05/23 11/05/23 04:16 04:16 08:30 WBC Hgb 10.8 L MCH 24.5 L MCHC 30.0 L RDW 16.6 H Neutrophils # 8.7 H Neutrophils # (Manual) Lymphocytes # 0.7 L Lymphocytes # (Manual) PT APTT D-Dimer ABG pO2 ABG Total CO2 ABG O2 Saturation Sodium Chloride Carbon Dioxide BUN Creatinine Glucose Plasma Lactic Acid Kevin 5.0 H* 3.7 H* AST Troponin I SARS-CoV-2 (PCR) 11/05/23 10:35 WBC Hgb MCH MCHC RDW Neutrophils # Neutrophils # (Manual) Lymphocytes # Lymphocytes # (Manual) PT APTT 42.4 H D-Dimer ABG pO2 ABG Total CO2 ABG O2 Saturation Sodium Chloride Carbon Dioxide BUN Creatinine Glucose Plasma Lactic Acid Kevin AST Troponin I SARS-CoV-2 (PCR) - Diagnostic Findings Chest x-ray: image reviewed CT scan - chest: image reviewed Assessment and Plan Assessment: Acute non-ST segment myocardial infarction with fluid volume overload Acute hypoxemic respiratory failure secondary to acute exacerbation of suspected systolic versus diastolic congestive heart failure Acute COVID-19 infection without clear evidence of COVID-19 pneumonia. Patient originally tested positive on 10/14/2023 History of coronary disease with multiple stent placements History of peripheral vascular disease, anticoagulated with Eliquis Story of chronic obstructive pulmonary disease Chronic tobacco dependence Diabetes mellitus History of CVA/TIA History of gastric sleeve placement History of osteoarthritis with multiple orthopedic procedures Carotid artery disease with previous right and left carotid endarterectomies Sick sinus syndrome status post dual-chamber pacemaker implantation History of anxiety/depression Plan: The patient was seen and evaluated Computed tomography scan of the chest, EKGs, labs and medications reviewed Discontinue steroids Continue diuretics Titrate the FiO2 as tolerated Cardiology consult Continue Heparin drip We'll continue to follow and make further recommendations based on her clinical status I have personally seen and examined the patient, performed the documentation and the assessment and plan as written. Number of minutes spent on the visit: 20.
--- NOTE | 2023-11-05 14:00 | P.HPIM ---
History of Present Illness H&P Date: 11/05/23 History of present illness; patient 73-year-old lady with past medical history significant for sick sinus syndrome status post dual-chamber pacemaker 12/2021, CVA, hypertension, dyslipidemia type 2 diabetes, coronary artery disease status post PCI to the RCA in 2018, former tobacco use, carotid artery stenosis status post bilateral carotid endarterectomy who presented to the hospital because of worsening shortness of breath. Patient stated that he was tested positive for COVID-19 infection the beginning of October, patient took outpatient steroids and antibiotics for that per her PCP. Patient noticed that she has been having worsening shortness of breath for the last 1 week. Complaining of shortness of breath on rest as well as exertion. Denies any fever or chills. Does admit to having a number of sick contacts at home. No complaint of chest pain. Patient denies any orthopnea or PND. There is no swelling of feet. patient denies any nausea, vomiting abdominal pain. Because of this worsening shortness of breath, EMS was called and when they arrived they found the patient oxygen saturation in the 40s on room air, patient was placed on CPAP and was transferred to the ER Initial lab work done in the ER showed WBC 10.6, hemoglobin 12.4, platelet count 297, d-dimer 5.99 sodium 138, potassium 4.4, BUN 25 and creatinine 0.59, lactate 8 troponin 14.4 Influenza A not detected Influenza B not detected RSV not detected COVID-19 detected EKG done in the ER showed heart rate of 129, no ST segment elevation or depression seen, no T-wave inversions seen. Chest x-ray done in the ER showed COPD and superimposed CHF with pulmonary vascular congestion CTA chest done showed no definite pulmonary embolism seen, early pulmonary edema seen. Patient admitted to internal medicine service REVIEW OF SYSTEMS: CONSTITUTIONAL: No fever, no malaise, no fatigue. HEENT: No recent visual problems or hearing problems. Denied any sore throat. CARDIOVASCULAR: As mentioned in HPI PULMONARY: As mentioned in HPI GASTROINTESTINAL: No diarrhea, no nausea, no vomiting, no abdominal pain. NEUROLOGICAL: No headaches, no weakness, no numbness. HEMATOLOGICAL: Denies any bleeding or petechiae. GENITOURINARY: Denies any burning micturition, frequency, or urgency. MUSCULOSKELETAL/RHEUMATOLOGICAL: Denies any joint pain, swelling, or any muscle pain. ENDOCRINE: Denies any polyuria or polydipsia. The rest of the 14-point review of systems is negative. PHYSICAL EXAMINATION: GENERAL: The patient is alert and oriented x3, not in any acute distress. Well developed, well nourished. HEENT: Pupils are round and equally reacting to light. EOMI. No scleral icterus. No conjunctival pallor. Normocephalic, atraumatic. No pharyngeal erythema. No thyromegaly. CARDIOVASCULAR: S1 and S2 present. No murmurs, rubs, or gallops. PULMONARY: Diminished breath sounds at bases bilaterally, crackles audible ABDOMEN: Soft, nontender, nondistended, normoactive bowel sounds. No palpable organomegaly. MUSCULOSKELETAL: No joint swelling or deformity. EXTREMITIES: No cyanosis, clubbing, or pedal edema. NEUROLOGICAL: Gross neurological examination did not reveal any focal deficits. SKIN: No rashes. Assessment and plan Acute hypoxemic respiratory failure Non-ST elevation [place] Lactic acidosis History of COVID-19 infection History of COPD History of bilateral carotid stenosis status post carotid endarterectomy History of CVA Sick sinus syndrome status post dual-chamber pacemaker 12/2021 Hypertension Dyslipidemia Type 2 diabetes Coronary artery disease status post PCI to the RCA in 2018, former tobacco use Monitor vital signs Monitor CBC Monitor CMP Continue telemetry monitoring Continue oxygen supplementation Use BiPAP as needed Aggressive bronchopulmonary hygiene Encourage use of I-S Trend troponins. Continue pharmacy dose heparin Ordered 2-D echo Ordered breathing treatments Consult cardiology Consult pulmonary medicine Labs and medication were reviewed.. Continue same treatment. Continue with symptomatic treatment. Resume home medication. Monitor labs and vitals. DVT and GI prophylaxis. Further recommendations as per clinical course of the patient Dictation was produced using [employer] dictation software. please excuse any grammatical, word or spelling errors. 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 PAD. Insomnia. hx sleep apnea-does not use machine., emphysema., diverticulitis, gastric sleeve., occasional vertigo with loss of balance., pain left leg., uses cane prn. Last Myocardial Infarction Date:: 2017 History of Any Multi-Drug Resistant Organisms: None Reported Past Surgical History: Bariatric Surgery, Bladder Surgery, Cholecystectomy, Heart Catheterization With Stent, Hysterectomy, Joint Replacement, Orthopedic Surgery, Pacemaker Additional Past Surgical History / Comment(s): Bilateral cataracts, gastric sleeve, right rotator cuff repair, left knee replacement, bladder suspension x3, right and left carotid endarterectomy, left femur surgery with daniella placed. 4 cardiac stents,tilt table test, dual chamber pacemaker, femoral artery bypass w/graft Past Anesthesia/Blood Transfusion Reactions: Previous Problems w/ Anesthesia, Motion Sickness, Postoperative Nausea & Vomiting (PONV) Additional Past Anesthesia/Blood Transfusion Reaction / Comment(s): . Date of Last Stent Placement:: Nov 2017 Type of Cardiac Device: Unknown Device Placement Date:: Dual Chamber Pacemaker 01/05. Past Psychological History: Anxiety, Bipolar, Depression Smoking Status: Current some day smoker Past Alcohol Use History: None Reported, Abuse Past Drug Use History: None Reported - Past Family History Mother Family Medical History: Coronary Artery Disease (CAD), Diabetes Mellitus Additional Family Medical History / Comment(s): CABG Father Family Medical History: Hypertension, Myocardial Infarction ([place]) Brother(s) Family Medical History: Blood Disorder, Coronary Artery Disease (CAD), Myocardial Infarction ([place]) Additional Family Medical History / Comment(s): CABG, unknown type of blood disorder Medications and Allergies Home Medications Medication Instructions Recorded Confirmed Type Clopidogrel Bisulfate [Plavix] 75 mg PO DAILY 11/19/17 11/04/23 History DULoxetine HCL [Cymbalta] 30 mg PO TID 05/22/18 11/04/23 History Rosuvastatin Calcium [Crestor] 40 mg PO HS 03/15/22 11/04/23 History Apixaban [Eliquis] 2.5 mg PO BID 10/20/22 11/04/23 History Amitriptyline HCl 10 mg PO HS 02/25/23 11/04/23 History Ezetimibe [Zetia] 10 mg PO DAILY 02/25/23 11/04/23 History Spironolactone [Aldactone] 50 mg PO DAILY 06/08/23 11/04/23 History amLODIPine [Norvasc] 10 mg PO DAILY #30 tab 06/16/23 11/04/23 Rx Pregabalin [Lyrica] 150 mg PO TID 08/04/23 11/04/23 History Valsartan [Diovan] 320 mg PO DAILY 08/04/23 11/04/23 History Acetaminophen Tab [Tylenol] 650 mg PO Q6HR PRN tab 08/08/23 11/04/23 Rx Metoprolol Succinate [Metoprolol 25 mg PO DAILY 09/14/23 11/04/23 History Succinate ER] Azithromycin [Zithromax Z Pack] See Taper PO DIRECTED 11/04/23 11/04/23 History Benzonatate [Tessalon Perles] 100 mg PO TID PRN 11/04/23 11/04/23 History predniSONE See Taper PO DIRECTED 11/04/23 11/04/23 History Allergies Allergy/AdvReac Type Severity Reaction Status Date / Time codeine Allergy passed out Verified 11/04/23 16:35 Latex, Natural Rubber Allergy Rash/Hives Verified 11/04/23 16:35 morphine AdvReac Vomiting Verified 11/04/23 16:35 Physical Exam Vitals: Vital Signs Temp Pulse Pulse Resp BP BP Pulse Ox 11/05/23 08:22 98.1 F 73 18 135/58 98 11/05/23 07:42 97 11/05/23 04:00 97.8 F 61 14 125/57 100 11/05/23 03:51 11/05/23 02:25 62 17 100 11/05/23 01:39 60 20 126/73 95 11/05/23 00:03 64 20 122/60 100 11/04/23 23:52 11/04/23 22:05 67 20 135/71 99 11/04/23 19:30 11/04/23 19:27 74 25 H 109/57 98 11/04/23 18:53 78 30 H 119/83 94 L 11/04/23 18:32 71 22 146/63 100 11/04/23 17:45 77 24 134/58 97 11/04/23 17:41 11/04/23 17:15 77 33 H 157/71 100 11/04/23 17:13 11/04/23 17:03 75 11/04/23 16:51 89 34 H 197/98 100 11/04/23 16:40 11/04/23 16:38 112 H 11/04/23 16:36 46 H 11/04/23 16:28 98.1 F 135 H 50 H 240/118 100 FiO2 11/05/23 08:22 11/05/23 07:42 11/05/23 04:00 40 11/05/23 03:51 40 11/05/23 02:25 11/05/23 01:39 11/05/23 00:03 11/04/23 23:52 40 11/04/23 22:05 11/04/23 19:30 40 11/04/23 19:27 11/04/23 18:53 11/04/23 18:32 11/04/23 17:45 11/04/23 17:41 40 11/04/23 17:15 11/04/23 17:13 50 11/04/23 17:03 11/04/23 16:51 11/04/23 16:40 100 11/04/23 16:38 11/04/23 16:36 11/04/23 16:28 Intake and Output 11/04/23 11/05/23 11/05/23 22:59 06:59 14:59 Intake Total 101.764 Output Total 300 Balance -198.236 Intake: Intake, IV Titration 51.764 Amount Heparin Sod,Pork in 0.45% 51.764 NaCl 25,000 unit In 0.45 % NaCl 1 250ml.bag @ 12 UNITS/KG/HR 7.784 mls/hr IV .Q24H [facility] Rx#: [id number] Oral 50 Output: Urine 300 Other: # Voids 1 Weight 64.864 kg Results CBC & Chem 7: 11/05/23 04:16 11/05/23 04:16 Labs: Abnormal Lab Results - Last 24 Hours (Table) 11/04/23 11/04/23 11/04/23 Range/Units 16:46 16:46 16:46 WBC 18.6 H (3.8-10.6) k/uL Hgb (11.4-16.0) gm/dL MCH (25.0-35.0) pg MCHC 30.6 L (31.0-37.0) g/dL RDW 16.8 H (11.5-15.5) % Neutrophils # (1.3-7.7) k/uL Neutrophils # (Manual) 12.28 H (1.3-7.7) k/uL Lymphocytes # (1.0-4.8) k/uL Lymphocytes # (Manual) 5.39 H (1.0-4.8) k/uL PT 9.8 L (10.0-12.5) sec APTT 18.6 L (22.0-30.0) sec D-Dimer 5.99 H (<0.60) mg/L FEU ABG pO2 (83-108) mmHg ABG Total CO2 (19-24) mmol/L ABG O2 Saturation (94-97) % Sodium (137-145) mmol/L Chloride (98-107) mmol/L Carbon Dioxide 20 L (22-30) mmol/L BUN 25 H (7-17) mg/dL Creatinine (0.52-1.04) mg/dL Glucose 306 H (74-99) mg/dL Plasma Lactic Acid Kevin (0.7-2.0) mmol/L AST 67 H (14-36) U/L Troponin I (0.000-0.034) ng/mL SARS-CoV-2 (PCR) (Not Detectd) 11/04/23 11/04/23 11/04/23 Range/Units 16:46 16:46 16:46 WBC (3.8-10.6) k/uL Hgb (11.4-16.0) gm/dL MCH (25.0-35.0) pg MCHC (31.0-37.0) g/dL RDW (11.5-15.5) % Neutrophils # (1.3-7.7) k/uL Neutrophils # (Manual) (1.3-7.7) k/uL Lymphocytes # (1.0-4.8) k/uL Lymphocytes # (Manual) (1.0-4.8) k/uL PT (10.0-12.5) sec APTT (22.0-30.0) sec D-Dimer (<0.60) mg/L FEU ABG pO2 (83-108) mmHg ABG Total CO2 (19-24) mmol/L ABG O2 Saturation (94-97) % Sodium (137-145) mmol/L Chloride (98-107) mmol/L Carbon Dioxide (22-30) mmol/L BUN (7-17) mg/dL Creatinine (0.52-1.04) mg/dL Glucose (74-99) mg/dL Plasma Lactic Acid Kevin 8.0 H* (0.7-2.0) mmol/L AST (14-36) U/L Troponin I 14.400 H* (0.000-0.034) ng/mL SARS-CoV-2 (PCR) Detected A (Not Detectd) 11/04/23 11/04/23 11/04/23 Range/Units 17:02 20:16 20:55 WBC (3.8-10.6) k/uL Hgb (11.4-16.0) gm/dL MCH (25.0-35.0) pg MCHC (31.0-37.0) g/dL RDW (11.5-15.5) % Neutrophils # (1.3-7.7) k/uL Neutrophils # (Manual) (1.3-7.7) k/uL Lymphocytes # (1.0-4.8) k/uL Lymphocytes # (Manual) (1.0-4.8) k/uL PT (10.0-12.5) sec APTT (22.0-30.0) sec D-Dimer (<0.60) mg/L FEU ABG pO2 324 H (83-108) mmHg ABG Total CO2 25 H (19-24) mmol/L ABG O2 Saturation 99.9 H (94-97) % Sodium (137-145) mmol/L Chloride (98-107) mmol/L Carbon Dioxide (22-30) mmol/L BUN (7-17) mg/dL Creatinine (0.52-1.04) mg/dL Glucose (74-99) mg/dL Plasma Lactic Acid Kevin 6.6 H* (0.7-2.0) mmol/L AST (14-36) U/L Troponin I 9.930 H* (0.000-0.034) ng/mL SARS-CoV-2 (PCR) (Not Detectd) 11/04/23 11/04/23 11/05/23 Range/Units 23:47 23:47 04:16 WBC (3.8-10.6) k/uL Hgb (11.4-16.0) gm/dL MCH (25.0-35.0) pg MCHC (31.0-37.0) g/dL RDW (11.5-15.5) % Neutrophils # (1.3-7.7) k/uL Neutrophils # (Manual) (1.3-7.7) k/uL Lymphocytes # (1.0-4.8) k/uL Lymphocytes # (Manual) (1.0-4.8) k/uL PT (10.0-12.5) sec APTT (22.0-30.0) sec D-Dimer (<0.60) mg/L FEU ABG pO2 (83-108) mmHg ABG Total CO2 (19-24) mmol/L ABG O2 Saturation (94-97) % Sodium 132 L (137-145) mmol/L Chloride 97 L (98-107) mmol/L Carbon Dioxide (22-30) mmol/L BUN 28 H (7-17) mg/dL Creatinine 0.50 L (0.52-1.04) mg/dL Glucose 291 H (74-99) mg/dL Plasma Lactic Acid Kevin 5.4 H* (0.7-2.0) mmol/L AST (14-36) U/L Troponin I 8.770 H* (0.000-0.034) ng/mL SARS-CoV-2 (PCR) (Not Detectd) 11/05/23 11/05/23 Range/Units 04:16 04:16 WBC (3.8-10.6) k/uL Hgb 10.8 L (11.4-16.0) gm/dL MCH 24.5 L (25.0-35.0) pg MCHC 30.0 L (31.0-37.0) g/dL RDW 16.6 H (11.5-15.5) % Neutrophils # 8.7 H (1.3-7.7) k/uL Neutrophils # (Manual) (1.3-7.7) k/uL Lymphocytes # 0.7 L (1.0-4.8) k/uL Lymphocytes # (Manual) (1.0-4.8) k/uL PT (10.0-12.5) sec APTT (22.0-30.0) sec D-Dimer (<0.60) mg/L FEU ABG pO2 (83-108) mmHg ABG Total CO2 (19-24) mmol/L ABG O2 Saturation (94-97) % Sodium (137-145) mmol/L Chloride (98-107) mmol/L Carbon Dioxide (22-30) mmol/L BUN (7-17) mg/dL Creatinine (0.52-1.04) mg/dL Glucose (74-99) mg/dL Plasma Lactic Acid Kevin 5.0 H* (0.7-2.0) mmol/L AST (14-36) U/L Troponin I (0.000-0.034) ng/mL SARS-CoV-2 (PCR) (Not Detectd)
--- NOTE | 2023-11-05 15:49 | P.CRDCN ---
History of Present Illness Consult date: 11/05/23 Reason for Consult (text): Elevated troponin History of present illness: This is Walt Luis NP, I'm dictating on behalf of Dr. Mirza's H&P and A&P The patient was interviewed and examined. HPI: Patient is a pleasant 73-year-old female who was transported to hospital after complaints of shortness of breath and hypoxia. Patient reports that she was at home when she woke up and noted sudden significant shortness of breath. Patient called EMS who came to transfer the patient at the hospital, and she was found to be significantly hypoxic, so much so that she was started on CPAP in the ambulance. Upon arrival to the hospital the patient was found to be Covid- positive, with a significant elevated d-dimer as well as significantly elevated troponin at 14. Patient had a CT angiogram completed which was negative for pulmonary embolism. Cardiology was emergently consulted, and it was recommended the patient be started on heparin. Patient has a past medical history that is significant for sick sinus syndrome, dual-chamber pacemaker, CVA, hypertension, dyslipidemia, type 2 diabetes, coronary artery disease, PCI, former smoker, carotid artery stenosis, carotid endarterectomy, COVID-19 infection. This morning the patient reports that she's feeling much better than she did last night. Patient was not in a closed off room so we're able to speak with the patient. She is currently denying chest pain, and heart palpitations. ROS: [No fever, chills, or rigors] [no cough, phlegm, or expectoration] [no nausea, vomiting, or diarrhea] [no hematuria, dysuria] [no musculoskelatal complaints] [no strokes or seizures] [no skin lesions] EXAMINATION: Patient had limited interview/exam secondary to active Covid infection. REVIEW OF LABS, ECG & MEDICAL DATA: LABS: White count 9.7, hemoglobin 10.8, platelets 166, d-dimer 5.99, sodium 132, potassium 4.7, B1 28, creatinine 0.5, lactic acid 5.6, magnesium 2.0, troponin 14.4, 9.93, 8.77 EKG: Sinus tachycardia IMAGING: Chest x-ray dated 11/04/2023 says Colby for COPD and superimposed CHF with pulmonary vascular congestion, more patchy edema or developing infiltrate at the right base and likely trace effusion. CT angiogram of chest dated 11/04/2023 demonstrates breathing motion artifact limiting evaluation for pulmonary emboli especially in the more distal arterial branches, no definite pulmonary embolus is seen, constellation of findings including borderline heart size, pulmonary arterial hypertension, mild anasarca change, trace pleural effusions, septal lines, and groundglass airspace disease in the lower lungs, findings suggest CHF with early pulmonary edema, small the moderate sized hiatal hernia with previously sleeve gastrectomy, bilateral lipid rich adrenal adenomas measuring up to 3.3 cm. VITALS: Temp 98.1, pulse 73, respirations 18, blood pressure 135/58, O2 saturation 98% on 3 L IMPRESSION: 1. COVID-19 infection 2. NSTEMI versus Covid related myocarditis 3. Hypoxic respiratory failure with need for BiPAP, currently on 3 L nasal cannula 4. Pulmonary vascular congestion PLAN: Continue amlodipine, clopidogrel, spironolactone. Increase metoprolol to 50 mg daily extended release. Continue heparin. More evidence indicating possible non-ST elevated SC versus Covid related myocarditis. Due to Covid infection, no current intervention will be pursued. Will recommend continued follow-up once Covid infection is resolved for further evaluation. Further recommendations based on patient's clinical course. Thank you for the consult and allowing us to participate in the care of this patient. Past Medical History Past Medical History: Coronary Artery Disease (CAD), COPD, CVA/TIA, Diabetes M ellitus, GERD/Reflux, Hearing Disorder / Deafness, Hyperlipidemia, Hypertension, Myocardial Infarction (SC), Osteoarthritis (OA), Sleep Apnea/CPAP/BIPAP, Vascular Disorder Additional Past Medical History / Comment(s): Hx CVA 03/15/22 with residual left sided nerve pain & hearing loss left ear, . PAD. Insomnia. hx sleep apnea-does not use machine., emphysema., diverticulitis, gastric sleeve., occasional vertigo with loss of balance., pain left leg., uses cane prn. Last Myocardial Infarction Date:: 2017 History of Any Multi-Drug Resistant Organisms: None Reported Past Surgical History: Bariatric Surgery, Bladder Surgery, Cholecystectomy, Heart Catheterization With Stent, Hysterectomy, Joint Replacement, Orthopedic Surgery, Pacemaker Additional Past Surgical History / Comment(s): Bilateral cataracts, gastric sleeve, right rotator cuff repair, left knee replacement, bladder suspension x3, right and left carotid endarterectomy, left femur surgery with daniella placed. 4 ca rdiac stents,tilt table test, dual chamber pacemaker, femoral artery bypass w/graft Past Anesthesia/Blood Transfusion Reactions: Previous Problems w/ Anesthesia, Motion Sickness, Postoperative Nausea & Vomiting (PONV) Additional Past Anesthesia/Blood Transfusion Reaction / Comment(s): . Date of Last Stent Placement:: Nov 2017 Type of Cardiac Device: Unknown Device Placement Date:: Dual Chamber Pacemaker 01/05. Past Psychological History: Anxiety, Bipolar, Depression Smoking Status: Current some day smoker Past Alcohol Use History: None Reported, Abuse Past Drug Use History: None Reported - Past Family History Mother Family Medical History: Coronary Artery Disease (CAD), Diabetes Mellitus Additional Family Medical History / Comment(s): CABG Father Family Medical History: Hypertension, Myocardial Infarction (SC) Brother(s) Family Medical History: Blood Disorder, Coronary Artery Disease (CAD), Myocardial Infarction (SC) Additional Family Medical History / Comment(s): CABG, unknown type of blood d isorder Medications and Allergies Home Medications Medication Instructions Recorded Confirmed Type Clopidogrel Bisulfate [Plavix] 75 mg PO DAILY 11/19/17 11/04/23 History DULoxetine HCL [Cymbalta] 30 mg PO TID 05/22/18 11/04/23 History Rosuvastatin Calcium [Crestor] 40 mg PO HS 03/15/22 11/04/23 History Apixaban [Eliquis] 2.5 mg PO BID 10/20/22 11/04/23 History Amitriptyline HCl 10 mg PO HS 02/25/23 11/04/23 History Ezetimibe [Zetia] 10 mg PO DAILY 02/25/23 11/04/23 History Spironolactone [Aldactone] 50 mg PO DAILY 06/08/23 11/04/23 History amLODIPine [Norvasc] 10 mg PO DAILY #30 tab 06/16/23 11/04/23 Rx Pregabalin [Lyrica] 150 mg PO TID 08/04/23 11/04/23 History Valsartan [Diovan] 320 mg PO DAILY 08/04/23 11/04/23 History Acetaminophen Tab [Tylenol] 650 mg PO Q6HR PRN tab 08/08/23 11/04/23 Rx Metoprolol Succinate [Metoprolol 25 mg PO DAILY 09/14/23 11/04/23 History Succinate ER] Azithromycin [Zithromax Z Pack] See Taper PO DIRECTED 11/04/23 11/04/23 History Benzonatate [Tessalon Perles] 100 mg PO TID PRN 11/04/23 11/04/23 History predniSONE See Taper PO DIRECTED 11/04/23 11/04/23 History Allergies Allergy/AdvReac Type Severity Reaction Status Date / Time codeine Allergy passed out Verified 11/04/23 16:35 Latex, Natural Rubber Allergy Rash/Hives Verified 11/04/23 16:35 morphine AdvReac Vomiting Verified 11/04/23 16:35 Physical Exam Vitals: Vital Signs Temp Pulse Pulse Resp BP BP Pulse Ox 11/05/23 08:22 98.1 F 73 18 135/58 98 11/05/23 07:42 97 11/05/23 04:00 97.8 F 61 14 125/57 100 11/05/23 03:51 11/05/23 02:25 62 17 100 11/05/23 01:39 60 20 126/73 95 11/05/23 00:03 64 20 122/60 100 11/04/23 23:52 11/04/23 22:05 67 20 135/71 99 11/04/23 19:30 11/04/23 19:27 74 25 H 109/57 98 11/04/23 18:53 78 30 H 119/83 94 L 11/04/23 18:32 71 22 146/63 100 11/04/23 17:45 77 24 134/58 97 11/04/23 17:41 11/04/23 17:15 77 33 H 157/71 100 11/04/23 17:13 11/04/23 17:03 75 11/04/23 16:51 89 34 H 197/98 100 11/04/23 16:40 11/04/23 16:38 112 H 11/04/23 16:36 46 H 11/04/23 16:28 98.1 F 135 H 50 H 240/118 100 FiO2 11/05/23 08:22 11/05/23 07:42 11/05/23 04:00 40 11/05/23 03:51 40 11/05/23 02:25 11/05/23 01:39 11/05/23 00:03 11/04/23 23:52 40 11/04/23 22:05 11/04/23 19:30 40 11/04/23 19:27 11/04/23 18:53 11/04/23 18:32 11/04/23 17:45 11/04/23 17:41 40 11/04/23 17:15 11/04/23 17:13 50 11/04/23 17:03 11/04/23 16:51 11/04/23 16:40 100 11/04/23 16:38 11/04/23 16:36 11/04/23 16:28 Intake and Output 11/05/23 11/05/23 11/05/23 06:59 14:59 22:59 Intake Total 101.764 78.364 Output Total 300 Balance -198.236 78.364 Intake: Intake, IV Titration 51.764 78.364 Amount Heparin Sod,Pork in 0.45% 51.764 78.364 NaCl 25,000 unit In 0.45 % NaCl 1 250ml.bag @ 12 UNITS/KG/HR 7.784 mls/hr IV .Q24H [facility] Rx#: [id number] Oral 50 Output: Urine 300 Other: # Voids 1 Results 11/05/23 04:16 11/05/23 04:16 Cardiac Enzymes 11/04/23 11/04/23 11/04/23 Range/Units 16:46 16:46 20:55 AST 67 H (14-36) U/L Troponin I 14.400 H* 9.930 H* (0.000-0.034) ng/mL 11/04/23 Range/Units 23:47 AST (14-36) U/L Troponin I 8.770 H* (0.000-0.034) ng/mL Coagulation 11/04/23 11/05/23 11/05/23 Range/Units 16:46 01:30 04:16 PT 9.8 L 10.8 (10.0-12.5) sec APTT 18.6 L 25.1 (22.0-30.0) sec 11/05/23 Range/Units 10:35 PT (10.0-12.5) sec APTT 42.4 H (22.0-30.0) sec CBC 11/04/23 11/05/23 Range/Units 16:46 04:16 WBC 18.6 H 9.7 (3.8-10.6) k/uL RBC 4.78 4.40 (3.80-5.40) m/uL Hgb 12.4 10.8 L (11.4-16.0) gm/dL Hct 40.4 36.0 (34.0-46.0) % Plt Count 297 166 (150-450) k/uL Comprehensive Metabolic Panel 11/04/23 11/05/23 Range/Units 16:46 04:16 Sodium 138 132 L (137-145) mmol/L Potassium 4.4 4.7 (3.5-5.1) mmol/L Chloride 101 97 L (98-107) mmol/L Carbon Dioxide 20 L 25 (22-30) mmol/L BUN 25 H 28 H (7-17) mg/dL Creatinine 0.59 0.50 L (0.52-1.04) mg/dL Glucose 306 H 291 H (74-99) mg/dL Calcium 8.7 8.5 (8.4-10.2) mg/dL AST 67 H (14-36) U/L ALT 26 (4-34) U/L Alkaline Phosphatase 88 (38-126) U/L Total Protein 6.5 (6.3-8.2) g/dL Albumin 3.6 (3.5-5.0) g/dL Current Medications Generic Name Dose Route Start Last Admin Trade Name Freq PRN Reason Stop Dose Admin Albuterol Sulfate 2 puff 11/05/23 10:18 Albuterol Hfa Inhaler INHALATION RT-QID PRN Shortness Of Breath Or Wheezing Amitriptyline HCl 10 mg 11/05/23 21:00 Amitriptyline Hcl 10 Mg Tab PO HS HORACE Ascorbic Acid 1,000 mg 11/06/23 09:00 Ascorbic Acid 500 Mg Tab PO DAILY HORACE Atorvastatin Calcium 80 mg 11/05/23 21:00 Atorvastatin 80 Mg Tab PO HS HORACE Benzonatate 200 mg 11/05/23 09:24 Benzonatate 100 Mg Cap PO TID PRN Cough Clopidogrel Bisulfate 75 mg 11/06/23 09:00 Clopidogrel 75 Mg Tab PO DAILY HORACE Duloxetine HCl 30 mg 11/05/23 16:00 Duloxetine Hcl 30 Mg Capsule.Dr PO TID HORACE Ezetimibe 10 mg 11/06/23 09:00 Ezetimibe 10 Mg Tab PO DAILY HORACE Furosemide 40 mg 11/05/23 09:00 11/05/23 08:27 Furosemide 10 Mg/Ml 4 Ml Vial IV 40 mg BID HORACE Administration Guaifenesin 600 mg 11/05/23 09:30 11/05/23 09:59 Guaifenesin 600 Mg Tablet.Er PO 600 mg Q12HR HORACE Administration Heparin Sodium (Porcine) 0 unit 11/04/23 19:32 11/05/23 11:09 Heparin Sodium 1,000 Un/Ml (10ml Vl) IV 1,620 unit PER PROTOCOL PRN Administration Low PTT Protocol Hydromorphone HCl 0.5 mg 11/05/23 09:44 11/05/23 10:00 Hydromorphone 0.5 Mg/0.5 Ml Syringe IVP 0.5 mg Q6HR PRN Administration Pain Heparin Sodium/Sodium Chloride 250 mls @ 7.784 mls/hr 11/04/23 19:45 11/05/23 11:11 25,000 unit/ Sodium Chloride IV 18.63 units/kg/hr .Q24H [facility] 12.084 mls/hr Titration Protocol 12 UNITS/KG/HR Metoprolol Succinate 50 mg 11/06/23 09:00 Metoprolol Succinate (Er) 50 Mg Tab.Er.24h PO DAILY HORACE Naloxone HCl 0.2 mg 11/04/23 19:41 Naloxone 0.4 Mg/Ml 1 Ml Vial IV Q2M PRN Opioid Reversal Pregabalin 150 mg 11/05/23 16:00 Pregabalin 75 Mg Cap PO TID HORACE Zinc Sulfate 220 mg 11/05/23 09:30 11/05/23 09:59 Zinc Sulfate 220 Mg Cap PO 220 mg DAILY HORACE Administration Intake and Output 11/05/23 11/05/23 11/05/23 06:59 14:59 22:59 Intake Total 101.764 78.364 Output Total 300 Balance -198.236 78.364 Intake: Intake, IV Titration 51.764 78.364 Amount Heparin Sod,Pork in 0.45% 51.764 78.364 NaCl 25,000 unit In 0.45 % NaCl 1 250ml.bag @ 12 UNITS/KG/HR 7.784 mls/hr IV .Q24H [facility] Rx#: [id number] Oral 50 Output: Urine 300 Other: # Voids 1 11/05/23 04:16 11/05/23 04:16
[2023-11-05] MEDS: PREGABALIN 75 MG CAP PO SCH ×2 (16:24→20:39)
[2023-11-05] MEDS: DULoxetine HCL 30 MG CAPSULE.DR PO SCH ×2 (16:24→20:40)
[2023-11-05] MEDS: HEPARIN SOD,PORK IN 0.45% NACL 25,000 UNIT in 0.45% NACL 1 250ML.BAG IV SCH (20:11)
[2023-11-05] MEDS: ATORVASTATIN 80 MG TAB PO SCH (20:39)
[2023-11-05] MEDS: AMITRIPTYLINE HCL 10 MG TAB PO SCH (20:40)
[2023-11-06] MEDS: ASCORBIC ACID 500 MG TAB PO SCH (08:45)
[2023-11-06] MEDS: EZETIMIBE 10 MG TAB PO SCH (08:45)
[2023-11-06] MEDS: guaiFENesin 600 MG TABLET.ER PO SCH ×2 (08:45→21:20)
[2023-11-06] MEDS: METOPROLOL SUCCINATE (ER) 50 MG TAB.ER.24H PO SCH (08:46)
[2023-11-06] MEDS: CLOPIDOGREL 75 MG TAB PO SCH (08:46)
[2023-11-06] MEDS: DULoxetine HCL 30 MG CAPSULE.DR PO SCH ×3 (08:46→21:20)
[2023-11-06] MEDS: ZINC SULFATE 220 MG CAP PO SCH (08:46)
[2023-11-06] MEDS: FUROSEMIDE 10 MG/ML 4 ML VIAL IV SCH ×2 (08:46→21:20)
[2023-11-06] MEDS: PREGABALIN 75 MG CAP PO SCH ×3 (08:46→21:20)
[2023-11-06 09:07] VITALS: RESP 16
[2023-11-06] MEDS: MAG HYDROX/AL HYDROX/SIMETH 30 ML CUP PO SCH ×4 (10:01→21:22)
[2023-11-06 10:28] LABS: Anisocytosis Slight; Basophils % (A) 0 %; Eosinophils # (A) 0.1 k/uL (0-0.7); Eosinophils % (A) 0 %; HCT 39.4 % (34.0-46.0); HGB 12.4 gm/dL (11.4-16.0); Hypochromasia Moderate; Lymphocytes # (A) 2.6 k/uL (1.0-4.8); Lymphocytes % (A) 21 %; MCH 25.7 pg (25.0-35.0); MCHC 31.5 g/dL (31.0-37.0); MCV 81.5 fL (80.0-100.0); Mean Platelet Volume 9.1; Monocytes # (A) 0.7 k/uL (0-1.0); Monocytes % (A) 6 %; Neutrophils # (A) 8.6 k/uL (1.3-7.7); Neutrophils % (A) 71 %; Platelet Count 250 k/uL (150-450); RBC 4.83 m/uL (3.80-5.40); RDW 16.7 % (11.5-15.5); WBC 12.2 k/uL (3.8-10.6)
[2023-11-06 10:42] LABS: ALT 23 U/L (4-34); AST 27 U/L (14-36); African American GFR (CKD) >90 (>60 ml/min/1.73 sqM); Albumin 3.7 g/dL (3.5-5.0); Alkaline Phosphatase 89 U/L (38-126); Anion Gap 7 mmol/L; Blood Urea Nitrogen 33 mg/dL (7-17); Calcium 9.2 mg/dL (8.4-10.2); Carbon Dioxide 35 mmol/L (22-30); Chloride 94 mmol/L (98-107); Glucose 178 mg/dL (74-99); Non-African American GFR(CKD) 89 (>60 ml/min/1.73 sqM); Potassium 4.3 mmol/L (3.5-5.1); Sodium 136 mmol/L (137-145); Total Bilirubin 0.4 mg/dL (0.2-1.3); Total Protein 6.5 g/dL (6.3-8.2)
--- NOTE | 2023-11-06 10:53 | P.PN ---
Subjective Progress Note Date: 11/06/23 Principal diagnosis: Shortness of breath. This is a pleasant 73-year-old female patient with a known history of hyperlipidemia, hypertension, congestive heart failure, coronary artery disease with previous stent placement, anxiety/depression, sick sinus syndrome status post permanent pacemaker implantation, CVA, peripheral arterial disease anticoagulated with Eliquis, chronic obstructive pulmonary disease and chronic and ongoing tobacco dependence. She had developed increasing shortness of breath, cough and congestion she was treated with a Z-Jaylen and a Medrol Dosepak in the outpatient setting without much improvement. She presented here to the emergency room yesterday the rather acute onset of shortness of breath. Chest x-ray revealed evidence of COPD and superimposed congestive heart failure and pulmonary vascular congestion. More patchy edema or developing infiltrate in the right base. Trace effusion. CT angiogram ruled out pulmonary embolism. There is borderline heart size. Groundglass airspace disease in the lower lung field suggestive of congestive heart failure. I count 9.7. Hemoglobin 10.8. Platelets 166. Sodium 132. Potassium 4.7. Bicarb 25. BUN 28. Creatinine 0.50. Glucose 291. Troponins 14.4, 9.9, 8.7. ProBNP 2059. Positive for C OVID-19 infection. She states she tested positive originally on October 14. Arterial blood gases on 80% FiO2 revealed a PaO2 of 324, pCO2 41 and pH of 7.37. She is seen today in consultation in the emergency department. She is currently on BiPAP 12/6 and 40% FiO2 alternating with 3 L/m per nasal cannula. She is breathing a bit easier today compared to yesterday. Currently denies any chest pain. She is currently on a heparin drip. Initiated on IV diuretics. Continued on bronchodilators and Solu-Medrol. Vitamin supplements. Progress note dated 11/06/2023. 73-year-old female seen in consultation yesterday for shortness of breath, and suspected OH, with congestive heart failure. The patient has history of multiple medical problems as noted above. Currently, the patient's on IV hep iris, no additional IV fluids, and receiving oxygen at 3 L. She did not use of BiPAP device last night. Clinically, the patient states that she feels better. She is much less short of breath. White count 12.2, hemoglobin 12.4, hematocrit 39.4, and platelet count 250,000. Sodium 136, potassium 4.2, chlorides 94, CO2 35, BUN 33, and creatinine 0.67. A previous chest x-ray and CT angiogram have been reviewed. Objective - Vital Signs Vital signs: Vital Signs Temp 98.0 F 11/06/23 08:00 Pulse 64 11/06/23 08:00 Resp 16 11/06/23 08:00 BP 140/69 11/06/23 08:00 Pulse Ox 98 11/06/23 08:00 FiO2 40 11/05/23 04:00 Intake & Output 11/05/23 11/06/23 11/06/23 18:59 06:59 18:59 Intake Total 157.716 569.404 118 Output Total 1400 350 Balance 157.716 -830.596 -232 Weight 64.864 kg 57.7 kg Intake: Intake, IV Titration 157.716 29.404 Amount Heparin Sod,Pork in 0.45% 157.716 29.404 NaCl 25,000 unit In 0.45 % NaCl 1 250ml.bag @ 12 UNITS/KG/HR 7.784 mls/hr IV .Q24H [facility] Rx#: [id number] Oral 540 118 Output: Urine 1400 350 Other: Voiding Method Toilet # Voids 1 - Exam No acute distress, oriented 3. No obvious respiratory distress. Currently on 3 L nasal cannula. No audible wheezing, or use of accessory muscles. HEENT examination is grossly unremarkable. Mucous membranes are moist. No oral lesions. Neck supple. Full range of motion. No adenopathy thyromegaly or neck vein distention. Cardiovascular examination reveals regular rhythm rate. S1-S2 normal. No S3 or S4. No discernible murmur noted. Heart rate 64 bpm. Heart sounds are distant. Lungs reveal bilateral basilar crackles. No wheezes or rhonchi. Breath sounds equal bilaterally. 3 L saturation is 97%. Abdomen soft bowel sounds are heard. No masses or tenderness. Extremities are intact. No cyanosis clubbing or edema. Skin is without rash or lesion. Neurologic examination is brief but nonfocal. - Labs CBC & Chem 7: 11/06/23 09:49 11/06/23 09:49 Labs: Abnormal Lab Results - Last 24 Hours (Table) 11/05/23 11/05/23 11/05/23 Range/Units 13:08 16:40 16:40 WBC (3.8-10.6) k/uL RDW (11.5-15.5) % Neutrophils # (1.3-7.7) k/uL APTT 59.6 H (22.0-30.0) sec Sodium (137-145) mmol/L Chloride (98-107) mmol/L Carbon Dioxide (22-30) mmol/L BUN (7-17) mg/dL Glucose (74-99) mg/dL Plasma Lactic Acid Kevin 5.6 H* 3.7 H* (0.7-2.0) mmol/L 11/05/23 11/06/23 11/06/23 Range/Units 20:02 06:58 09:49 WBC 12.2 H (3.8-10.6) k/uL RDW 16.7 H (11.5-15.5) % Neutrophils # 8.6 H (1.3-7.7) k/uL APTT 63.4 H (22.0-30.0) sec Sodium (137-145) mmol/L Chloride (98-107) mmol/L Carbon Dioxide (22-30) mmol/L BUN (7-17) mg/dL Glucose (74-99) mg/dL Plasma Lactic Acid Kevin 2.6 H* (0.7-2.0) mmol/L 11/06/23 Range/Units 09:49 WBC (3.8-10.6) k/uL RDW (11.5-15.5) % Neutrophils # (1.3-7.7) k/uL APTT (22.0-30.0) sec Sodium 136 L (137-145) mmol/L Chloride 94 L (98-107) mmol/L Carbon Dioxide 35 H (22-30) mmol/L BUN 33 H (7-17) mg/dL Glucose 178 H (74-99) mg/dL Plasma Lactic Acid Kevin (0.7-2.0) mmol/L Assessment and Plan Assessment: Acute non-ST segment myocardial infarction with fluid volume overload. Acute hypoxemic respiratory failure secondary to acute exacerbation of suspected systolic versus diastolic congestive heart failure. Acute COVID-19 infection without clear evidence of COVID-19 pneumonia. Patient originally tested positive on 10/14/2023. History of coronary disease with multiple stent placements. History of peripheral vascular disease, anticoagulated with Eliquis. Story of chronic obstructive pulmonary disease. Chronic tobacco dependence. Diabetes mellitus. History of CVA/TIA. History of gastric sleeve placement. History of osteoarthritis with multiple orthopedic procedures. Carotid artery disease with previous right and left carotid endarterectomies. Sick sinus syndrome status post dual-chamber pacemaker implantation. History of anxiety/depression. Plan: Plan dated 11/06/2023. The patient continues on IV heparin. The patient is receiving oxygen by nasal cannula at 3 L. She did not use of BiPAP device last night. Labs, x-rays, medications are reviewed. We should continue diuretics, and corticosteroids were discontinued. The patient was seen by cardiology. We will continue to follow and make recommendations along the way. The patient's overall prognosis remains guarded. Time with Patient: Less than 30
--- NOTE | 2023-11-06 13:08 | P.PN ---
Subjective Progress Note Date: 11/06/23 patient 73-year-old lady with past medical history significant for sick sinus syndrome status post dual-chamber pacemaker 12/2021, CVA, hypertension, dyslipidemia type 2 diabetes, coronary artery disease status post PCI to the RCA in 2018, former tobacco use, carotid artery stenosis status post bilateral c arotid endarterectomy who presented to the hospital because of worsening shortness of breath. Patient stated that he was tested positive for COVID-19 infection the beginning of October, patient took outpatient steroids and antibiotics for that per her PCP. Patient noticed that she has been having worsening shortness of breath for the last 1 week. Complaining of shortness of breath on rest as well as exertion. Denies any fever or chills. Does admit to having a number of sick contacts at home. No complaint of chest pain. Patient denies any orthopnea or PND. There is no swelling of feet. patient denies any nausea, vomiting abdominal pain. Because of this worsening shortness of breath, EMS was called and when they arrived they found the patient oxygen saturation in the 40s on room air, patient was placed on CPAP and was transferred to the ER Initial lab work done in the ER showed WBC 10.6, hemoglobin 12.4, platelet count 297, d-dimer 5.99 sodium 138, potassium 4.4, BUN 25 and creatinine 0.59, lactate 8 troponin 14.4 Influenza A not detected Influenza B not detected RSV not detected COVID-19 detected EKG done in the ER showed heart rate of 129, no ST segment elevation or depression seen, no T-wave inversions seen. Chest x-ray done in the ER showed COPD and superimposed CHF with pulmonary vascular congestion CTA chest done showed no definite pulmonary embolism seen, early pulmonary edema seen. Patient admitted to internal medicine service 11/06. Patient seen and examined. Complaining of gas and stomach. Denies any nausea vomiting. Denies any chest pain. Complaining of back pain. States breathing has improved. Denies any swelling of lower extremities.. REVIEW OF SYSTEMS: CONSTITUTIONAL: No fever, no malaise,. CARDIOVASCULAR: No chest pain, no palpitations, no syncope. PULMONARY: No shortness of breath, no cough, GASTROINTESTINAL: No diarrhea, no nausea, no vomiting, no abdominal pain. NEUROLOGICAL: No headaches, no weakness, PHYSICAL EXAMINATION: GENERAL: The patient is alert and oriented x3, not in any acute distress. Well developed, well nourished. HEENT: Pupils are round and equally reacting to light. EOMI. No scleral icterus. No conjunctival pallor. Normocephalic, atraumatic. No pharyngeal erythema. No thyromegaly. CARDIOVASCULAR: S1 and S2 present. No murmurs, rubs, or gallops. PULMONARY: Diminished Breath sounds at the bases bilaterally, no wheeze audible, occasional crackles ABDOMEN: Soft, nontender, nondistended, normoactive bowel sounds. No palpable organomegaly. MUSCULOSKELETAL: No joint swelling or deformity. EXTREMITIES: No cyanosis, clubbing, or pedal edema. NEUROLOGICAL: Gross neurological examination did not reveal any focal deficits. SKIN: No rashes. Assessment and plan Acute hypoxemic respiratory failure Non-ST elevation PA Lactic acidosis History of COVID-19 infection History of COPD History of bilateral carotid stenosis status post carotid endarterectomy History of CVA Sick sinus syndrome status post dual-chamber pacemaker 12/2021 Hypertension Dyslipidemia Type 2 diabetes Coronary artery disease status post PCI to the RCA in 2018, former tobacco use Monitor vital signs Monitor CBC Monitor CMP Continue telemetry monitoring Continue oxygen supplementation Use BiPAP as needed Aggressive bronchopulmonary hygiene Encourage use of I-S Trend troponins. Strict I's and O's, daily weights, continue IV Lasix 40 mg twice a Continue pharmacy dose heparin Ordered 2-D echo Cardiology following Pulmonology following, In regards to hypertension with Toprol Regards to hyperlipidemia continue Lipitor Labs and medication were reviewed.. Continue same treatment. Continue with symptomatic treatment. Resume home medication. Monitor labs and vitals. DVT and GI prophylaxis. Further recommendations as per clinical course of the patient Dictation was produced using [employer] dictation software. please excuse any grammatical, word or spelling errors. Objective - Vital Signs Vital signs: Vital Signs Temp 98.0 F 11/06/23 08:00 Pulse 64 11/06/23 08:00 Resp 16 11/06/23 08:00 BP 140/69 11/06/23 08:00 Pulse Ox 98 11/06/23 08:00 FiO2 40 11/05/23 04:00 Intake & Output 11/05/23 11/06/23 11/06/23 18:59 06:59 18:59 Intake Total 157.716 569.404 118 Output Total 1400 Balance 157.716 -830.596 118 Weight 64.864 kg 57.7 kg Intake: Intake, IV Titration 157.716 29.404 Amount Heparin Sod,Pork in 0.45% 157.716 29.404 NaCl 25,000 unit In 0.45 % NaCl 1 250ml.bag @ 12 UNITS/KG/HR 7.784 mls/hr IV .Q24H [facility] Rx#: [id number] Oral 540 118 Output: Urine 1400 Other: Voiding Method Toilet # Voids 1 - Labs CBC & Chem 7: 11/06/23 09:49 11/06/23 09:49 Labs: Abnormal Lab Results - Last 24 Hours (Table) 11/05/23 11/05/23 11/05/23 Range/Units 10:35 13:08 16:40 APTT 42.4 H 59.6 H (22.0-30.0) sec Plasma Lactic Acid Kevin 5.6 H* (0.7-2.0) mmol/L 11/05/23 11/05/23 11/06/23 Range/Units 16:40 20:02 06:58 APTT 63.4 H (22.0-30.0) sec Plasma Lactic Acid Kevin 3.7 H* 2.6 H* (0.7-2.0) mmol/L
[2023-11-06] MEDS: HYDROmorphone 0.5 MG/0.5 ML SYRINGE IVP PRN (13:56)
--- NOTE | 2023-11-06 14:05 | P.PN ---
Subjective Progress Note Date: 11/06/23 The patient is a 73-year-old female who is currently admitted to the hospital with shortness of breath and hypoxia. She was found to be COVID-19 positive. Troponins were elevated, therefore cardiology was consulted. She does have a history of coronary arteries disease with prior PCI, however she denies any chest discomfort. The patient remains chest pain-free. She states she does have a little short of breath when she walks around but she is comfortable lying flat. She overall states she has improved significantly since her admission. EXAM: Limited examination secondary to active Covid infection TELEMETRY: Sinus rhythm overnight IMPRESSION: Acute COVID-19 infection Elevated troponins Non-ST elevated myocardial infarction versus Covid related myocarditis Hypoxic respiratory failure Pulmonary vascular congestion PLAN: Continue supportive treatment for COVID-19 Continue heparin drip Consider clearing for discharge tomorrow I am dictating on behalf of Dr Roni Mirza's history/physical and assessment/plan. Objective - Vital Signs Vital signs: Vital Signs Temp 98.0 F 11/06/23 12:00 Pulse 55 L 11/06/23 13:28 Resp 16 11/06/23 13:28 BP 122/80 11/06/23 12:00 Pulse Ox 98 11/06/23 12:00 FiO2 40 11/05/23 04:00 Intake & Output 11/05/23 11/06/23 11/06/23 18:59 06:59 18:59 Intake Total 157.716 569.404 118 Output Total 1400 350 Balance 157.716 -830.596 -232 Weight 64.864 kg 57.7 kg Intake: Intake, IV Titration 157.716 29.404 Amount Heparin Sod,Pork in 0.45% 157.716 29.404 NaCl 25,000 unit In 0.45 % NaCl 1 250ml.bag @ 12 UNITS/KG/HR 7.784 mls/hr IV .Q24H [facility] Rx#: [id number] Oral 540 118 Output: Urine 1400 350 Other: Voiding Method Toilet Toilet # Voids 1 - Labs CBC & Chem 7: 11/06/23 09:49 11/06/23 09:49 Labs: Abnormal Lab Results - Last 24 Hours (Table) 11/05/23 11/05/23 11/05/23 Range/Units 13:08 16:40 16:40 WBC (3.8-10.6) k/uL RDW (11.5-15.5) % Neutrophils # (1.3-7.7) k/uL APTT 59.6 H (22.0-30.0) sec Sodium (137-145) mmol/L Chloride (98-107) mmol/L Carbon Dioxide (22-30) mmol/L BUN (7-17) mg/dL Glucose (74-99) mg/dL Plasma Lactic Acid Kevin 5.6 H* 3.7 H* (0.7-2.0) mmol/L 11/05/23 11/06/23 11/06/23 Range/Units 20:02 06:58 09:49 WBC 12.2 H (3.8-10.6) k/uL RDW 16.7 H (11.5-15.5) % Neutrophils # 8.6 H (1.3-7.7) k/uL APTT 63.4 H (22.0-30.0) sec Sodium (137-145) mmol/L Chloride (98-107) mmol/L Carbon Dioxide (22-30) mmol/L BUN (7-17) mg/dL Glucose (74-99) mg/dL Plasma Lactic Acid Kevin 2.6 H* (0.7-2.0) mmol/L 11/06/23 Range/Units 09:49 WBC (3.8-10.6) k/uL RDW (11.5-15.5) % Neutrophils # (1.3-7.7) k/uL APTT (22.0-30.0) sec Sodium 136 L (137-145) mmol/L Chloride 94 L (98-107) mmol/L Carbon Dioxide 35 H (22-30) mmol/L BUN 33 H (7-17) mg/dL Glucose 178 H (74-99) mg/dL Plasma Lactic Acid Kevin (0.7-2.0) mmol/L
--- NOTE | 2023-11-06 14:21 | CA ---
Transthoracic Echo Report Name: Fiorella Lopez Age: 73 Gender: F : 1950 Exam Date: 11/05/2023 14:49 Exam Location: [facility] Ht (in): 66 Wt (lb): 143 Ordering Physician: Cornelius Randle MD Attending/Referring Phys: Direct Care Professional Jayesh Moreno Procedure CPT: Indications: shortness of breath, elevated troponin Cardiac Hx: Technical Quality: Fair Contrast 1: Total Dose (mL): Contrast 2: Total Dose (mL): MEASUREMENTS (Male / Female) Normal Values 2D ECHO LV Diastolic Diameter PLAX 5.2 cm 4.2 - 5.9 / 3.9 - 5.3 cm LV Systolic Diameter PLAX 3.2 cm IVS Diastolic Thickness 1.1 cm 0.6 - 1.0 / 0.6 - 0.9 cm LVPW Diastolic Thickness 1.2 cm 0.6 - 1.0 / 0.6 - 0.9 cm LV Relative Wall Thickness 0.5 RV Internal Dim ED PLAX 2.2 cm LVOT Diameter 1.9 cm Aortic Root Diameter 2.6 cm LA Systolic Diameter LX 2.5 cm 3.0 - 4.0 / 2.7 - 3.8 cm LV Diastolic Volume MOD BP 43.4 cm??? 67 - 155 / 56 - 104 cm??? LV Systolic Volume MOD BP 13.6 cm??? - / 19 - 49 cm??? LV Ejection Fraction MOD BP 68.5 % >= 55 % LV Cardiac Index MOD BP 1245.2 cm???/min???m??? LV Diastolic Volume MOD 4C 51.4 cm??? LV Systolic Volume MOD 4C 16.8 cm??? LV Ejection Fraction MOD 4C 67.3 % LV Cardiac Index MOD 4C 1450.1 cm???/min???m??? LV Diastolic Length 4C 6.5 cm LV Systolic Length 4C 6.5 cm LV Diastolic Volume MOD 2C 37.2 cm??? LV Systolic Volume MOD 2C 10.3 cm??? LV Ejection Fraction MOD 2C 72.2 % LV Cardiac Index MOD 2C 1124.7 cm???/min???m??? LV Diastolic Length 2C 6.5 cm LV Systolic Length 2C 5.9 cm LA Volume 48.7 cm??? 18 - 58 / 22 - 52 cm??? LA Volume Index 28.0 cm???/m??? 16 - 28 cm???/m??? Ascending Aorta Diameter 3.1 cm DOPPLER AV Peak Velocity 141.3 cm/s AV Peak Gradient 8.0 mmHg AI Peak Velocity 395.8 cm/s AI Peak Gradient 62.7 mmHg AI Pressure Half Time 632.7 ms LVOT Peak Velocity 98.7 cm/s LVOT Peak Gradient 3.9 mmHg LVOT Velocity Time Integral 22.1 cm LVOT Stroke Volume 64.9 cm??? LVOT Stroke Volume Index 37.4 ml/m??? LVOT Cardiac Index 2718.2 cm???/min???m??? AV Area Cont Eq pk 2.0 cm??? MV Peak Velocity 150.4 cm/s MV Peak Gradient 9.0 mmHg MV Mean Velocity 68.1 cm/s MV Mean Gradient 2.4 mmHg MV Velocity Time Integral 55.9 cm MR Peak Velocity 575.4 cm/s MR Peak Gradient 132.4 mmHg Mitral E Point Velocity 123.0 cm/s Mitral A Point Velocity 122.5 cm/s Mitral E to A Ratio 1.0 MV Deceleration Time 226.6 ms MV E' Velocity 5.6 cm/s Mitral E to MV E' Ratio 22.1 TR Peak Velocity 220.4 cm/s TR Peak Gradient 19.4 mmHg Right Ventricular Systolic Press 24.4 mmHg PV Peak Velocity 118.0 cm/s PV Peak Gradient 5.6 mmHg FINDINGS Left Ventricle Mildly increased septal wall thickness. Mildly increased posterior wall thickness. Normal LV size. Left ventricular ejection fraction is estimated at 55-60 %. Right Ventricle Normal right ventricular size. Right Atrium Normal right atrial size. Left Atrium Mild left atrial dilatation. LA volume index= 28ml/m2 Mitral Valve Mild posterior mitral valve thickening/calcification. Severe MR. Aortic Valve Trileaflet aortic valve. Mild AV sclerosis/calcification. Moderate AI. Tricuspid Valve Tricuspid valve not well visualized. Mild TR. Pulmonic Valve Pulmonic valve not well visualized. No pulmonic regurgitation. Pericardium Normal pericardium. Aorta Normal size aortic root and proximal ascending aorta. CONCLUSIONS Preserved LV systolic function with inferior posterior hypokinesis Previewed by: Dr. Roni Mirza MD (Electronically Signed) Final Date: 06 November 2023 14:20
[2023-11-06] MEDS: HEPARIN SOD,PORK IN 0.45% NACL 25,000 UNIT in 0.45% NACL 1 250ML.BAG IV SCH (16:47)
[2023-11-06] MEDS: ATORVASTATIN 80 MG TAB PO SCH (21:20)
[2023-11-06] MEDS: AMITRIPTYLINE HCL 10 MG TAB PO SCH (21:20)
[2023-11-07] MEDS: HYDROmorphone 0.5 MG/0.5 ML SYRINGE IVP PRN ×2 (00:31→06:23)
[2023-11-07 08:44] LABS: Anisocytosis Slight; Basophils % (A) 0 %; Eosinophils # (A) 0.1 k/uL (0-0.7); Eosinophils % (A) 1 %; HCT 37.7 % (34.0-46.0); Hypochromasia Marked; Lymphocytes # (A) 3.5 k/uL (1.0-4.8); Lymphocytes % (A) 38 %; MCH 25.8 pg (25.0-35.0); MCHC 31.7 g/dL (31.0-37.0); MCV 81.3 fL (80.0-100.0); Mean Platelet Volume 9.2; Monocytes # (A) 0.6 k/uL (0-1.0); Monocytes % (A) 6 %; Neutrophils # (A) 4.9 k/uL (1.3-7.7); Neutrophils % (A) 53 %; Platelet Count 193 k/uL (150-450); RBC 4.64 m/uL (3.80-5.40); RDW 16.6 % (11.5-15.5); WBC 9.3 k/uL (3.8-10.6)
[2023-11-07 08:55] LABS: ALT 38 U/L (4-34); AST 40 U/L (14-36); African American GFR (CKD) >90 (>60 ml/min/1.73 sqM); Albumin 3.3 g/dL (3.5-5.0); Alkaline Phosphatase 81 U/L (38-126); Anion Gap 11 mmol/L; Blood Urea Nitrogen 31 mg/dL (7-17); Calcium 8.6 mg/dL (8.4-10.2); Carbon Dioxide 28 mmol/L (22-30); Chloride 94 mmol/L (98-107); Glucose 126 mg/dL (74-99); Non-African American GFR(CKD) >90 (>60 ml/min/1.73 sqM); Sodium 133 mmol/L (137-145); Total Bilirubin 0.5 mg/dL (0.2-1.3); Total Protein 6.1 g/dL (6.3-8.2)
[2023-11-07] MEDS: DULoxetine HCL 30 MG CAPSULE.DR PO SCH (09:26)
[2023-11-07] MEDS: guaiFENesin 600 MG TABLET.ER PO SCH (09:26)
[2023-11-07] MEDS: FUROSEMIDE 10 MG/ML 4 ML VIAL IV SCH (09:26)
[2023-11-07] MEDS: ASCORBIC ACID 500 MG TAB PO SCH (09:26)
[2023-11-07] MEDS: EZETIMIBE 10 MG TAB PO SCH (09:26)
[2023-11-07] MEDS: PREGABALIN 75 MG CAP PO SCH (09:26)
[2023-11-07] MEDS: MAG HYDROX/AL HYDROX/SIMETH 30 ML CUP PO SCH (09:26)
[2023-11-07] MEDS: ZINC SULFATE 220 MG CAP PO SCH (09:26)
[2023-11-07] MEDS: CLOPIDOGREL 75 MG TAB PO SCH (09:26)
[2023-11-07 09:32] VITALS: BP 126/71; PULSE 55; TEMP 97.9
--- NOTE | 2023-11-07 11:45 | P.PN ---
Subjective Progress Note Date: 11/07/23 Principal diagnosis: Shortness of breath. This is a pleasant 73-year-old female patient with a known history of hyperlipidemia, hypertension, congestive heart failure, coronary artery disease with previous stent placement, anxiety/depression, sick sinus syndrome status post permanent pacemaker implantation, CVA, peripheral arterial disease anticoagulated with Eliquis, chronic obstructive pulmonary disease and chronic and ongoing tobacco dependence. She had developed increasing shortness of breath, cough and congestion she was treated with a Z-Jaylen and a Medrol Dosepak in the outpatient setting without much improvement. She presented here to the emergency room yesterday the rather acute onset of shortness of breath. Chest x-ray revealed evidence of COPD and superimposed congestive heart failure and pulmonary vascular congestion. More patchy edema or developing infiltrate in the right base. Trace effusion. CT angiogram ruled out pulmonary embolism. There is borderline heart size. Groundglass airspace disease in the lower lung field suggestive of congestive heart failure. I count 9.7. Hemoglobin 10.8. Platelets 166. Sodium 132. Potassium 4.7. Bicarb 25. BUN 28. Creatinine 0.50. Glucose 291. Troponins 14.4, 9.9, 8.7. ProBNP 2059. Positive for C OVID-19 infection. She states she tested positive originally on October 14. Arterial blood gases on 80% FiO2 revealed a PaO2 of 324, pCO2 41 and pH of 7.37. She is seen today in consultation in the emergency department. She is currently on BiPAP 12/6 and 40% FiO2 alternating with 3 L/m per nasal cannula. She is breathing a bit easier today compared to yesterday. Currently denies any chest pain. She is currently on a heparin drip. Initiated on IV diuretics. Continued on bronchodilators and Solu-Medrol. Vitamin supplements. Progress note dated 11/06/2023. 73-year-old female seen in consultation yesterday for shortness of breath, and suspected MD, with congestive heart failure. The patient has history of multiple medical problems as noted above. Currently, the patient's on IV hep iris, no additional IV fluids, and receiving oxygen at 3 L. She did not use of BiPAP device last night. Clinically, the patient states that she feels better. She is much less short of breath. White count 12.2, hemoglobin 12.4, hematocrit 39.4, and platelet count 250,000. Sodium 136, potassium 4.2, chlorides 94, CO2 35, BUN 33, and creatinine 0.67. A previous chest x-ray and CT angiogram have been reviewed. Progress note dated 11/07/2023. 73-year-old female who was seen in consultation 2 days ago, for shortness of breath, secondary to suspected myocardial infarction, with congestive heart failure/fluid overload. Currently, the patient is seen in room 384. She remains on IV heparin. She's getting oxygen at 2 L. Saturations are 100% on oxygen. She is feeling much improved. Currently, the patient's white count is 9.3, hemoglobin 12, hematocrit 37.7, and platelet count 193,000. PTT was 63.4. Sodium 133, potassium 5, chlorides 94, CO2 28, BUN 31, and creatinine 0.59. Objective - Vital Signs Vital signs: Vital Signs Temp 97.9 F 11/07/23 09:24 Pulse 55 L 11/07/23 09:24 Resp 16 11/07/23 09:24 BP 126/71 11/07/23 09:24 Pulse Ox 99 11/07/23 09:24 FiO2 40 11/05/23 04:00 Intake & Output 11/06/23 11/07/23 11/07/23 18:59 06:59 18:59 Intake Total 606.93 130 Output Total 750 1600 Balance -143.07 -1600 130 Weight 57 kg Intake: IV 10 Invasive Line 1 10 Intake, IV Titration 248.93 Amount Heparin Sod,Pork in 0.45% 248.93 NaCl 25,000 unit In 0.45 % NaCl 1 250ml.bag @ 12 UNITS/KG/HR 7.784 mls/hr IV .Q24H [facility] Rx#: [id number] Oral 358 120 Output: Urine 750 1600 Other: Voiding Method Toilet Toilet Toilet # Voids 1 - Exam No acute distress, oriented 3. No obvious respiratory distress. Currently on 2 L nasal cannula. No audible wheezing, or use of accessory muscles. HEENT examination is grossly unremarkable. Mucous membranes are moist. No oral lesions. Neck supple. Full range of motion. No adenopathy thyromegaly or neck vein distention. Cardiovascular examination reveals regular rhythm rate. S1-S2 normal. No S3 or S4. No discernible murmur noted. Heart rate 55 bpm. Heart sounds are distant. Lungs reveal bilateral basilar crackles. No wheezes or rhonchi. Breath sounds equal bilaterally. 2 L saturation is 99%. Abdomen soft bowel sounds are heard. No masses or tenderness. Extremities are intact. No cyanosis clubbing or edema. Skin is without rash or lesion. Neurologic examination is brief but nonfocal. - Labs CBC & Chem 7: 11/07/23 07:28 11/07/23 07:28 Labs: Abnormal Lab Results - Last 24 Hours (Table) 11/07/23 11/07/23 Range/Units 07:28 07:28 RDW 16.6 H (11.5-15.5) % Sodium 133 L (137-145) mmol/L Chloride 94 L (98-107) mmol/L BUN 31 H (7-17) mg/dL Glucose 126 H (74-99) mg/dL AST 40 H (14-36) U/L ALT 38 H (4-34) U/L Total Protein 6.1 L (6.3-8.2) g/dL Albumin 3.3 L (3.5-5.0) g/dL Assessment and Plan Assessment: Acute non-ST segment myocardial infarction with fluid volume overload. Acute hypoxemic respiratory failure secondary to acute exacerbation of suspected systolic versus diastolic congestive heart failure. Acute COVID-19 infection without clear evidence of COVID-19 pneumonia. Patient originally tested positive on 10/14/2023. History of coronary disease with multiple stent placements. History of peripheral vascular disease, anticoagulated with Eliquis. Story of chronic obstructive pulmonary disease. Chronic tobacco dependence. Diabetes mellitus. History of CVA/TIA. History of gastric sleeve placement. History of osteoarthritis with multiple orthopedic procedures. Carotid artery disease with previous right and left carotid endarterectomies. Sick sinus syndrome status post dual-chamber pacemaker implantation. History of anxiety/depression. Plan: Plan dated 11/06/2023. The patient continues on IV heparin. The patient is receiving oxygen by nasal cannula at 3 L. She did not use of BiPAP device last night. Labs, x-rays, medications are reviewed. We should continue diuretics, and corticosteroids were discontinued. The patient was seen by cardiology. We will continue to follow and make recommendations along the way. The patient's overall prognosis remains guarded. Plan dated 11/07/2023. The patient is seen today in room 384. She is laying flat in bed, without any respiratory distress. She asked he was not wearing her oxygen, and states that she does not need it all the time. The patient is receiving IV heparin. Labs, x-rays, and medications are reviewed. The patient will continue with diuretics, but corticosteroids were discontinued. We will continue to follow make recommendations along the way. The patient's overall prognosis remains guarded. Time with Patient: Less than 30
[2023-11-07] MEDS: METOPROLOL SUCCINATE (ER) 50 MG TAB.ER.24H PO SCH (11:49)
--- NOTE | 2023-11-07 11:53 | P.DS ---
Providers Date of admission: 11/04/23 19:47 Expected date of discharge: 11/07/23 Attending physician: Pancho Cantu Consults: 11/04/23 19:41 Consult Physician Urgent Consulting Provider: Aaron Reyes Consult Reason/Comments: bipap respiratory failure, covid, chf, copd Do you want consulting provider notified?: Yes Consult Physician Urgent Consulting Provider: [facility] Consult Reason/Comments: chf, nstemi Do you want consulting provider notified?: Already Contacted Primary care physician: Chelsie Morales [facility] Course: Discharge diagnoses; Acute hypoxemic respiratory failure Non-ST elevation LA Lactic acidosis History of COVID-19 infection History of COPD History of bilateral carotid stenosis status post carotid endarterectomy History of CVA Sick sinus syndrome status post dual-chamber pacemaker 12/2021 Hypertension Dyslipidemia Type 2 diabetes Coronary artery disease status post PCI to the RCA in 2018, former tobacco use Hospital course; patient 73-year-old lady with past medical history significant for sick sinus syndrome status post dual-chamber pacemaker 12/2021, CVA, hypertension, dyslipidemia type 2 diabetes, coronary artery disease status post PCI to the RCA in 2018, former tobacco use, carotid artery stenosis status post bilateral carotid endarterectomy who presented to the hospital because of worsening shortness of breath. Patient stated that he was tested positive for COVID-19 infection the beginning of October, patient took outpatient steroids and antibiotics for that per her PCP. Patient noticed that she has been having worsening shortness of breath for the last 1 week. Complaining of shortness of breath on rest as well as exertion. Denies any fever or chills. Does admit to having a number of sick contacts at home. No complaint of chest pain. Patient denies any orthopnea or PND. There is no swelling of feet. patient denies any nausea, vomiting abdominal pain. Because of this worsening shortness of breath, EMS was called and when they arrived they found the patient oxygen saturation in the 40s on room air, patient was placed on CPAP and was transferred to the ER Initial lab work done in the ER showed WBC 10.6, hemoglobin 12.4, platelet count 297, d-dimer 5.99 sodium 138, potassium 4.4, BUN 25 and creatinine 0.59, lactate 8 troponin 14.4 Influenza A not detected Influenza B not detected RSV not detected COVID-19 detected EKG done in the ER showed heart rate of 129, no ST segment elevation or depression seen, no T-wave inversions seen. Chest x-ray done in the ER showed COPD and superimposed CHF with pulmonary vascular congestion CTA chest done showed no definite pulmonary embolism seen, early pulmonary edema seen. Patient admitted to internal medicine service 11/06. Patient seen and examined. Complaining of gas and stomach. Denies any nausea vomiting. Denies any chest pain. Complaining of back pain. States breathing has improved. Denies any swelling of lower extremities.. 11/07. Patient seen and examined. No acute issues overnight. Cardiology evaluated the patient, cleared the patient for discharge, started patient on Lasix 40 mg daily. PHYSICAL EXAMINATION: GENERAL: The patient is alert and oriented x3, not in any acute distress. Well developed, well nourished. HEENT: Pupils are round and equally reacting to light. EOMI. No scleral icterus. No conjunctival pallor. Normocephalic, atraumatic. No pharyngeal erythema. No thyromegaly. CARDIOVASCULAR: S1 and S2 present. No murmurs, rubs, or gallops. PULMONARY: Chest is clear to auscultation, no wheezing or crackles. ABDOMEN: Soft, nontender, nondistended, normoactive bowel sounds. No palpable organomegaly. MUSCULOSKELETAL: No joint swelling or deformity. EXTREMITIES: No cyanosis, clubbing, or pedal edema. NEUROLOGICAL: Gross neurological examination did not reveal any focal deficits. SKIN: No rashes. Dictation was produced using [employer] dictation software. please excuse any grammatical, word or spelling errors. Patient Condition at Discharge: Good Plan - Discharge Summary Discharge Rx Participant: Yes New Discharge Prescriptions: New Furosemide [Lasix] 40 mg PO DAILY 30 Days #30 tab Metoprolol Succinate (ER) [Toprol XL] 50 mg PO DAILY 30 Days #30 tab Continue Clopidogrel Bisulfate [Plavix] 75 mg PO DAILY DULoxetine HCL [Cymbalta] 30 mg PO TID Rosuvastatin Calcium [Crestor] 40 mg PO HS Spironolactone [Aldactone] 50 mg PO DAILY Acetaminophen Tab [Tylenol] 650 mg PO Q6HR PRN tab PRN Reason: Pain Scale 1 To 5 Azithromycin [Zithromax Z Pack] See Taper PO DIRECTED Apixaban [Eliquis] 2.5 mg PO BID Amitriptyline HCl 10 mg PO HS Ezetimibe [Zetia] 10 mg PO DAILY Pregabalin [Lyrica] 150 mg PO TID predniSONE See Taper PO DIRECTED Benzonatate [Tessalon Perles] 100 mg PO TID PRN PRN Reason: Cough Discontinued Valsartan [Diovan] 320 mg PO DAILY Metoprolol Succinate [Metoprolol Succinate ER] 25 mg PO DAILY amLODIPine [Norvasc] 10 mg PO DAILY #30 tab Discharge Medication List Clopidogrel Bisulfate [Plavix] 75 mg PO DAILY 11/19/17 [History] DULoxetine HCL [Cymbalta] 30 mg PO TID 05/22/18 [History] Rosuvastatin Calcium [Crestor] 40 mg PO HS 03/15/22 [History] Apixaban [Eliquis] 2.5 mg PO BID 10/20/22 [History] Amitriptyline HCl 10 mg PO HS 02/25/23 [History] Ezetimibe [Zetia] 10 mg PO DAILY 02/25/23 [History] Spironolactone [Aldactone] 50 mg PO DAILY 06/08/23 [History] Pregabalin [Lyrica] 150 mg PO TID 08/04/23 [History] Acetaminophen Tab [Tylenol] 650 mg PO Q6HR PRN tab 08/08/23 [Rx] Azithromycin [Zithromax Z Pack] See Taper PO DIRECTED 11/04/23 [History] Benzonatate [Tessalon Perles] 100 mg PO TID PRN 11/04/23 [History] predniSONE See Taper PO DIRECTED 11/04/23 [History] Furosemide [Lasix] 40 mg PO DAILY 30 Days #30 tab 11/07/23 [Rx] Metoprolol Succinate (ER) [Toprol XL] 50 mg PO DAILY 30 Days #30 tab 11/07/23 [Rx] Follow up Appointment(s)/Referral(s): Chelsie Morales DO [Primary Care Provider] - 1-2 days Discharge Disposition: HOME SELF-CARE
--- NOTE | 2023-11-07 13:40 | P.PN ---
Subjective Progress Note Date: 11/07/23 The patient is a 73-year-old female who is currently admitted to the hospital with shortness of breath and hypoxia. She was found to be COVID-19 positive. Troponins were elevated, therefore cardiology was consulted. She does have a history of coronary arteries disease with prior PCI, however she denies any chest discomfort. The patient remains chest pain-free. She states she continues to have a cough but her breathing has significantly improved. EXAM: Limited examination secondary to active Covid infection TELEMETRY: Sinus rhythm overnight IMPRESSION: Acute COVID-19 infection Elevated troponins Non-ST elevated myocardial infarction versus Covid related myocarditis Hypoxic respiratory failure Pulmonary vascular congestion PLAN: Discontinue heparin drip Switch to oral furosemide Patient may be discharged from the cardiac standpoint Lexiscan stress testing to be completed outpatient Follow-up with primary sales account manager Dr. Stark in one week I am dictating on behalf of Dr Roni Mirza's history/physical and assessment/plan. Objective - Vital Signs Vital signs: Vital Signs Temp 97.9 F 11/07/23 09:24 Pulse 55 L 11/07/23 09:24 Resp 16 11/07/23 09:24 BP 126/71 11/07/23 09:24 Pulse Ox 99 11/07/23 09:24 FiO2 40 11/05/23 04:00 Intake & Output 11/06/23 11/07/23 11/07/23 18:59 06:59 18:59 Intake Total 606.93 130 Output Total 750 1600 Balance -143.07 -1600 130 Weight 57 kg Intake: IV 10 Invasive Line 1 10 Intake, IV Titration 248.93 Amount Heparin Sod,Pork in 0.45% 248.93 NaCl 25,000 unit In 0.45 % NaCl 1 250ml.bag @ 12 UNITS/KG/HR 7.784 mls/hr IV .Q24H [facility] Rx#: [id number] Oral 358 120 Output: Urine 750 1600 Other: Voiding Method Toilet Toilet Toilet # Voids 1 - Labs CBC & Chem 7: 11/07/23 07:28 11/07/23 07:28 Labs: Abnormal Lab Results - Last 24 Hours (Table) 11/07/23 11/07/23 Range/Units 07:28 07:28 RDW 16.6 H (11.5-15.5) % Sodium 133 L (137-145) mmol/L Chloride 94 L (98-107) mmol/L BUN 31 H (7-17) mg/dL Glucose 126 H (74-99) mg/dL AST 40 H (14-36) U/L ALT 38 H (4-34) U/L Total Protein 6.1 L (6.3-8.2) g/dL Albumin 3.3 L (3.5-5.0) g/dL
[2023-11-08] MEDS ORDERED: FUROSEMIDE 40 MG TAB PO SCH (09:00)
== END 2023-11-07 13:24 | disposition home or self-care (01) | DRG 280 ==
LOC: EC 16:25 → 3SCARD 19:47
PROVIDERS: ADMIT Hospitalist; ATTEND Hospitalist
DX: I21.4 Non-ST elevation (NSTEMI) myocardial infarction (principal); J96.01 Acute respiratory failure with hypoxia; U07.1 COVID-19; E87.20 Acidosis, unspecified; I50.9 Heart failure, unspecified; I25.10 Atherosclerotic heart disease of native coronary artery without angina pectoris; I11.0 Hypertensive heart disease with heart failure; F17.210 Nicotine dependence, cigarettes, uncomplicated; Z95.5 Presence of coronary angioplasty implant and graft; E11.51 Type 2 diabetes mellitus with diabetic peripheral angiopathy without gangrene; E78.5 Hyperlipidemia, unspecified; F31.9 Bipolar disorder, unspecified; F41.9 Anxiety disorder, unspecified; H91.92 Unspecified hearing loss, left ear; I69.398 Other sequelae of cerebral infarction; K21.9 Gastro-esophageal reflux disease without esophagitis; M19.90 Unspecified osteoarthritis, unspecified site; G58.8 Other specified mononeuropathies; I25.2 Old myocardial infarction; I49.5 Sick sinus syndrome; J43.9 Emphysema, unspecified; Z79.01 Long term (current) use of anticoagulants; Z79.02 Long term (current) use of antithrombotics/antiplatelets; Z79.899 Other long term (current) drug therapy; Z82.49 Family history of ischemic heart disease and other diseases of the circulatory system; Z83.3 Family history of diabetes mellitus; Z95.0 Presence of cardiac pacemaker; Z96.652 Presence of left artificial knee joint; Z98.84 Bariatric surgery status; Z28.311 Partially vaccinated for COVID-19; Z28.21 Immunization not carried out because of patient refusal; Z88.5 Allergy status to narcotic agent; Z91.040 Latex allergy status
CPT/HCPCS: 36415; 36600; 71045; 71275; 80048; 80053; 82805; 83605; 83735; 83880; 84484; 85025; 85379; 85610; 85730; 87636; 93005; 93306; 94640; 94660; 94760; 96365; 96375; 96376; 99291

== ENCOUNTER → 2023-12-20 | Outpatient (CLI) | payer MEDICARE ==
--- NOTE | 2023-12-20 14:08 | CT ---
EXAMINATION TYPE: CT brain wo con CT DLP: 1239 mGycm, Automated exposure control for dose reduction was used. DATE OF EXAM: 12/20/2023 1:48 PM COMPARISON: 03/17/2022. CLINICAL INDICATION:Female, 73 years old with history of S09.90XA UNSPECIFIED INJURY OF HEAD, INITIAL ENCOU, fall TECHNIQUE: Brain: Axial CT images of the brain were obtained with coronal and sagittal reformats created and rev iewed. Contrast used: None. Oral contrast used: None. FINDINGS: Brain: Extra-axial spaces: No abnormal extra-axial fluid collections. Ventricular system: Within normal limits Cerebral parenchyma: Remote right MCA injury involving the right temporal lobe as well as the inferio r right frontal lobe remote injury to the right caudate nucleus is also present. Left occipital lobe remote injury also present. No acute intraparenchymal hemorrhage or mass effect. The masterson-white junc tion is well differentiated. Cerebellum: Unremarkable. Mass effect: No evidence of midline shift. Intracranial vasculature: Atherosclerotic calcifications of the intracranial vessels. Soft tissues: Normal. Calvarium/osseous structures: No depressed skull fracture. Paranasal sinuses and mastoid air cells: Mild scattered paranasal sinus disease. Visualized orbits: Bilateral aphakia. IMPRESSION: 1. No acute intracranial process. 2. Remote right MCA territory injuries and left inferior occipital lobe injury.
== END | disposition home or self-care (01) ==
LOC: RADCTMAIN 13:25
PROVIDERS: ATTEND Family Medicine
DX: S02.119A Unspecified fracture of occiput, initial encounter for closed fracture (principal); S09.90XA Unspecified injury of head, initial encounter; X58.XXXA Exposure to other specified factors, initial encounter; Z79.01 Long term (current) use of anticoagulants
CPT/HCPCS: 70450